=== PATIENT | female | born 1970 | race Caucasian/White ===

== ENCOUNTER 2016-09-26 17:25 | Emergency (ER) | payer MEDICAID, MEDICARE, OTHER ==
[2016-09-26 19:12] VITALS: BP 123/80
--- NOTE | 2016-09-26 20:21 | RAD ---
HISTORY: Trauma, neck pain COMPARISONS: CT dated January 18, 2014 VIEWS: 1, single lateral projection of the cervical spine FINDINGS: The cervical spine is visualized from the skull base through C7. The C7-T1 alignment is not included within the [id number]. ALIGNMENT: There is straightening of the normal cervical lordosis. VERTEBRAL BODIES: Unremarkable JOINTS: There is no subluxation or dislocation. The facet joints are unremarkable. INTERVERTEBRAL DISCS: The intervertebral disc heights are normal. SOFT TISSUE: The prevertebral soft tissues are normal. OTHER: The skull base is normal. The lung apices are clear. IMPRESSION: LIMITED SINGLE LATERAL PROJECTION OF THE CERVICAL SPINE THROUGH C7. STRAIGHTENING OF THE CERVICAL LORDOSIS. NO ACUTE OSSEOUS INJURY ON THIS LIMITED SINGLE PROJECTION.
--- NOTE | 2016-09-26 20:28 | RAD ---
HISTORY: Trauma, pain, back pain and stiffness COMPARISONS: October 31, 2005 VIEWS: 3, Frontal and lateral views of the thoracic spine. FINDINGS: ALIGNMENT: There is a scoliotic curvature of the spine. This is similar to the previous examination. VERTEBRAL BODIES: There is mild anterolateral marginal osteophyte formation. Vertebral bodies are preserved in height. JOINTS: Unremarkable. INTERVERTEBRAL DISCS: There is diffuse loss of intervertebral disc height. SOFT TISSUE: Unremarkable OTHER: The visualized lungs are clear. IMPRESSION: SCOLIOSIS WITH MILD DEGENERATIVE CHANGES.
--- NOTE | 2016-09-26 20:29 | RAD ---
HISTORY: Trauma, right wrist pain COMPARISONS: None VIEWS: 3, Frontal, lateral, and oblique views of the right wrist FINDINGS: BONE DENSITY: Normal. BONES: There is no displaced fracture. JOINTS: There is no arthropathy. ALIGNMENT: There is no dislocation. SOFT TISSUES: Unremarkable. OTHER FINDINGS: None. IMPRESSION: NO ACUTE OSSEOUS INJURY. IF SYMPTOMS PERSIST, RECOMMEND REPEAT IMAGING.
--- NOTE | 2016-09-26 20:41 | RAD ---
HISTORY: Trauma, neck pain COMPARISONS: CT dated January 18, 2014 VIEWS: 5, Frontal, lateral, open-mouth odontoid, and bilateral oblique views of the cervical spine. FINDINGS: The cervical spine is visualized from the skull base through T1. ALIGNMENT: There is straightening of the normal cervical lordosis. VERTEBRAL BODIES: The odontoid process is intact. The atlantoaxial intervals are symmetric. JOINTS: There is no subluxation or dislocation. The facet joints are unremarkable. There is no osseous neural foraminal narrowing on the oblique views INTERVERTEBRAL DISCS: The intervertebral disc heights are normal. SOFT TISSUE: The prevertebral soft tissues are normal. OTHER: The skull base is normal. The lung apices are clear. IMPRESSION: STRAIGHTENING OF THE CERVICAL LORDOSIS. NO ACUTE OSSEOUS INJURY TO THE CERVICAL SPINE
[2016-09-26] MEDS ORDERED: HYDROcodone/ACETAMIN 5-325 MG* 1 TAB PO ONE (20:53)
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
== END 2016-09-26 21:31 | disposition home or self-care (01) ==
LOC: UCEAST 17:25
DX: Z78.0 Asymptomatic menopausal state (principal); Z91.030 Bee allergy status; J45.909 Unspecified asthma, uncomplicated; S16.1XXA Strain of muscle, fascia and tendon at neck level, initial encounter; S29.012A Strain of muscle and tendon of back wall of thorax, initial encounter; R03.0 Elevated blood-pressure reading, without diagnosis of hypertension; R52 Pain, unspecified; V43.52XA Car driver injured in collision with other type car in traffic accident, initial encounter
CPT/HCPCS: 72020; 72050; 72070; 99213; G0463

== ENCOUNTER 2017-08-25 08:06 | Emergency (ER) | payer MEDICARE, MEDICAID ==
[2017-08-25] MEDS ORDERED: Metoclopramide IV* 5 MG/ML 2 ML VIAL IV SLOW PU ONE (09:32)
[2017-08-25] MEDS ORDERED: Ketorolac INJ* 30 MG/ML 1 ML VIAL IV PUSH ONE (09:32)
[2017-08-25 09:59] LABS: ABS Basophils 0.1 10^3/ul (0-0.2); ABS Eosinophils 0 10^3/ul (0-0.6); ABS Lymphocytes 2.1 10^3/ul (1.0-4.8); ABS Monocytes 0.5 10^3/ul (0-0.8); ABS Neutrophils 7.7 10^3/ul (1.5-7.7); ABS Nucleated RBC 0 10^3/ul; Eosinophil % 0 % (0-6); Hematocrit 33 % (35-47); Hemoglobin 10.7 g/dl (12.0-16.0); Lymphocyte % 20.5 % (25-47); Mean Corpuscular HGB Conc 32 g/dl (31-36); Mean Corpuscular Hemoglobin 25 pg (27-31); Mean Corpuscular Volume 77 fL (80-97); Mean Platelet Volume 7.8 um3 (7.4-10.4); Nucleated Red Blood Cells % 0; Platelet Count 380 10^3/ul (150-450); Red Blood Count 4.35 10^6/ul (4.0-5.4); Red Cell Distribution Width 18 % (10.5-15); White Blood Count 10.4 10^3/ul (3.5-10.8)
[2017-08-25 10:03] LABS: INR 0.94 (0.77-1.02)
[2017-08-25 10:04] LABS: Urine Appearance Clear; Urine Blood 2+ (Negative); Urine Color Straw; Urine Ketones Negative (Negative); Urine Protein Negative (Negative); Urine Specific Gravity 1.003 (1.010-1.030); Urine Urobilinogen Negative (Negative)
[2017-08-25 10:12] LABS: EGFR Non-African American 54.9 (>60)
--- NOTE | 2017-08-25 10:13 | RAD ---
HISTORY: Headache, blurry vision COMPARISONS: None TECHNIQUE: Multiple contiguous axial CT scans were obtained of the head without intravenous contrast. FINDINGS: HEMORRHAGE/INFARCT: There is no hemorrhage or acute infarct. MASSES/SHIFT: There is no mass or shift. EXTRA-AXIAL SPACES: There are no extra-axial fluid collections. SULCI AND VENTRICLES: The sulci and ventricles are normal in size and position for the patient's stated age. CEREBRUM: There are no focal parenchymal abnormalities. BRAINSTEM: There are no focal parenchymal abnormalities. CEREBELLUM: There are no focal parenchymal abnormalities. VESSELS: The vessels are grossly normal. PARANASAL SINUSES: The paranasal sinuses are clear. ORBITS: The orbits are unremarkable. BONES AND SOFT TISSUE: No bone or soft tissue abnormalities are noted. OTHER: None IMPRESSION: NO ACUTE INTRACRANIAL PATHOLOGY.
--- NOTE | 2017-08-25 10:15 | RAD ---
HISTORY: Atraumatic pain, Manuela Danlos syndrome COMPARISONS: June 12, 2014 VIEWS: 4, Frontal view of the pelvis with frontal and frog-leg views of the right hip FINDINGS: BONE DENSITY: Normal. BONES: There is no displaced fracture. JOINTS: There is no arthropathy. ALIGNMENT: There is no dislocation. SOFT TISSUES: Unremarkable. OTHER FINDINGS: None. IMPRESSION: NO ACUTE OSSEOUS INJURY. IF SYMPTOMS PERSIST, RECOMMEND REPEAT IMAGING.
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
[2017-08-25 12:11] VITALS: BP 102/60
== END 2017-08-25 12:10 | disposition home or self-care (01) ==
LOC: ED 08:06
DX: R51 Headache (principal); H53.8 Other visual disturbances; Z88.8 Allergy status to other drugs, medicaments and biological substances; J45.909 Unspecified asthma, uncomplicated; F43.20 Adjustment disorder, unspecified; M79.7 Fibromyalgia; G89.29 Other chronic pain; Q79.6 Ehlers-Danlos syndromes; Z79.899 Other long term (current) drug therapy; R07.9 Chest pain, unspecified; R06.02 Shortness of breath
CPT/HCPCS: 36415; 70450; 80053; 81003; 81015; 83605; 84484; 85025; 85610; 85730; 87086; 93005; 96374; 96375; 99283; J1885; J2765

== ENCOUNTER 2018-05-01 17:31 | Emergency (ER) | payer MEDICARE, MEDICAID ==
--- OUTSIDE RECORDS SUMMARY | 2018-05-01 17:47 | XMS REPORT | Continuity of Care Document ---
:1970 External Reference #:[id number] Author Name Wm Delaney MD Address [address] [place] [address] Care Team Providers Name Role Phone Danny Powers MD Care Team Information Newscast Director Unavailable Danny Powers MD Primary Care Physician Unavailable Payers Type Date Identification Numbers Payment Provider Subscriber Policy Number: [id number] Medicare [place] Sammie Vega PayID: [id number] [address] [place] [address] Policy Number: [id number] Medicaid [place] Sammie Vega PayID: [id number] [address] [place] [address] Expires: 2017 Policy Number: [id number] Medicaid [place] Sammie Vega PayID: [id number] [address] [place] [address] Expires: 2017 Policy Number: [id number] [place] Sammie Vega PayID: [id number] [address] [place] [id number] Advance Directives Description No Information Available Problems Date Description Provider Status Onset: 05/12/2017 Allergic rhinitis Wm Delaney MD Active Onset: 05/12/2017 Allergic rhinitis due to pollen Wm Delaney MD Active Onset: 05/12/2017 Uncomplicated severe persistent Wm Delaney MD Active asthma Onset: 06/15/2016 Moderate persistent asthma Wm Delaney MD Active Onset: 06/10/2016 Anaphylaxis Wm Delaney MD Active Family History Description No Information Available Social History Type Date Description Comments Sex Unknown Pets None Tobacco Use Start: Unknown Patient has never smoked Tobacco Use Start: Unknown No Second Hand Smoke Exposure Smoking Status Reviewed: 12/29/17 No Second Hand Smoke Exposure Allergies, Adverse Reactions, Alerts Date Description Reaction Status Severity Comments 01/16/2015 Benadryl Active 01/16/2015 Amitriptyline Active 01/16/2015 Cortisone Active 05/12/2017 Omalizumab Active Medications Medication Date Status Form Strength Qnty SIG Indications Ordering Provider Midodrine HCL 12/29 Active Tablets 2.5mg po Gabriele Delaney MD Fasenra 06/02 Active Soln 30mg/ml Prefill Gabriele Delaney MD Syringe Prednisone 05/12 Active Tablets 5mg 60tab 6 tablets J45.50 s (30 mg) Gabriele Delaney MD by mouth twice a day x 5 days Combivent 06/29 Active Aerosol 20-100mcg 1unit 1 puff 6 Respimat /2016 /Act s times a Gabriele Delaney MD day as needed Montelukast 04/14 Active Tablets 10mg 30tab Take One [place], Sodium s Tablet By HANNAH Olivares Mouth Once Daily In The Evening Symbicort 08/13 Active Aerosol 160-4.5mc 10.20 inhale g/Act 0gm two puffs Gabriele Delaney MD by mouth twice daily Levocetirizine 06/29 Active Tablets 5mg 30tab Take One [facility] Dihydrochloride s Tablet By Gabriele Delaney MD Mouth Once Daily AT Bedtime Epipen 2-Pool 01/16 Active Solution 0.3mg/0.3 2unit as Auto-Injec ML s directed Gabriele Delaney MD t Levalbuterol HCL Active Nebulizer 1.25mg/3M 72ml use in L nebulizer Gabriele Dealney MD as directed every 6 hours as needed Duloxetine HCL Active Caps DR 60mg take 2 Unknown Part capsules (120 mg) by oral route once daily Omeprazole Active Capsules 20mg take [address] capsule by oral route 2 times a day for 10 days Bupropion HCL ER Active Tablets ER 150mg take 1 Unknown (SR) 12HR tablet (150 mg) by oral route once daily Triamterene/Hydr Active Capsules 37.5-25mg take 1 Unknown ochlorothiazide /0000 capsule by oral route daily as needed Belsomra Active Tablets 20mg Unknown /0000 Duloxetine HCL Active Caps DR 30mg take 1 Unknown /0000 Part tab by mouth every daily Dicyclomine HCL Active Capsules 10mg Unknown / Alprazolam Active Tablets 1mg Unknown / Gabapentin Active Capsules 300mg 1 by Unknown / mouth three times a day Vitamin D3 High Active Capsules 1000Unit Unknown Potency /0000 Zinc Active Unknown / Nadolol Active Tablets 20mg 10 mg Unknown tab PO daily Dulera 08/02 Hx Aerosol 200-5mcg/ 8.800 inhale 2 Act gm puffs by Gabriele Delaney MD - inhalatio 08/13 n route times per day in the morning and evening for 99 days Prednisone 07/03 Hx Tablets 5mg 100ta Follow bs taper as Gabriele Delaney MD - directed 06/15 Prednisone 06/29 Hx Tablets 10mg 30tab Take 3 s tablets Gabriele Delaney MD - by mouth 07/03 twice day for 5 days. Take with food. Xopenex HFA 01/16 Hx Aerosol 45mcg/Act 2 puffs q 4 prn - 05/12 Ventolin HFA Hx Aerosol 108(90Bas inhale 2 Unknown / e) puffs - mcg/Act (180 mcg) 06/29 inhalatio n route every 4 hours as needed Eszopiclone Hx Tablets 3mg take 1 Unknown tablet (3 - mg) by 05/12 oral route once daily at bedtime Trazodone HCL Hx Tablets 50mg take 1 Unknown /0000 tablet by - oral 06/29 route times a day as needed Clonazepam Hx Tablets 1mg take 2 Unknown /0000 tablets - by oral 05/12 route times a day as needed Singulair Hx Tablets 10mg 30tab take 1 s tablet Gabriele Delaney MD - (10 mg) 05/12 by oral route once daily in the evening Medications Administered in Office Medication Date Status Form Strength Qnty SIG Indications Ordering Provider Unclassified 02/23/ Administered Injection [facility] 2017 Gabriele Delaney MD Therapeutic, 02/23/ Administered Injection [facility] Prophylactic 2017 Gabriele Delaney MD Or Diagnostic Injection Subq/Im Unclassified 10/20/ Administered Injection [facility] 2017 Gabriele Delaney MD Chemotherpy 10/20/ Administered Injection [facility] 2017 Gabriele Delaney MD Subcutaneous/I m Non-Hormonal Anti-Neoplasti c Fasenra 30 MG 09/22/ Administered Injection Injection 1 Single Dose 2017 Unclassified 09/22/ Administered Injection [facility] 2017 Gabriele Delaney MD Chemotherpy 09/22/ Administered Injection [facility] 2017 Gabriele Delaney MD Subcutaneous/I m Non-Hormonal Anti-Neoplasti c Chemotherpy 09/22/ Administered Injection Injection 1 Admin 2017 Subcutaneous/I m Non-Hormonal Anti-Neoplasti c Fasenra 30 MG 08/11/ Administered Injection Injection 1 Single Dose 2017 Unclassified 08/11/ Administered Injection [facility] 2017 Gabriele Delaney MD Chemotherpy 08/11/ Administered Injection [facility] 2017 Gabriele Delaney MD Subcutaneous/I m Non-Hormonal Anti-Neoplasti c Chemotherpy 08/11/ Administered Injection Injection 1 Admin 2017 Subcutaneous/I m Non-Hormonal Anti-Neoplasti c Injection 06/10/ Administered Injection [facility] Omalizumab 5 2016 Gabriele Delaney MD MG Injection, 06/10/ Administered Injection [facility] Adrenalin, 2016 Gabriele Delaney MD Epinephrine, 0.1 MG Chemotherpy 06/10/ Administered Injection [facility] 2016 Gabriele Delaney MD Subcutaneous/I m Non-Hormonal Anti-Neoplasti c Chemotherpy 06/10/ Administered Injection [facility] 2016 Gabriele Delaney MD Subcutaneous/I m Non-Hormonal Anti-Neoplasti c Therapeutic, 06/10/ Administered Injection [facility] Prophylactic 2016 Gabriele Delaney MD Or Diagnostic Injection Subq/Im Injection 05/13/ Administered Injection [facility] Omalizumab 5 2015 Gabriele Delaney MD MG Chemotherpy 05/13/ Administered Injection [facility] 2015 Gabriele Delaney MD Subcutaneous/I m Non-Hormonal Anti-Neoplasti c Chemotherpy 05/13/ Administered Injection [facility] 2015 Gabriele Delaney MD Subcutaneous/I m Non-Hormonal Anti-Neoplasti c Injection 04/15/ Administered Injection [facility] Omalizumab 2015 Gabriele Delaney MD MG Chemotherpy 04/15/ Administered Injection [facility] 2015 Gabriele Delaney MD Subcutaneous/I m Non-Hormonal Anti-Neoplasti c Chemotherpy 04/15/ Administered Injection [facility] 2015 Gabriele Delaney MD Subcutaneous/I m Non-Hormonal Anti-Neoplasti c Injection 03/18/ Administered Injection [facility] Omalizumab 2015 Gabriele Delaney MD MG Chemotherpy 03/18/ Administered Injection [facility] 2015 Gabriele Delaney MD Subcutaneous/I m Non-Hormonal Anti-Neoplasti c Chemotherpy 03/18/ Administered Injection [facility] 2015 Gabriele Delaney MD Subcutaneous/I m Non-Hormonal Anti-Neoplasti c Injection 02/09/ Administered Injection [facility] Omalizumab 2015 Gabriele Delaney MD MG Chemotherpy 02/09/ Administered Injection [facility] 2015 Gabriele Delaney MD Subcutaneous/I m Non-Hormonal Anti-Neoplasti c Chemotherpy 02/09/ Administered Injection [facility] 2015 Gabriele Delaney MD Subcutaneous/I m Non-Hormonal Anti-Neoplasti c Injection 01/12/ Administered Injection [facility] Omalizumab 2015 Gabriele Delaney MD MG Chemotherpy 01/12/ Administered Injection [facility] 2015 Gabrieel Delaney MD Subcutaneous/I m Non-Hormonal Anti-Neoplasti c Chemotherpy 01/12/ Administered Injection [facility] 2015 Gabriele Delaney MD Subcutaneous/I m Non-Hormonal Anti-Neoplasti c Injection 12/15/ Administered Injection [facility] Omalizumab 2015 Gabriele Delaney MD MG Chemotherpy 12/15/ Administered Injection [facility] 2015 Gabriele Delaney MD Subcutaneous/I m Non-Hormonal Anti-Neoplasti c Chemotherpy 12/15/ Administered Injection [facility] 2015 Gabriele Delaney MD Subcutaneous/I m Non-Hormonal Anti-Neoplasti c Injection 11/17/ Administered Injection [facility] Omalizumab 2015 Gabriele Delaney MD MG Chemotherpy 11/17/ Administered Injection [facility] 2015 Gabriele Delaney MD Subcutaneous/I m Non-Hormonal Anti-Neoplasti c Chemotherpy 11/17/ Administered Injection [facility] 2015 Gabriele Delaney MD Subcutaneous/I m Non-Hormonal Anti-Neoplasti c Injection 10/13/ Administered Injection [facility] Omalizumab 2015 Gabriele Delaney MD MG Chemotherpy 10/13/ Administered Injection [facility] 2015 Gabriele Delaney MD Subcutaneous/I m Non-Hormonal Anti-Neoplasti c Chemotherpy 10/13/ Administered Injection [facility] 2015 Gabriele Delaney MD Subcutaneous/I m Non-Hormonal Anti-Neoplasti c Injection 09/01/ Administered Injection [facility] Omalizumab 2015 Gabriele Delaney MD MG Chemotherpy 09/01/ Administered Injection [facility] 2015 Gabriele Delaney MD Subcutaneous/I m Non-Hormonal Anti-Neoplasti c Chemotherpy 09/01/ Administered Injection [facility] 2015 Gabriele Delaney MD Subcutaneous/I m Non-Hormonal Anti-Neoplasti c Injection 07/30/ Administered Injection [facility] Omalizumab 2015 Gabriele Delaney MD MG Chemotherpy 07/30/ Administered Injection [facility] 2015 Gabriele Delaney MD Subcutaneous/I m Non-Hormonal Anti-Neoplasti c Chemotherpy 07/30/ Administered Injection [facility] 2015 Gabriele Delaney MD Subcutaneous/I m Non-Hormonal Anti-Neoplasti c Injection 07/03/ Administered Injection [facility] Omalizumab 2015 Gabriele Delaney MD MG Chemotherpy 07/03/ Administered Injection [facility] 2015 Gabriele Delaney MD Subcutaneous/I m Non-Hormonal Anti-Neoplasti c Chemotherpy 07/03/ Administered Injection [facility] 2015 Gabriele Delaney MD Subcutaneous/I m Non-Hormonal Anti-Neoplasti c Immunizations Description No Information Available Vital Signs Date Vital Result Comment 12/29/2017 1:17pm BP Systolic 112 mmHg BP Diastolic 71 mmHg Height 68 inches 5'8" Weight 255.00 lb BMI (Body Mass Index) 38.8 kg/m2 Heart Rate 74 /min Body Temperature 97.4 F O2 % BldC Oximetry 96 % 05/12/2017 8:55am BP Systolic 120 mmHg BP Diastolic 78 mmHg Height 68 inches 5'8" Weight 255.00 lb BMI (Body Mass Index) 38.8 kg/m2 Heart Rate 97 /min Body Temperature 97.5 F O2 % BldC Oximetry 97 % 06/29/2016 2:38pm BP Systolic 108 mmHg BP Diastolic 72 mmHg Height 68 inches 5'8" Weight 239.00 lb BMI (Body Mass Index) 36.3 kg/m2 Heart Rate 85 /min Respiratory Rate 14 /min Body Temperature 97.5 F O2 % BldC Oximetry 97 % 06/15/2016 11:15am BP Systolic 110 mmHg BP Diastolic 76 mmHg Height 67.25 inches 5'7.25" Weight 239.00 lb BMI (Body Mass Index) 37.2 kg/m2 Heart Rate 91 /min Respiratory Rate 14 /min coughing O2 % BldC Oximetry 98 % 06/10/2016 5:37pm BP Systolic 120 mmHg BP Diastolic 80 mmHg Heart Rate 101 /min Body Temperature 97.3 F O2 % BldC Oximetry 97 % 01/30/2015 4:51pm BP Systolic 122 mmHg BP Diastolic 78 mmHg Height 68 inches Weight 238.00 lb Heart Rate 78 /min 01/16/2015 11:59am BP Systolic 121 mmHg BP Diastolic 80 mmHg Height 68 inches Weight 238.00 lb Heart Rate 96 /min Results Test Date Facility Test Result H/L Range Note Order 12/29/2017 [facility] Nitric Oxide <pending> PFT Supplies <pending> PFT With Bronchodilator <pending> Order 06/10/2016 [facility] Nebulizer Treatment < pending> Procedures Date Code Description Status 02/23/2018 93107 Therapeutic, Prophylactic Or Diagnostic Injection Subq/Im Completed 12/29/2017 95979 Nitric Oxide Gas Determination Completed 12/29/2017 36345 Nitric Oxide Gas Determination Completed 12/29/2017 51522 Bronchodilation Responsiveness Spirometry Pre/Post Completed Bronchodil Adm 12/29/2017 61832 Bronchodilation Responsiveness Spirometry Pre/Post Completed Bronchodil Adm 10/20/2017 77892 Chemotherpy Admin Subcutaneous/Im Non-Hormonal Completed Anti-Neoplastic 09/22/2017 21257 Chemotherpy Admin Subcutaneous/Im Non-Hormonal Completed Anti-Neoplastic 09/22/2017 19796 Chemotherpy Admin Subcutaneous/Im Non-Hormonal Completed Anti-Neoplastic 08/11/2017 32423 Chemotherpy Admin Subcutaneous/Im Non-Hormonal Completed Anti-Neoplastic 08/11/2017 43476 Chemotherpy Admin Subcutaneous/Im Non-Hormonal Completed Anti-Neoplastic 05/12/2017 98674 Nitric Oxide Gas Determination Completed 05/12/2017 98817 Bronchodilation Responsiveness Spirometry Pre/Post Completed Bronchodil Adm 06/29/2016 95585 Nitric Oxide Gas Determination Completed 06/15/2016 35816 Nitric Oxide Gas Determination Completed 06/15/2016 50976 Bronchodilation Responsiveness Spirometry Pre/Post Completed Bronchodil Adm 06/10/2016 35200 Spirometry Completed 06/10/2016 53353 Pressurized/Non-Pressurized Inhalation Treatment,Acute Completed Obstructio 06/10/2016 37330 Therapeutic, Prophylactic Or Diagnostic Injection Subq/Im Completed 06/10/2016 94628 Chemotherpy Admin Subcutaneous/Im Non-Hormonal Completed Anti-Neoplastic 06/10/2016 07610 Chemotherpy Admin Subcutaneous/Im Non-Hormonal Completed Anti-Neoplastic 05/13/2016 57403 Chemotherpy Admin Subcutaneous/Im Non-Hormonal Completed Anti-Neoplastic 05/13/2016 41986 Chemotherpy Admin Subcutaneous/Im Non-Hormonal Completed Anti-Neoplastic 04/15/2016 59256 Chemotherpy Admin Subcutaneous/Im Non-Hormonal Completed Anti-Neoplastic 04/15/2016 36097 Chemotherpy Admin Subcutaneous/Im Non-Hormonal Completed Anti-Neoplastic 04/15/2016 64781 Spirometry Completed 03/18/2016 70808 Chemotherpy Admin Subcutaneous/Im Non-Hormonal Completed Anti-Neoplastic 03/18/2016 81940 Chemotherpy Admin Subcutaneous/Im Non-Hormonal Completed Anti-Neoplastic 03/18/2016 60530 Spirometry Completed 02/10/2016 40761 Spirometry Completed 02/10/2016 39163 Spirometry Completed 02/10/2016 61378 Chemotherpy Admin Subcutaneous/Im Non-Hormonal Completed Anti-Neoplastic 02/10/2016 89778 Chemotherpy Admin Subcutaneous/Im Non-Hormonal Completed Anti-Neoplastic 01/13/2016 74738 Chemotherpy Admin Subcutaneous/Im Non-Hormonal Completed Anti-Neoplastic 01/13/2016 67952 Chemotherpy Admin Subcutaneous/Im Non-Hormonal Completed Anti-Neoplastic 01/13/2016 67201 Spirometry Completed 12/16/2015 74105 Chemotherpy Admin Subcutaneous/Im Non-Hormonal Completed Anti-Neoplastic 12/16/2015 05676 Chemotherpy Admin Subcutaneous/Im Non-Hormonal Completed Anti-Neoplastic 12/16/2015 75863 Bronchodilation Responsiveness Spirometry Pre/Post Completed Bronchodil Adm 11/18/2015 07945 Chemotherpy Admin Subcutaneous/Im Non-Hormonal Completed Anti-Neoplastic 11/18/2015 32573 Chemotherpy Admin Subcutaneous/Im Non-Hormonal Completed Anti-Neoplastic 11/18/2015 19128 Bronchodilation Responsiveness Spirometry Pre/Post Completed Bronchodil Adm 10/14/2015 53252 Spirometry Completed 10/14/2015 93572 Spirometry Completed 10/14/2015 38684 Chemotherpy Admin Subcutaneous/Im Non-Hormonal Completed Anti-Neoplastic 10/14/2015 53908 Chemotherpy Admin Subcutaneous/Im Non-Hormonal Completed Anti-Neoplastic 09/02/2015 21573 Chemotherpy Admin Subcutaneous/Im Non-Hormonal Completed Anti-Neoplastic 09/02/2015 66622 Chemotherpy Admin Subcutaneous/Im Non-Hormonal Completed Anti-Neoplastic 09/02/2015 76712 Spirometry Completed 07/31/2015 85280 Chemotherpy Admin Subcutaneous/Im Non-Hormonal Completed Anti-Neoplastic 07/31/2015 78857 Chemotherpy Admin Subcutaneous/Im Non-Hormonal Completed Anti-Neoplastic 07/31/2015 89182 Spirometry Completed 07/31/2015 28697 Spirometry Completed 07/03/2015 71728 Chemotherpy Admin Subcutaneous/Im Non-Hormonal Completed Anti-Neoplastic 07/03/2015 28692 Chemotherpy Admin Subcutaneous/Im Non-Hormonal Completed Anti-Neoplastic 07/03/2015 78175 Spirometry Completed 07/03/2015 08017 Spirometry Completed 06/29/2015 85854 Spirometry Completed Encounters Type Date Location Provider Dx Diagnosis Office Visit 12/29/2017 RENE [facility]ne[facility] J45.50 Severe persistent asthma, 1:00p uncomplicated J30.1 Allergic rhinitis due to pollen J30.89 Other allergic rhinitis Office Visit 05/12/2017 8:30a Damion Winters45.50 Severe persistent MD [facility], uncomplicated J30.1 Allergic rhinitis due to pollen J30.89 Other allergic rhinitis Office Visit 06/29/2016 2:30p Damion Winters45.40 Moderate persistent MD [facility] asthma, uncomplicated Office Visit 06/15/2016 11:00a [place] Wm Suazo J45.40 Moderate persistent MD [facility] asthma, uncomplicated Office Visit 06/10/2016 4:30p [place] Winters45.40 Moderate persistent MD [facility] asthma, uncomplicated T88.6xxA Anaphyl reaction due to advrs eff drug/med prop admin, init Plan of Treatment Future Appointment(s):04/25/2018 3:35 pm - Injection 1 at [id number]/11/2018 1: 30 pm - Angie Grigsby RPA-C at [place]
--- NOTE | 2018-05-01 21:46 | ED ---
Lower Extremity - HPI Summary HPI Summary: Patient complains of sudden onset pain in anterior right thigh 2 weeks. Denies trauma, history of same, history of blood clots. Denies any other pain, symptoms or injury. Patient cannot take NSAIDs, denies relief with Tylenol. Patient states history of needing right knee replacement, but was denied due to being too young. Medical history is fibromyalgia, chronic knee pain, and Manuela -Danlos. - History of Current Complaint Chief Complaint: EDExtremityLower Stated Complaint: RT LEG PAIN Time Seen by Provider: 05/01/18 18:27 Hx Obtained From: Patient Hx Last Menstrual Period: menopausal Mechanism Of Injury: Unknown Onset/Duration: Still Present Severity Initially: Moderate Severity Currently: Moderate Pain Intensity: 6 Pain Scale Used: 0-10 Numeric Timing: Constant Location: Is Discrete @ Character Of Pain: Aching Associated Signs And Symptoms: Positive: Negative Aggravating Factor(s): Ambulation, Movement, Weight Bearing Alleviating Factor(s): Rest Able to Bear Weight: Yes - Allergies/Home Medications Allergies/Adverse Reactions: Allergies Allergy/AdvReac Type Severity Reaction Status Date / Time adhesive Allergy Hives Verified 08/25/17 09:18 amitriptyline Allergy Unknown Verified 08/25/17 09:18 Reaction Details bee venom protein (honey bee) Allergy Anaphylatic Verified 08/25/17 09:18 Shock cortisone Allergy Swelling Verified 08/25/17 09:18 diphenhydramine Allergy Palpitation Verified 08/25/17 09:18 [From Benadryl] s omalizumab [From Xolair] Allergy Anaphylatic Verified 08/25/17 09:18 Shock strawberry Allergy Hives Verified 08/25/17 09:18 PMH/Surg Hx/FS Hx/Imm Hx Endocrine/Hematology History: Denies: Hx Diabetes, Hx Thyroid Disease Cardiovascular History: Denies: Hx Hypertension, Hx Pacemaker/ICD Respiratory History: Reports: Hx Asthma Denies: Hx Chronic Obstructive Pulmonary Disease (COPD), Hx Sleep Apnea - re- evaluation 02/2013 no JOSÉ detected. GI History: Reports: Hx Ulcer History: Denies: Hx Renal Disease Musculoskeletal History: Reports: Other Musculoskeletal History - Manuela-Danlos Syndrome Sensory History: Reports: Hx Contacts or Glasses Denies: Hx Hearing Aid Opthamlomology History: Reports: Hx Contacts or Glasses Psychiatric History: Denies: Hx Panic Disorder - Cancer History Hx Chemotherapy: No Hx Radiation Therapy: No - Surgical History Surgery Procedure, Year, and Place: NERVE REMOVED LEFT FOOT,. UTERINE SURGERY TO REMOVE CYSTS. ENDOMETRIOSIS AND FIBROID TUMORS - Immunization History Date of Tetanus Vaccine: unknown Infectious Disease History: No Infectious Disease History: Denies: Hx Clostridium Difficile, Hx Hepatitis, Hx Human Immunodeficiency Virus (HIV), Hx of Known/Suspected MRSA, Hx Shingles, Hx Tuberculosis, Traveled Outside the [place] in Last 30 Days - Family History Known Family History: Positive: Other - degenerative arthritis - Social History Alcohol Use: Rare Substance Use Type: Reports: None Smoking Status (MU): Never Smoked Tobacco Review of Systems Constitutional: Negative Eyes: Negative ENT: Negative Cardiovascular: Negative Respiratory: Negative Gastrointestinal: Negative Genitourinary: Negative Positive: Myalgia Skin: Negative Neurological: Negative Psychological: Normal All Other Systems Reviewed And Are Negative: Yes Physical Exam - Summary Physical Exam Summary: No erythema, ecchymosis, deformity, swelling, extra warmth noted to right hip, right thigh, right knee, entire right lower extremity. PMS intact distally. Tenderness to palpation of right anterior thigh. Pain with flexion of right hip. Triage Information Reviewed: Yes Vital Signs On Initial Exam: Initial Vitals Temp Pulse Resp BP Pulse Ox 97.9 F 93 18 137/74 98 05/01/18 17:36 05/01/18 17:36 05/01/18 17:36 05/01/18 17:36 05/01/18 17:36 Vital Signs Reviewed: Yes Appearance: Positive: Well-Appearing Skin: Positive: Warm Head/Face: Positive: Normal Head/Face Inspection Eyes: Positive: Normal Neck: Positive: Supple Respiratory/Lung Sounds: Positive: Clear to Auscultation Cardiovascular: Positive: Normal Abdomen Description: Positive: Nontender Musculoskeletal: Positive: Normal Neurological: Positive: Normal Psychiatric: Positive: Normal AVPU Assessment: Alert - [place] Coma Scale Best Eye Response: 4 - Spontaneous Best Motor Response: 6 - Obeys Commands Best Verbal Response: 5 - Oriented Coma Scale Total: 15 Diagnostics - Vital Signs Vital Signs Temp Pulse Resp BP Pulse Ox 05/01/18 17:36 97.9 F 93 18 137/74 98 - Laboratory Lab Statement: Any lab studies that have been ordered have been reviewed, and results considered in the medical decision making process. Lower Extremity Course/Dx - Course Course Of Treatment: Patient complains of sudden onset pain in anterior right thigh 2 weeks. Denies trauma, history of same, history of blood clots. Denies any other pain, symptoms or injury. Patient cannot take NSAIDs, denies relief with Tylenol. Patient states history of needing right knee replacement, but was denied due to being too young. Medical history is fibromyalgia, chronic knee pain, and Manuela-Danlos. Physical exam:No erythema, ecchymosis, deformity , swelling, extra warmth noted to right hip, right thigh, right knee, entire right lower extremity. PMS intact distally. Tenderness to palpation of right anterior thigh. Pain with flexion of right hip. Vital signs within normal limits. Ultrasound negative for DVT. Likely muscle sprain. Rx for Valium. Follow-up with orthopedics if symptoms persist. - Diagnoses Provider Diagnoses: Musculoskeletal pain Discharge - Sign-Out/Discharge Documenting (check all that apply): Patient Departure - Discharge Plan Condition: Stable Disposition: HOME Prescriptions: Diazepam TAB(*) [Valium TAB(*)] 5 mg PO BID 3 Days #6 tab MDD 3 tabs Patient Education Materials: Musculoskeletal Pain (ED) Referrals: Danny Powers MD [Primary Care Provider] - Jorden Wade MD [Medical Doctor] - Additional Instructions: If pain persists follow-up with orthopedics Dr. Wade. Return to the ED for any new or worsening symptoms. - Billing Disposition and Condition Condition: STABLE Disposition: Home
[2018-05-01 22:11] VITALS: BP 128/72
== END 2018-05-01 22:10 | disposition home or self-care (01) ==
LOC: ED 17:31
DX: M79.7 Fibromyalgia (principal); Q79.6 Ehlers-Danlos syndromes; Z91.030 Bee allergy status; Z88.8 Allergy status to other drugs, medicaments and biological substances; Z91.018 Allergy to other foods; Z91.048 Other nonmedicinal substance allergy status
CPT/HCPCS: 99281

== ENCOUNTER 2018-10-02 12:25 | Inpatient (IN) | payer MEDICARE, MEDICAID ==
--- NOTE | 2018-09-21 18:57 | HP ---
HISTORY AND PHYSICAL: DATE OF ADMISSION/SURGERY: 10/02/18 DATE OF OFFICE VISIT: 09/21/18 SURGEON: Alma Byers MD* (dictated by RENE Tovar). PROCEDURE: Right total knee arthroplasty. CHIEF COMPLAINT: Right knee pain. HISTORY OF PRESENT ILLNESS: Ms. Vega is a 47-year-old female with end-stage osteoarthritis of the right knee. She has failed conservative treatment and elected to proceed with a right total knee arthroplasty. PAST MEDICAL HISTORY: Hypertension, GERD, fibromyalgia, Manuela-Danlos syndrome , asthma, and sleep apnea. PAST SURGICAL HISTORY: Neuroma excision, fibroid tumor excision, wisdom teeth extraction. CURRENT MEDICATIONS: 1. EpiPen as needed. 2. Bupropion 150 mg twice a day. 3. Montelukast sodium 10 mg a day. 4. Combivent Respimat inhaler 2 puffs daily. 5. Dicyclomine 10 mg a day. 6. Symbicort inhaler 2 puffs twice a day. 7. Levocetirizine 5 mg daily. 8. Duloxetine 30 mg a day. 9. Zinc 75 mg daily. 10. Slow Release Iron. 11. Pantoprazole 40 mg a day. 12. Midodrine 2.5 mg 3 times a day. 13. Nadolol 10 mg a day. 14. Belsomra. 15. Levalbuterol. 16. Fluticasone. ALLERGIES: To BENADRYL and AMITRIPTYLINE. FAMILY HISTORY: Coronary artery disease, cancer, hypertension, emphysema. SOCIAL HISTORY: She is a 47-year-old female. She lives alone. She does not smoke or use drugs or alcohol. REVIEW OF SYSTEMS: A complete 14-point review of systems was reviewed with the patient. It was positive for GERD and asthma. She denies history of DVT, PE, hepatitis, HIV, or anesthesia problems. PHYSICAL EXAMINATION GENERAL: She is well developed, well nourished, in no acute distress. She is alert and oriented x3, pleasant and appropriate affect. VITAL SIGNS: She stands 5 feet 7 inches tall, weighs 257 pounds. Blood pressure is 132/70, her heart rate is 80. MUSCULOSKELETAL: Right lower extremity: The skin is intact. There are no open wounds or abrasions. There is moderate effusion of the right knee joint and some tenderness along the medial joint line. Range of motion is 10 to 100 degrees of flexion with patellofemoral crepitus. She has 2+ dorsalis pedis pulse. Intact sensation. Her lower extremity muscle group strengths are intact at 5/5. ASSESSMENT AND PLAN: Sammie is a 47-year-old female with end-stage osteoarthritis of the right knee. She has failed conservative treatment and elected to proceed with a right total knee arthroplasty. The surgery is scheduled for 10/02/[address] Byers discussed the risks and benefits of the surgery at today's visit and all of her questions were answered. She will follow up with Dr. Byers 2 weeks after the surgery. RENE TOVAR [id number]/CPS #: [id number] MTDD
[~2018-10-02 12:25] MED LIST: Buffered Lidocaine 1% SYRIN* 1 ML/SYRINGE INTRADERM ONE; Dexamethasone IV* 4 MG/ML 1 ML (4 MG) IV SLOW PU ONE; Dexamethasone IV* 4 MG/ML 1 ML (4 MG) ONE; Famotidine IV* 10 MG/ML 2 ML (20 mg) IV ONE; Famotidine IV* 10 MG/ML 2 ML (20 mg) ONE; Gabapentin CAP(*) 300 MG ONE; Gabapentin CAP(*) 300 MG PO ONE; Lactated Ringers 1000 ML Bag* 1,000 ML IV SCH; Tranexamic Acid 1,000 MG in NS 0.9% 50 ML* (outpatient use) IV SCH; ceFAZolin 2 GM PREMIX in ORs 2 GM/50 ML BAG IVPB ONE; celeCOXIB CAP* 100 MG ONE; celeCOXIB CAP* 200 MG PO ONE
--- OUTSIDE RECORDS SUMMARY | 2018-10-02 12:28 | XMS REPORT | Continuity of Care Document ---
:1970 External Reference #:[id number] Author Name Robsonmare Celia Care Team Providers Name Role Phone Danny Powers MD Primary Care Physician Unavailable Payers Date Identification Numbers Payment Provider Subscriber Policy Number: [id number] Medicare Sammie Vega PayID: [id number] [address] [place] [address] Effective: 2018 Policy Number: [id number] Medicaid Sammie Vega Group Name: 1 1 [address] PayID: [id number] [place] [address] Effective: 2016 Policy Number: [id number] Medicaid Sammie Vega Expires: 2018 Group Name: 1 1 [address] PayID: [id number] [place] [address] Expires: 2017 Policy Number: [id number] Medicaid Sammie Vega PayID: [id number] [address] [place] [address] Policy Number: [id number] No Fault Sammie Vega PayID: [id number] [place] Advance Directives Description No Information Available Problems Active Problems Provider Date Chronic pain syndrome Emilio Coleman M.D. Onset: 07/24/2012 Hypermobility syndrome Emilio Coleman M.D. Onset: 07/24/2012 Cervical spondylosis without myelopathy Emilio Coleman M.D. Onset: 07/24/2012 Localized, primary osteoarthritis Alma Byers M.D. Onset: 03/13/2015 Fibromyalgia Alma Byers M.D. Onset: 03/13/2015 Disorder of lung Aiyana Dickey MD Onset: 10/28/2015 Morbid obesity Aiyana Dickey MD Onset: 10/28/2015 Asthma without status asthmaticus Aiyana Dickey MD Onset: 10/28/2015 Gastroesophageal reflux disease Aiyana Dickey MD Onset: 11/24/2015 Obesity Aiyana Dickey MD Onset: 03/22/2016 Sore throat symptom Aiyana Dickey MD Onset: 09/20/2016 Syncope and collapse Sloane Suarez M.D. Onset: 06/02/2017 FH: Angina in 1st degree female relative <65 Sloane Suarez M.D. Onset: 2017 years Acquired genu valgum Alma Byers M.D. Onset: 02/19/2018 Pain in limb Alma Byers M.D. Onset: 05/09/2018 Autonomic dysreflexia Sloane Suarez M.D. Onset: 07/13/2018 Preoperative cardiovascular examination Sloane Suarez M.D. Onset: 07/13/2018 Family History Date Family Member(s) Observation Comments General Elhes Danlos??? in [facility] Mother with joint "issues" (maternal) [facility], General Heart Disease General Hypertension General Cancer Father Unknown Does not know paternal side Mother Asthma Mother Chronic Obstructive Pulmonary Disease (COPD) Mother Depression Mother Allergies, Seasonal Mother at age 61 from undx: heart condition Siblings 1 Sister, arthritis, cervical? ?ovarian cancer, taken care of , doing well now Social History Type Date Description Comments Sex Unknown Marital Status Single Lives With Alone Occupation Disabled from [employer] Tobacco Use Start: Unknown Never Smoked Cigarettes Smoking Status Reviewed: 09/21/18 Never Smoked Cigarettes ETOH Use Rarely consumes alcohol Tobacco Use Start: Unknown Patient has never smoked Recreational Drug Use Denies Drug Use Exercise Type/Frequency Exercises sporadically Allergies, Adverse Reactions, Alerts Active Allergies Reaction Severity Comments Date Benadryl 07/24/2012 07/24/2012 Amitriptyline 07/24/2012 Cortisone Cortisone Injections 07/24/2012 Bee Sting Anaphylaxis Severe 12/04/2013 Strawberries Urticaria Moderate 12/04/2013 Red Wine 06/02/2017 Adhesives 06/02/2017 Zolair Shots 06/02/2017 Medications Active Medications SIG Qnty Indications Ordering Date Provider Diclofenac Sodium apply 1 gram 100gm M17.11 Jefe Wall, 08/29/2018 1% Gel topically four M.D. times daily to painful joint as needed Slow Release Iron Take one by mouth 30tabs D64.9 Jefe Wall, 07/31/2018 47.5mg every other day M.DBarbie Tablets ER Naltrexone HCL 4.5 mg compounded 15gm Jefe Sanchezr, 07/31/2018 Powder in capsules by M.Dwayne mouth every day Rosey anthony rosey unhardik Byers, 05/11/2018 with a seat dx: Avila m79.651 Rosey front wheeled 1unhardik Byers, 05/09/2018 [facility] [place] Gramajo Midodrine HCL take 1 tab by 90tabs R55 Marley Banuelos, 11/10/2017 2.5mg Tablets mouth 3x daily N.P. Nadolol 1/2 tab by mouth 90tabs Marley Banuelos, 06/27/2017 20mg Tablets every day N.P. Symbicort 2 puff twice a Sloane Suarez, 04/18/2017 80-4.5mcg/Act day M.DBarbie Aerosol Combivent Respimat 1 puffs twice Unknown 10/27/2015 daily 20-100mcg/Act Aerosol Montelukast Sodium 1 by mouth every Unknown 10/27/2015 10mg day Tablets Bupropion HCL ER (SR) 1 by mouth twice Unknown 10/27/2015 150mg a day Tablets ER 12HR Cane disp 1 for M17.11 Jose Chavez, 03/17/2015 [facility] [place] as needed MD Claudine Braun, 20mg Tablets MD Lila Srinivasan once monthly Unknown Fluticasone Propionate 2 puffs each nare Unknown every in the 50mcg/Act Suspension morning Pantoprazole Sodium 1 by mouth twice Unknown 40mg a day Tablets DR Levalbuterol Tartrate Unknown 45mcg/Act Aerosol Seroquel 1 to 2 to 3 tabs Unknown 100mg Tablets at at bedtime depending on sleep per psych Zinc Picolinate 1 cap po daily Unknown 75mg Levocetirizine 1 by mouth every Unknown Dihydrochloride day 5mg Tablets Vitamin D3 Super 1 by mouth every Unknown Strength day 2000Unit Capsules Dicyclomine HCL 1 by mouth every Unknown 10mg day Capsules Epipen 2-Pool sc prn 2units Unknown 0.3mg/0.3ML Device History Medications Diclofenac Sodium 2 pumps twice 100gm M17.11 Jefe Wall, 08/28/2018 - 1% Gel daily as needed M.D. 08/29/2018 for joint pain Pennsaid 2 pumps twice 112gm M17.11 Jefe Wall, 07/31/2018 - 2% Solution daily as needed M.D. 08/28/2018 for right knee pain Celecoxib take one twice a Unknown 03/21/2016 - 100mg Capsules day with food 09/19/2016 Ranitidine HCL 1 by mouth at 30tabs K21.9 Aiyana Dickey, 11/24/2015 - 300mg night MD 09/19/2016 Tablets Lidocaine apply to painful Unknown 10/27/2015 - 5% Ointment areas three times 06/01/2017 a day as needed. Symbicort 2 puff twice a Unknown 10/27/2015 - 160-4.5mcg/Act day 04/19/2017 Aerosol Levalbuterol HCL as needed Unknown 10/27/2015 - 07/12/2018 1.25mg/3ML Nebulizer Auvi-Q inject s/c as Unknown 10/27/2015 - 0.3mg/0.3ML directed 06/01/2017 Solution Auto-Inject Eszopiclone 1 tab by mouth at Unknown 10/27/2015 - 3mg Tablets bedtime 06/01/2017 Xyzal 1 by mouth every Unknown 10/27/2015 - 5mg Tablets day 06/01/2017 Duloxetine HCL 1 by mouth daily Unknown 10/27/2015 - 60mg Caps Unknown DR Patricio Inositol 1 tablet po daily Unknown - 650mg Tablets 05/31/2018 Quercetin 2 tablet po at Unknown - bedtime 06/12/2018 Alprazolam 1 tablet po up 4 Unknown - 1mg Tablets times day as Unknown needed Duloxetine HCL 1 by mouth every Unknown - 30mg Caps day Unknown DR Sheng Ledezmamra 1 tablet po Unknown - before bedtime 07/11/2018 Diazepam one by mouth Unknown - 10mg Tablets twice a day 06/01/2017 Albuterol Sulfate 1 vial via Unknown - nebulizer 4 times 06/01/2017 (2.5mg/3ML) 0.083% daily as needed Nebulizer Trintellix once a day Unknown - 10mg Tablets 06/01/2017 Gabapentin 1 cap po tid Unknown - 300mg Capsules Unknown Benzamycin apply twice a day 46.6gm Unknown - 5-3% Gel as needed acne 09/19/2016 Triamterene/Hydrochlor 1 by mouth every 90tabs Unknown - othiazide day prn 06/12/2018 37.5-25mg Tablets Lunesta one tab at 30tabs Unknown - 3mg Tablets bedtime 03/21/2016 Xopenex every 4-6 hrs as 1box Unknown - 0.63mg/3ML needed 10/27/2015 Nebulizer Meloxicam 1 po bid 30tabs Unknown - 15mg Tablets 12/04/2013 Advair Diskus 1 puff po bid 2units Unknown - 10/27/2015 500-50mcg/Dose Aerosol Ventolin HFA 2 puffs po q4hrs 18gm Unknown - 108(90Base) prn 10/27/2015 mcg/ac Aerosol Ergocalciferol 1 cap by mouth 8caps Unknown - 86241Rnbf every week 10/27/2015 Capsules Cymbalta 1 po qd 90caps Unknown - 60mg Caps 10/27/2015 Part Trazodone HCL 1 tablet at 30tabs Unknown - 50mg bedtime as needed 06/01/2017 Tablets Omeprazole 1 po bid 60caps Unknown - 40mg Capsules 07/12/2018 Clonazepam 1/2-1 po bid prn 60tabs Unknown - 1mg Tablets 06/01/2017 Ortho Tri-Cyclen Lo 1 po qd 84tabs Unknown - 06/01/2017 0.18/0.215/0.25 mg-2 Tablets Zyrtec Allergy 1 po qd 30caps Unknown - 10mg 10/27/2015 Capsules Singulair 1 po qd 30tabs Unknown - 10mg Tablets 10/27/2015 Immunizations Description No Information Available Vital Signs Date Vital Result Comment 09/21/2018 2:24pm Height 68 inches 5'8" Weight 257.00 lb Heart Rate 80 /min BP Systolic 132 mmHg BP Diastolic 70 mmHg Body Temperature 97.1 F Pain Level 7 BMI (Body Mass Index) 39.1 kg/m2 08/31/2018 3:11pm Height 68 inches 5'8" Weight 261.00 lb BP Systolic 130 mmHg BP Diastolic 82 mmHg Pain Level 7 BMI (Body Mass Index) 39.7 kg/m2 07/31/2018 3:17pm Height 68 inches 5'8" Weight 264.00 lb Heart Rate 74 /min BP Systolic Sitting 122 mmHg BP Diastolic Sitting 80 mmHg Pain Level 8 O2 % BldC Oximetry 96 % BMI (Body Mass Index) 40.1 kg/m2 07/13/2018 10:40am Height 68 inches 5'8" Weight 263.00 lb Heart Rate 80 /min BP Systolic Sitting 130 mmHg Lue lg cuff BP Diastolic Sitting 88 mmHg Lue lg cuff BP Systolic Standing 126 mmHg BP Diastolic Standing 86 mmHg Respiratory Rate 18 /min BMI (Body Mass Index) 40.0 kg/m2 Ejection Fraction 55-60% as of 06/2017 echo 07/03/2018 3:37pm Height 68 inches 5'8" Weight 265.50 lb Heart Rate 73 /min BP Systolic 124 mmHg BP Diastolic 78 mmHg Pain Level 8 O2 % BldC Oximetry 98 % BMI (Body Mass Index) 40.4 kg/m2 06/06/2018 10:25am Height 68 inches 5'8" Heart Rate 72 /min BP Systolic 122 mmHg BP Diastolic 76 mmHg Body Temperature 97.6 F Pain Level 8 05/09/2018 10:22am Height 68 inches 5'8" Weight 257.00 lb BP Systolic 114 mmHg BP Diastolic 74 mmHg Body Temperature 97.9 F BMI (Body Mass Index) 39.1 kg/m2 02/19/2018 4:00pm Height 68 inches 5'8" Weight 250.00 lb Heart Rate 60 /min BP Systolic 120 mmHg BP Diastolic 90 mmHg Body Temperature 98.1 F Pain Level 8 BMI (Body Mass Index) 38.0 kg/m2 01/02/2018 11:12am Height 68 inches 5'8" Weight 253.00 lb without shoes Heart Rate 72 /min BP Systolic Sitting 98 mmHg Lue lg cuff BP Diastolic Sitting 74 mmHg Lue lg cuff BP Systolic Standing 100 mmHg Lue lg cuff BP Diastolic Standing 70 mmHg Lue lg cuff Respiratory Rate 18 /min BMI (Body Mass Index) 38.5 kg/m2 Ejection Fraction 55-60% date 07/19/17 ECHO 11/10/2017 4:01pm Height 68 inches 5'8" Weight 252.00 lb Heart Rate 62 /min BP Systolic 108 mmHg Sit, HR 67 sitting BP Diastolic 80 mmHg Sit, HR 67 sitting BP Systolic Sitting 132 mmHg lue lg cuff BP Diastolic Sitting 68 mmHg lue lg cuff BP Systolic Standing 100 mmHg Standing, HR 78 Standing BP Diastolic Standing 80 mmHg Standing, HR 78 Standing BP Systolic Recheck 104 mmHg BP Diastolic Recheck 64 mmHg Respiratory Rate 17 /min BMI (Body Mass Index) 38.3 kg/m2 Ejection Fraction 55-60% 07/19/2017 echo 10/10/2017 3:03pm Height 68 inches 5'8" Weight 256.00 lb without shoes Heart Rate 60 /min BP Systolic Sitting 110 mmHg Rue lg cuff BP Diastolic Sitting 82 mmHg Rue lg cuff Respiratory Rate 16 /min BMI (Body Mass Index) 38.9 kg/m2 Ejection Fraction 50-55% date 09/22/2017 2:47pm Height 68 inches 5'8" Weight 251.00 lb w/o shoes Heart Rate 74 /min BP Systolic Sitting 118 mmHg LA lg cuff BP Diastolic Sitting 84 mmHg LA lg cuff BP Systolic Standing 122 mmHg LA lg cuff BP Diastolic Standing 80 mmHg LA lg cuff BMI (Body Mass Index) 38.2 kg/m2 Ejection Fraction 55-60% Echo 07/19/17 06/02/2017 2:53pm Height 68 inches 5'8" Weight 256.00 lb No shoes Heart Rate 92 /min BP Systolic 108 mmHg Rue lrg cuff BP Diastolic 76 mmHg Rue lrg cuff BP Systolic Sitting 112 mmHg Lue lrg cuff BP Diastolic Sitting 78 mmHg Lue lrg cuff BP Systolic Standing 106 mmHg Lue lrg cuff BP Diastolic Standing 70 mmHg Lue lrg cuff Respiratory Rate 17 /min BMI (Body Mass Index) 38.9 kg/m2 09/20/2016 4:02pm Height 68 inches 5'8" Weight 238.00 lb Heart Rate 97 /min BP Systolic Sitting 118 mmHg BP Diastolic Sitting 78 mmHg Respiratory Rate 14 /min Pain Level 8 All over pain O2 % BldC Oximetry 99 % BMI (Body Mass Index) 36.2 kg/m2 03/22/2016 3:58pm Height 68 inches 5'8" Weight 252.00 lb Heart Rate 78 /min BP Systolic 124 mmHg BP Diastolic 62 mmHg Respiratory Rate 14 /min O2 % BldC Oximetry 94 % BMI (Body Mass Index) 38.3 kg/m2 11/24/2015 1:56pm Height 68 inches 5'8" Weight 252.00 lb Heart Rate 88 /min BP Systolic 138 mmHg BP Diastolic 78 mmHg Respiratory Rate 14 /min O2 % BldC Oximetry 98 % BMI (Body Mass Index) 38.3 kg/m2 10/28/2015 10:09am Height 68 inches 5'8" Weight 252.50 lb Heart Rate 85 /min BP Systolic Sitting 132 mmHg BP Diastolic Sitting 78 mmHg Respiratory Rate 16 /min O2 % BldC Oximetry 97 % BMI (Body Mass Index) 38.4 kg/m2 06/24/2015 1:31pm Height 68 inches 5'8" Weight 254.00 lb Pain Level 6 BMI (Body Mass Index) 38.6 kg/m2 03/17/2015 1:27pm Height 68 inches 5'8" Weight 245.00 lb Heart Rate 79 /min BP Systolic Sitting 109 mmHg BP Diastolic Sitting 88 mmHg Respiratory Rate 18 /min Pain Level 6 BMI (Body Mass Index) 37.2 kg/m2 03/13/2015 2:29pm Height 68 inches 5'8" Weight 245.00 lb Pain Level 4 BMI (Body Mass Index) 37.2 kg/m2 12/04/2013 1:02pm Height 68 inches 5'8" Weight 234.00 lb Heart Rate 84 /min BP Systolic Sitting 110 mmHg BP Diastolic Sitting 80 mmHg BMI (Body Mass Index) 35.6 kg/m2 07/24/2012 3:43pm Height 68 inches 5'8" Weight 235.50 lb Heart Rate 88 /min BP Systolic Sitting 126 mmHg BP Diastolic Sitting 68 mmHg BMI (Body Mass Index) 35.8 kg/m2 Results Test Date Facility Test Result H/L Range Note Vitamin B12 And 07/13/2018 [facility] Vitamin B12 421 pg/mL N 180-914 1 Folate Serum [address] [place] [address] [phone] Folic Acid (Folate) 10.21 ng/mL >3.99 2 Iron & Iron Binding 07/13/2018 [facility] Iron 65 g/dL N 50- [address] [place], [place] [id number] [phone] Unsaturated Iron Binding < 454 g/dL Total Iron Binding Capacity 469 g/dL High 250-450 Transferrin 335 mg/dL N 203-362 % Iron Saturation 14 % Low 15-55 Laboratory test 07/13/2018 [facility] Ferritin 7.9 ng/mL Low 11-307 3 finding [address] [place] [address] [phone] Vitamin D Total 25(Oh) 34.9 ng/mL N 20-50 4 Connective Tissue 07/13/2018 [facility] Anti-Nuclear Antibody 0.4 U 5 Panel [address] [place] [address] [phone] Cyclic Citrullinated Peptide <15.6 U 6 Interpretation See Comment 7 Laboratory test 07/13/2018 [facility] Erythrocyte Sed 34 mm/Hr High 0-[address] [place] [address] [phone] C Reactive Protein 6.32 mg/L N <8.01 9 Vitamin B6 07/13/2018 [facility] Pyridoxal 5-Phosphate 6 g/L 5-50 10 [address] [place] [address] [phone] Pyridoxic Acid 5 g/L 3-30 11 Laboratory test 07/13/2018 [facility] Creatine 71 U/L N 10- 223 12 finding 101 [facility] Kinase(CK) [place] [address] [phone] Ssa/SSB Abs Igg 07/13/2018 [facility] SS-A/Ro Antibody <0.2 U 13 [address] [place] [address] [phone] SS-B/La Antibody <0.2 U 14 Laboratory test finding 07/13/2018 [facility] Isa-1 Antibody < 0.2 U 15 [address] [place] [address] [phone] Cortisol 5.38 g/dL 16 Thyroperoxidase AB 0.57 IU/mL N <9 17 Hla B27 08/08/2012 [facility] Hla B27 Negative 18 [address] [place] [address] [phone] Hla B27 Interp See Comment 19 Laboratory test 08/08/2012 [facility] Uric Acid 2.3 mg/dL Low 2.6-7.2 finding [address] [place] [address] [phone] 1 Normal Range 180 to 914 Indeterminate Range 145 to 180 Deficient Range <145 2 Please check labs this week 3 Please check labs this week 4 Please check labs this week 5 REFERENCE VALUE <=1.0 (Negative) 6 REFERENCE VALUE <20.0 (Negative) 7 Tests for antibodies to dsDNA and CARLTON antigens are not performed automatically unless the CHERRY result is > or= 3.0 U. Studies performed at [facility] indicate that positive CHERRY results <3.0 U are rarely accompanied by positive second order tests. Test Performed by: [facility] - [address] [address] 8 Test Performed by: [facility] [address] [place] [id number] Dani Palacios M.D. Director of Laboratory 9 Please check labs this week 10 ADDITIONAL INFORMATION This test was developed and its performance characteristics determined by [facility] in a manner consistent with CLIA requirements. This test has not been cleared or approved by the U.S. Food and Drug Administration. 11 ADDITIONAL INFORMATION This test was developed and its performance characteristics determined by [facility] in a manner consistent with CLIA requirements. This test has not been cleared or approved by the U.S. Food and Drug Administration. Test Performed by: [facility] - [address] [address] 12 Please check labs this week 13 REFERENCE VALUE <1.0 (Negative) 14 REFERENCE VALUE <1.0 (Negative) Test Performed by: [facility] - [address] [address] 15 REFERENCE VALUE <1.0 (Negative) Test Performed by: [facility] - [address] [address] 16 AM 8.7-22.4 PM <10 17 Please check labs this week 18 -- REFERENCE VALUE -- Not Applicable 19 RESULT: HLA-B27 antigen was not detected. Method: Flow Cytometry Test Performed by: [facility] - [address] [address] Director Technical: Percy Hollis III, M.D. Procedures Date Code Description Status 07/13/2018 96338 EKG Tracing & Interpretation Completed 11/10/2017 60827 EKG Tracing & Interpretation Completed 07/21/2017 20362 Stress Test Completed 07/19/2017 41999 ECHO Transthoracic, Real-Time 2D With Doppler And Color Completed Flow 07/19/2017 36109 ECHO Transthoracic, Real-Time 2D With Doppler And Color Completed Flow 06/29/2017 91604 Mobile Cardiovascular Telemetry Over 24 HR Up To 30 Days Completed 06/25/2017 60874 Holter Monitor Review (24 hr)dr review & interp only Completed 06/20/2017 14290 ECG Monitor/Recording W/Visual Superimposition Scanning Completed 06/20/2017 00794 ECG Monitor/Recording W/Visual Superimposition Scanning Completed 06/02/2017 07828 EKG Tracing & Interpretation Completed 11/17/2015 48669 Diffusing Capacity Completed 11/17/2015 93874 Plethysmography Determination Lung Volumes & Per Airway Completed Resist 11/17/2015 78985 Pulmonary Function><Bronchodil Completed 02/25/2013 37070 Polysomnography Sleep Staging 4+ Parameters Completed Encounters Type Date Location Provider Dx Diagnosis Office Visit 08/31/2018 Orthopedic Alma Byers, M25.561 Pain in right 2:45p [facility] MBarbieDBarbie knee M25.461 Effusion, right knee M17.11 Unilateral primary osteoarthritis, right knee Office Visit 07/31/2018 Rheumatology Jefe M17.11 Unilateral primary 2:40p Services Of [facility] Wall M.D. osteoarthritis, right knee D64.9 Anemia, unspecified M79.7 Fibromyalgia R70.0 Elevated erythrocyte sedimentation rate Office Visit 07/13/2018 10:40a [facility] Sloane Suarez, G90.4 Autonomic Of [facility] MEstela dysreflexia Z01.810 Encounter for preprocedural cardiovascular examination R94.31 Abnormal electrocardiogram [ECG] [EKG] M17.11 Unilateral primary osteoarthritis, right knee Office Visit 07/03/2018 Rheumatology Jefe M35.7 Hypermobility 3:00p Services Of [facility] aWll M.D. syndrome M79.7 Fibromyalgia D64.9 Anemia, unspecified R20.8 Other disturbances of skin sensation G57.11 Meralgia paresthetica, right lower limb N18.9 Chronic kidney disease, unspecified E55.9 Vitamin D deficiency, unspecified M35.01 Sicca syndrome with keratoconjunctivitis Office Visit 06/06/2018 9:45a Orthopedic Services Alma Byers M79.651 Pain in right Of [facility] M.D. thigh R60.0 Localized edema M25.561 Pain in right knee M25.461 Effusion, right knee M17.11 Unilateral primary osteoarthritis, right knee M79.7 Fibromyalgia Office Visit 05/09/2018 9:45a Orthopedic Services Alma Byers M79.651 Pain in right Of [facility] M.D. thigh R60.0 Localized edema Office Visit 02/19/2018 3:00p [facility] Alma Byers, M25.561 Pain in right Of [facility] M.D. knee M25.461 Effusion, right knee M17.11 Unilateral primary osteoarthritis, right knee Office Visit 01/02/2018 11:00a [facility] Marley Banuelos, R55 Syncope and Of Mud Mixer N.P. 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 R00.0 Tachycardia , Of Mud Mixer Foster, N.P. 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 collapse Z82.49 Family hx of ischem heart dis and oth dis of the circ sys Office Visit 09/20/2016 Pulmonology And Aiyana J45.909 Unspecified asthma , 3:30p [facility] uncomplicated Mud Mixer G47.33 Obstructive sleep apnea (adult) (pediatric) R07.0 Pain in throat Office Visit 03/22/2016 Pulmonology And Aiyana Winters45.909 Unspecified asthma , 3:30p [facility] uncomplicated Mud Mixer E66.09 Other obesity due to excess calories K21.9 Gastro-esophageal reflux disease without esophagitis Office Visit 11/24/2015 Pulmonology And Aiyana Winters45.909 Unspecified asthma , 1:45p [facility] uncomplicated Mud Mixer J98.4 Other disorders of lung E66.01 Morbid (severe) obesity due to excess calories K21.9 Gastro-esophageal reflux disease without esophagitis Office Visit 10/28/2015 10:15a Pulmonology And Aiyana J98.4 Other disorders [facility] of lung [facility] E66.01 Morbid (severe) obesity due to excess calories J45.909 Unspecified asthma, uncomplicated Office Visit 06/24/2015 1:15p Orthopedic Services Jose Chavez MD M79.7 Fibromyalgia [facility] M17.11 Unilateral primary osteoarthritis, right knee M54.16 Radiculopathy, lumbar region Office Visit 03/17/2015 Orthopedic Jose Chavez M17.11 Unilateral primary 1:00p Services Of osteoarthritis, right [facility] knee M79.7 Fibromyalgia M25.461 Effusion, right knee Office Visit 03/13/2015 Orthopedic Alma M17.11 Unilateral primary 2:00p Services Of Avila Byers osteoarthritis, right [facility] knee M25.561 Pain in right knee M25.461 Effusion, right knee M79.7 Fibromyalgia Office Visit 12/04/2013 1:00p Rheumatology Keven Vidales, 729.1 Myalgia & Services Of [facility] Avila Myositis Unspec 728.5 Hypermobility Syndrome Office Visit 07/24/2012 3:00p Rheumatology Emilio Coleman, 338.4 Chronic Pain Services Of [facility] Avila Syndrome 728.5 Hypermobility Syndrome 721.0 Spondylosis Cervical W/O Myelopathy Office Visit 07/04/2006 Neurosurgery Ollie Lao 722.0 Intervertebral Disc 4:30p Services Of [facility] Avila Elena Displacement Cervical W/O Myelopathy Plan of Treatment Future Appointment(s):10/02/2018 4:00 pm - Umair Varela PA-C at [facility]10/02/2018 4:00 pm - RENE Fraser at [facility]11/14/2018 1:20 pm - Jefe Wall M.D. at [facility]10/02/2018 4:00 pm - Alma Byers M.D. at [facility]10/17/2018 11:30 am - Alma Byers M.D. at [facility]09/21/2018 - Alma Byers M.D.M25.561 Pain in right kneeFollow up:Follow up: 2 weeks after dmkwcpfB72.461 Effusion, right kneeM17.11 Unilateral primary osteoarthritis, right knee
--- OUTSIDE RECORDS SUMMARY | 2018-10-02 12:29 | XMS REPORT | Continuity of Care Document ---
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 Temperature 97.4 F Height 67.5 inches 5'7.50" Weight 242.00 lb BMI (Body Mass Index) 37.3 kg/m2 03/12/2012 4:04pm BP Systolic 120 mmHg BP Diastolic 80 mmHg Heart Rate 68 /min Body Temperature 98.3 F Height 67.5 inches 5'7.50" Weight 238.00 lb BMI (Body Mass Index) 36.7 kg/m2 12/19/2011 1:34pm BP Systolic 124 mmHg BP Diastolic 70 mmHg Heart Rate 72 /min Body Temperature 97.9 F Height 67.5 inches 5'7.50" Weight 237.00 lb BMI (Body Mass Index) 36.6 kg/m2 04/12/2011 6:14pm BP Systolic 130 mmHg BP Diastolic 90 mmHg Heart Rate 84 /min Body Temperature 97.7 F Respiratory Rate 20 /min O2 % BldC Oximetry 98 % Height 67.5 inches 5'7.50" Weight 229.00 lb BMI (Body Mass Index) 35.3 kg/m2 07/26/2010 5:24pm BP Systolic 118 mmHg BP Diastolic 72 mmHg Heart Rate 60 /min Body Temperature 99.3 F Height 67.5 inches 5'7.50" Weight 229.00 lb BMI (Body Mass Index) 35.3 kg/m2 05/31/2010 2:15pm BP Systolic 124 mmHg BP Diastolic 60 mmHg Heart Rate 72 /min Body Temperature 97.0 F Height 67.5 inches 5'7.50" Weight 226.00 lb BMI (Body Mass Index) 34.9 kg/m2 04/28/2010 10:52am BP Systolic 114 mmHg BP Diastolic 80 mmHg Heart Rate 74 /min Height 67.5 inches 5'7.50" Weight 221.00 lb BMI (Body Mass Index) 34.1 kg/m2 02/15/2010 12:55pm BP Systolic 116 mmHg BP Diastolic 80 mmHg Heart Rate 60 /min Body Temperature 98.2 F Height 67.5 inches 5'7.50" Weight 233.00 lb BMI (Body Mass Index) 36.0 kg/m2 12/28/2009 1:53pm BP Systolic 110 mmHg BP Diastolic 80 mmHg Heart Rate 72 /min Body Temperature 98.5 F Height 67.5 inches 5'7.50" Weight 225.00 lb BMI (Body Mass Index) 34.7 kg/m2 11/09/2009 12:43pm BP Systolic 114 mmHg BP Diastolic 60 mmHg Heart Rate 72 /min Body Temperature 98.5 F Height 67.5 inches 5'7.50" Weight 226.00 lb BMI (Body Mass Index) 34.9 kg/m2 09/28/2009 1:25pm BP Systolic 120 mmHg BP Diastolic 80 mmHg Heart Rate 78 /min Body Temperature 97.8 F Height 67.5 inches 5'7.50" Weight 236.00 lb BMI (Body Mass Index) 36.4 kg/m2 08/19/2009 1:44pm BP Systolic 110 mmHg BP Diastolic 76 mmHg Heart Rate 90 /min Body Temperature 97.5 F Weight 238.00 lb 08/10/2009 6:50pm BP Systolic 110 mmHg BP Diastolic 70 mmHg Heart Rate 80 /min Body Temperature 99.0 F Weight 238.00 lb 07/06/2009 1:28pm BP Systolic 112 mmHg BP Diastolic 72 mmHg Heart Rate 68 /min Weight 244.00 lb 05/27/2009 6:12pm BP Systolic 118 mmHg BP Diastolic 80 mmHg Heart Rate 88 /min Body Temperature 97.2 F 05/18/2009 1:52pm BP Systolic 126 mmHg BP Diastolic 66 mmHg Heart Rate 78 /min Body Temperature 97.9 F Weight 244.00 lb 03/23/2009 1:45pm BP Systolic 120 mmHg BP Diastolic 64 mmHg Heart Rate 66 /min Body Temperature 98.4 F Weight 247.00 lb 01/28/2009 1:48pm BP Systolic 118 mmHg BP Diastolic 70 mmHg Heart Rate 76 /min Body Temperature 98.9 F Weight 244.00 lb 12/15/2008 5:52pm BP Systolic 124 mmHg BP Diastolic 66 mmHg Heart Rate 72 /min Body Temperature 98.5 F Weight 245.00 lb 10/27/2008 12:40pm BP Systolic 114 mmHg BP Diastolic 70 mmHg Heart Rate 84 /min Body Temperature 97.7 F Weight 240.00 lb 09/10/2008 2:43pm BP Systolic 88 mmHg BP Diastolic 42 mmHg Heart Rate 88 /min Weight 238.00 lb 08/04/2008 12:49pm BP Systolic 118 mmHg BP Diastolic 68 mmHg Heart Rate 66 /min Body Temperature 97.5 F Weight 236.00 lb 06/23/2008 12:11pm BP Systolic 120 mmHg BP Diastolic 80 mmHg Heart Rate 78 /min Body Temperature 97.9 F Weight 242.00 lb 05/12/2008 8:48pm BP Systolic 110 mmHg BP Diastolic 64 mmHg Heart Rate 78 /min Height 67.5 inches 5'7.50" Weight 238.00 lb BMI (Body Mass Index) 36.7 kg/m2 03/13/2008 5:15pm BP Systolic 112 mmHg BP Diastolic 62 mmHg Heart Rate 76 /min Respiratory Rate 13 /min Height 67.5 inches 5'7.50" 02/14/2008 4:43pm BP Systolic 118 mmHg BP Diastolic 80 mmHg Heart Rate 74 /min Height 67.5 inches 5'7.50" Weight 238.00 lb BMI (Body Mass Index) 36.7 kg/m2 12/25/2007 5:17pm BP Systolic 108 mmHg BP Diastolic 70 mmHg Heart Rate 80 /min Body Temperature 98.8 F Height 67.5 inches 5'7.50" Weight 240.00 lb BMI (Body Mass Index) 37.0 kg/m2 10/29/2007 2:57pm BP Systolic 116 mmHg BP Diastolic 68 mmHg Heart Rate 74 /min Height 67.5 inches 5'7.50" Weight 244.00 lb BMI (Body Mass Index) 37.6 kg/m2 09/13/2007 12:02pm BP Systolic 114 mmHg BP Diastolic 70 mmHg Heart Rate 76 /min Height 67.5 inches 5'7.50" Weight 242.00 lb BMI (Body Mass Index) 37.3 kg/m2 08/27/2007 8:28pm BP Systolic 120 mmHg BP Diastolic 80 mmHg Heart Rate 90 /min Height 67.5 inches 5'7.50" Weight 242.00 lb BMI (Body Mass Index) 37.3 kg/m2 08/08/2007 2:57pm BP Systolic 130 mmHg BP Diastolic 80 mmHg Body Temperature 98.4 F Height 67.5 inches 5'7.50" Weight 242.00 lb BMI (Body Mass Index) 37.3 kg/m2 07/18/2007 1:07pm BP Systolic 114 mmHg BP Diastolic 62 mmHg Body Temperature 99.2 F Height 67.5 inches 5'7.50" Weight 239.00 lb BMI (Body Mass Index) 36.9 kg/m2 07/10/2007 1:57pm BP Systolic 110 mmHg BP Diastolic 74 mmHg Heart Rate 92 /min Height 67.5 inches 5'7.50" Weight 239.00 lb BMI (Body Mass Index) 36.9 kg/m2 05/28/2007 3:59pm BP Systolic 104 mmHg BP Diastolic 60 mmHg Heart Rate 76 /min Body Temperature 97.7 F Height 67.5 inches 5'7.50" Weight 239.00 lb BMI (Body Mass Index) 36.9 kg/m2 04/04/2007 4:15pm BP Systolic 116 mmHg BP Diastolic 60 mmHg Heart Rate 100 /min Body Temperature 99.1 F Height 67.5 inches 5'7.50" Weight 234.00 lb BMI (Body Mass Index) 36.1 kg/m2 03/30/2007 1:15pm BP Systolic 118 mmHg BP Diastolic 68 mmHg Heart Rate 76 /min Body Temperature 98.2 F Height 67.5 inches 5'7.50" 02/15/2007 4:15pm BP Systolic 122 mmHg BP Diastolic 70 mmHg Heart Rate 78 /min Body Temperature 99.2 F Height 67.5 inches 5'7.50" Weight 224.00 lb BMI (Body Mass Index) 34.6 kg/m2 12/14/2006 1:19pm BP Systolic 134 mmHg BP Diastolic 86 mmHg Heart Rate 84 /min Body Temperature 98.3 F Height 67.5 inches 5'7.50" Weight 223.00 lb BMI (Body Mass Index) 34.4 kg/m2 10/26/2006 4:44pm BP Systolic 118 mmHg BP Diastolic 78 mmHg Heart Rate 78 /min Respiratory Rate 15 /min Height 67.5 inches 5'7.50" 08/23/2006 4:56pm BP Systolic 110 mmHg BP Diastolic 72 mmHg Heart Rate 88 /min Height 67.5 inches 5'7.50" Weight 230.00 lb BMI (Body Mass Index) 35.5 kg/m2 06/12/2006 4:05pm BP Systolic 152 mmHg BP Diastolic 76 mmHg Heart Rate 68 /min Height 67.5 inches 5'7.50" Weight 222.00 lb BMI (Body Mass Index) 34.3 kg/m2 04/10/2006 4:02pm BP Systolic 130 mmHg BP Diastolic 70 mmHg Heart Rate 72 /min Height 67.5 inches 5'7.50" Weight 222.00 lb BMI (Body Mass Index) 34.3 kg/m2 02/20/2006 3:25pm BP Systolic 122 mmHg BP Diastolic 68 mmHg Heart Rate 76 /min Height 67.5 inches 5'7.50" Weight 223.00 lb BMI (Body Mass Index) 34.4 kg/m2 01/18/2006 2:05pm BP Systolic 124 mmHg BP Diastolic 76 mmHg Heart Rate 60 /min Height 67.5 inches 5'7.50" Weight 208.00 lb BMI (Body Mass Index) 32.1 kg/m2 11/14/2005 12:13pm BP Systolic 126 mmHg BP Diastolic 70 mmHg Heart Rate 78 /min Height 67.5 inches 5'7.50" Weight 208.00 lb BMI (Body Mass Index) 32.1 kg/m2 05/25/2004 12:14pm BP Systolic 130 mmHg BP Diastolic 70 mmHg Heart Rate 88 /min Body Temperature 97.5 F Respiratory Rate 20 /min Height 67.5 inches 5'7.50" Weight 216.00 lb BMI (Body Mass Index) 33.3 kg/m2 Right Visual Acuity Distance 96-99 Results Test Date Facility Test Result H/L Range Note CBC Auto Diff 03/14/2018 [facility] White Blood Count 9.9 10^3/uL N 3.5-10.8 Red Blood Count 4.46 10^6/uL N 4.00-5.40 Hemoglobin 11.8 g/dL Low 12.0-16.0 Hematocrit 36 % N 35-47 Mean Corpuscular Volume 81 fL N 80-97 Mean Corpuscular Hemoglobin 26 pg Low 27-31 Mean Corpuscular HGB Conc 33 g/dL N 31-36 Red Cell Distribution Width 17 % High 10.5-15 Platelet Count 274 10^3/uL N 150-450 Mean Platelet Volume 9.1 um3 N 7.4-10.4 Abs Neutrophils 6.1 10^3/uL N 1.5-7.7 Abs Lymphocytes 3.2 10^3/uL N 1.0-4.8 Abs Monocytes 0.7 10^3/uL N 0-0.8 Abs Eosinophils 0 10^3/uL N 0-0.6 Abs Basophils 0 10^3/uL N 0-0.2 Abs Nucleated RBC 0 10^3/uL Granulocyte % 61.1 % N 38-83 Lymphocyte % 32.1 % N 25-47 Monocyte % 6.7 % N 0-7 Eosinophil % 0 % N 0-6 Basophil % 0.1 % N 0-2 Nucleated Red Blood Cells % 0.1 Laboratory test finding 03/14/2018 [facility] Ferritin 6.7 ng/mL Low 11-307 Vitamin D Total 25(Oh) 33.5 ng/mL N 20-50 Ceruloplasmin 34.0 mg/dL 1 Copper 1.50 g/mL Abnormal 0.75-1.45 2 Zinc Level 1.09 g/mL 0.66-1.10 3 Histamine, Whole Blood 122 nmol/L Abnormal 180-1800 4 Laboratory test finding 08/25/2017 [facility] Inr/Protime 0.94 N 0.77-1.02 Partial Thrombo Time PTT 25.6 seconds Low 26.0-36.3 Lactic Acid 1.5 mmol/L N 0.5-2.0 5 Comp Metabolic Panel 08/25/2017 [facility] Sodium 138 mmol/L Low 139-145 Potassium 4.2 mmol/L N 3.5-5.0 Chloride 106 mmol/L N 101-111 Co2 Carbon Dioxide 23 mmol/L N 22-32 Anion Gap 9 mmol/L N 2-11 Glucose 112 mg/dL High 70-100 Blood Urea Nitrogen 21 mg/dL N 6-24 Creatinine 1.08 mg/dL High 0.51-0.95 BUN/Creatinine Ratio 19.4 N 8-20 Calcium 9.4 mg/dL N 8.6-10.3 Total Protein 7.1 g/dL N 6.4-8.9 Albumin 3.9 g/dL N 3.2-5.2 Globulin 3.2 g/dL N 2-4 Albumin/Globulin Ratio 1.2 N 1-3 Total Bilirubin 0.50 mg/dL N 0.2-1.0 Alkaline Phosphatase 66 U/L N 34-104 Alt 16 U/L N 7-52 Ast 21 U/L N 13-39 Egfr Non- 54.9 >60 Egfr 70.6 >60 6 Laboratory test finding 08/25/2017 [facility] Troponin I 0.00 ng/mL <0.04 CBC Auto Diff 08/25/2017 [facility] White Blood Count 10.4 10^3/uL N 3.5-10.8 Red Blood Count 4.35 10^6/uL N 4.0-5.4 Hemoglobin 10.7 g/dL Low 12.0-16.0 Hematocrit 33 % Low 35-47 Mean Corpuscular Volume 77 fL Low 80-97 Mean Corpuscular Hemoglobin 25 pg Low 27-31 Mean Corpuscular HGB Conc 32 g/dL N 31-36 Red Cell Distribution Width 18 % High 10.5-15 Platelet Count 380 10^3/uL N 150-450 Mean Platelet Volume 7.8 um3 N 7.4-10.4 Abs Neutrophils 7.7 10^3/uL N 1.5-7.7 Abs Lymphocytes 2.1 10^3/uL N 1.0-4.8 Abs Monocytes 0.5 10^3/uL N 0-0.8 Abs Eosinophils 0 10^3/uL N 0-0.6 Abs Basophils 0.1 10^3/uL N 0-0.2 Abs Nucleated RBC 0 10^3/uL Granulocyte % 74.2 % N 38-83 Lymphocyte % 20.5 % Low 25-47 Monocyte % 4.4 % N 0-7 Eosinophil % 0 % N 0-6 Basophil % 0.9 % N 0-2 Nucleated Red Blood Cells % 0 Urinalysis Profile 08/25/2017 [facility] Urine Color Straw Urine Appearance Clear Urine Specific Harrison 1.003 Low 1.010-1.030 Urine pH 8.0 N 5-9 Urine Urobilinogen Negative Negative Urine Ketones Negative Negative Urine Protein Negative Negative Urine Leukocytes Trace Abnormal Negative Urine Blood 2+ Abnormal Negative Urine Nitrite Negative Negative Urine Bilirubin Negative Negative Urine Glucose Negative Negative Urine White Blood Cell Trace(0-5/hpf) Absent Urine Red Blood Cell Trace(0-2/hpf) Absent Urine Bacteria Absent Absent Urine Squamous Epithelial Cell Present Abnormal Absent Laboratory test 08/25/2017 [facility] Urine Culture And SEE RESULT BELOW 7 finding Sensitivities Laboratory test 09/09/2016 [facility] Clotest SEE RESULT BELOW 8, 9 finding Surgical Interface Order SEE RESULT BELOW 10 Laboratory test 08/22/2016 [facility] Quickstrep neg Negative finding (607)- - Throat-Beta Strept 09/05/2014 [facility] Throat Beta Strep (SEE NOTE) 11 Culture CBC Electronic-ALL 04/01/2014 [facility] White Blood Count 9.0 N 4.8-10.8 Lab Compani 10^3/uL Red Blood Count 4.16 10^6/uL N 4.0-5.4 Hemoglobin 12.4 g/dL N 12.0-16.0 Hematocrit 38 % N 35-47 Mean Corpuscular Volume 91 fL N 80-97 Mean Corpuscular Hemoglobin 30 pg N 27-31 Mean Corpuscular HGB Conc 33 g/dL N 31-36 Red Cell Distribution Width 15 % N 10.5-15 Platelet Count 296 10^3/uL N 150-450 Mean Platelet Volume 8 um3 N 7.4-10.4 Abs Neutrophils 5.9 10^3/uL N 1.5-7.7 Abs Lymphocytes 2.3 10^3/uL N 1.0-4.8 Abs Monocytes 0.4 10^3/uL N 0-0.8 Abs Eosinophils 0.4 10^3/uL N 0-0.6 Abs Basophils 0.1 10^3/uL N 0-0.2 Abs Nucleated RBC 0.01 10^3/uL N Granulocyte % 65.5 % N 38-83 Lymphocyte % 25.2 % N 25-47 Monocyte % 4.4 % N 1-9 Eosinophil % 4.3 % N 0-6 Basophil % 0.6 % N 0-2 Nucleated Red Blood Cells % 0.1 N Comp Metabolic-ALL Lab Compani 04/01/2014 [facility] Sodium 135 mmol/L N 133- 145 Potassium 4.2 mmol/L N 3.5-5.0 12 Chloride 103 mmol/L N 101-111 Co2 Carbon Dioxide 28 mmol/L N 22-32 Anion Gap 4 mmol/L N 2-11 Glucose 105 mg/dL High 70-100 Blood Urea Nitrogen 16 mg/dL N 6-24 Creatinine 1.04 mg/dL High 0.51-0.95 BUN/Creatinine Ratio 15.4 N 8-20 Calcium 9.0 mg/dL N 8.6-10.3 Total Protein 6.6 g/dL N 6.4-8.9 Albumin 3.7 g/dL N 3.2-5.2 Globulin 2.9 g/dL N 2-4 Albumin/Globulin Ratio 1.3 N 1-3 Total Bilirubin 0.40 mg/dL N 0.2-1.0 Alkaline Phosphatase 47 U/L N 34-104 Alt 10 U/L N 7-52 Ast 12 U/L Low 13-39 Egfr Non- 58.1 N >60 Egfr 74.7 N >60 13 Laboratory test 04/01/2014 [facility] TSH (Thyroid 1.92 IU/mL N 0.34-5.60 finding Stimulating Horm) Lipid Profile 04/01/2014 [facility] Triglycerides 125 mg/dL N 14 (Trig/Chol/HDL) Cholesterol 165 mg/dL N 15 HDL Cholesterol 45.7 mg/dL N 16 LDL Cholesterol 94 mg/dL N 17 Laboratory test finding 04/01/2014 [facility] T4 8.35 g/dL N 6.09-12.23 Laboratory test finding 04/01/2014 [facility] Dalhart 0.27 mmol/L Low 0.6-1.2 Urinalysis Profile 01/18/2014 [facility] Urine Color Straw Urine Appearance Clear Urine Specific Harrison 1.004 Low 1.010-1.030 Urine pH 9.0 5-9 Urine Urobilinogen Negative Negative Urine Ketones Negative Negative Urine Protein Negative Negative Urine Leukocytes Negative Negative Urine Blood Negative Negative Urine Nitrite Negative Negative Urine Bilirubin Negative Negative Urine Glucose Negative Negative Comp Metabolic-ALL Lab Compani 11/28/2012 [facility] Sodium 139 mmol/L 133-145 Potassium 4.2 mmol/L 3.5-5.0 Chloride 105 mmol/L 101-111 Co2 Carbon Dioxide 26.0 mmol/L 22-32 Anion Gap 8.0 mmol/L 2-11 Glucose 90 mg/dL 70-100 Blood Urea Nitrogen 25 mg/dL High 6-24 Creatinine 1.20 mg/dL 0.50-1.40 BUN/Creatinine Ratio 20.8 High 8-20 Calcium 9.4 mg/dL 8.1-9.9 Total Protein 6.4 g/dL 6.2-8.1 Albumin 3.7 g/dL 3.6-5.4 Globulin 2.7 g/dL 2-4 Albumin/Globulin Ratio 1.4 1-3 Total Bilirubin 0.5 mg/dL 0.4-1.5 Alkaline Phosphatase 57 U/L 30-110 Alt 37 U/L 14-54 Ast 31 U/L 12-42 Egfr Non- 49.5 >60 Egfr 63.7 >60 18 Laboratory test finding 11/28/2012 [facility] Free T4 0.81 ng/mL 0.61-1.24 TSH (Thyroid Stimulating Horm) 5.73 miu/mL High 0.34-5.60 B Type Natriuretic Peptide 13.0 pg/mL 0-100 CBC No Diff 11/28/2012 [facility] White Blood Count 12.4 10^3/uL High 4.8-10.8 Red Blood Count 4.45 10^6/uL 4.0-5.4 Hemoglobin 12.6 g/dL 12.0-16.0 Hematocrit 40 % 35-47 Mean Corpuscular Volume 90 fL 80-97 Mean Corpuscular Hemoglobin 28 pg 27-31 Mean Corpuscular HGB Conc 31 g/dL 31-36 Red Cell Distribution Width 14 % 10.5-15 Platelet Count 335 10^3/uL 150-450 Mean Platelet Volume 9 um3 7.4-10.4 Laboratory test finding 08/08/2012 [facility] Uric Acid 2.3 mg/dL Low 2.6-7.2 Hla B27 08/08/2012 [facility] Hla B27 Negative 19 Hla B27 Interp See Comment 20 Wound Culture 07/20/2012 [facility] Wound Culture Mixed skin ml 21 28 [facility] <SEE NOTE> [place] [address] [phone] .Gram Stain Additional NO WBC, NO ORGAN <SEE NOTE> 22 Laboratory test 07/20/2012 [facility] Viral Cult. Negative for 23 finding 28 [facility] General Prema <SEE NOTE> [place] [address] [phone] Laboratory test 07/05/2012 [facility] Medicine Sed Rate 13mm finding (607)- - (Fma/CMC/[facility]) CBC Electronic 07/05/2012 [facility] WBC 6.9 3.6-9. (Fma) (607)- - 6 RBC 4.45 3.90-5.70 Hemoglobin (Fma/CMC/CTX) 12.8 g/dL 12.1 - 17.2 Hematocrit (Fma/CMC/CTX) 40.2 % 36.1 - 50.3 Platelets 297 10^3/ul 150-400 Lymph% 34.0 20.5-51.1 Mixed% 4.7 Neutrophils % 61.3 Mean Corpuscular Vol 90 82.2-97.4 Mean Corpuscular Hemoglobin 28.8 27.6-33.3 Mean Corpuscular Hemo Concen 31.9 Low 32.0-36.0 RDW 12.5 11.6-13.7 Mean Platelet Volume 7.8 6.5-11.0 Ua - Micro (Fma) 07/05/2012 [facility] Appearance CLEAR (607)- - Color YELLOW Glucose NEG Bilirubin NEG Ketones NEG SP Grav 1.020 Blood NEG PH 5.5 Protein NEG Urobil 0.2 Nitrite NEG Leukocytes (Fma/[facility]) SMALL # Hyaline - /Lpf Granular - /Lpf WBC ([facility]) 8-10 # RBC - Mucus - /Lpf Epith MANY /Lpf # Bacteria 1-2+ /Hpf # Amorphous SLIGHT /Lpf # Crystals, Fluid (Fma/CMC/CTX) - Z#Comments - Comprehensive Metabolic Prof 07/05/2012 [facility] Albumin 4.1 g/dL 3.8-5.5 Alk. Phos. 51 U/L 30-110 Alt (SGPT) 29 U/L 7-35 Ast (Sgot) 22 U/L 5-34 BUN 25 mg/dL 6-26 Calcium 9.4 mg/dL 8.6-10.2 Chloride 99 mEq/L 94-112 Creatinine 1.0 mg/dL 0.6-1.4 Carbon Dioxide 27 mEq/L 21-32 Glucose 96 mg/dL 70-105 Sodium 138 mEq/L 134-149 Total Bilirubin 0.3 mg/dL 0.2-1.3 Total Protein 6.7 g/dL 6.3-8.1 Potassium 4.5 mEq/L 3.6-5.5 Globulin 2.6 g/dL 2.0-4.8 A/G Ratio 1.6 Calc 0.6-2.3 BUN/Creat Ratio 24.7 Calc 8.0-36.0 Lipid Profile 07/05/2012 [facility] Cholesterol 214 mg/dL High 120- 200 HDL 58 mg/dL 30-85 Triglycerides 108 mg/dL 30-200 HDL Risk Factor 3.7 CALC 0.0-4.4 LDL (Calculated) 134 CALC High 0-129 VLDL (Calculated) 22 mg/dL 0-50 Laboratory test 07/05/2012 [facility] TSH 1.85 mIU/L 0.50-6.00 finding Lyme Igg/M W/RFX 07/05/2012 [facility] Lyme <0.91 index 0.00-0.90 24, 25 West [address] IgG/[place] [address] [phone] Lyme Disease Ab, Quant, IgM <0.91 index 0.00-0.90 26 Laboratory test 07/05/2012 [facility] C-Reactive 4.3 mg/L 0.0-5.0 finding 28 [facility] [place] [address] [phone] Protein Elect 07/05/2012 [facility] Protein Elect SEE BELOW Serum 28 [facility] [place] [address] [phone] Graph Report TO FOLLOW Albumin 3.5 g/dL 3.2-5.6 Alpha 1 Globulin, Serum 0.3 g/dL 0.1-0.4 Alpha 2 Globulin, Serum 0.9 g/dL 0.4-1.2 Beta Globulin, Serum 1.1 g/dL 0.6-1.3 Gamma Globulin 0.9 g/dL 0.5-1.6 M-Kulwant Gamma NOT OBSERVED g/dL Not Observed M-Kulwant Beta NOT OBSERVED g/dL Not Observed Globulin,Total 3.2 g/dL 2.0-4.5 A/G Ratio 1.1 0.7-2.0 Protein, Total 6.7 g/dL 6.4-8.3 Interpretation, Serum SEE COMMENT 27 Laboratory test 07/05/2012 [facility] Rheumatoid Arth 13.3 IU/mL 0.0-13.9 finding 28 [facility] [place] [address] [phone] Vitamin D, 25 Oh 27.1 ng/mL Low 30.0-100.0 28 Anti Dsdna Antibodies 3 IU/mL 0-9 29 HSV Igm I/II 04/27/2012 [facility] HSV, IgM I/II 0.95 High 0.00-0.90 30 Combination 28 [facility] [place] [place] [address] [phone] HSV 1 And 2 04/27/2012 [facility] HSV 1 IgG, Type <0.91 0.00-0.90 31 Specific AB Igg 28 [facility] [place] [address] [phone] HSV 2 IgG, Type Spec <0.91 index 0.00-0.90 32 Laboratory test 10/19/2010 [facility] Rheumatoid Arth 7.0 IU/mL 0.0-13.[address] [place] [address] [phone] Lyme Igg/M 10/19/2010 [facility] Lyme IgG/IgM Ab <0.91 0.00-0.90 33 W/RFX West [address] [place] [address] [phone] Lyme Disease Ab, Quant, IgM <0.91 index 0.00-0.90 34 Thyroglobulin 10/19/2010 [facility] Thyroglobulin, 19.3 0.5-55.0 35 Quant [address] [facility] [address] Qn. ng/[place] [address] [phone] Antithyroglobulin Ab <20 IU/mL 0-40 36 CBC Electronic (a) 10/19/2010 [facility] WBC 11.0 High 3.6-9.6 (607)- - RBC 4.37 3.90-5.70 Hemoglobin (a/CMC/CTX) 13.2 g/dL 12.1 - 17.2 Hematocrit (a/CMC/CTX) 39.1 % 36.1 - 50.3 Platelets 302 10^3/ul 150-400 Lymph% 38.4 20.5-51.1 Mixed% 4.6 Neutrophils % 57.0 Mean Corpuscular Vol 89 82.2-97.4 Mean Corpuscular Hemoglobin 30.2 27.6-33.3 Mean Corpuscular Hemo Concen 33.8 32.0-36.0 RDW 12.4 11.6-13.7 Mean Platelet Volume 8.6 6.5-11.0 Laboratory test 10/19/2010 [facility] Glucose Random 94 60-105 finding (607)- - Whole Blood Laboratory test 10/19/2010 [facility] TSH 4.19 mIU/L 0.50-6.00 37 finding Laboratory test 02/05/2010 [facility] Glucose 85 mg/dL 70-100 38 finding Testosterone Total 13.9 ng/dL 10-75 Progesterone 0.5 NG/ML 39 Progesterone,17 Hydroxy 40 ng/dL () 40 Dhea Sulfate 23.4 g/dL Abnormal 31-228 41 Insulin 8.2 uU/mL 2.6-25 42 Laboratory test finding 08/31/2009 [facility] TSH 0.95 MIU/ML 0.34-5.60 FSH 6.45 MIU/ML 43 Prolactin 11.52 NG/ML 1.0-25.0 Laboratory test 09/10/2008 [facility] Antinuclear AB NEGATIVE Negative 44 finding 28 [facility] (Bruna) [place] [address] [phone] Rheumatoid Factor (RF) SEE BELOW 45 C-Reactive Protein 0.3 mg/dL 0.0-0.5 Comprehensive Metabolic 06/30/2008 [facility] Glucose 86 mg/dL 70-100 28 [place] [address] [phone] BUN 16 mg/dL 4-18 Creatinine, Serum 1.1 mg/dL 0.5-1.2 Sodium 139 mmol/L 136-146 Potassium 4.7 mmol/L 3.5-5.3 Chloride 103 mmol/L 98-110 Carbon Dioxide 27 mmol/L 20-32 Albumin 4.3 g/dL 3.5-4.7 Protein, Total 6.7 g/dL 6.4-8.3 Calcium 9.6 mg/dL 8.4-10.4 Alkaline Phosphatase 62 U/L 10-118 Sgot (Ast) 25 U/L 3-40 SGPT (Alt) 24 U/L 7-50 Bilirubin, Total 0.40 mg/dL 0.30-1.20 CBC 06/30/2008 [facility] WBC 9.5 x103 4.3-10.[address] [place] [phone] RBC 4.52 x106 3.80-5.30 Hemoglobin 13.2 g/dL 11.8-15.8 Hematocrit 41.3 % 35.0-47.0 MCV 91.4 fl 82.0-98.0 MCH 29.2 pg 27.5-33.5 MCHC 32.0 g/dL 32.0-36.0 RDW 14.0 % 11.5-14.5 Platelet Count 307 x103 130-400 MPV 10.8 fl High 6.5-10.5 Segmented Neutrophils 54.9 % 44.0-74.0 Lymphocytes 32.0 % 15.0-45.0 Monocytes 6.3 % 2.0-13.0 Eosinophils 6.2 % High 0.0-6.0 Basophils 0.6 % 0.0-2.0 Neutrophil Absolute 5.2 x103 1.4-7.0 Lymphocytes Absolute 3.0 x103 1.0-3.4 Monocyte Absolute 0.6 x103 0.2-1.0 Eosinophil Absolute 0.6 x103 High 0.0-0.5 Basophil Absolute 0.1 x103 0.0-0.2 Laboratory test 06/30/2008 [facility] Sedimentation Rate 11 MM/HR 0-20 finding 28 [place] [address] [phone] TSH (Thyrotropin) 2.500 uIU/ml 0.350-5.500 GFR, Calculated 06/30/2008 [facility] GFR (Calculated) 60 46 28 [place] [address] [phone] Laboratory test 11/16/2007 [facility] TSH 3.22 0.34-5 finding MIU/ML .60 Prolactin 6.46 NG/ML 1.0-25.0 CBC With Manual Diff Stat 07/25/2007 [facility] RBC Morphology NORMAL White Blood Count 13.3 CUMM High 4.8-10.8 Absolute Neutrophil Count 9.0 Atypical Lymph 1 % 0-6 Band Neutrophil 2 % 0-8 Basophil 1 % 0-2 Hematocrit 38 % 35-47 Hemoglobin 12.9 g/dL 12.0-16.0 Eosenophil 15 % High 0-6 Lymphocyte 12 % 5-47 Mean Corpuscular HGB Cone 34 g/dL 32-36 Mean Corpuscular Hemoglob 31 pg 27-31 Mean Corpuscular Volume 90 um3 79-97 Monocyte 3 % 0-13 Mean Platelet Volume 7.4 um3 7.4-10.4 Platelet Count 312 CUMM 150-450 Polysegmented Neutrophil 66 % 38-83 Red Cell Count 4.22 CUMM 4.2-5.4 Redcell Distribution WDTH 14 % 10.5-15 Comp Stat 07/25/2007 [facility] One Over Creatinine 1.11 Anion Gap 6.0 mmol/L 2-11 47 Albumin/Globulin Ratio 1.1 1-3 Albumin 3.3 GM/DL Low 3.6-5.4 Alkaline Phosphatase 46 U/L 30-110 Alt (SGPT) 18 U/L 14-54 Ast (Sgot) 21 U/L 12-42 BUN 9 mg/dL 6-24 Calcium 9.0 mg/dL 8.7-10.2 Chloride 101 mmol/L 101-111 Co2 (Carbon Dioxide) 30.0 mmol/L 22-32 Globulin 3.1 GM/DL 2-4 Glucose 113 mg/dL High 70-105 Potassium 4.0 mmol/L 3.5-5.0 Sodium 137 mmol/L 135-145 Bilirubin Total 0.6 mg/dL 0.4-1.5 Total Protein 6.4 GM/DL 6.2-8.1 BUN/Creatinine Ratio 10.0 8-20 Creatinine 0.9 mg/dL 0.5-1.4 HCG Qualitative Stat 07/25/2007 [facility] Serum Qual HCG NEGATIVE Negative 48 Arterial Blood Gas 07/25/2007 [facility] Base Excess 0.3 -2.0-2.0 49 Device ROOM AIR Bicarbonate 27.3 mmol/L 19-31 O2 Saturation 99.5 % High 95-98 Pco2 53 mmHg High 35-45 PH 7.32 Low 7.35-7.45 Po2 197 mmHg High 80-100 Tco2 28.9 mEq/L Laboratory test 07/25/2007 [facility] BNP Evaluatr < 5.0 pg/mL Low 7.5-100 finding Laboratory test 07/23/2007 [facility] Labs CMP;CBC See Image Report finding Laboratory test 07/23/2007 [facility] Blood Culture NG4 50 finding CBC With Manual Diff 07/23/2007 [facility] RBC Morphology NORMAL Stat White Blood Count 15.7 CUMM High 4.8-10.8 Absolute Neutrophil Count 9.5 Hematocrit 40 % 35-47 Hemoglobin 13.4 g/dL 12.0-16.0 Eosenophil 14 % High 0-6 Lymphocyte 22 % 5-47 Mean Corpuscular HGB Cone 34 g/dL 32-36 Mean Corpuscular Hemoglob 31 pg 27-31 Mean Corpuscular Volume 91 um3 79-97 Monocyte 3 % 0-13 Mean Platelet Volume 7.5 um3 7.4-10.4 Platelet Count 313 CUMM 150-450 Polysegmented Neutrophil 61 % 38-83 Red Cell Count 4.37 CUMM 4.2-5.4 Redcell Distribution WDTH 14 % 10.5-15 Comp Metabolic Panel 07/23/2007 [facility] One Over Creatinine 1.11 Anion Gap 5.0 mmol/L 2-11 51 Albumin/Globulin Ratio 1.0 1-3 Albumin 3.7 GM/DL 3.6-5.4 Alkaline Phosphatase 51 U/L 30-110 Alt (SGPT) 21 U/L 14-54 Ast (Sgot) 23 U/L 12-42 BUN 9 mg/dL 6-24 Calcium 9.0 mg/dL 8.7-10.2 Chloride 101 mmol/L 101-111 Co2 (Carbon Dioxide) 30.0 mmol/L 22-32 Globulin 3.6 GM/DL 2-4 Glucose 114 mg/dL High 70-105 Potassium 3.8 mmol/L 3.5-5.0 Sodium 136 mmol/L 135-145 Bilirubin Total 0.6 mg/dL 0.4-1.5 Total Protein 7.3 GM/DL 6.2-8.1 BUN/Creatinine Ratio 10.0 8-20 Creatinine 0.9 mg/dL 0.5-1.4 Laboratory test 07/18/2007 [facility] Sedimentation Rate 16 MM/HR 0-20 52 finding 28 [place] [address] [phone] Brain Joellen. Peptide(BNP) 3.2 pg/mL 0.0-100.0 53 TSH (Thyrotropin) 1.810 uIU/ml 0.350-5.500 T-4 Free 1.0 ng/dL 0.8-1.8 CBC 07/18/2007 [facility] WBC 16.6 x103 High 4.3-10.[address] [place] [phone] RBC 4.71 x106 3.80-5.30 Hemoglobin 14.4 g/dL 11.8-15.8 Hematocrit 44.1 % 35.0-47.0 MCV 93.6 fl 82.0-98.0 MCH 30.6 pg 27.5-33.5 MCHC 32.7 g/dL 32.0-36.0 RDW 14.2 % 11.5-14.5 Platelet Count 301 x103 130-400 MPV 10.4 fl 6.5-10.5 Segmented Neutrophils 81.6 % High 44.0-74.0 Lymphocytes 7.9 % Low 15.0-45.0 Monocytes 3.1 % 2.0-13.0 Eosinophils 7.0 % High 0.0-6.0 Basophils 0.4 % 0.0-2.0 Neutrophil Absolute 13.5 x103 High 1.4-7.0 Lymphocytes Absolute 1.3 x103 1.0-3.4 Monocyte Absolute 0.5 x103 0.2-1.0 Eosinophil Absolute 1.2 x103 High 0.0-0.5 Basophil Absolute 0.1 x103 0.0-0.2 Laboratory test finding 07/02/2007 [facility] Throat-Beta Strep Culture NGNBS 54 Basic Metabolic Panel Stat 07/02/2007 [facility] One Over Creatinine 1.11 Anion Gap 8.0 mmol/L 2-11 55 BUN 11 mg/dL 6-24 Calcium 9.5 mg/dL 8.7-10.2 Chloride 104 mmol/L 101-111 Co2 (Carbon Dioxide) 26.0 mmol/L 22-32 Glucose 111 mg/dL High 70-105 Potassium 3.3 mmol/L Low 3.5-5.0 Sodium 138 mmol/L 135-145 BUN/Creatinine Ratio 12.2 8-20 Creatinine 0.9 mg/dL 0.5-1.4 CBC With Electronic Diff 07/02/2007 [facility] White Blood Count 13.7 CUMM High 4.8-10.8 Stat Abs Basophils 0.1 0-0.2 Abs Eosinophils 1.0 High 0-0.6 Absolute Neutrophil Count 8.4 High 1.5-7.7 Abs Lymphs 3.6 1.0-4.8 Abs Mononuclear 0.6 0-0.8 Basophil % 0.7 % 0-2 Hematocrit 41 % 35-47 Hemoglobin 14.1 g/dL 12.0-16.0 Eosinophil % 7.1 % High 0-6 Gran % 62.0 % 38-83 Lymph % 25.9 % 20-45 Mean Corpuscular HGB Cone 34 g/dL 32-36 Mean Corpuscular Hemoglob 31 pg 27-31 Mean Corpuscular Volume 89 um3 79-97 Mean Platelet Volume 7.6 um3 7.4-10.4 Mononuclear % 4.3 % 1-9 Platelet Count 357 CUMM 150-450 Red Cell Count 4.60 CUMM 4.2-5.4 Redcell Distribution WDTH 13 % 10.5-15 Rapid Strep A 07/02/2007 [facility] Rapid Strep The health and physical education teacher 56 A <SEE NOTE> Complete Blood 12/14/2006 [facility] WBC 11.2 x10\\S\\3/uL High 3.6-9. Count 6 Gran# 8.4 x10\\S\\3/uL High 1.5-7.2 Gran% 75.2 % 42.2-75.2 HCT 43 % 36-50 HGB 14.8 g/dL 12.1-17.2 Lymph# 2.6 x10\\S\\3/uL 0.7-4.9 Lymph% 23.2 % 20.5-51.1 MCH 31.8 pg 27.6-33.3 MCV 92.4 fL 82.2-97.4 MCHC 34.4 g/dL 33.0-35.5 Mo# 0.2 x10\\S\\3/uL 0.1-0.9 Mo% 1.6 % Low 1.7-9.3 MPV 8.1 fL 7.4-10.4 PLT 384 x10\\S\\3/uL 150-400 RBC 4.66 x10\\S\\6/uL 3.90-5.70 RDW 13.0 % 11.6-13.7 Laboratory test finding 12/14/2006 [facility] TSH 3.94 mIU/L 0.50- 6.00 Comprehensive Metabolic 12/14/2006 [facility] Albumin 4.0 g/dL 3.8- 5.5 Prof Alk. Phos. 55 U/L 30-110 Alt (SGPT) 23 U/L 7-35 Ast (Sgot) 19 U/L 5-34 BUN 19 mg/dL 6-26 Calcium 9.7 mg/dL 8.6-10.2 Chloride 97 mEq/L 94-112 Creatinine 0.9 mg/dL 0.6-1.4 Carbon Dioxide 27 mEq/L 21-32 Glucose 115 mg/dL High 70-105 Sodium 138 mEq/L 134-149 Total Bilirubin 0.2 mg/dL 0.2-1.3 Total Protein 7.3 g/dL 6.3-8.1 Potassium 4.5 mEq/L 3.6-5.5 Globulin 3.3 g/dL 2.0-4.8 A/G Ratio 1.2 Calc 0.6-2.2 BUN/Creat Ratio 21.5 Calc 8.0-36.0 1 REFERENCE VALUE 20.0 - 51.0 Test Performed by: [facility] - [address] [address] 2 ADDITIONAL INFORMATION This test was developed and its performance characteristics determined by [facility] in a manner consistent with CLIA requirements. This test has not been cleared or approved by the U.S. Food and Drug Administration. Test Performed by: [facility] - [address] [address] 3 ADDITIONAL INFORMATION This test was developed and its performance characteristics determined by [facility] in a manner consistent with CLIA requirements. This test has not been cleared or approved by the U.S. Food and Drug Administration. Test Performed by: [facility] - [address] [address] 4 INTERPRETIVE INFORMATION: Histamine, Whole Blood Test developed and characteristics determined by [facility]. See Compliance Statement D: [facility] Performed by [facility], [address] [place] [id number] [email or web address], Chris Baker MD - Lab. Director Test Performed by: [facility] [address] [place] [phone] [facility] Severe Sepsis and Septic Shock Management Bundle Measure requires all lactic acids initially measuring >2.0 mmol/L be repeated. 6 Because ethnic data is not always readily available, this report includes an eGFR for both -Americans and non- Americans. The National Kidney Disease Education Program (NKDEP) does not endorse the use of the MDRD equation for patients that are not between the ages of 18 and 70, are , have extremes of body size, muscle mass, or nutritional status, or are non- or non-. According to the National Kidney Foundation, irrespective of diagnosis, the stage of the disease is based on the level of kidney function: Stage Description GFR(mL/min/1.73 m(2)) 1 Kidney damage with normal or decreased GFR 90 2 Kidney damage with mild decrease in GFR 60-89 3 Moderate decrease in GFR 30-59 4 Severe decrease in GFR 15-29 5 Kidney failure <15 (or dialysis) 7 SEE RESULT BELOW Name: ROMASAMMIE : [address]: Miles Mays MD Acct: [id number] Unit: [id number] AGE: 46 Location: ED Re08/25/17 SEX: F Status: DEP ER SPEC: [id number] FERNANDA: 08/25/[address] [facility] [address]: Miles Mays MD REQ: [id number] RECD: 08/25/17 STATUS: JOSTIN CROOK DR: Danny Powers MD _ SOURCE: URINE SPDESC: ORDERED: Urine Culture Procedure Result Reported Site Urine Culture Final 08/26/17- 1128 ML No Growth (<1,000 CFU/mL) * ML - Main Lab . END OF REPORT DEPARTMENT OF PATHOLOGY, [address] [place] [address] Dani Palacios M.D. Director [facility] # [id number] SEE RESULT BELOW Name: SAMMIE BRANDNO : [address]: Jian Fuentes MD Acct: [id number] Unit: [id number] AGE: 45 Location: ENDOCEC Re09/09/16 SEX: F Status: DEP REF SPEC: [id number] FERNANDA: 09/09/16-[address] [facility] [address]: Jian Fuentes MD REQ: [id number] RECD: 09/09/162678 STATUS: JOSTIN CROOK DR: Danny Powers MD _ SOURCE: GAS ANTRUM SPDESC: ORDERED: Clotest COMMENTS: [id number] Procedure Result Reported Site Clotest Final 09/10/16- 746 ML Clotest Negative * ML - MAIN LAB (PSC1) . END OF REPORT * ML=Testing performed at Main Lab DEPARTMENT OF PATHOLOGY, [address] [place] [address] Dani Palacios M.D. Director [facility] # [id number] 10 SEE RESULT BELOW Name: SAMMIE BRANDON : [address]: Jian Fuentes MD Acct: [id number] Unit: [id number] AGE: 45 Location: ENDOCEC Re09/09/16 SEX: F Status: DEP REF SPEC: [id number] FERNANDA: 09/09/16-[address] [facility] [address]: Jian Fuentes MD REQ: [id number] RECD: 09/09/161543 STATUS: KIMBER CROOK DR: Danny Powers MD _ ORDERED: LEVEL IV COMMENTS: [id number] FINAL DIAGNOSIS Small bowel, duodenum, biopsy: -- Small bowel mucosa with normal villous architecture and no significant pathologic abnormality. CLINICAL HISTORY Gastroesophageal reflux disease POST-OPERATIVE DIAGNOSIS Esophagus, stomach, duodenum - all normal GROSS DESCRIPTION The specimen is received in formalin labeled, Duodenal Biopsy, and consists of a 0.6 x 0.2 x 0.2 cm granados-brown irregular to polypoid soft tissue fragment, which is entirely submitted in one cassette. Signed (signature on file) Dani Palacios MD 1328 END OF REPORT * ML=Testing performed at Main Lab DEPARTMENT OF PATHOLOGY, [facility] [employer] [place], [place] [address] Dani Palacios M.D. Director [facility] # [id number] 11 RUN DATE: 09/08/14 [facility] LAB LIVE PAGE 1 RUN TIME: [address] [facility] [employer] [place], [place] [address] Specimen Inquiry Name: SAMMIE BRANDON : [address]: Marshall Redmond MD Acct: [id number] Unit: [id number] AGE: 43 Location: [facility] Re09/05/14 SEX: F Status: DEP ER SPEC: [id number] FERNANDA: 09/05/[address] [facility] [address]: Marshall Redmond MD REQ: [id number] RECD: 09/06/146902 STATUS: JOSTIN CROOK DR: Zarina Powers MD _ SOURCE: THROAT SPDESC: ORDERED: Throat Beta Str Procedure Result Verified Site Throat Beta Strep Culture Final 09/08/14- 821 ML Organism 1 Negative Group A Strep * ML - MAIN LAB (PSC1) . END OF REPORT * ML=Testing performed at Main Lab DEPARTMENT OF PATHOLOGY, [address] [place] [address] Dani Palacios M.D. Director [facility] # [id number] 12 Potassium reference range changed effective 03/30/14 13 Because ethnic data is not always readily available, this report includes an eGFR for both -Americans and non- Americans. The National Kidney Disease Education Program (NKDEP) does not endorse the use of the MDRD equation for patients that are not between the ages of 18 and 70, are , have extremes of body size, muscle mass, or nutritional status, or are non- or non-. According to the National Kidney Foundation, irrespective of diagnosis, the stage of the disease is based on the level of kidney function: Stage Description GFR(mL/min/1.73 m(2)) 1 Kidney damage with normal or decreased GFR 90 2 Kidney damage with mild decrease in GFR 60-89 3 Moderate decrease in GFR 30-59 4 Severe decrease in GFR 15-29 5 Kidney failure <15 (or dialysis) 14 Desirable <150 Borderline high 150-199 High 200-499 Very High >500 15 Desirable <200 Borderline high 200-239 High >239 16 Low <40 Desirable: 40-60 High: >60 17 Desirable <100 Near Optimal 100-129 Borderline high 130-159 High 160-189 Very High >189 18 Because ethnic data is not always readily available, this report includes an eGFR for both -Americans and non- Americans. The National Kidney Disease Education Program (NKDEP) does not endorse the use of the MDRD equation for patients that are not between the ages of 18 and 70, are , have extremes of body size, muscle mass, or nutritional status, or are non- or non-. According to the National Kidney Foundation, irrespective of diagnosis, the stage of the disease is based on the level of kidney function: Stage Description GFR(mL/min/1.73 m(2)) 1 Kidney damage with normal or decreased GFR 90 2 Kidney damage with mild decrease in GFR 60-89 3 Moderate decrease in GFR 30-59 4 Severe decrease in GFR 15-29 5 Kidney failure <15 (or dialysis) 19 -- REFERENCE VALUE -- Not Applicable 20 RESULT: HLA-B27 antigen was not detected. Method: Flow Cytometry Test Performed by: [place] [address] Assistant Foreman: Percy Hollis III, M.D. 21 Mixed skin ml. 22 NO WBC, NO ORGANISMS SEEN 23 Negative for Varicella zoster and Herpes simplex viruses. 24 FASTING; 3 SSTS 25 Negative <0.91 Equivocal 0.91 - 1.09 Positive >1.09 Note: The CDC currently advises that Western blot testing be performed following all equivocal or positive EIA results. Final diagnosis should include appropriate clinical findings and a positive EIA which is also positive by Western blot. 26 Negative <0.91 Equivocal 0.91 - 1.09 Positive >1.09 . Note: IgM levels may peak at 3-6 weeks post infection, then gradually decline. FDA currently advises that Western Blot testing be performed following all equivocal or positive EIA results. Final diagnosis should include appropriate clinical findings and a positive EIA which is also positive by Western Blot. 27 Normal serum protein electrophoresis. 28 Vitamin D deficiency has been defined by the [place] of Medicine and an Endocrine Society practice guideline as a level of serum 25-OH vitamin D less than 20 ng/mL (1,2). The Endocrine Society went on to further define vitamin D insufficiency as a level between 21 and 29 ng/mL (2). 1. IOM ([place] of Medicine). 2010. Dietary reference intakes for calcium and D. [place]: The National AcademDeviceFidelity Press. 2. Ayan MF, Viridiana DOUGHERTY, Boby BULL, et al. Evaluation, treatment, and prevention of vitamin D deficiency: an Endocrine Society clinical practice guideline. JCEM. 2010; 96(7):1911-30. 29 Negative <5 Equivocal 5 - 9 Positive >9 30 Negative <0.91 Equivocal 0.91 - 1.09 Positive >1.09 31 Negative <0.91 Equivocal 0.91 - 1.09 Positive >1.09 . Note: Negative indicates no antibodies detected to HSV-1. Equivocal may suggest early infection. If clinically appropriate, retest at later date. Positive indicates antibodies detected to HSV-1; coinfection with HSV-2 cannot be excluded without type specific testing. 32 Negative <0.91 Equivocal 0.91 - 1.09 Positive >1.09 . Note: Negative indicates no antibodies detected to HSV-2. Equivocal may suggest early infection. If clinically appropriate, retest at later date. Positive indicates antibodies detected to HSV-2; coinfection with HSV-1 cannot be excluded without type specific testing. 33 Negative <0.91 Equivocal 0.91 - 1.09 Positive >1.09 Note: The CDC currently advises that Western blot testing be performed following all equivocal or positive EIA results. Final diagnosis should include appropriate clinical findings and a positive EIA which is also positive by Western blot. 34 Negative <0.91 Equivocal 0.91 - 1.09 Positive >1.09 . Note: IgM levels may peak at 3-6 weeks post infection, then gradually decline. FDA currently advises that Western Blot testing be performed following all equivocal or positive EIA results. Final diagnosis should include appropriate clinical findings and a positive EIA which is also positive by Western Blot. 35 Premature Infants (27-31 wks gest): 1 day old: 107.0 - 395.0 3 day old: 49.0 - 163.0 30 day old: 17.0 - 63.0 Premature Infants (31-34 wks gest): 1 day old: 147.0 - 277.0 10 day old: 32.0 - 112.0 Term Infants: 1 day old: 6.0 - 93.0 10 day old: 9.0 - 148.0 30 day old: 19.0 - 51.0 7-12 years: 20.0 - 50.0 13-18 years: 9.0 - 27.0 Adult: 0.5 - 55.0 . Reference interval does not apply following thyroidectomy when levels should be <0.5 ng/mL or repeatedly low. The presence of antithyroid antibodies may cause decreased levels of measurable thyroglobulin due to competitive inhibition in this immunometric assay. . Siemens (Iotelligent) ICMA Methodology 36 Siemens (Iotelligent) ICMA Methodology 37 FASTING 38 Note change in reference range as of 01/17/08. The change was based on recommendations from the [place] [employer]. 39 FEMALE REFERENCE RANGES FOR Progesterone: Follicular phase.......0.3 - 1.5 ng/ml Mid-luteal phase.......5.2 - 18.5 ng/ml Postmenopausal.........< 0.8 ng/ml 1st trimester.........4.7 - 50.0 ng/ml 2nd trimester.........19.4 - 45.3 ng/ml . 40 -- REFERENCE VALUE -- < 80 (Follicular) <285 (Luteal) Test Performed by: [facility] Dpt of Lab Med and Pathology [address] [place] [address] Assistant Foreman: Percy Hollis III, M.D. 41 Test Performed by: [facility] D[facility] of Lab Med and Pathology [address] [place] [address] Assistant Foreman: Percy Hollis III, M.D. 42 Test Performed by: [facility] Dpt of Lab Med and Pathology [address] [place] [address] Assistant Foreman: Percy Hollis III, M.D. 43 NORMAL RANGE MALES 1 - 20 NORMALLY MENSTRUATING FEMALES - Follicular Phase 3 - 9 - Mid-Cycle Peak 4 - 23 - Luteal Phase 1 - 6 POSTMENOPAUSAL FEMALES 16 - 114 . 44 (Performed by Enzyme Immunoassay, EIA) 45 RA Latex Turbid. 27.9 H IU/mL 0.0-13.9 RN RN-[facility] [phone] 46 mL/min/1.73m2 . Normal Function or Mild Renal Disease, if clinically at risk: >or=60 Moderately decreased: 30 - 59 Severely decreased: 15 - 29 Renal Failure: <15 . Please note that the MDRD equation requires an additional adjustment for -Americans (multiply the GFR result by 1.210). . Glomerular Filtration Rate (GFR) is estimated based on the MDRD equation, which assumes a steady state for creatinine (Ana Int Med 139/2 137-149, 2003), as recommended by the National Kidney Disease Education Program in conjunction with the National Institutes of Health and the National Kidney Foundation. . Clinical conditions in which it may be necessary to measure GFR by using clearance methods include extremes of age and body size, severe malnutrition or obesity, diseases of skeletal muscle, paraplegia or quadriplegia, vegetarian diet, rapidly changing kidney function, and calculation of the dose of potentially toxic drugs that are excreted by the kidneys. 47 Anion gap measurement may be of limited value in the presence of any alkalosis, especially in a combined acid base disorder. . 48 If is still suspected, please repeat test after 48 to 72 hours. . 49 REFERENCE RANGES BASED ON ROOM AIR 50 PRELIMINARY: NO GROWTH DAY 4 51 Anion gap measurement may be of limited value in the presence of any alkalosis, especially in a combined acid base disorder. . 52 1 LAV TOP TUBES, 1 SST, 1 EDTA PLASMA POUR OFFFROZEN 53 . Abnormal BNP values are associated with increased mortality and are independent of age, Troponin-I and the presence or absence of heart failure, renal insufficiency and ST segment deviation. The adjusted odds ratios for at 10 months at a median of 40 hours after the onset of ischemic symptoms are: Quartile Plasma BNP (pg/ml) Odds ratio Q-1 5.0 to 43.6 Reference group Q-2 43.7 to 81.2 3.8 (95% C.I., 1.1 to 3.0) Q-3 81.3 to 137.8 4.0 (95% C.I., 1.2 to 13.7) Q-4 137.9 to 1456.6 8.8 (95% C.I., 1.7 to 19.7) BNP is also associated with the risk of recurrent or new myocardial infarction, and/or new or worsening congestive heart failure. N. Engl. J. Med., 2001; 345:1014-21 54 NEGATIVE FOR GROUP A STREP 55 Anion gap measurement may be of limited value in the presence of any alkalosis, especially in a combined acid base disorder. . 56 The health and physical education teacher and regulatory agencies both recommend that a throat culture for beta strep be performed if a Rapid Group A Strep assay yields a negative result. Therefore a culture will be automatically performed on all negative samples. N^NEGATIVE FOR GROUP A STREP BY ENZYME IMMUNOASSAY^STREPA Procedures Date Code Description Status 03/27/2017 09440 Electrocardiogram Complete Completed 11/02/2016 [id number] Mammogram Completed 10/02/2015 [id number] Mammogram Completed 12/25/2014 58245 Nebulizer Treatment Completed 11/11/2014 49893 Pulse Oximetry Completed 07/15/2014 [id number] Mammogram Completed 10/18/2012 76020 Remove Skin Tags Up To 15 Completed 07/05/2012 95830 Electrocardiogram Complete Completed 12/20/2011 [id number] Mammogram Completed 04/12/2011 81940 Pulse Oximetry Completed 07/18/2007 34515 Electrocardiogram Complete Completed 07/10/2007 02396 Nebulizer Treatment Completed Encounters Type Date Location Provider Dx Diagnosis Office Visit 05/08/2018 [facility] Office [place] M79.604 Pain in right leg 3:45p Afnp-C Office Visit 01/05/2018 Main Office ELAINA Fernández M25.561 Pain in right 3:45p knee 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 collapse F32.89 Other specified depressive episodes Z23 Encounter for immunization Office Visit 08/22/2016 1:20p Main Office Jefe Lao J06.9 Acute upper [place], Avila respiratory infection, unspecified Office Visit 03/14/2016 4:20p Main Office Jv Valdez, S50.312A Abrasion of left M.D. elbow, initial encounter S80.812A Abrasion, left lower leg, initial encounter S90.112A Contusion of left great toe w/o damage to nail, init encntr S91.112A Laceration w/o fb of left great toe w/o damage to nail, init Z23 Encounter for immunization Office Visit 09/29/2015 1:20p Main Office Danny Powers, J45.998 Other asthma M.D. M25.561 Pain in right knee F32.8 Other depressive episodes M79.7 Fibromyalgia Office Visit 08/18/2015 1:00p Main Office Danny Powers, F32.8 Other depressive M.D. episodes J45.998 Other asthma M25.561 Pain in right knee M79.7 Fibromyalgia Office Visit 06/18/2015 3:00p Main Office Danny Powers M.D. M79.7 Fibromyalgia M25.561 Pain in right knee J45.998 Other asthma F32.8 Other depressive episodes E66.8 Other obesity Office Visit 04/07/2015 10:20a Main Office Danny Powers J45.998 Other asthma M.D. 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 Status Asthmaticus Office Visit 12/02/2014 2:30p Main Office Danny Powers, 311 Depressive M.D. Disorder Not Elsewhere Spec 493.90 Asthma Unspec W/O Status Asthmaticus 780.79 Malaise And Fatigue Other Office Visit 11/11/2014 2:40p Main Office Danny Powers, 493.90 Asthma Unspec W/O M.D. Status Asthmaticus 311 Depressive Disorder Not Elsewhere Spec 729.1 Myalgia & Myositis Unspec Office Visit 10/28/2014 3:30p Main Office Danny Powers, 729.1 Myalgia & M.D. Myositis Unspec 311 Depressive Disorder Not Elsewhere Spec Office Visit 10/14/2014 2:40p Main Office Danny Powers, 311 Depressive Disorder M.D. Not Elsewhere Spec 729.1 Myalgia & Myositis Unspec Office Visit 09/23/2014 2:00p Main Office Danny Powers, 311 Depressive Disorder M.D. Not Elsewhere Spec 729.1 Myalgia & Myositis Unspec Office Visit 06/26/2014 10:40a Main Office Danny Powers, 311 Depressive Disorder M.D. Not Elsewhere Spec 493.90 Asthma Unspec W/O Status Asthmaticus 564.1 Irritable Bowel Syndrome 729.1 Myalgia & Myositis Unspec Office Visit 03/27/2014 Main Office Danny Hilton v04.81 Need For Prophylactic 9:20a Avila Powers Vaccination & Inoculation/Influenza 729.1 Myalgia & Myositis Unspec Office Visit 01/28/2014 9:00a Main Office Danny Powers, 729.1 Myalgia & M.D. Myositis Unspec Office Visit 2013 9:00a Main Office Danny Powers, 729.1 Myalgia & M.D. Myositis Unspec 311 Depressive Disorder Not Elsewhere Spec 493.90 Asthma Unspec W/O Status Asthmaticus 706.1 Acne Other 564.1 Irritable Bowel Syndrome 626.2 Menstruation Excessive Or Frequent Office Visit 05/14/2013 10:00a Main Office Danny Hilton 782.9 Skin & Integumentary Avila Powers Tissue Other Symptoms 729.1 Myalgia & Myositis Unspec 311 Depressive Disorder Not Elsewhere Spec 493.90 Asthma Unspec W/O Status Asthmaticus 626.2 Menstruation Excessive Or Frequent V04.81 Need For Prophylactic Vaccination & Inoculation/Influenza Office Visit 02/05/2013 8:00a Main Office Danny Powers, 327.23 Obstructive Sleep M.D. Apnea Adult Pediatric 278.00 Obesity Unspec 729.1 Myalgia & Myositis Unspec Office Visit 10/18/2012 8:40a Main Office Danny Powers M.D. 782.3 Edema 782.9 Skin & Integumentary Tissue Other Symptoms 327.23 Obstructive Sleep Apnea Adult Pediatric 493.90 Asthma Unspec W/O Status Asthmaticus 311 Depressive Disorder Not Elsewhere Spec 729.1 Myalgia & Myositis Unspec 701.9 Hypertrophic & Atrophic Conditions Of Skin Unspec Office Visit 07/20/2012 1:00p Main Office ELAINA Fernández 68Kaylan Impetigo 684 Impetigo Office Visit 07/05/2012 9:00a Main Office Danny Powers, 493.90 Asthma Unspec W/O M.D. Status Asthmaticus 311 Depressive Disorder Not Elsewhere Spec 729.1 Myalgia & Myositis Unspec 278.00 Obesity Unspec 327.23 Obstructive Sleep Apnea Adult Pediatric 724.5 Backache Unspec V70.0 Examination General Medical Routine AT Health Care Facility 791.7 Cells & Casts In Urine Other Office Visit 04/27/2012 1:00p Main Office ELAINA Fernández 782.1 Rash & Other Nonspec Skin Eruption Office Visit 03/14/2012 10:15a Main Office ELAINA Fernández 68Kaylan Impetigo Office Visit 03/12/2012 4:00p Main Office ELAINA Fernández 719.46 Pain Joint Lower Leg v04.81 Need For Prophylactic Vaccination & Inoculation/Influenza Office Visit 12/19/2011 1:20p Main Office Elif Rice 493.90 Asthma Unspec W/O Avila Johnson Status Asthmaticus 300.00 Anxiety State Unspec 311 Depressive Disorder Not Elsewhere Spec 729.1 Myalgia & Myositis Unspec 327.21 Primary Central Sleep Apnea v06.5 Tetanus Diphtheria (DT) Office Visit 04/12/2011 5:40p Main Office Danny Hilton 466.0 Bronchitis Hang Powers M.D. Office Visit 04/28/2010 11:10a Main Office Jenna wilhelm V04.81 Need For Avila Naranjo Prophylactic Vaccination & Inoculation/Influen za v04.81 Need For Prophylactic Vaccination & Inoculation/Influenza 723.1 Cervicalgia Office Visit 08/19/2009 1:30p Main Office Leatha Grove, 465.9 URI Upper Afnp-C Respiratory Infections Acute Unspec Sites 466.0 Bronchitis Acute 493.90 Asthma Unspec W/O Status Asthmaticus Office Visit 05/27/2009 6:15p Main Office Leatha Grove, 465.9 URI Upper Afnp-C Respiratory Infections Acute Unspec Sites 466.0 Bronchitis Acute 493.90 Asthma Unspec W/O Status Asthmaticus Office Visit 05/18/2009 Main Office Jenna wilhelm V04.81 Need For Prophylactic 2:20p Avila Naranjo Vaccination & Inoculation/Influenza 723.1 Cervicalgia V04.81 Need For Prophylactic Vaccination & Inoculation/Influenza 729.2 Neuralgia Neuritis & Radiculitis Unspec Office Visit 09/10/2008 2:40p Main Office Jenna Lewis, 723.1 Cervicalgia M.DBarbie 729.2 Neuralgia Neuritis & Radiculitis Unspec 724.2 Lumbago 724.3 Sciatica Office Visit 09/13/2007 12:00p Main Office Jenna wilhelm 493.00 Asthma Extrinsic Avila Naranjo Unspecified Office Visit 08/08/2007 2:50p Northeast Office Jenna wilhelm 493.00 Asthma Extrinsic Avila Naranjo Unspecified Office Visit 07/18/2007 1:00p Main Office Alia Cordon 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 at Main [facility]8809/13/2018 - Danny Powers M.D.M25.561 Pain in right kneeComments:I feel she is medically clear for the planned right knee [id number] Other specified depressive episodesComments:continue present xehdkisxsaR04.998 Other asthmaComments:continue care with Dr Ruiz79.7 FibromyalgiaNew Labs:Urinalysis W/RFL To Micro, Ordered: 09/13/18Urine Culture (Fma/CMC), Ordered: AllComments:Medication Management Patient Understands medications she's taking ? Yes No Are there Barriers to Adherence? Yes No Has the patient been asked about herbal supplements and therapies, and OTC meds? Yes No
[2018-10-02] MEDS ORDERED: fentaNYL* 50 MCG/ML 2 ML VIAL (100 MCG VIAL) ONE ×2 (13:12→17:38)
[2018-10-02] MEDS ORDERED: Midazolam* 1 MG/ML 2 ML VIAL (2 MG) ONE ×4 (13:12→18:17)
[2018-10-02] MEDS ORDERED: ROPIVACAINE 5 MG/ML 30 ML BTL (0.5%) ONE (14:04)
[2018-10-02] MEDS ORDERED: KETAMINE HCL* 50 MG/ML 10 ML VIAL ONE (14:35)
[2018-10-02] MEDS ORDERED: Rocuronium* 10 MG/ML VIAL ONE (14:46)
[2018-10-02] MEDS ORDERED: Lidocaine 2% PF * 5 ML VIAL ONE (14:47)
[2018-10-02] MEDS ORDERED: Propofol* 10 MG/ML 20 ML BTL ONE (14:47)
[2018-10-02] MEDS ORDERED: Ondansetron INJ* 2 MG/ML VIAL ONE (16:13)
[2018-10-02] MEDS ORDERED: Ketorolac INJ* 30 MG/ML 1 ML VIAL ONE (16:13)
[2018-10-02] MEDS ORDERED: HYDROmorphone INJ1* 1 MG/ML SYRINGE ONE ×5 (16:33→18:15)
[2018-10-02] MEDS ORDERED: Sugammadex * 200 MG/2 ML VIAL IV PUSH ONE (16:48)
[2018-10-02] MEDS ORDERED: Naloxone* 0.4 MG/ML 1 ML VIAL IV PRN (16:53)
[2018-10-02] MEDS ORDERED: Acetaminophen IV 1GM/100ML * 10 MG/ML VIAL IVPB ONE (16:53)
[2018-10-02] MEDS ORDERED: Bisacodyl SUPP* 10 MG SUPP PR PRN (17:14)
[2018-10-02] MEDS ORDERED: Cyclobenzaprine TAB* 10 MG PO PRN (17:14)
[2018-10-02] MEDS ORDERED: Magnesium Hydroxide LIQ* 30 ML UDC PO PRN (17:14)
[2018-10-02] MEDS ORDERED: Ondansetron INJ* 2 MG/ML VIAL IV PRN (17:14)
[2018-10-02] MEDS ORDERED: Polyethylene Glycol 3350* 17 GM PACKET PO PRN (17:14)
[2018-10-02] MEDS ORDERED: diPHENhydraMINE IV* 50 MG/ML 1 ml VIAL (BENADRYL) IV PRN (17:14)
[2018-10-02] MEDS ORDERED: oxyCODONE/Acetamin 5/325 MG* TAB PO PRN (17:14)
[2018-10-02] MEDS ORDERED: Ondansetron TAB* 4 MG PO PRN (17:14)
[2018-10-02] MEDS ORDERED: traMADol TAB* 50 MG PO PRN (17:14)
[2018-10-02] MEDS ORDERED: Acetaminophen IV 1GM/100ML * 100 ML ONE (17:20)
[2018-10-02] MEDS: HYDROmorphone INJ1* 1 MG/ML SYRINGE IV PRN ×2 (17:27→17:37)
[2018-10-02] MEDS: fentaNYL* 50 MCG/ML 2 ML VIAL (100 MCG VIAL) IV PRN ×2 (17:46→17:54)
--- NOTE | 2018-10-02 17:55 | OP ---
Operative Report - Blank - Operative Report Date of Operation: 10/02/18 Note: JOSEPHINE BRANDON 1970 Date of Surgery: 10/02/18 Alma Byers MD Automotive Lube Technician: Preeti LÓPEZ did help throughout the procedure with preparation of the knee, wound retraction, manipulation of the knee, and wound closure. Anesthesiologist: Finesse PARKER Anesthesia Type: General Preoperative Diagnosis: Right severe degenerative osteoarthritis of the knee Postoperative Diagnosis: As above Procedure Performed: Right Total Knee Arthroplasty Tourniquet time: 44 minutes Complications: None Specimen: Bone and cartilage from the right knee joint sent to pathology. Hardware Used: Cemented Delaney and Nephew total knee hardware was used - For the femur a size 5 right narrow oxinium legion posterior stabilized femoral component, for the tibia a size 3 aleksandr II tibial baseplate, for the insert a size 11mm 3-4 posterior stabilized articular polyethylene insert, and for the patella a size 29 3-peg all poly patella. Brief History/Indication: JOSEPHINE BRANDON was known in clinic and had a history of severe right knee pain and swelling. She failed conservative treatment with anti-inflammatories, pain pills, intra-articular injections and physical therapy. She elected to undergo right total knee arthroplasty due to continued pain and decreased quality of life. Radiographs showed severe end stage osteoarthritis of the knee with bone on bone contact. Informed consent was obtained from the patient. She understood the risks of surgery included but were not limited to: bleeding, infection, damage to nearby structures, intraoperative fracture, nerve palsy, failure of the hardware, early loosening, knee stiffness or loss of motion, anesthesia complications, stroke, heart attack , blood clot and . She also understood the increased risk of early loosening and need for revision surgery due to her obesity and young age. Due to severe pain and decreased funtion/quality of life, she wished to proceed. Intra-Operative Findings: Intraoperatively the patient was noted to have severe loss of cartilage in all 3 compartments of the knee. Description of the Procedure: JOSEPHINE BRANDON was identified in the preanesthesia unit. Her right knee was marked as the correct operative side. Informed consent was signed and placed in the chart. The patient was taken to the operating room and placed under anesthesia without complication. A cruz catheter was placed. A tourniquet was placed on the right thigh. The right lower extremity was prepped and draped in the usual sterile fashion. Preoperative time-out was made to correctly identify the patient, side and site. Appropriate intraoperative antibiotics were given within one hour of incision. Tourniquet was inflated. A midline incision was made and carried sharply down to the extensor mechanism. A new 10 blade was used to make a standard medial parapatellar arthrotomy. The patella was subluxed laterally. Electrocautery was used to dissect soft tissue off the superomedial tibia to the midsagittal plane. The knee was flexed up. The anterior horn of the lateral meniscus and the ACL were sharply incised. A drill was used to enter the distal femur. The intramedullary distal femoral cutting guide was pinned on the distal femur. The oscillating saw was used to make the distal femoral cut. The external rotation guide was pinned on the distal femur and the distal femur was sized to a size 5. The size 5 multi-cutting jig was pinned on the distal femur. The oscillating saw was used to make the appropriate 4 chamfer cuts. Next the PCL was completely released. The extramedullary tibial cutting guide was pinned on the proximal tibia and the oscillating saw was used to make the proximal tibial cut perpendicular to the mechanical axis of the tibia. The bone was carefully removed. The knee was brought out into full extension. The spacer block was placed and had excellent fit with the knee in full extension. The medial and lateral ligaments were well balanced. The flexion and extension gaps were well balanced. The knee was flexed up. Lamina burglar alarm installer was placed both medially and laterally. Any remaining meniscus was removed with electrocautery. Curved osteotome was used to remove any posterior osteophytes. The tibial tray and drop caio were placed and confirmed a satisfactory tibial cut. The size 5 right narrow femoral trial was impacted onto the distal femur. This trial had excellent fit and stability. The box for the posterior stabilized implant was prepared using a box cut osteotome and a reamer. Next a tibial tray trial and 9 mm insert trial was placed. The knee was taken through a range of motion and had full extension to 130 degrees of flexion. Patellofemoral tracking was satisfactory. The patella was inverted and sized to a size 29. Three peg holes were drilled through the size 29 drill guide. The trial patella was placed and the knee was taken through a range of motion. There was satisfactory patellofemoral tracking. All trials were removed. The tibia was subluxed anteriorly and sized to a size 3. The proximal tibial was prepared with a size 3 keel punch. All bony cut surfaces were irrigated with sterile saline and dried. Final implants were cemented into place starting with the tibia, followed by the femur, and last the patella. A 9 mm insert trial was placed and the knee was brought into full extension. Tourniquet was turned down and the knee was copiously irrigated with sterile saline. Electrocautery was used to obtain meticulous hemostasis. Once the cement had fully cured, the insert trial was removed. Any excess cement was removed from around the hardware and capsule. Final insert chosen was a 11 mm posterior stabilized Aleksandr II articular insert size 3-4. Stability of the insert was checked and noted to be stable. The extensor mechanism was closed using number 1 vicryls. The rest of the incision was closed in a layered fashion using 0 and 2-0 vicryls. The skin was closed using 3-0 nylon suture. Sterile xeroform, 4x4s and webril were used to cover the incision. Allan wrap and cold pack were used to cover the dressings. The patients anesthesia was reversed without difficulty. She was taken to the PACU in stable condition. Intended weight-bearing will be as tolerated.
[2018-10-02] MEDS ORDERED: Lactated Ringers 1000 ML Bag* 1,000 ML IV SCH (18:00)
[2018-10-02] MEDS ORDERED: oxyCODONE TAB* 5 MG TAB ONE (18:09)
[2018-10-02] MEDS: oxyCODONE TAB* 5 MG TAB PO PRN ×2 (18:11→22:58)
[2018-10-02] MEDS: oxyCODONE/Acetamin 5/325 MG* TAB PO PRN (20:19)
--- NOTE | 2018-10-02 20:47 | CONS ---
[facility] MEDICINE CONSULTATION REPORT: DATE OF CONSULT: 10/02/18 PROVIDER: Yanni Anderson NP ATTENDING PHYSICIAN: Dr. Byers CONSULTING PHYSICIAN: Dr. Nikki Dalton (dictated by Yanni Anderson NP) REASON FOR CONSULT: Co-management of chronic medical conditions. HISTORY OF PRESENT ILLNESS: Ms. Vega is a 47-year-old female with the past medical history significant for hypertension, sleep apnea, POT syndrome, fibromyalgia, anxiety, asthma, depression, GERD, IBS, obesity, Manuela-Danlos syndromes, chronic neck and back pain, who presented to [facility] for an elective right total knee arthroplasty with Dr. Byers. Please see dictated H and P from RENE Hinojosa, for complete details. In brief, the patient had ongoing pain and failed conservative measures; therefore, opted for a right total knee arthroplasty. In the immediate postoperative period, the patient does complain of pain to her right knee. She denies any recent illnesses. Due to her chronic medical conditions, we were asked to help comanage her care during her hospitalization. PAST MEDICAL HISTORY: 1. Hypertension. 2. Sleep apnea. Does not wear CPAP. 3. POT syndrome. 4. Fibromyalgia. 5. Anxiety. 6. Asthma. 7. Depression. 8. GERD. 9. IBS. 10. Obesity. 11. Manuela-Danlos syndrome. 12. Chronic neck and back pain. PAST SURGICAL HISTORY: 1. [place] teeth. 2. Fibroid tumor removed. 3. Nerve removed from her left foot. MEDICATIONS: 1. BuSpar 15 mg p.o. b.i.d. 2. Pantoprazole 40 mg p.o. q.a.m. 3. Nadolol 10 mg p.o. q.a.m. 4. Singulair 10 mg p.o. q.a.m. 5. Midodrine 2.5 mg p.o. t.i.d. 6. Xyzal 5 mg p.o. q.a.m. 7. Levalbuterol 1 inhaled 3 times a day p.r.n. 8. Iron 47 mg p.o. every other day. 9. Fluticasone nasal spray 2 sprays both nares b.i.d. 10. Fesenra 1 injection Q 8 weeks. 11. EpiPen as needed. 12. Bentyl 10 mg p.o. b.i.d. 13. Vitamin B12 1000 mcg p.o. q.a.m. 14. CBD oil 1 drop p.o. daily. 15. Wellbutrin 150 mg p.o. q.a.m. 16. Symbicort 2 puffs b.i.d. 17. Belsomra 1 tab at bedtime. 18. Albuterol/ipratropium 1 puff 4 times a day. ALLERGIES: 1. ADHESIVE. 2. AMITRIPTYLINE. 3. BEE VENOM. 4. CORTISONE. 5. BENADRYL. 6. XOLAIR. 7. STRAWBERRY. FAMILY HISTORY: Mother with sudden at age 61, autopsy with cardiac disease; diabetes. Grandmother with history of colon cancer. SOCIAL HISTORY: The patient denies any tobacco, alcohol, or illicit drug use. She is able to live alone. Surrogate decision maker in the event she is unable to make her own decisions is her step-mom, Sharon. She is a full code. REVIEW OF SYSTEMS: She denies any fever, chills, unintended weight loss. She denies any chest pain, edema, cough, hemoptysis, or shortness of breath. She denies any nausea, vomiting, diarrhea, abdominal pain, hematuria, dysuria, focal weakness or sensory loss. Denies any visual complaints, dysphagia, arthralgias, myalgias, rashes, lesions, open sores, psychosis or anxiety. PHYSICAL EXAM: General: Ms. Vega is a 47-year-old female. She is drowsy, resting on the stretcher in PACU. She is complaining of pain to her left knee. She does not appear to be in any acute distress. Vital Signs: Blood pressure 141/58, heart rate is 50, respirations are 22, O2 saturation 100%, temperature was 96.8. HEENT: Head is atraumatic, normocephalic. Eyes: EOMs are intact. Sclerae anicteric and not pale. Oral mucosa appeared to be moist. Neck is supple. Lungs are clear to auscultation bilaterally. No wheezes, rales, or rhonchi. Cardiac: S1, S2. She is bradycardiac on the monitor. No murmurs, rubs, or gallops. Abdomen is obese, soft and nontender. Bowel sounds are present x4. Extremities: Pedal pulses are +2 bilaterally. She is able to move all 4 extremities. There is no clubbing or cyanosis. Sensation is intact. She has a dressing intact to her right knee. Skin: Dressing is dry and intact to the right knee. Neurologic: She is awake, alert, and oriented x3. Speech is clear. Thought process is intact. There are no gross focal deficits. Psych : The patient is calm and cooperative. DIAGNOSTIC STUDIES/LAB DATA: Labs from 09/24/18: CBC: WBCs were 9.4, RBCs 4.48, hemoglobin 12.2, hematocrit was 37, platelet count 307. INR was 1.0. Sodium 134, potassium 4.7, chloride 104, carbon dioxide was 25, anion gap was 5 , BUN was 25, creatinine 1.02, glucose was 103. Calcium 9.1, ASTs were 16, ALTs were 17, alkaline phosphatase is 58. IMPRESSION AND PLAN: Ms. Vega is a 47-year-old female with a past medical history significant for hypertension, sleep apnea, postural orthostatic tachycardia syndrome, fibromyalgia, anxiety, asthma, depression, gastroesophageal reflux disease, obesity, Manuela Danlos syndrome, chronic neck and back pain, who presented to [facility] for an elective right total knee arthroplasty with Dr. Byers. Due to her chronic medical conditions, we were asked to consult and comanage her care during her hospitalization. Our recommendations are as follows: 1. Status post right total knee arthroplasty. Management per Orthopedics. PT/ OT per Orthopedics. Bowel regimen per Orthopedics. Pain medications per Orthopedics. 2. Anxiety. The patient should continue on BuSpar 15 mg p.o. b.i.d. 3. Asthma. Continue on Symbicort as previously prescribed. Combivent Respimat 1 puff 4 times a day. 4. Postural orthostatic tachycardia syndrome. Continue on nadolol as previously prescribed and midodrine 2.5 mg t.i.d. 5. Gastroesophageal reflux disease. Continue on Protonix 40 mg p.o. daily. 6. Hypertension. The patient is not currently taking any hypertensive medications. We will continue to monitor. 7. DVT prophylaxis: Per Orthopedics. 8. Diet: The patient can have regular diet. 9. Code status: She is a full code. TIME SPENT: Time spent on this consultation was 45 minutes; greater than half that time was spent at the bedside reviewing events leading thus far to her hospitalization, performing my physical exam, and reviewing my plan of care. I have discussed with my attending, Dr. Nikki Dalton; she is in agreement with my plan. YANNI ANDERSON, TIMOTHY [id number]/CPS #: [id number] AMINAH
[2018-10-02] MEDS ORDERED: Mometasone/Formoter 200/5 MDI INH SCH (21:00)
[2018-10-02] MEDS ORDERED: NFT: Albuterol/Ipratropium RESP(NF) MDI (Combivent Respimat) INH SCH (21:00)
[2018-10-02] MEDS: busPIRone TAB* 15 MG PO SCH (21:23)
[2018-10-02] MEDS: Dicyclomine CAP* 10 MG PO SCH (21:23)
[2018-10-02] MEDS: CMCS: Midodrine (NF) 5 MG TAB PO SCH (21:24)
[2018-10-02] MEDS: ceFAZolin 1 GM ADVAN(*) 1 GM in NS 0.9% 50 ML* 50 ML IVPB SCH (23:01)
[2018-10-02] MEDS: Morphine INJ* 2 MG/ML 1 ML SYRINGE (TWO MG - NEW SYRINGE VERSION) IV PRN (23:14)
[2018-10-02] MEDS: Magnesium Hydroxide LIQ* 30 ML UDC PO SCH (23:58)
[2018-10-02] MEDS: Docusate CAP* 100 MG PO SCH (23:58)
[2018-10-02] MEDS: Fluticasone NASAL SPRAY 50MCG* 16 gm SPRAY BTL BOTH NARES SCH (23:58)
[2018-10-03] MEDS: oxyCODONE/Acetamin 5/325 MG* TAB PO PRN ×4 (01:15→20:27)
[2018-10-03] MEDS: Morphine INJ* 2 MG/ML 1 ML SYRINGE (TWO MG - NEW SYRINGE VERSION) IV PRN ×2 (01:21→04:07)
[2018-10-03] MEDS: Acetaminophen TAB* 325 MG PO SCH ×3 (01:25→17:20)
[2018-10-03] MEDS: oxyCODONE TAB* 5 MG TAB PO PRN ×3 (03:18→15:55)
[2018-10-03 07:24] LABS: Hematocrit 33 % (35-47); Hemoglobin 10.7 g/dL (12.0-16.0); Mean Platelet Volume 8.7 fL (7.4-10.4); Platelet Count 255 10^3/uL (150-450)
[2018-10-03 07:41] LABS: BUN/Creatinine Ratio 13.7 (8-20); Calcium 8.8 mg/dL (8.6-10.3); EGFR African American 60.3 (>60); EGFR Non-African American 49.8 (>60); Potassium 4.4 mmol/L (3.5-5.0)
[2018-10-03] MEDS: Magnesium Hydroxide LIQ* 30 ML UDC PO SCH ×2 (08:45→20:27)
[2018-10-03] MEDS: Docusate CAP* 100 MG PO SCH ×2 (08:45→20:27)
[2018-10-03] MEDS: Apixaban* 2.5 MG TAB PO SCH ×2 (08:45→20:26)
[2018-10-03] MEDS: Pantoprazole TAB * 40 MG TAB PO SCH (08:45)
[2018-10-03] MEDS: Montelukast Sodium TAB* 5 MG PO SCH (08:46)
[2018-10-03] MEDS: CMCS: Midodrine (NF) 5 MG TAB PO SCH ×3 (08:46→20:27)
[2018-10-03] MEDS: busPIRone TAB* 15 MG PO SCH ×2 (08:48→20:27)
[2018-10-03] MEDS: PTO: LevoCETirizine TAB (NF) 5 MG TAB PO SCH (08:48)
[2018-10-03] MEDS: BuPROPion XL* 150 MG TAB.XL PO SCH (08:48)
[2018-10-03] MEDS: Dicyclomine CAP* 10 MG PO SCH ×2 (08:50→20:26)
[2018-10-03] MEDS: PTO: Budesonide/Formote 160/4.5(NF) MDI INH SCH ×3 (08:50→22:23)
[2018-10-03] MEDS: Levalbuterol 1.25MG/0.5ML NEB INH SCH ×2 (08:51→09:17)
[2018-10-03] MEDS: Fluticasone NASAL SPRAY 50MCG* 16 gm SPRAY BTL BOTH NARES SCH ×2 (08:51→22:24)
[2018-10-03] MEDS: PTO: Albuterol/Ipratropium RESP(NF) MDI (Combivent Respimat) INH SCH ×5 (08:51→22:25)
[2018-10-03] MEDS: ceFAZolin 1 GM ADVAN(*) 1 GM in NS 0.9% 50 ML* 50 ML IVPB SCH ×2 (08:53→15:50)
[2018-10-03] MEDS: Nadolol TAB* 40 MG PO SCH (08:53)
--- NOTE | 2018-10-03 10:27 | PN ---
Progress Note - Progress Note Date of Service: 10/03/18 SOAP: Subjective: []Pt seen at bedside. She feels well, better than she expected. Denies CP, SOB, dizziness, nausea. Objective: []General: Appears well, NAD RLE: Right knee dressing CDI, thigh soft, DF/PF intact, DP2+, sensation intact to light touch distally Calves supple and nontender without erythema, edema or palpable cords Assessment: []POD 1 SP RTK Plan: []WBAT PT/OT eliquis 2.5 mg po BID Desires rehab as she has no help at home, CM aware Vital Signs Temp 97.7 F 10/03/18 03:26 Pulse 58 10/03/18 09:20 Resp 16 10/03/18 09:20 BP 119/58 10/03/18 03:26 Pulse Ox 97 10/03/18 09:20 Intake & Output 10/02/18 10/03/18 10/03/18 18:59 06:59 18:59 Intake Total 1550 2121 Output Total 1750 Balance 1550 371 Weight 258 lb Intake: IV Fluids 1550 881 ABX - CEFAZOLIN 55 LR 1450 826 NS 50ML, Cefazolin 2G 50 TRANEXAMIC ACID 1GM 50ML 50 Oral 1240 Output: Ward 1750 Other: # Bowel Movements 0 Laboratory Last Values Hgb 10.7 g/dL (12.0-16.0) L 10/03/18 06:45 Hct 33 % (35-47) L 10/03/18 06:45 Plt Count 255 10^3/uL (150-450) 10/03/18 06:45 MPV 8.7 fL (7.4-10.4) 10/03/18 06:45 Sodium 137 mmol/L (135-145) 10/03/18 06:45 Potassium 4.4 mmol/L (3.5-5.0) 10/03/18 06:45 Chloride 107 mmol/L (101-111) 10/03/18 06:45 Carbon Dioxide 23 mmol/L (22-32) 10/03/18 06:45 Anion Gap 7 mmol/L (2-11) 10/03/18 06:45 BUN 16 mg/dL (6-24) 10/03/18 06:45 Creatinine 1.17 mg/dL (0.51-0.95) H 10/03/18 06:45 Est GFR ( Amer) 60.3 (>60) 10/03/18 06:45 Est GFR (Non-Af Amer) 49.8 (>60) 10/03/18 06:45 BUN/Creatinine Ratio 13.7 (8-20) 10/03/18 06:45 Glucose 135 mg/dL (70-100) H 10/03/18 06:45 Calcium 8.8 mg/dL (8.6-10.3) 10/03/18 06:45
[2018-10-03] MEDS ORDERED: Levalbuterol 1.25MG/0.5ML NEB INH PRN (10:43)
[2018-10-04] MEDS: oxyCODONE TAB* 5 MG TAB PO PRN ×4 (00:53→16:56)
[2018-10-04] MEDS: Acetaminophen TAB* 325 MG PO SCH ×3 (02:34→17:21)
[2018-10-04] MEDS: Morphine INJ* 2 MG/ML 1 ML SYRINGE (TWO MG - NEW SYRINGE VERSION) IV PRN ×4 (02:56→23:38)
[2018-10-04] MEDS: oxyCODONE/Acetamin 5/325 MG* TAB PO PRN ×4 (03:02→21:32)
[2018-10-04] MEDS ORDERED: LORazepam TAB(*) 0.5 MG PO ONE (03:39)
[2018-10-04 07:34] LABS: Hematocrit 30 % (35-47); Hemoglobin 9.4 g/dL (12.0-16.0); Mean Platelet Volume 8.7 fL (7.4-10.4); Platelet Count 223 10^3/uL (150-450)
[2018-10-04] MEDS: Docusate CAP* 100 MG PO SCH ×2 (08:56→21:24)
[2018-10-04] MEDS: Pantoprazole TAB * 40 MG TAB PO SCH (08:56)
[2018-10-04] MEDS: Apixaban* 2.5 MG TAB PO SCH ×2 (08:56→21:22)
[2018-10-04] MEDS: BuPROPion XL* 150 MG TAB.XL PO SCH (08:56)
[2018-10-04] MEDS: Dicyclomine CAP* 10 MG PO SCH ×2 (08:57→21:21)
[2018-10-04] MEDS: busPIRone TAB* 15 MG PO SCH ×2 (08:57→21:24)
[2018-10-04] MEDS: Nadolol TAB* 40 MG PO SCH (08:58)
[2018-10-04] MEDS: Montelukast Sodium TAB* 5 MG PO SCH (08:58)
[2018-10-04] MEDS: Magnesium Hydroxide LIQ* 30 ML UDC PO SCH ×3 (08:58→21:25)
[2018-10-04] MEDS: Fluticasone NASAL SPRAY 50MCG* 16 gm SPRAY BTL BOTH NARES SCH ×2 (09:00→21:21)
[2018-10-04] MEDS: PTO: LevoCETirizine TAB (NF) 5 MG TAB PO SCH (09:00)
[2018-10-04] MEDS: PTO: Albuterol/Ipratropium RESP(NF) MDI (Combivent Respimat) INH SCH ×4 (09:01→21:31)
[2018-10-04] MEDS: PTO: Budesonide/Formote 160/4.5(NF) MDI INH SCH ×2 (09:01→21:23)
[2018-10-04] MEDS: CMCS: Midodrine (NF) 5 MG TAB PO SCH ×3 (09:03→21:22)
--- NOTE | 2018-10-04 15:30 | PN ---
Progress Note - Progress Note Date of Service: 10/04/18 SOAP: Subjective: []Pt seen at bedside. She feels well without CP, SOB, dizziness, nausea. Knee pain is well controlled. Objective: []General: Appears well, NAD RLE: Right knee dressing changed, incision CDI, thigh soft, DF/PF intact, DP2+ , sensation intact to light touch distally Calves supple and nontender without erythema, edema or palpable cords Assessment: []POD 2 SP RTK Plan: []WBAT PT/OT eliquis 2.5 mg po BID Desires rehab as she has no help at home, DC to [facility] tomorrow Vital Signs Temp 98.0 F 10/04/18 12:17 Pulse 64 10/04/18 12:17 Resp 20 10/04/18 14:20 BP 124/70 10/04/18 12:17 Pulse Ox 100 10/04/18 12:17 Intake & Output 10/03/18 10/04/18 10/04/18 18:59 06:59 18:59 Intake Total 650 500 240 Output Total 600 0 Balance 650 -100 240 Intake: Oral 650 500 240 Output: Urine 600 0 Other: Estimated Void Medium Medium Medium # Voids 3 2 1 Laboratory Last Values Hgb 9.4 g/dL (12.0-16.0) L 10/04/18 07:17 Hct 30 % (35-47) L 10/04/18 07:17 Plt Count 223 10^3/uL (150-450) 10/04/18 07:17 MPV 8.7 fL (7.4-10.4) 10/04/18 07:17 Sodium 137 mmol/L (135-145) 10/03/18 06:45 Potassium 4.4 mmol/L (3.5-5.0) 10/03/18 06:45 Chloride 107 mmol/L (101-111) 10/03/18 06:45 Carbon Dioxide 23 mmol/L (22-32) 10/03/18 06:45 Anion Gap 7 mmol/L (2-11) 10/03/18 06:45 BUN 16 mg/dL (6-24) 10/03/18 06:45 Creatinine 1.17 mg/dL (0.51-0.95) H 10/03/18 06:45 Est GFR ( Amer) 60.3 (>60) 10/03/18 06:45 Est GFR (Non-Af Amer) 49.8 (>60) 10/03/18 06:45 BUN/Creatinine Ratio 13.7 (8-20) 10/03/18 06:45 Glucose 135 mg/dL (70-100) H 10/03/18 06:45 Calcium 8.8 mg/dL (8.6-10.3) 10/03/18 06:45
[2018-10-04] MEDS: LORazepam TAB(*) 0.5 MG PO PRN (17:50)
[2018-10-05] MEDS: Acetaminophen TAB* 325 MG PO SCH ×2 (01:55→09:44)
[2018-10-05 05:24] LABS: Hematocrit 30 % (35-47); Hemoglobin 9.8 g/dL (12.0-16.0); Mean Platelet Volume 8.6 fL (7.4-10.4); Platelet Count 231 10^3/uL (150-450)
[2018-10-05 07:50] VITALS: BP 115/60
--- NOTE | 2018-10-05 07:54 | DS ---
Orthopedic Discharge Summary - Discharge Summary Date of Admission:10/02/18 Date of Discharge: 10/02/18 Date of Surgery: 10/02/18 Attending Orthopedic Provider: Alma Byers MD Pre-operative Diagnosis: Right knee osteoarthritis Operative Procedure: Right total knee arthroplasty Condition of Patient: Stable History: JOSEPHINE BRANDON is a 47 year old F with years of increasingly severe right knee pain. Patient has failed conservative management and has elected to undergo a right total knee replacement Hospital Course: JOSEPHINE was admitted to [facility] on 10/02/18. Patient underwent a right total knee arthroplasty without complication followed by a brief recovery in PACU and transfer to the Short Stay Surgical Unit in stable condition. Our hospitalist service, physical therapy and occupational therapy also participated in this patients care. Post-op day 1: patient was alert and in no acute distress. Dressing was clean, dry and intact. Operative extremity dorsiflexion and plantarflexion intact, sensation intact to light touch distally, DP2+. Post-op day 2: dressing was changed, incision was clean, dry and intact. Post op day 3: Patient was deemed to be medically and orthopedically stable for discharge to subacute rehab for further physical therapy. Home Medications Medication Instructions Recorded Confirmed Type EPINEPHrine PEN ADULT(NF) [Epipen 0.3 mg INJ ONCE PRN 06/17/12 10/02/18 History ADULT(NF)] Montelukast Sodium TAB* [Singulair 10 mg PO QAM 06/17/12 10/02/18 History 5 mg TAB*] Albuterol/Ipratropium RESP(NF) 1 puff INH QID 09/07/16 10/02/18 History [Combivent Respimat (NF)] LevoCETirizine TAB (NF) [Xyzal TAB 5 mg PO QAM 09/07/16 10/02/18 History (NF)] Budesonide/Formote 160/4.5(NF) 2 puff INH BID 08/25/17 10/02/18 History [Symbicort 160/4.5 (NF)] Bupropion XL* [Wellbutrin XL *] 150 mg PO QAM 08/25/17 10/02/18 History Dicyclomine CAP* [Bentyl CAP*] 10 mg PO BID 08/25/17 10/02/18 History Levalbuterol 1.25 mg/3 mL (NF) 1 choco INH TID PRN 08/25/17 10/02/18 History [Levalbuterol HCl] Belsomra 1 tab PO BEDTIME 09/24/18 10/02/18 History Cbd Oil 1 drop PO DAILY 09/24/18 10/02/18 History Cyanocobalamin TAB* [Vitamin B12 1,000 mcg PO QAM 09/24/18 10/02/18 History TAB*] Fesenra 1 dose INJ SEE INSTRUCTIONS 09/24/18 10/02/18 History Fluticasone NASAL SPRAY 50MCG* 2 spray BOTH NARES BID 09/24/18 10/02/18 History [Flonase NASAL SPRAY 50MCG*] Iron 47 mg PO EVERY OTHER DAY 09/24/18 10/02/18 History Midodrine HCl 2.5 mg PO TID 09/24/18 10/02/18 History Nadolol [Corgard] 10 mg PO QAM 09/24/18 10/02/18 History Pantoprazole TAB * [Protonix TAB*] 40 mg PO QAM 09/24/18 10/02/18 History busPIRone TAB* [Buspar TAB *] 15 mg PO BID 10/01/18 10/02/18 History Apixaban* [Eliquis*] 2.5 mg PO BID tab 10/05/18 Rx Docusate CAP* [Colace Cap*] 100 mg PO BID cap 10/05/18 Rx oxyCODONE/Acetamin 5/325 MG* 1 tab PO Q4H PRN tab 10/05/18 Rx [Percocet 5/325 TAB*] oxyCODONE/Acetamin 5/325 MG* 2 tab PO Q4H PRN tab 10/05/18 Rx [Percocet 5/325 TAB*] DISCHARGE INSTRUCTIONS: Weight Bearing as tolerated with a walker Wound Care: OK to shower on post-op day 3, no bathing/ swimming/ submerging wound. Use gentle soap, pat dry. Cover with gauze, IZA wrap or tape. Patint will call our office for increased drainage, redness, increased pain, or fever. Go to ER with shortness of breath or chest pain. Diet: Regular diet, increase fluids and fiber to prevent constipation. Continue to use stool softeners, call office if no bowel motion within 48 hours. FOLLOW UP: Follow up with Dr. Byers Within 10-14 days, call for appointment Patient will call our office with any questions or concerns ([phone])
[2018-10-05] MEDS: Docusate CAP* 100 MG PO SCH (08:09)
[2018-10-05] MEDS: Magnesium Hydroxide LIQ* 30 ML UDC PO SCH (08:10)
[2018-10-05] MEDS: Dicyclomine CAP* 10 MG PO SCH (08:20)
[2018-10-05] MEDS: Pantoprazole TAB * 40 MG TAB PO SCH (08:20)
[2018-10-05] MEDS: Nadolol TAB* 40 MG PO SCH (08:20)
[2018-10-05] MEDS: Apixaban* 2.5 MG TAB PO SCH (08:20)
[2018-10-05] MEDS: Montelukast Sodium TAB* 5 MG PO SCH (08:23)
[2018-10-05] MEDS: BuPROPion XL* 150 MG TAB.XL PO SCH (08:23)
[2018-10-05] MEDS: PTO: Budesonide/Formote 160/4.5(NF) MDI INH SCH (08:24)
[2018-10-05] MEDS: LORazepam TAB(*) 0.5 MG PO PRN (08:24)
[2018-10-05] MEDS: busPIRone TAB* 15 MG PO SCH (08:24)
[2018-10-05] MEDS: CMCS: Midodrine (NF) 5 MG TAB PO SCH (08:24)
[2018-10-05] MEDS: PTO: LevoCETirizine TAB (NF) 5 MG TAB PO SCH (08:25)
[2018-10-05] MEDS: Fluticasone NASAL SPRAY 50MCG* 16 gm SPRAY BTL BOTH NARES SCH (08:25)
== END 2018-10-05 11:00 | DRG 470 ==
LOC: AA 12:25 → SSU 19:52
PROVIDERS: ADMIT Orthopaedic Surgery Adult Reconstructive Orthopaedic Surgery; ATTEND Orthopaedic Surgery Adult Reconstructive Orthopaedic Surgery
PROC: 0SRC069 Replacement of Right Knee Joint with Oxidized Zirconium on Polyethylene Synthetic Substitute, Cemented, Open Approach (ICD-10-PCS; principal; 2018-10-02 15:45)
DX: M17.11 Unilateral primary osteoarthritis, right knee (principal); I10 Essential (primary) hypertension; K21.9 Gastro-esophageal reflux disease without esophagitis; M79.7 Fibromyalgia; J45.909 Unspecified asthma, uncomplicated; M25.461 Effusion, right knee; F41.9 Anxiety disorder, unspecified; F32.9 Major depressive disorder, single episode, unspecified; K58.9 Irritable bowel syndrome, unspecified; G47.33 Obstructive sleep apnea (adult) (pediatric); E66.9 Obesity, unspecified; M50.20 Other cervical disc displacement, unspecified cervical region; I49.8 Other specified cardiac arrhythmias; M25.761 Osteophyte, right knee; M41.9 Scoliosis, unspecified; G89.29 Other chronic pain; M51.26 Other intervertebral disc displacement, lumbar region; Z88.8 Allergy status to other drugs, medicaments and biological substances; Z82.49 Family history of ischemic heart disease and other diseases of the circulatory system; Q79.6 Ehlers-Danlos syndromes; Z68.41 Body mass index [BMI] 40.0-44.9, adult; Z83.6 Family history of other diseases of the respiratory system; Z91.018 Allergy to other foods; Z79.01 Long term (current) use of anticoagulants; Z83.3 Family history of diabetes mellitus; Z80.0 Family history of malignant neoplasm of digestive organs; Z83.49 Family history of other endocrine, nutritional and metabolic diseases; Z81.8 Family history of other mental and behavioral disorders
CPT/HCPCS: 36415; 80048; 85014; 85018; 85049; 88305; 88311; 94640; A9270-GY; C1776; G8978-GP-CK; G8979-GP-CI; G8987-GO-CK; G8988-GO-CI; J0690; J1100; J1170; J1885; J2250; J2270; J2405; J2704; J2795; J3010

== ENCOUNTER 2018-10-06 11:24 | Emergency (ER) | payer MEDICARE, MEDICAID ==
[2018-10-06] MEDS ORDERED: LORazepam TAB(*) 1 MG PO ONE (11:48)
--- NOTE | 2018-10-06 11:56 | ED ---
Complex/Multi-Sys Presentation - HPI Summary HPI Summary: Patient is a 47 year old F brought in by EMS from [facility] accompanied by her mother, c/o having panic attacks since earlier today, . Symptoms aggravated by smells at [facility]. Symptoms alleviated by nothing. Patient reports nausea. Patient has had panic attacks before but notes that today's panic attack is accompanied by nausea, which is new. Patient had R knee replaced on 10/02/18 at [facility]. Mother reports that patient was experiencing similar episodes of anxiety after surgery, which were treated with Ativan with relief. Patient was d/c after surgery, has been living at [facility] since. Patient's mother claims that the smells at [place] triggered her panic attacks today. - History Of Current Complaint Chief Complaint: EDPsychosocial Time Seen by Provider: 10/06/18 11:42 Hx Obtained From: Patient, Family/Plating Operator - Mother Onset/Duration: Lasting Hours, Still Present Timing: Constant, Hours Severity Currently: None Aggravating Factor(s): Bad odor from [facility] center Alleviating Factor(s): Ativan Associated Signs And Symptoms: Positive: Nausea - Allergies/Home Medications Allergies/Adverse Reactions: Allergies Allergy/AdvReac Type Severity Reaction Status Date / Time adhesive Allergy Hives Verified 10/06/18 11:48 amitriptyline Allergy Unknown Verified 10/06/18 11:48 Reaction Details bee venom protein (honey bee) Allergy Anaphylatic Verified 10/06/18 11:48 Shock cortisone Allergy Swelling Verified 10/06/18 11:48 diphenhydramine Allergy Palpitation Verified 10/06/18 11:48 [From Benadryl] s omalizumab [From Xolair] Allergy Anaphylatic Verified 10/06/18 11:48 Shock strawberry Allergy Hives Verified 10/06/18 11:48 PMH/Surg Hx/FS Hx/Imm Hx Previously Healthy: No Endocrine/Hematology History: Reports: Hx Anemia Denies: Hx Diabetes, Hx Thyroid Disease Cardiovascular History: Reports: Hx Hypertension Denies: Hx Pacemaker/ICD Respiratory History: Reports: Hx Asthma, Hx Sleep Apnea - no machine Denies: Hx Chronic Obstructive Pulmonary Disease (COPD), Other Respiratory Problems/Disorders GI History: Reports: Hx Gastroesophageal Reflux Disease, Hx Irritable Bowel, Hx Ulcer Denies: Other GI Disorders History: Denies: Hx Renal Disease Musculoskeletal History: 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 UTERINE SURGERY TO REMOVE CYSTS. ENDOMETRIOSIS AND FIBROID TUMORS. WISDOM TEETH. R KNEE REPLACEMENT, 10/02/18 Hx Anesthesia Reactions: No - Immunization History Date of Tetanus Vaccine: unknown Infectious Disease History: No Infectious Disease History: Denies: Hx Clostridium Difficile, Hx Hepatitis, Hx Human Immunodeficiency Virus (HIV), Hx of Known/Suspected MRSA, Hx Shingles, Hx Tuberculosis, Traveled Outside the [place] in Last 30 Days - Family History Known Family History: Positive: Other - degenerative arthritis, mother has hx of cervical cancer - Social History Alcohol Use: Rare Alcohol Amount: very rare Hx Substance Use: No Substance Use Type: Reports: None Hx Tobacco Use: No Smoking Status (MU): Never Smoked Tobacco Review of Systems Positive: Nausea Positive: Anxious All Other Systems Reviewed And Are Negative: Yes Physical Exam - Summary Physical Exam Summary: Appearance: The patient is morbidly obese but does not have a toxic appearance. Her bandage is clean and not taken down on her R knee. Skin: The skin is warm and dry and skin color reflects adequate perfusion. HEENT: The head is normocephalic and atraumatic. The pupils are equal and reactive. The conjunctivae are clear and without drainage. Nares are patent and without drainage. Mouth reveals moist mucous membranes and the throat is without erythema and exudate. The external ears are intact. The ear canals are patent and without drainage. The tympanic membranes are intact. Neck: The neck is supple with full range of motion and non-tender. There are no carotid bruits. There is no neck vein distension. Respiratory: Chest is non-tender. Lungs are clear to auscultation and breath sounds are symmetrical and equal. Cardiovascular: Heart is regular rate and rhythm. There is no murmur or rub auscultated. There is no peripheral edema and pulses are symmetrical and equal. Abdomen: The abdomen is soft and non-tender. There are normal bowel sounds heard in all four quadrants and there is no organomegaly palpated. Musculoskeletal: There is no back tenderness noted. Extremities are non-tender with full range of motion. There is good capillary refill. There is no peripheral edema or calf tenderness elicited. Neurological: Patient is alert and oriented to person, place and time. The patient has symmetrical motor strength in all four extremities. Cranial nerves are grossly intact. Deep tendon reflexes are symmetrical and equal in all four extremities. Psychiatric: The patient is hyperventilating. Triage Information Reviewed: Yes Vital Signs On Initial Exam: Initial Vitals Temp Pulse Resp BP Pulse Ox 97.4 F 81 22 124/59 100 10/06/18 11:32 10/06/18 11:32 10/06/18 11:32 10/06/18 11:32 10/06/18 11:32 Vital Signs Reviewed: Yes Diagnostics - Vital Signs Vital Signs Temp Pulse Resp BP Pulse Ox 10/06/18 11:32 97.4 F 81 22 124/59 100 - Laboratory Lab Statement: Any lab studies that have been ordered have been reviewed, and results considered in the medical decision making process. Re-Evaluation - Re-Evaluation First Eval Re-Evaluation Time: 13:55 Change: Improved Comment: Discussed discharge plan with patient and mother. They are agreeable. Complex Multi-Symp Course/Dx Course Of Treatment: Ms. Vega was treated symptomatically here with Zofran and Ativan by mouth. She did get some improvement here but continued to be complaining of nausea secondary to unusual smells. I reviewed the possibility of these smells being related to seizure or migraine with Dr. Collazo who felt that they had lasted too long. I recommended discharge back to long term with symptomatic treatment and discussed the case with her surgeon Dr. Byers. - Diagnoses Provider Diagnoses: Panic attack - Physician Notifications Discussed Care Of Patient With: Clint Collazo Time Discussed With Above Provider: 13:50 Instructed by Provider To: Other - Dr. Collazo, neurology, said that it's not a seizure or migraine prodrome. Discharge - Sign-Out/Discharge Documenting (check all that apply): Patient Departure - Discharge Patient Received Moderate/Deep Sedation with Procedure: No - Discharge Plan Condition: Stable Disposition: HOME Prescriptions: LORazepam TAB(*) [Ativan TAB(*)] 1 mg PO Q6H PRN #20 tab MDD 4 PRN Reason: Pain Ondansetron ODT TAB* [Zofran Odt TAB*] 4 mg PO Q6H PRN #20 tab.odt PRN Reason: Nausea/Vomiting Patient Education Materials: Panic Attack (ED) Referrals: Danny Powers MD [Primary Care Provider] - 3 Days Additional Instructions: Follow-up with primary care provider in 2-3 days. Return to the Emergency Department for any new or worsening symptoms - Billing Disposition and Condition Condition: STABLE Disposition: Home - Attestation Statements Document Initiated by Jodiibe: Yes Documenting Scribe: Idalia Washington Provider For Whom Veronica is Documenting (Include Credential): Mg Wang MD Scribe Attestation: Pee Patel Tiffany Liu, scribed for Mg Wang MD on 10/06/18 at 1756. Scribe Documentation Reviewed: Yes Provider Attestation: The documentation as recorded by the Pee johnson Tiffany Liu accurately reflects the service I personally performed and the decisions made by Mg naidu MD Status of Scribe Document: Viewed
[2018-10-06] MEDS ORDERED: Ondansetron ODT TAB* 4 MG PO ONE (12:09)
[2018-10-06 14:53] VITALS: BP 130/68
== END 2018-10-06 14:48 | disposition home or self-care (01) ==
LOC: ED 11:24
DX: F41.0 Panic disorder [episodic paroxysmal anxiety] (principal); D64.9 Anemia, unspecified; I10 Essential (primary) hypertension; K21.9 Gastro-esophageal reflux disease without esophagitis; Q79.6 Ehlers-Danlos syndromes; Z88.8 Allergy status to other drugs, medicaments and biological substances
CPT/HCPCS: 99282; A9270-GY

== ENCOUNTER 2018-10-11 10:35 | Inpatient (IN) | payer MEDICARE, MEDICAID ==
--- NOTE | 2018-10-11 10:57 | ED ---
Psychiatric Complaint - HPI Summary HPI Summary: Patient is a 47-year-old male who presents to emergency department for worsening anxiety, depression and paranoia. Patient states she is currently at [facility] in rehabilitation after a recent right knee replacement. Patient states she has a history of anxiety and is on a few medications that she cannot recall the name of. Patient states since being in at [place] her medications have been changed and she has been feeling poorly. Patient was seen in the ER 10/06 for anxiety and MHE, she was ultimately dc. Pt. states she is feeling very paranoid because a staff member told her they were going to burry her so deep in the ground that no one would be able to find her. Pt. notes intermittent thoughts of harming self but denies plan. Sxs are moderate in severity. No current modifying factors. - History Of Current Complaint Chief Complaint: EDMentalHealth Time Seen by Provider: 10/11/18 10:47 Hx Obtained From: Patient Hx Last Menstrual Period: menopausal - Allergies/Home Medications Allergies/Adverse Reactions: Allergies Allergy/AdvReac Type Severity Reaction Status Date / Time adhesive Allergy Hives Verified 10/06/18 11:48 amitriptyline Allergy Unknown Verified 10/06/18 11:48 Reaction Details bee venom protein (honey bee) Allergy Anaphylatic Verified 10/06/18 11:48 Shock cortisone Allergy Swelling Verified 10/06/18 11:48 diphenhydramine Allergy Palpitation Verified 10/06/18 11:48 [From Benadryl] s omalizumab [From Xolair] Allergy Anaphylatic Verified 10/06/18 11:48 Shock strawberry Allergy Hives Verified 10/06/18 11:48 PMH/Surg Hx/FS Hx/Imm Hx Previously Healthy: Yes Endocrine/Hematology History: Reports: Hx Anemia Denies: Hx Diabetes, Hx Thyroid Disease Cardiovascular History: Reports: Hx Hypertension Denies: Hx Pacemaker/ICD Respiratory History: Reports: Hx Asthma, Hx Sleep Apnea - no machine Denies: Hx Chronic Obstructive Pulmonary Disease (COPD), Other Respiratory Problems/Disorders GI History: Reports: Hx Gastroesophageal Reflux Disease, Hx Irritable Bowel, Hx Ulcer Denies: Other GI Disorders History: Denies: Hx Renal Disease Musculoskeletal History: 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 UTERINE SURGERY TO REMOVE CYSTS. ENDOMETRIOSIS AND FIBROID TUMORS. WISDOM TEETH. R KNEE REPLACEMENT, 10/02/18 Hx Anesthesia Reactions: No - Immunization History Date of Tetanus Vaccine: unknown Infectious Disease History: No Infectious Disease History: Denies: Hx Clostridium Difficile, Hx Hepatitis, Hx Human Immunodeficiency Virus (HIV), Hx of Known/Suspected MRSA, Hx Shingles, Hx Tuberculosis, Traveled Outside the [place] in Last 30 Days - Family History Known Family History: Positive: Other - degenerative arthritis, mother has hx of cervical cancer, Non-Contributory - Social History Occupation: Disabled Lives: At [facility] [employer] Alcohol Use: Rare Alcohol Amount: very rare Hx Substance Use: No Substance Use Type: Reports: None Hx Tobacco Use: No Smoking Status (MU): Never Smoked Tobacco Type: Cigarettes Have You Smoked in the Last Year: No Review of Systems Constitutional: Negative Cardiovascular: Negative Respiratory: Negative Gastrointestinal: Negative Positive: Anxious All Other Systems Reviewed And Are Negative: Yes Physical Exam Triage Information Reviewed: Yes Vital Signs On Initial Exam: Initial Vitals Temp Pulse Resp BP Pulse Ox 98.3 F 81 17 130/77 98 10/11/18 10:52 10/11/18 10:52 10/11/18 10:52 10/11/18 10:52 10/11/18 10:52 Vital Signs Reviewed: Yes Appearance: Positive: Well-Appearing - Pt. sitting on bed in NAD. Poor eye contact. Skin: Positive: Warm, Dry Head/Face: Positive: Normal Head/Face Inspection Eyes: Positive: Normal, EOMI Neck: Positive: Supple Musculoskeletal: Positive: Other - zhang wrap on right knee. Neurological: Positive: Normal, CN Intact II-III Psychiatric: Positive: Anxious, Depressed Diagnostics - Vital Signs Vital Signs Temp Pulse Resp BP Pulse Ox 10/11/18 10:52 98.3 F 81 17 130/77 98 - Laboratory Result Diagrams: 10/11/18 11:54 10/11/18 11:54 Lab Statement: Any lab studies that have been ordered have been reviewed, and results considered in the medical decision making process. Course/Dx - Course Course Of Treatment: Pt. presenting with paranoia and delusions. Afebrile with stable VS. Medically cleared for MHE. Labs are unremarkale other than minimally elevated WBC and CRP. Pt. evaluated by therapist and psychiatrist was consulted. They are concerned that pt. has not had a BM in roughly 10 days. Pt. is currently taking narcotics given recent knee replacement. Abd. xray was ordered and shows increased stool without signs of obstruction. Pending u/a. Pt. signed out to Lorie Huizar PA-C for disposition. - Differential Dx/Clinical Impression Differential Diagnosis/HQI/PQRI: Positive: Acute Psychosis, Anxiety, Depression , Schizophrenia Provider Diagnosis: Paranoia, Delusion, Hallucination, Psychosis, UTI (urinary tract infection) Discharge - Sign-Out/Discharge Documenting (check all that apply): Sign-Out Patient Signing out patient TO: Jenna Huizar Patient Received Moderate/Deep Sedation with Procedure: No - Discharge Plan Condition: Stable Disposition: ADMITTED TO [facility] - Billing Disposition and Condition Condition: STABLE Disposition: Admitted to [facility]
[2018-10-11 12:17] LABS: ABS Lymphocytes 1.8 10^3/ul (1.0-4.8); ABS Monocytes 0.9 10^3/ul (0-0.8); ABS Neutrophils 8.6 10^3/ul (1.5-7.7); Hematocrit 32 % (35-47); Hemoglobin 10.1 g/dL (12.0-16.0); Lymphocyte % 16.3 %; Mean Corpuscular HGB Conc 32 g/dL (31-36); Mean Corpuscular Hemoglobin 26 pg (27-31); Mean Corpuscular Volume 83 fL (80-97); Mean Platelet Volume 7.8 fL (7.4-10.4); Nucleated Red Blood Cells % 0.1; Platelet Count 421 10^3/uL (150-450); Red Blood Count 3.85 10^6 /uL (3.70-4.87); Red Cell Distribution Width 21 % (10.5-15); White Blood Count 11.4 10^3/uL (3.5-10.8)
[2018-10-11 12:37] LABS: ALT 12 U/L (7-52); AST 16 U/L (13-39); Albumin 3.8 g/dL (3.2-5.2); Albumin/Globulin Ratio 1.3 (1-3); Alkaline Phosphatase 53 U/L (34-104); Anion Gap 8 mmol/L (2-11); Blood Urea Nitrogen 18 mg/dL (6-24); CO2 Carbon Dioxide 24 mmol/L (22-32); Chloride 104 mmol/L (101-111); EGFR African American 81.6 (>60); EGFR Non-African American 67.4 (>60); Globulin 2.9 g/dL (2-4); Glucose 112 mg/dL (70-100); Potassium 3.8 mmol/L (3.5-5.0); Sodium 136 mmol/L (135-145); Total Protein 6.7 g/dL (6.4-8.9)
[2018-10-11 12:48] LABS: Acetaminophen < 15 mcg/mL; Alcohol < 10 mg/dL (<10); Salicylate < 2.50 mg/dL (<30)
[2018-10-11 13:03] LABS: TSH (Thyroid Stimulating Horm) 1.27 mcIU/mL (0.34-5.60)
[2018-10-11] MEDS ORDERED: Haloperidol TAB* 5 MG PO ONE (17:41)
[2018-10-11] MEDS ORDERED: LORazepam TAB(*) 1 MG PO ONE (17:41)
[2018-10-11 17:52] LABS: Urine Appearance Cloudy; Urine Bacteria Absent (Absent); Urine Bilirubin Negative (Negative); Urine Blood Negative (Negative); Urine Color Yellow; Urine Glucose Negative (Negative); Urine Ketones Trace (Negative); Urine Nitrite Negative (Negative); Urine Protein Negative (Negative); Urine Red Blood Cell Trace(0-2/hpf) (Absent); Urine Specific Gravity 1.011 (1.010-1.030); Urine Squamous Epithelial Cell Present (Absent); Urine Urobilinogen Negative (Negative); Urine White Blood Cell 3+(>20/hpf) (Absent)
--- NOTE | 2018-10-11 17:55 | ED ---
Progress - Progress Note Progress Note: The patient reported to the nurse that she felt there was a procedure being done to her bottom and instruments stuck to her backside. An external exam was done of her back, buttocks, and anus and there were no abnormal findings. Sign out for further care of this patient to RENE Sherman. - Consult/PCP Time Called: 13:23 Course/Dx - Course Course Of Treatment: Pt. presenting with paranoia. Medically cleared for MHE. The patient reported to the nurse that she felt there was a procedure being done to her bottom and instruments stuck to her backside. An external exam was done of her back, buttocks, and anus and there were no abnormal findings. Sign out for further care of this patient to RENE Sherman. The patient seems floridly psychotic with paranoid delusions and hallucinations. She is intermittently crying as well. Her differential includes opiate-induced mood disorder, postsurgical delirium, perhaps primary psychiatric event. She cannot safely be discharged. Her urine is dirty, we will begin empiric treatment with antibiotics. Given her age, I do not suspect UTI delirium in the absence of pyelonephritis. There is no bowel obstruction, constipation as expected from opiates. No evidence of urinary retention. Discussed the patient with Dr. Kerline Farmer M.D. who accepts the patient for admission to medicine. Medicine admission is supported by Dr. Mayito Alcala of the psychiatry service. - Diagnoses Provider Diagnoses: Paranoia, Delusion, Hallucination, Psychosis, UTI (urinary tract infection) Discharge - Sign-Out/Discharge Documenting (check all that apply): Sign-Out Patient - RENE Sherman will take over care of the patient Signing out patient TO: Jenna Huizar Patient Received Moderate/Deep Sedation with Procedure: No - Discharge Plan Condition: Stable Disposition: ADMITTED TO [facility] - Billing Disposition and Condition Condition: STABLE Disposition: Admitted to [facility] - Attestation Statements Document Initiated by Scribe: Yes Documenting Scribe: Julian Cruz Provider For Whom Scribe is Documenting (Include Credential): Miles Mays MD Scribe Attestation: Julian Patel, scribed for Miles Mays MD on 10/12/18 at 0811. Scribe Documentation Reviewed: Yes Provider Attestation: The documentation as recorded by the scribe, Julian Cruz accurately reflects the service I personally performed and the decisions made by me, Miles Mays MD Status of Scribe Document: Viewed
[2018-10-11 17:59] LABS: Urine Benzodiazepine Screen None Detected (None Detect); Urine Opiates Screen None Detected (None Detect)
--- NOTE | 2018-10-11 18:38 | ED ---
Progress - Progress Note Progress Note: patient signed out by gerald pending MH - Consult/PCP Time Called: 13:23 Course/Dx - Course Course Of Treatment: Pt. presenting with paranoia. Medically cleared for MHE. patient had BM and urinated in ED. urine shows uti. dr cohen spoke with dr echeverria who decided that patient should be admitted medically. dr garcia agrees to admission after discussing with dr cohen. - Diagnoses Provider Diagnoses: Paranoia, Delusion, Hallucination, Psychosis, UTI (urinary tract infection) Discharge - Sign-Out/Discharge Documenting (check all that apply): Patient Departure, Receiving Sign-Out Receiving patient FROM: Gerald Griffiths - Discharge Plan Condition: Stable Disposition: ADMITTED TO [facility] Referrals: Danny Powers MD [Primary Care Provider] - - Billing Disposition and Condition Condition: STABLE Disposition: Admitted to [facility]
[2018-10-11] MEDS ORDERED: cefTRIAXone(*) 1 GM in NS 0.9% 50 ML* 50 ML IVPB ONE (19:19)
[2018-10-11] MEDS ORDERED: oxyCODONE/Acetamin 5/325 MG* TAB PO PRN (22:26)
[2018-10-11] MEDS ORDERED: Levalbuterol HFA INHALER* 1 PUFF MDI INH PRN (22:26)
[2018-10-11] MEDS ORDERED: Dicyclomine CAP* 10 MG PO PRN (22:26)
[2018-10-11] MEDS ORDERED: Senna TAB PO PRN (22:37)
[2018-10-11] MEDS ORDERED: Magnesium Hydroxide LIQ* 30 ML UDC PO PRN (22:37)
[2018-10-11] MEDS ORDERED: Polyethylene Glycol 3350* 17 GM PACKET PO PRN (22:37)
[2018-10-12] MEDS ORDERED: Acetaminophen TAB* 325 MG PO PRN ×2 (00:59→22:30)
--- NOTE | 2018-10-12 02:36 | HP ---
CC: Dr. Powers * HISTORY AND PHYSICAL: DATE OF ADMISSION: 10/11/18 PROVIDER: Yanni Anderson NP PRIMARY CARE PROVIDER: Dr. Powers ATTENDING PHYSICIAN WHILE IN THE HOSPITAL: Dr. Kerline Farmer * (dictated by Yanni Anderson NP) CHIEF COMPLAINT: Hallucinations. HISTORY OF PRESENT ILLNESS: Ms. Vega is a 47-year-old female with a past medical history significant for recent right total knee arthroplasty on 10/04/18 , hypertension, sleep apnea, POT syndrome, fibromyalgia, anxiety, asthma, depression, GERD, IBS, obesity, Ehler-Danlos syndrome, chronic neck and back pain, who presented to the emergency room with hallucinations. The patient is currently residing at [facility] status post right total knee arthroplasty. When she started developing hallucinations, she called her stepmother approximately x15 last night and was saying bizarre comments and things that did not make sense. The patient was paranoid saying that there were spies at the place and that the building was going to blow up. The patient reports that she feels confused and scared and is not sure if the things she is saying are true and what is true and what is false. Due to her hallucinations, we were asked to see and evaluate her for admission. While in the emergency room, she had routine lab work drawn. She has a white count 11.4 and CRP of 15.9, otherwise lab work was at baseline. Due to these hallucinations, we were asked to see and evaluate her for admission. PAST MEDICAL HISTORY: 1. Hypertension. 2. Sleep apnea. 3. POT syndrome. 4. Fibromyalgia. 5. Anxiety. 6. Asthma. 7. Depression. 8. GERD. 9. IBS. 10. Obesity. 11. Manuela-Danlos syndrome. 12. Chronic back and neck pain. 13. Status post right total knee arthroplasty on 10/04/18. PAST SURGICAL HISTORY: 1. [place] teeth. 2. Fibroid tumor removed. 3. Nerve removed from her left foot. 4. Right total knee arthroplasty on 10/04/18. MEDICATIONS: Home medications include: 1. Combivent Respimat 1 puff 4 times a day. 2. Eliquis 2.5 mg p.o. b.i.d. 3. Wellbutrin 150 mg p.o. q.a.m. 4. Vitamin B12 1000 mcg p.o. daily. 5. Bentyl 10 mg p.o. b.i.d. p.r.n. 6. Colace 100 mg p.o. b.i.d.. 7. Levalbuterol inhaled t.i.d. p.r.n. shortness of breath. 8. Ativan 1 mg p.o. q.6 hours as needed for anxiety. 9. Oxycodone 5/325 one to two tablets every 4 hours as needed for pain. 10. Pantoprazole 40 mg p.o. q.a.m. 11. Nadolol 10 mg p.o. q.a.m. 12. Singulair 10 mg p.o. q.a.m. 13. Fasenra 1 dose every 8 weeks. 14. EpiPen as needed. 15. CBD oil 1 drop p.o. daily. 16. Belsomra 1 tab at bedtime. ALLERGIES: Allergies to ADHESIVE, AMITRIPTYLINE, BEE VENOM, CORTISONE, BENADRYL , XOLAIR, and STRAWBERRIES. FAMILY HISTORY: Mother with sudden at age 61, autopsy withh cardiac disease and diabetes. Grandmother with history of colon cancer. SOCIAL HISTORY: The patient denies any tobacco, alcohol, or illicit drug use. She is currently residing at [facility] for rehab. Surrogate decision maker in the event she is unable to make her own decisions is her step-mom, Sharon. She is a full code. REVIEW OF SYSTEMS: The patient denies any fever, chills, unintended weight loss , chest pain, edema, cough, hemoptysis, or shortness of breath. Denies any nausea, vomiting, diarrhea, or abdominal pain, hematuria, dysuria. Denies any focal weakness or sensory loss. Denies any visual complaints, dysphagia, arthralgias, myalgias, rashes, lesions, or open sores. She does report hallucinations and increased anxiety. PHYSICAL EXAMINATION GENERAL: At this time, Ms. Vega is a 47-year-old female. She is alert and oriented, resting in the stretcher in the emergency room. She does not appear to be in any acute distress. VITAL SIGNS: Blood pressure 128/82, temp is 99.4, pulse is 88, respirations are 20, O2 saturation 98%. HEENT: Head is atraumatic, normocephalic. Eyes: EOMS are intact. Sclerae are anicteric and not pale. Oral mucosa appeared to be moist. NECK: Supple. LUNGS: Clear to auscultation bilaterally. No wheezes, rales, or rhonchi. CARDIAC: S1, S2. Regular rate and rhythm. No murmurs, rubs, or gallops. ABDOMEN: Soft and nontender. Bowel sounds are present x4. EXTREMITIES: She is able to move all 4 extremities. She does have limited range of motion to her right knee due to recent surgery. Right knee incision is dry and intact. There is no drainage, it is well approximated without redness. There is mild ecchymosis at the base of the incision. Pedal pulses are +2 bilaterally. There is no clubbing or cyanosis. NEUROLOGIC: She is awake, alert, and oriented x3. Speech is clear. Cranial nerves II through XII are grossly intact. SKIN: She does have a healing surgical incision to the right knee. There is no erythema. There is mild ecchymosis noted at the base of the incision. PSYCH: The patient is alert and oriented. Thought process appears to be intact at the time of evaluation. LABORATORY DATA AND DIAGNOSTIC STUDIES: WBCs are 11.4, RBCs 3.85, hemoglobin 10.1, hematocrit is 32, platelet count 421. Sodium 136, potassium 3.8, chloride 104, carbon dioxide 24, anion gap was 8, BUN was 18, creatinine 0.90. ASTs were 16, ALTs were 12, alkaline phosphatase was 53, C-reactive protein was 15.9. TSH was 1.27. Urine is cloudy, pH is 6.0, specific gravity 1.011. The urine protein was negative; ketones were trace; blood, nitrites, bilirubin, urobilinogen were all negative. Leukocyte esterase of 2+, wbc's of 2+, rbc's were trace, squamous epithelial cells were present, bacteria was absent, glucose was negative, salicylates were less than 2.50. Urine tox screen was within normal limits. Alcohol was less than 10. She had an abdominal x-ray, which showed nonobstructive bowel gas pattern, large amount of stools throughout the colon. ASSESSMENT AND PLAN: Ms. Vega is a 47-year-old female with a past medical history significant for hypertension, sleep apnea, postural orthostatic tachycardia syndrome, fibromyalgia, anxiety, asthma, depression, gastroesophageal reflux disease, irritable bowel syndrome, obesity, Ehler- Danlos syndrome, and chronic back and neck pain, status post right total knee arthroplasty on 10/04/18, who presented to the emergency room with complaints of hallucinations that started yesterday. She will be admitted under observation for: 1. Hallucinations. It is unclear the cause of her hallucinations, could be related to her recent hospitalization and currently being in rehab or recent medications changes. I will have the psychiatrist see and evaluate the patient. Consult has been placed. I will continue her on her current home medications and offer supportive care. 2. Hypertension. The patient is not currently on any antihypertensive medications. We will continue to monitor. 3. Asthma. She will continue her home inhalers as previously prescribed. 4. Gastroesophageal reflux disease. She will continue on pantoprazole as previously prescribed. 5. Anxiety. She can have lorazepam as needed for anxiety. We will continue her Wellbutrin as previously prescribed. 6. Status post right total knee arthroplasty. She will continue on Eliquis and she can have Tylenol as needed for pain. 7. The patient does have leukocyte esterase and wbc's in her urine and squamous epithelial cells present with a trace of blood. She does report urgency with urination. She had received ceftriaxone 1 g in the emergency room. I will continue ceftriaxone 1 g until culture comes back as the patient does have a recent total knee arthroplasty and has some symptoms with urinary urgency. 8. FEN: She can have regular diet. 9. Code status: She is a full code. 10. DVT prophylaxis: We will continue Eliquis. TIME SPENT: Time spent on this patient was approximately 60 minutes, greater than half that time was spent at the bedside reviewing events leading thus far to her hospitalization, performing my physical exam, and reviewing my plan of care. I have discussed this with my attending Dr. Kerline Farmer, she is in agreement with my plan. YANNI PORFIRIO, EMERGENCY ROOM NURSE [id number]/[facility] #: [id number] [facility]
--- NOTE | 2018-10-12 08:34 | PN ---
Subjective Date of Service: 10/12/18 Interval History: Admitted last night. On exam, pt reporting AH/VH since admission but not currently. States they are "apparitions" and she thinks they are reality. Only other symptoms are mild R knee pain and constipation. Denies urinary frequency, dysuria, or lower abdominal pain. Objective Active Medications: Apixaban (Eliquis*) 2.5 mg PO BID [facility] Last Admin: 10/12/18 21:59 Dose: 2.5 mg Ascorbic Acid (Vitamin C Tab*) 500 mg PO DAILY [facility] Last Admin: 10/12/18 16:27 Dose: 500 mg Bupropion HCl ([facility] Xl *) [facility] Admin: 10/12/18 09:32 Dose: 150 mg Cyanocobalamin (Vitamin B12 Tab*) 1,000 [facility]cg [facility] Last Admin: 10/12/18 09:31 Dose: 1,000 mcg Dicyclomine HCl (Bentyl Cap*) 10 mg PO BID PRN PRN Reason: LOOSE STOOLS Ferrous Sulfate (Ferrous Sulfate Tab*) 325 mg PO DAILY [facility] Last Admin: 10/12/18 16:27 Dose: 325 mg Levalbuterol HCl (Xopenex Hfa Inhaler*) 2 puff INH TID PRN PRN Reason: SHORTNESS OF BREATH Lorazepam (Ativan Tab(*)) 1 mg PO Q6H PRN PRN Reason: PAIN Last Admin: 10/12/18 22:01 Dose: 1 mg Magnesium Hydroxide (Milk Of Magnesia Liq*) 30 ml PO BID PRN PRN Reason: CONSTIPATION Montelukast Sodium (Singulair Tab*) [facility] Last Admin: 10/12/18 09:31 Dose: 10 mg Nadolol (Corgard Tab*) [facility] Last Admin: 10/12/18 09:31 Dose: 10 mg Oxycodone/Acetaminophen (Percocet 5/325 Tab*) 1 tab PO Q4H PRN PRN Reason: PAIN Pantoprazole Sodium (Protonix Tab*) [facility] Last Admin: 10/12/18 09:31 Dose: 40 mg Polyethylene Glycol/Electrolytes (Miralax*) 17 gm PO DAILY PRN PRN Reason: CONSTIPATION Suvorexant (Belsomra (Nf)) 20 mg PO BEDTIME [facility] Last Admin: 10/12/18 22:00 Dose: 20 mg Vital Signs - 8 hr 10/12/18 03:51 Temperature 97.6 F Pulse Rate 72 Respiratory 20 Rate Blood Pressure 148/78 (mmHg) O2 Sat by Pulse 95 Oximetry Oxygen Devices in Use Now: None Appearance: tired appearing woman in NAD; pleasant Eyes: No Scleral Icterus Ears/Nose/Mouth/Throat: Clear Oropharnyx, Mucous Membranes Moist Neck: NL Appearance and Movements; NL JVP Respiratory: Clear to Auscultation Cardiovascular: RRR Abdominal: NL Sounds; No Tenderness; No Distention, No Hepatosplenomegaly Lymphatic: No Cervical Adenopathy Extremities: - - 1+ edema distal to surgical site; R knee with bandage c/d/i Skin: No Rash or Ulcers Neurological: Alert and Oriented x 3, NL Sensation, NL Muscle Strength and Tone Result Diagrams: 10/11/18 11:54 10/11/18 11:54 Microbiology and Other Data: Microbiology 10/12/18 00:00 Nasal Screen MRSA (PCR) - Final Nasal Mrsa Not Detected Assess/Plan/Problems-Billing Assessment: 47W with obesity, R knee TKA 10/04, HTN, sleep apnea, postural orthostatic tachycardia, fibromyalgia, anxiety, depression, asthma, IBS, Ehler-Danlos, presents from rehab with hallucinations. - Patient Problems (1) Hallucination Comment: pending psych eval; currently without evidence for underlying medical or substance etiology; doesn't fit picture of post-op delirium (2) Constipation Comment: bowel reg (3) Status post total right knee replacement Comment: cont PT, pain management, apixaban (4) Asthma Comment: albuterol prn; montelukast (5) Anemia Comment: cont iron and B12 (6) Anxiety and depression Comment: cont bupropion and home benzo (7) DVT prophylaxis Comment: on apixapan s/p knee surgery
[2018-10-12] MEDS ORDERED: Albuterol HFA INHALER* 8 gm MDI INH PRN (08:35)
[2018-10-12] MEDS ORDERED: Albuterol/Ipratropium RESP(NF) MDI (Combivent Respimat) INH SCH (09:00)
[2018-10-12] MEDS ORDERED: Docusate CAP* 100 MG PO SCH (09:00)
[2018-10-12 09:02] LABS: % Iron Saturation 15 % (15-55); Iron 55 ug/dL (50-212); Total Iron Binding Capacity 360 mcg/dL (250-450); Transferrin 257 mg/dL (203-362)
[2018-10-12 09:21] LABS: Ferritin 26.6 ng/mL (11-307)
[2018-10-12] MEDS: Apixaban* 2.5 MG TAB PO SCH ×2 (09:31→21:59)
[2018-10-12] MEDS: LORazepam TAB(*) 1 MG PO PRN ×2 (09:31→22:01)
[2018-10-12] MEDS: Montelukast Sodium TAB* 10 MG PO SCH (09:31)
[2018-10-12] MEDS: Pantoprazole TAB * 40 MG TAB PO SCH (09:31)
[2018-10-12] MEDS: Nadolol TAB* 40 MG PO SCH (09:31)
[2018-10-12] MEDS: Cyanocobalamin TAB* 500 MCG PO SCH (09:31)
[2018-10-12] MEDS: BuPROPion XL* 150 MG TAB.XL PO SCH (09:32)
[2018-10-12] MEDS: Ferrous Sulfate TAB* 325 MG PO SCH (16:27)
[2018-10-12] MEDS: Ascorbic Acid TAB* 500 MG PO SCH (16:27)
[2018-10-12] MEDS ORDERED: cefTRIAXone(*) 1 GM in NS 0.9% 50 ML* 50 ML IVPB SCH (18:00)
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
--- NOTE | 2018-10-12 21:48 | EEG ---
ELECTROENCEPHALOGRAPHY: DATE OF STUDY: 10/12/18 - ROOM #407 DATE READ: 10/12/18 ORDERED BY: Dr. Mayito Alcala. CLINICAL PROBLEM: Ms. Vega is a 47-year-old left-handed female, who was admitted to [address] [place] [address] for an abnormal urinalysis prior to [facility] admit for hallucinations. The patient has history of posttraumatic stress disorder. Hallucinations began 1 week ago. This EEG was obtained to evaluate for epileptiform abnormalities or electrographic seizures. MEDICATIONS: 1. Lorazepam 1 mg, was given at 9:31. 2. Rocephin. 3. Apixaban. 4. Seroquel. 5. Wellbutrin. 6. Suvorexant. 7. Vitamin B12. 8. Montelukast. 9. Corgard. 10. Protonix. 11. Acetaminophen. 12. Ventolin. 13. Dicyclomine. 14. Percocet. CLINICAL STATE: Waking and drowsy. REPORT: The waking background showed appropriate organization with a discernible anterior-posterior voltage and frequency gradients. There was a well-defined posterior dominant rhythm of 9 Hz, which was symmetrical and showed normal reactivity. Anteriorly, there was an expected pattern of lower voltage, irregular, mixed faster frequency. Throughout the recording there were low-voltage beta frequencies throughout the EEG. There was attenuation of the occipital rhythm accompanied drowsiness. There are multiple episodes noted by the technologist as well as seen on video with head jerk, right-sided jerk, and 1 episode of generalized myoclonus seen at 15:58:15. There were no EEG correlate or EEG changes. There were muscle artifact seen throughout the recording as well as the EKG strip. Photic stimulation and hyperventilation were not performed. EKG showed a normal sinus rhythm with a rate of 70 beats per minute. CLINICAL IMPRESSION: This an essentially normal waking and drowsy EEG with excessive, diffuse, low voltage beta frequency. Beta frequency can be seen in the setting of benzodiazepine use. There were few episodes limb jerking and one episode of generalized myoclonus. Other than muscle artifact, there were no EEG changes or epileptogenic correlate. [id number]/[facility] #: [id number] [facility]
[2018-10-12] MEDS: QUEtiapine TAB* 100 MG PO SCH (22:00)
[2018-10-12] MEDS: SUVOREXANT 20 MG PO SCH (22:00)
[2018-10-12] MEDS ORDERED: Senna TAB PO PRN (22:32)
[2018-10-13 07:03] LABS: ABS Basophils 0.1 10^3/ul (0-0.2); ABS Monocytes 0.8 10^3/ul (0-0.8); ABS Neutrophils 6.2 10^3/ul (1.5-7.7); Hematocrit 32 % (35-47); Hemoglobin 10.2 g/dL (12.0-16.0); Lymphocyte % 29.8 %; Mean Corpuscular HGB Conc 32 g/dL (31-36); Mean Corpuscular Hemoglobin 27 pg (27-31); Mean Corpuscular Volume 85 fL (80-97); Mean Platelet Volume 8.1 fL (7.4-10.4); Nucleated Red Blood Cells % 0.1; Platelet Count 367 10^3/uL (150-450); Red Blood Count 3.82 10^6 /uL (3.70-4.87); Red Cell Distribution Width 20 % (10.5-15); White Blood Count 10.1 10^3/uL (3.5-10.8)
[2018-10-13 07:18] LABS: BUN/Creatinine Ratio 18.9 (8-20); Calcium 8.8 mg/dL (8.6-10.3); EGFR African American 76.6 (>60); EGFR Non-African American 63.3 (>60); Magnesium 2.3 mg/dL (1.9-2.7); Potassium 4.1 mmol/L (3.5-5.0)
--- NOTE | 2018-10-13 07:41 | PN ---
Progress Note - Progress Note Date of Service: 10/13/18 SOAP: Subjective: Pt. is sleepy, appears confused and does not know where she is this AM. Objective: Vital Signs: Temp Pulse Resp BP Pulse Ox 97.0 F 63 20 129/75 99 10/13/18 03:31 10/13/18 03:31 10/13/18 03:31 10/13/18 03:31 10/13/18 03:31 Laboratory Results - last 24 hr 10/11/18 10/13/18 10/13/18 11:54 06:24 06:24 WBC 10.1 RBC 3.82 Hgb 10.2 L Hct 32 L MCV 85 MCH 27 MCHC 32 RDW 20 H Plt Count 367 MPV 8.1 Neut % (Auto) 61.6 Lymph % (Auto) 29.8 [place] % (Auto) 8.0 Eos % (Auto) 0.0 Baso % (Auto) 0.6 Absolute Neuts (auto) 6.2 Absolute Lymphs (auto) 3.0 Absolute Monos (auto) 0.8 Absolute Eos (auto) 0.0 Absolute Basos (auto) 0.1 Absolute Nucleated RBC 0.0 Nucleated RBC % 0.1 Sodium 136 136 Potassium 3.8 4.1 Chloride 104 105 Carbon Dioxide 24 25 Anion Gap 8 6 BUN 18 18 Creatinine 0.90 0.95 Est GFR ( Amer) 81.6 76.6 Est GFR (Non-Af Amer) 67.4 63.3 BUN/Creatinine Ratio 20.0 18.9 Glucose 112 H 95 Calcium 9.0 8.8 Magnesium 2.0 2.3 Iron 55 TIBC 360 % Saturation 15 Unsat Iron Binding < 345 Transferrin 257 Ferritin 26.6 Total Bilirubin 0.60 AST 16 ALT 12 Alkaline Phosphatase 53 C-Reactive Protein 15.90 H Total Protein 6.7 Albumin 3.8 Globulin 2.9 Albumin/Globulin Ratio 1.3 TSH 1.27 Salicylates < 2.50 Acetaminophen < 15 Serum Alcohol < 10 RLE - inc c/d/i, min swelling, 0-90 degrees, distally nvi. Assessment: 47 yo F pod 10 s/p RTKA Plan: readmission for postop confusion/mental changes - mri brain and eeg negative needs PT/OT while here, focus on R knee ROM R knee without abnormality f/u in clinic with Dr. brennan in 3-5 days, call [phone] for appointment please call with any questions
[2018-10-13] MEDS: Apixaban* 2.5 MG TAB PO SCH ×2 (09:59→21:06)
[2018-10-13] MEDS: BuPROPion XL* 150 MG TAB.XL PO SCH (09:59)
[2018-10-13] MEDS: Ascorbic Acid TAB* 500 MG PO SCH (09:59)
[2018-10-13] MEDS: Montelukast Sodium TAB* 10 MG PO SCH (09:59)
[2018-10-13] MEDS: Ferrous Sulfate TAB* 325 MG PO SCH (09:59)
[2018-10-13] MEDS: Pantoprazole TAB * 40 MG TAB PO SCH (10:00)
[2018-10-13] MEDS: Cyanocobalamin TAB* 500 MCG PO SCH (10:00)
[2018-10-13] MEDS: Nadolol TAB* 40 MG PO SCH (10:00)
[2018-10-13] MEDS ORDERED: Docusate CAP* 100 MG PO PRN (12:21)
--- NOTE | 2018-10-13 16:43 | PN ---
Subjective Date of Service: 10/13/18 Interval History: Pt feels MUCH better this AM after getting about 8 hours of sleep last night with one brief awakening to urinate. She had only gotten about 5 hours of sleep broken up in 20-30minute naps in the preceeding 9-10 days since surgery. It is not unusual for her to go 3 days without sleeping and she has had numerous medication changes in recent months(prescription hx and per pharmacy report): Cymbalta initially 60mg BID (filled 08/20) but then weaned down to 30mg daily and to off ~09/27. Xanax 1mg QID prn (usually 2-3mg at night to help sleep and prn for anxiety attacks; had been taking for several months; prior to that had been on clonopin for several years). She found this medication becoming ineffective so, with advice from her Psychiatrist Dr. Zarina Braun had decided to wean off in the course of the two weeks prior to ~09/27(week before her surgery). Buspar 15mg BID, started 09/25 (after surgical H&P). Got in hospital but not in discharge paperwork so unclear if getting at [facility]. Seroquel 150mg qhs (Rx 08/05) was initially effective and she trialed for about 14 weeks total but then ineffective and she switched back to Belsomra She is often very depressed and lonely since the passing of her Mother and Grandomother within one week of each other 4 years ago. Jerking motions in random body parts for ~7 months. Sometimes repeats to the point of being painful. Sometimes with blurry vision. In general constipated after surgery but relatively large BM two days ago which provided some relief. Alternates constipated and diarrhea at baseline. On Bentyl. Got 1mg Ativan in ED and twice yesterday HD#2 that made her feel much better in re anxiety. Intolerant of CPAP/Bipap. Frequent black outs reported to Dr. Suarez. On nadolol and midodrine for suspected POTS. Dr. Wall trial of low dose naltrexone on 08/10/18 for fibromylagia/chronic pain syndrome/Manuela Danhos UCx with mixed morphotypes, possible contamination. Objective Active Medications: Acetaminophen (Tylenol Tab*) 975 mg PO Q8H PRN PRN Reason: FEVER/PAIN Apixaban (Eliquis*) 2.5 mg PO BID [facility] Last Admin: 10/13/18 09:59 Dose: 2.5 mg Ascorbic Acid (Vitamin C Tab*) 500 mg PO DAILY [facility] Last Admin: 10/13/18 09:59 Dose: 500 mg Bupropion HCl (Wellbutrin Xl *) [facility] Last Admin: 10/13/18 09:59 Dose: 150 mg Cyanocobalamin (Vitamin B12 Tab*) 1,000 mcg [facility] Last Admin: 10/13/18 10:00 Dose: 1,000 mcg Dicyclomine HCl (Bentyl Cap*) 10 mg PO BID PRN PRN Reason: LOOSE STOOLS Docusate Sodium (Colace Cap*) 100 mg PO BID PRN PRN Reason: CONSTIPATION Last Admin: 10/13/18 14:28 Dose: 100 mg Ferrous Sulfate (Ferrous Sulfate Tab*) 325 mg PO DAILY [facility] Last Admin: 10/13/18 09:59 Dose: 325 mg Levalbuterol HCl (Xopenex Hfa Inhaler*) 2 puff INH TID PRN PRN Reason: SHORTNESS OF BREATH Lorazepam (Ativan Tab(*)) 1 mg PO Q6H PRN PRN Reason: PAIN Last Admin: 10/12/18 22:01 Dose: 1 mg Magnesium Hydroxide (Milk Of Magndiane Liq*) 30 ml PO BID PRN PRN Reason: CONSTIPATION Montelukast Sodium (Singulair Tab*) 10 mg PO [facility] Last Admin: 10/13/18 09:59 Dose: 10 mg Nadolol (Corgard Tab*) 10 mg PO [facility] Last Admin: 10/13/18 10:00 Dose: 10 mg Oxycodone/Acetaminophen (Percocet 5/325 Tab*) 1 tab PO Q4H PRN PRN Reason: PAIN Pantoprazole Sodium (Protonix Tab*) 40 mg PO [facility] Last Admin: 10/13/18 10:00 Dose: 40 mg Polyethylene Glycol/Electrolytes (Miralax*) 17 gm PO DAILY PRN PRN Reason: CONSTIPATION Quetiapine Fumarate (Seroquel Tab*) 100 mg PO BEDTIME [facility] Last Admin: 10/12/18 22:00 Dose: 100 mg Senna (Senokot Tab*) 2 tab PO BEDTIME PRN PRN Reason: CONSTIPATION Suvorexant (Belsomra (Nf)) 20 mg PO BEDTIME [facility] Last Admin: 10/12/18 22:00 Dose: 20 mg Oxygen Devices in Use Now: None Appearance: NAD, sitting in chair. Tearful once talking about her mother/ grandmother's deaths. Eyes: No Scleral Icterus, PERRLA Ears/Nose/Mouth/Throat: NL Teeth, Lips, Gums, Clear Oropharnyx, Mucous Membranes Moist Neck: NL Appearance and Movements; NL JVP Respiratory: Symmetrical Chest Expansion and Respiratory Effort, Clear to Auscultation Cardiovascular: NL Sounds; No Murmurs; No JVD, RRR Abdominal: NL Sounds; No Tenderness; No Distention, No Hepatosplenomegaly Extremities: No Edema, - - right knee with well approximated sutures, no erythema or drainage. Skin: No Rash or Ulcers Neurological: Alert and Oriented x 3, NL Sensation Nutrition: Taking PO's Result Diagrams: 10/13/18 06:24 10/13/18 06:24 Additional Lab and Data: Laboratory Results - last 24 hr 10/13/18 10/13/18 06:24 06:24 WBC 10.1 RBC 3.82 Hgb 10.2 L Hct 32 L MCV 85 MCH 27 MCHC 32 RDW 20 H Plt Count 367 MPV 8.1 Neut % (Auto) 61.6 Lymph % (Auto) 29.8 Winston % (Auto) 8.0 Eos % (Auto) 0.0 Baso % (Auto) 0.6 Absolute Neuts (auto) 6.2 Absolute Lymphs (auto) 3.0 Absolute Monos (auto) 0.8 Absolute Eos (auto) 0.0 Absolute Basos (auto) 0.1 Absolute Nucleated RBC 0.0 Nucleated RBC % 0.1 Sodium 136 Potassium 4.1 Chloride 105 Carbon Dioxide 25 Anion Gap 6 BUN 18 Creatinine 0.95 Est GFR ( Amer) 76.6 Est GFR (Non-Af Amer) 63.3 BUN/Creatinine Ratio 18.9 Glucose 95 Calcium 8.8 Magnesium 2.3 Microbiology and Other Data: Microbiology 10/11/18 17:30 Urine Urine Culture - Final 10/12/18 00:00 Nasal Nasal Screen MRSA (PCR) - Final Mrsa Not Detected Assess/Plan/Problems-Billing Assessment: 47 yo female PMH with obesity, RTK arthroplasty 10/04, HTN, sleep apnea, postural orthostatic tachycardia, fibromyalgia, anxiety, depression, asthma, IBS, Ehler- Danlos, presents from rehab with hallucinations in the setting of acute on chronic insomnia and multiple medication changes (including recent wean of multiyear dosing of benzodiazapine over the course of two weeks( - Patient Problems (1) Hallucination Current Visit: Yes Status: Acute Code(s): R44.3 - HALLUCINATIONS, UNSPECIFIED SNOMED Code(s): 6342204 Comment: Suspected in setting of acute on chronic insomnia (~5 hours of sleep total in the 8 days preceding last night when she got solid 8 hours (with help of addition seroquel 100mg) and is feeling much better. Also suspect component of benzo withdrawal after was on klonopin and then xanax for years and weaned over the course of 2 weeks (end date ~09/27, week prior to surgery). Appreciate Psych recs. (2) Insomnia Current Visit: Yes Status: Acute Code(s): G47.00 - INSOMNIA, UNSPECIFIED SNOMED Code(s): 732893642 Comment: Continue Seroquel 100mg qhs with uptitration if needed. (3) Myoclonus Current Visit: Yes Status: Acute Code(s): G25.3 - MYOCLONUS SNOMED Code(s) : 59713580 Comment: Suspect there may be a component of mild serotonin syndrome in setting of her antidepressant changes. Had been on SNRI Cymbalta + DNRI Buproprion then Cymbalta stopped and direct serotonin agonist Buspar replaced. Likely sometimes masked by her until recent chronic benzo use. She attests to blurry vision on occasion which may have been ocular clonus. Appreciate Neurology consultation and will f/u recs. (4) Anemia Current Visit: Yes Status: Acute Code(s): D64.9 - ANEMIA, UNSPECIFIED SNOMED Code(s): 347960354 Comment: cont iron and B12 though on recent testing not deficient normocytic. (5) Anxiety and depression Current Visit: Yes Status: Acute Code(s): F41.9 - ANXIETY DISORDER, UNSPECIFIED; F32.9 - MAJOR DEPRESSIVE DISORDER, SINGLE EPISODE, UNSPECIFIED SNOMED Code(s): 389604390 Comment: continue bupropion continue ativan prn vs initiate longer activing valium given suspected component of benzo withdrawal appreciate Psych recs. (6) Asthma Current Visit: Yes Status: Acute Code(s): J45.909 - UNSPECIFIED ASTHMA, UNCOMPLICATED SNOMED Code(s): 003905941 Comment: albuterol prn; montelukast (7) Constipation Current Visit: Yes Status: Acute Code(s): K59.00 - CONSTIPATION, UNSPECIFIED SNOMED Code(s): 00694725 Comment: bowel reg (8) DVT prophylaxis Current Visit: Yes Status: Acute Code(s): Z29.9 - ENCOUNTER FOR PROPHYLACTIC MEASURES, UNSPECIFIED SNOMED Code(s): 084508832 Comment: on apixapan s/p knee surgery (9) Status post total right knee replacement Current Visit: Yes Status: Acute Code(s): Z96.651 - PRESENCE OF RIGHT ARTIFICIAL KNEE JOINT SNOMED Code(s): 6586526968079 Comment: cont PT, pain management, apixaban (10) Sleep apnea Current Visit: No Status: Active Code(s): G47.30 - SLEEP APNEA, UNSPECIFIED SNOMED Code(s): 39308812 Comment: not able to tolerate CPAP/Bipap per patient report. Status and Disposition: medicine inpatient. If stable overnight possible d/c as soon as [facility] would be able to accept her back. Continue PT as likely closer to be able to go home as well though would need to tolerate 5 stairs without hand rail (instead wall hugging)
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
[2018-10-13] MEDS: SUVOREXANT 20 MG PO SCH (21:07)
[2018-10-13] MEDS: QUEtiapine TAB* 100 MG PO SCH (21:08)
[2018-10-14] MEDS: BuPROPion XL* 150 MG TAB.XL PO SCH (09:22)
[2018-10-14] MEDS: Apixaban* 2.5 MG TAB PO SCH (09:22)
[2018-10-14] MEDS: Montelukast Sodium TAB* 10 MG PO SCH (09:23)
[2018-10-14] MEDS: Ferrous Sulfate TAB* 325 MG PO SCH (09:23)
[2018-10-14] MEDS: Ascorbic Acid TAB* 500 MG PO SCH (09:23)
[2018-10-14] MEDS: Nadolol TAB* 40 MG PO SCH (09:23)
[2018-10-14] MEDS: Cyanocobalamin TAB* 500 MCG PO SCH (09:23)
[2018-10-14] MEDS: Pantoprazole TAB * 40 MG TAB PO SCH (09:23)
--- NOTE | 2018-10-14 14:09 | PN ---
Progress Note - Progress Note Date of Service: 10/14/18 Note: Psychiatric consultation follow up. Nursing staff reports Ms Vega has had multiple bowel movements in resolution of prolonged constipation post-operatively, also that she has slept well with the Seroquel and has had near full resolution of psychotic symptoms. Ms Vega reports hallucinations and other psychotic symptoms have resolved with return of Seroquel. She reports that Seroquel was one of the medications she had been taking before stopping several psychiatric medications, which she reports she understands might be responsible in their discontinuation for the myoclonic jerks she has been having for the past 6 months or so. MSE: Found sitting in chair, speaking on phone about getting groceries. Cooperative and well-engaged in our meeting. Attire, hygiene and grooming all appropriate to this hospital setting. NOrmal speech pattern. No myoclonic jerks observed during out 15 minute meeting. Gait not seen, as she remained in her chair throughout our interview. Mood "good" in anticipation of going home soon. Affect congruent to mood. Denies AH/VH/PI/SI/HI. Insight/judgment good. Intact impulse control. Diagnoses: Post-surgical delirium largely resolved at this point. Depression and anxiety disorders by history. Impression: Ms Vega's psychotic symptoms appear to have been due to delirium resolved with sleep and return of normal GI function as well as any direct effect of Seroquel. She reports feeling safe, stable and ready for discharge home. Follow up with her psychiatrist Dr Braun of [facility] will require transportation assistance. She should discuss with Dr Braun whether and when to taper off Seroquel again, if that is what she wants to do. Ms Vega would like to continue Seroquel for now. From a psychiatric perspective, there are no safety concerns or other psychiatric issues preventing discharge to home at this time.
[2018-10-14 15:51] VITALS: BP 135/67
--- NOTE | 2018-10-14 17:15 | PN ---
Progress Note - Progress Note Date of Service: 10/14/18 Note: HPI: No further hallucinations. Feeling much better. Still difficulty with sleep. Still intermittent myoclonic jerks at the frequency of last 6-8 months. Medications: Acetaminophen (Tylenol Tab*) 975 mg PO Q8H PRN PRN Reason: FEVER/PAIN Apixaban (Eliquis*) 2.5 mg PO BID [facility] Last Admin: 10/14/18 09:22 Dose: 2.5 mg Ascorbic Acid (Vitamin C Tab*) 500 mg PO DAILY [facility] Last Admin: 10/14/18 09:23 Dose: 500 mg Bupropion HCl ([facility]rin Xl *) [facility] Last Admin: 10/14/18 09:22 Dose: 150 mg Cyanocobalamin (Vitamin B12 Tab*) 1,000 mcg [facility] Last Admin: 10/14/18 09:23 Dose: 1,000 mcg Dicyclomine HCl (Bentyl Cap*) 10 mg PO BID PRN PRN Reason: LOOSE STOOLS Docusate Sodium (Colace Cap*) 100 mg PO BID PRN PRN Reason: CONSTIPATION Last Admin: 10/13/18 14:28 Dose: 100 mg Ferrous Sulfate (Ferrous Sulfate Tab*) 325 mg PO DAILY [facility] Last Admin: 10/14/18 09:23 Dose: 325 mg Levalbuterol HCl (Xopenex Hfa Inhaler*) 2 puff INH TID PRN PRN Reason: SHORTNESS OF BREATH Lorazepam (Ativan Tab(*)) 1 mg PO Q6H PRN PRN Reason: PAIN Last Admin: 10/12/18 22:01 Dose: 1 mg Magnesium Hydroxide (Milk Of Magnesia Liq*) 30 ml PO BID PRN PRN Reason: CONSTIPATION Montelukast Sodium (Singulair Tab*) [facility] Last Admin: 10/14/18 09:23 Dose: 10 mg Nadolol (Corgard Tab*) 10 mg PO [facility] Last Admin: 10/14/18 09:23 Dose: 10 mg Oxycodone/Acetaminophen (Percocet 5/325 Tab*) 1 tab PO Q4H PRN PRN Reason: PAIN Pantoprazole Sodium (Protonix Tab*) 40 mg PO [facility] Last Admin: 10/14/18 09:23 Dose: 40 mg Polyethylene Glycol/Electrolytes (Miralax*) 17 gm PO DAILY PRN PRN Reason: CONSTIPATION Quetiapine Fumarate (Seroquel Tab*) 100 mg PO BEDTIME [facility] Last Admin: 10/13/18 21:08 Dose: 100 mg Senna (Senokot Tab*) 2 tab PO BEDTIME PRN PRN Reason: CONSTIPATION Last Admin: 10/13/18 21:07 Dose: 2 tab Suvorexant (Belsomra (Nf)) 20 mg PO BEDTIME [facility] Last Admin: 10/13/18 21:07 Dose: 20 mg Examination: Temp Pulse Resp BP Pulse Ox 98.5 F 73 20 135/67 100 10/14/18 15:43 10/14/18 15:43 10/14/18 15:43 10/14/18 15:43 10/14/18 15:43 Awake, alert, articulate, equal facial expression, no dysarthria, no myoclonic jerks Impression: 47-year-old woman with history of complex course after right knee surgery with hallucinations, paranoia. Now improved after hospitalization and starting seroquel. (Myoclonic?) jerks are chronic. Often not seen by others. No findings on EEG or MRI. At this point would focus on knee rehab and treatment of mental health. Would benefit from better sleep and treatment of sleep apnea. In future, re- consultation with sleep clinic may be helpful. Please call if further neurologic input is needed. 20 minute spent in direct patient care, >50% was spend in education regarding diagnosis, differential diagnosis, evaluation and treatment.
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
== END 2018-10-14 18:45 | disposition home health service (06) | DRG 885 ==
LOC: ED 10:35 → MED 22:01 → OBSVTOIN 10-12 16:00
PROVIDERS: ADMIT Internal Medicine; ATTEND Internal Medicine
DX: F23 Brief psychotic disorder (principal); G92 Toxic encephalopathy; F33.9 Major depressive disorder, recurrent, unspecified; Q79.6 Ehlers-Danlos syndromes; G25.3 Myoclonus; I49.8 Other specified cardiac arrhythmias; T42.4X5A Adverse effect of benzodiazepines, initial encounter; F51.04 Psychophysiologic insomnia; I10 Essential (primary) hypertension; G47.30 Sleep apnea, unspecified; M79.7 Fibromyalgia; F41.9 Anxiety disorder, unspecified; J45.909 Unspecified asthma, uncomplicated; K21.9 Gastro-esophageal reflux disease without esophagitis; K58.9 Irritable bowel syndrome, unspecified; E66.9 Obesity, unspecified; M54.9 Dorsalgia, unspecified; K59.00 Constipation, unspecified; M54.2 Cervicalgia; Z96.651 Presence of right artificial knee joint; D64.9 Anemia, unspecified; Y92.129 Unspecified place in nursing home as the place of occurrence of the external cause; Z68.38 Body mass index [BMI] 38.0-38.9, adult; Z79.01 Long term (current) use of anticoagulants; Z79.891 Long term (current) use of opiate analgesic; Z79.899 Other long term (current) drug therapy; Z91.030 Bee allergy status; Z88.8 Allergy status to other drugs, medicaments and biological substances; Z91.018 Allergy to other foods; Z83.3 Family history of diabetes mellitus; Z82.49 Family history of ischemic heart disease and other diseases of the circulatory system; Z80.0 Family history of malignant neoplasm of digestive organs; Z81.8 Family history of other mental and behavioral disorders; Z81.1 Family history of alcohol abuse and dependence
CPT/HCPCS: 36415; 70551; 74018; 80048; 80053; 80307; 80320; 80329; 81003; 81015; 82728; 83540; 83550; 83735; 84443; 85025; 86140; 87086; 87641; 95816; 99284; A9270-GY; G0480; J0696

== ENCOUNTER 2018-11-02 16:39 | Emergency (ER) | payer MEDICARE, MEDICAID ==
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
--- OUTSIDE RECORDS SUMMARY | 2018-11-02 17:10 | XMS REPORT | Continuity of Care Document ---
:1970 External Reference #:[id number] Author Name Danny Powers M.D. 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 Danny Powers MD Primary Care Physician Unavailable Payers Date Identification Numbers Payment Provider Subscriber Effective: 2009 Policy Number: [id number] [place] PayID: [id number] [address] [place] [address] Effective: 2009 Policy Number: [id number] [place] Expires: 2018 PayID: [id number] [address] [place] [address] Effective: 2009 Policy Number: [id number] Medicaid [place] PayID: [id number] [address] [facility] [place] [address] Advance Directives Description No Information Available Problems [...] Medications SIG Qnty Indications Ordering Date Provider Quetiapine Fumarate 1 po qhs Danny F. 10/16/2018 Avila Powers 100mg Tablets Symbicort inhale two puffs by 10.2units Danny F. 03/14/2016 mouth twice a day Avila Powers 80-4.5mcg/Act as needed Aerosol Levalbuterol HCL Use One In 72units Danny F. 10/31/2015 Nebulizer Three Avila Powers 1.25mg/3ML Times Daily as Nebulizer Needed For Bronchospasm Combivent Respimat Inhale One puff By 4units Leah Henriquez 06/18/2015 Mouth 4 Times Daily TIMOTHY Hager 20-100mcg/Act Aerosol Epipen 2-Pool use a directed 2units Danny F. 09/23/2011 Avila Powers 0.3mg/0.3ML Solution Auto-Inject Fesenra q 8 weeks Danny F. Avila Powers Nadolol 10MG 1 tab qd Danny F. [...] day Avila Powers 150mg Tablets ER 24HR Xyzal Danny F. 5mg Tablets Avila Powers History Medications Nadolol 1 by mouth every 30tabs Danny Hilton 10/29/2017 - 20mg Tablets day Avila Powers 09/13/2018 Zithromax Z-Pool as directed Obey Lao 08/22/2016 - 250mg Avila Ugarte 03/27/2017 Tablets Gabapentin take 1-2 caps at 60caps [facility] 03/14/2016 - 300mg bedtime for pain [facility] 09/13/2018 Capsules Sandy Ranitidine HCL take one tablet by 60tabs [facility] 03/14/2016 - 150mg mouth in evening [facility] 03/27/2017 Tablets as needed for acid Sandy reflux Lidocaine apply topically to 35.44units Danny FBarbie 09/29/2015 - 5% Ointment the right thigh Avila Powers 05/08/2018 three times a day as needed Physical Therapy treatment and Danny Hilton 06/18/2015 - evaluation low Avila Powers 09/29/2015 back pain with radiation to right thigh Physical Therapy treatment and Danny FBarbie 04/07/2015 - evaluation right Avila Powers 06/18/2015 shoulder pain Ventolin HFA inhale two puffs 2inhalers Danny Hilton 01/04/2015 - every 4 hours Avila Powers 08/18/2015 108(90Base) mcg/Act Aerosol Albuterol Sulfate use one vial via 1box Danny Hilton 01/04/2015 - nebulizer four Avila Powers 09/13/2018 (2.5mg/3ML) 0.083% times a day as Nebulizer needed Xopenex use one vial via 72ml Danny Hilton 12/25/2014 - 1.25mg/3ML nebulizer three Avila Powers 01/04/2015 Nebulizer times a day as needed for bronchospasm Xopenex HFA take 2 puff every 15gm 493.90 Danny FBarbie 12/25/2014 - 45mcg/Act 4-6 hours as Avila Powers 01/04/2015 Aerosol needed Prednisone 2 po qd for 3 30tabs Danny Hilton 12/25/2014 - 20mg days, then Avila Powers 02/03/2015 Tablets decrease by 1/2 pill/day every 3 days Nebulizer Set Up And dx asthma 1unhardik Hilton 11/11/2014 - Tubing Avila Powers 10/16/2018 Medrol (Pool) as directed 1tabs Danny Hilton 11/11/2014 - 4mg Avila Powers 12/02/2014 Tablets Auvi-Q as directed 2unhardik Hilton 10/14/2014 - 0.3mg/0.3ML Avila Powers 04/07/2015 Solution Auto-Inject Diazepam /2-1 by mouth 10ta Danny Hilton 03/27/2014 - 10mg Tablets four times a day Avila Powers 01/05/2018 as needed Ketorolac take one tablet by 20tabs Danny Hilton 01/28/2014 - Tromethamine mouth twice a day Avila Powers 06/26/2014 10mg as needed Tablets Albuterol Sulfate use one vial via 1box Danny Hilton 2013 - nebulizer four Avila Powers 12/25/2014 (2.5mg/3ML) 0.083% times a day as Nebulizer needed Benzamycin Apply 1 46.600gm Danny Hilton 2013 - 5-3% Gel application Avila Powers 06/26/2014 topically to affected area 2 times per day for acne Triamterene/Hydrochl Take One Capsule 90caps Danny Hilton 05/18/2013 - orothiazide By Mouth Once Avila Powers 09/13/2018 37.5-25mg Daily as Needed Capsules Ambien 1 po qhs prn sleep 30tabs [facility] 05/14/2013 - 5mg Tablets [facility] 2013 [place] Clotrimazole apply bid-tid prn 15gm Danny Hilton 05/14/2013 - 1% Cream Avila Powers 2013 Phendimetrazine Danny Hilton 02/05/2013 - Tartrate ER Avila Powers 02/05/2013 105mg Caps ER 24HR Nystatin use as directed 15gm Danny Hilton 10/18/2012 - bid prn Shallish, M.D. 2013 [id number]/GM Cream Dyazide 1 po qd prn 30caps Danny Hilton 10/18/2012 - 37.5-25mg Avila Powers 05/18/2013 Capsules Ventolin HFA inhale two puffs 2inhalers Danny Hilton 08/21/2012 - every 4 hours Avila Powers 12/25/2014 108(90Base) mcg/Act Aerosol Augmentin 1 bid with food x 20tabs 684 Alia Cordon, 07/20/2012 - 500-125mg 10d [employer] 10/18/2012 Tablets Ergocalciferol 1 capsule po 15caps Danny Hilton 07/15/2012 - every week for 4 Avila Powers 2013 [id number] Capsules weeks, ,then 1 po qmonth Proair HFA inhale 2 puffs by 1unhardik Hilton 06/12/2012 - mouth every 4 Avila Powers 10/18/2012 108(90Base) mcg/ac hours Aerosol Dicloxacillin Sodium 1 po tid x 10d 30caps 782.1 Alia Cordon, 04/27/2012 - [employer] 02/05/2013 500mg Capsules Diflucan 1 po 1tabs 782.1 Danny Hilton 04/27/2012 - 150mg Avila Powers 05/14/2013 Tablets Combivent 2 Puffs qid 1unhardik Hilton 04/23/2012 - Avila Powers 2013 18-103mcg/Act Aerosol Bactroban apply to affected 30gm Alia Cordon, 03/14/2012 - 2% Ointment area tid for 3-5 [employer] 07/05/2012 days Birthcontrol Pill as directed [facility] 12/19/2011 - [facility] 09/29/2015 Sandy Lyrica 1 po tid 90caps Danny Hilton 09/23/2011 - 100mg Capsules Avila Powers 07/05/2012 Sodium Chloride To be used with 100units Danny Hilton 07/20/2011 - Inhalation Solution nebulizer prn Avila Powers 2013 .9% 3ML Vials Diflucan 1 tab po x 1, 2tacharity Rice 05/13/2011 - 150mg repeat in 3 days Avila Johnson 12/19/2011 Tablets if still symptomatic Prednisone 3 po qd x3 days 20tacharity Hilton 04/12/2011 - 20mg then 2 po qd x 3 Avila Powers 12/19/2011 Tablets days then 1 po qd x 3 days then 1/2 qd x 4 Azithromycin take 2 tablets by 6tacharity Hilton 04/12/2011 - 250mg mouth on day 1 Avila Powers 04/20/2011 Tablets then 1 tablet on days 2 through 5 Meloxicam take one tablet by 60tacharity Hilton 07/09/2010 - 15mg mouth twice daily Avila Powers 02/05/2013 Tablets ..replaces celebrex... Cymbalta 1 By Mouth Twice A 30caps Danny Hilton 05/31/2010 - 60mg Caps DR Paz Powers M.D. 08/15/2016 Part Savella 1 po bid 60tabs Jenna wilhelm 11/09/2009 - 50mg Tablets Avila Naranjo 05/31/2010 Abilify Increase as [facility] 09/28/2009 - 2mg Tablets Directed [facility] 05/31/2010 Sandy Doxycycline Hyclate 1 po bid 20caps Leatha 08/19/2009 - Perfecto, 08/29/2009 100mg Capsules [facility]np-C Diflucan 1 po x1 1tabs Leatha 08/19/2009 - [facility] Tablets Afnp-C Mirtazapine take one tablet by 30tacharity [facility] 08/10/2009 - 15mg mouth daily at [facility] 09/28/2009 Tablets Dispers bedtime Sandy Omeprazole Take One Capsule 60caps Alia Cordon, 08/10/2009 - 20mg By Mouth Twice [employer] 05/08/[address] Daily Multivitamins 1qd - take one 30tabs Jenna wilhelm 06/17/2009 - Tabs tablet by mouth Avila Naranjo 12/19/2011 every day Zithromax 2 po qd today , 6Tabs Leatha 05/27/2009 - 250mg then 1 po qd times Giancarloorf, 06/01/2009 Tablets 4 Afnp-C Wellbutrin XL 1 po qd [facility] 03/23/2009 - 300mg [facility] 12/28/2009 Tablets ER 24HR Damion Omeprazole 1 po qd 30caps Jenna wilhelm 03/13/2009 - 40mg Avila Naranjo 08/10/[address] Mathewbutrin XL 1 po bid [facility] 12/15/2008 - 150mg [facility] 03/23/2009 Tablets ER 24HR Damion Klonopin 1 po Up To qid prn [facility] 12/15/2008 - 1mg Tablets [facility] 03/27/2017 Damion Omeprazole 1 po bid [facility] 12/03/2008 - 20mg [facility] 03/13/2009 [...] Tablets Astelin 2 sprays tid prn [facility] 08/04/2008 - 137mcg/Bergoo runny nose [facility] 09/10/2008 Solution Damion Robaxin 1 po qhs 30tabs Jenna wilhelm 06/23/2008 - 500mg Tablets Avila Naranjo 09/10/2008 Prednisone Tapering Dose [facility] 05/12/2008 - 20mg [facility] 06/23/2008 Tablets Damion Multi-Vitamin/Minera 1 po qd 30tabs Jenna wilhelm 05/12/2008 - ls Avila Naranjo 06/17/2009 Tablets Diflucan 1 po qd x 3 days 3tabs Jenna wilhelm 03/13/2008 - 150mg Avila Naranjo 04/28/2008 Tablets Out Of Work until 03/28/08 due Jenna wilhelm 02/14/2008 - to neck pain Avila Naranjo 04/28/2008 Lyrica 2 po with sherie Rice 11/02/2007 - 50mg Capsules breakfast, 2 po Avila Johnson 09/23/2011 with dinner, 2 po at hs [...] Albuterol 2 Puffs q4hrs prn 1Mdi Danny Hilton 08/08/2007 - 90mcg/Act Avila Powers 04/12/2011 Aerosol Klonopin 1-2 po bid 20tabs Jenna wilhelm 07/20/2007 - 0.5mg Avila Naranjo 08/08/2007 Tablets 5 day supply Zyrtec 1qd - take one 30tabs Danny Hilton 07/10/2007 - 10mg Tabs tablet by mouth Avila Powers 02/03/2015 every day Avelox 1 PO qd X 4D 4tabs 466.0 Alia Neris, 07/10/2007 - 400mg Tablets [employer] 07/19/2007 Xopenex Concentrate use in nebulizer 1Box 466.0 Danny Hilton 07/10/2007 - qd-qid prn Avila Powers 2013 1.25mg/0.5ML cough,wheeze Nebulizer Nebulizer Set Up And use as directed 1Set 466.0 Leatha 07/10/2007 - Tubing [place], 08/08/2007 Afnp-C Nebulizer use as directed 1units 466.0 Leatha 07/10/2007 - [place], 08/08/2007 dx: asthma Afnp-C Medrol Dosepak as Directed 1tabs [facility] 07/10/2007 - 4mg [facility] 07/19/2007 Tablets Sandy Lyrica [facility] 05/28/2007 - [facility] 11/02/2007 Sandy Out Of Work out of work until Jenna wilhelm 04/04/2007 - 07/28/07 for severe Avila Naranjo 08/08/2007 neck pain Cymbalta 1qd - take one 30units [facility] 04/04/2007 - 60mg Cpep capsule by mouth Avila Naranjo 11/09/2009 every day Guiafenesin 1-2 bid prn 30units 786.2 Alia Cordon, 03/30/2007 - 600mg Cough/Congestion [employer] 08/08/2007 Proventil HFA 2 Puffs Q 3-4H prn 1units 786.2 Alia Cordon, 03/30/2007 - Inhaler Wheeze/Cough [employer] 08/08/2007 Mdi Anna 1 po qd 30caps 708.0 Jenna [facility] 03/30/2007 - 180mg Avila Naranjo 07/10/2007 Capsules auth #[id number] Out Of Work out of work until Jenna wihlelm 03/07/2007 - 04/12/07 due to Avila Naranjo 07/25/2007 medical condition Soma 1 po qid prn 120tabs [facility] 12/14/2006 - 350mg Tablets muscle spasm [facility] 01/04/2007 Sandy Out Of Work out of work Until Jenna [facility] 12/14/2006 - 02/26/07 For Avila Naranjo 07/25/2007 Cervicalalgia And Shoulder Pain Rozerem 1 po qhs Samples Jenna wilhelm 12/14/2006 - 8mg Avila Naranjo 02/15/2007 Epipen 2-Pool Use A Directed 2units Jenna wilhelm 12/14/2006 - 0.3mg Avila Naranjo 09/23/2011 Injection Out Of Work out of work until Jenna [facility] 10/26/2006 - 12/27/06 for medical Avila Naranjo 07/25/2007 condition Cymbalta 2 po qd [facility] 10/04/2006 - 60mg [facility] 04/04/2007 Capsules Sandy Celebrex 1qd - take one 30caps Jenna wilhelm 08/23/2006 - 200mg Caps capsule by mouth Avila Naranjo 07/09/2010 every day Methadone 1/2 po 2-3 x per [facility] 08/23/2006 - 5mg Tablets day [facility] 10/26/2006 Sandy Skelaxin 1/2 pill po tid Samples [facility] 08/23/2006 - 800mg [facility] 01/04/2007 Tablets Sandy Out Of Work out of work Until Jenna wilhelm 06/12/2006 - 10/27/06 Avila Naranjo 07/25/2007 Cymbalta 1 PO qd [facility]enna [facility] 04/11/2006 - 30mg Avila Naranjo 08/23/2006 Capsules Out Of Work PT should be Jenna melonie 04/10/2006 - excused from work Avila Naranjo 08/11/2006 through 05/29/06 for neck pain Lyrica 1 tab po bid 60caps Jenna wilhelm 01/18/2006 - 75mg Capsules Avila Naranjo 04/10/2006 Out Of Work will be out of [facility]enna [facility] 11/23/2005 - work for neck Avila Naranjo 08/11/2006 injury until 02/26/06 Ibuprofen 1 po tid with 90tabs Jenna [facility] 11/14/2005 - 600mg food for pain Avila Naranjo 08/23/2006 Tablets Flexeril 1 po tid prn 30tabs Jenna wilhelm 11/14/2005 - 10mg Tablets muscle spasm Avila Naranjo 01/18/2006 Valium 1 po bid prn neck 60tabs Jenna wilhelm 11/14/2005 - 5mg Tablets spasm Avila Naranjo 01/18/2006 Vicodin 5/500 1 po q 4 hours 60units Jenna wilhelm 11/14/2005 - Avila Naranjo 01/18/2006 Out Of Work Until out of work until Jenna iwlhelm 11/14/2005 - november 30 for Avila Naranjo 08/11/2006 severe neck injury Out Of Work will be out of Jenna wilhelm 11/07/2005 - work until 11/12/05 Avila Naranjo 01/18/2006 for medical reasons Zyrtec 1 po qd 14SMPLS 708.0 Jenna [facility] 05/25/2004 - 10mg Tabs Avila Naranjo 05/28/2007 Fluticasone 2 sprays per Danny FBarbie - Propionate Nasal nostril bid Avila Powers 10/16/2018 Bergoo 50mcg/Act Suspension Diclofenac Sodium apply 2 gm to Danny F. - 1% affected joint Avila Powers 10/16/2018 Gel four times a day Belsomra 1 po q hs Danny F. - 20mg Tablets Avila Powers 10/16/2018 Cymbalta 1 by mouth every Unknown - 30mg Caps DR mullen 09/13/2018 Part Cymbalta 1 by mouth every Danny F. - 60mg Caps DR paz Powers M.D. 10/16/2018 Part Xanax Unknown - 0.5mg Tablets 09/13/2018 [...] - 3mg Tablets night as needed 01/06/2018 [place] Carbonate take two capsules Unknown - by [...] CPT Code Status Date Vaccine Lot # [id number] Given 03/12/2018 Influenza Vac, Quadriv[place] [address] Given 03/27/2017 Influenza Vac, Quadrivalent, Slit Virus, Im [id number] 80099 Given 03/14/2016 Influenza Vac, Quadrivalent, Slit Virus, Im [id number] 19681 Given 04/07/2015 Influenza Vac, Quadrivalent, Slit Virus, Im [id number] Q2038 Given 03/27/2014 Split Influenza Medicare: Fluzone [id number] 41053 Given 05/14/2013 Preservative free flu 3 yrs+ and older [id number] Q2038 Given 03/12/2012 Split Influenza Medicare: Fluzone [id number] 56840 Given 12/19/2011 Tdap Tetanus, W Pertussis [id number] Q2038 Given 05/17/2011 Split Influenza Medicare: Fluzone [id number] 98941 Given 04/28/2010 DO Not Use Split Influenza Virus Vaccine 15952 Given 04/28/2010 DO Not Use Split Influenza Virus Vaccine [id number] 28343 Given 05/18/2009 H1N1 Virus Vaccine [id number] 01582 Given 05/18/2009 H1N1 Immunization Intramuscular/Intranasal W Counseling Vital Signs Date Vital Result Comment 10/16/2018 4:56pm BP Systolic 140 mmHg BP Diastolic 70 mmHg Heart Rate 92 /min Body Temperature 97.2 F Respiratory Rate 20 /min Weight 248.00 lb 09/13/2018 4:00pm BP Systolic 120 mmHg BP [...] Date Facility Test Result H/L Range Note Urine Culture And 10/11/2018 [facility] [place]rine Culture SEE RESULT 1 Sensitivities BELOW Laboratory test 10/11/2018 [facility] Ferritin 26.6 ng/mL N 11-307 finding Magnesium 2.0 mg/dL N 1.9-2.7 Iron & Iron Binding Capacity 10/11/2018 [facility] Iron 55 g/dL N 50-212 Unsaturated Iron Binding < 345 g/dL Total Iron Binding Capacity 360 g/dL N 250-450 Transferrin 257 mg/dL N 203-362 % Iron Saturation 15 % N 15-55 Laboratory test 10/11/2018 [facility] C Reactive Protein 15.90 mg/L High <8.01 finding CBC Auto Diff 10/11/2018 [facility] White Blood Count 11.4 10^3/uL High 3.5- 10.8 Red Blood Count 3.85 10^6/uL N 3.70-4.87 Hemoglobin 10.1 g/dL Low 12.0-16.0 Hematocrit 32 % Low 35-47 Mean Corpuscular Volume 83 fL N 80-97 Mean Corpuscular Hemoglobin 26 pg Low 27-31 Mean Corpuscular HGB Conc 32 g/dL N 31-36 Red Cell Distribution Width 21 % High 10.5-15 Platelet Count 421 10^3/uL N 150-450 Mean Platelet Volume 7.8 fL N 7.4-10.4 Abs Neutrophils 8.6 10^3/uL High 1.5-7.7 Abs Lymphocytes 1.8 10^3/uL N 1.0-4.8 Abs Monocytes 0.9 10^3/uL High 0-0.8 Abs Eosinophils 0.0 10^3/uL N 0-0.6 Abs Basophils 0.0 10^3/uL N 0-0.2 Abs Nucleated RBC 0.0 10^3/uL Granulocyte % 75.6 % Lymphocyte % 16.3 % Monocyte % 8.0 % Eosinophil % 0.0 % Basophil % 0.1 % Nucleated Red Blood Cells % 0.1 Comp Metabolic Panel 10/11/2018 [facility] Sodium 136 mmol/L N 135-145 Potassium 3.8 mmol/L N 3.5-5.0 Chloride 104 mmol/L N 101-111 Co2 Carbon Dioxide 24 mmol/L N 22-32 Anion Gap 8 mmol/L N 2-11 Glucose 112 mg/dL High 70-100 Blood Urea Nitrogen 18 mg/dL N 6-24 Creatinine 0.90 mg/dL N 0.51-0.95 BUN/Creatinine Ratio 20.0 N 8-20 Calcium 9.0 mg/dL N 8.6-10.3 Total Protein 6.7 g/dL N 6.4-8.9 Albumin 3.8 g/dL N 3.2-5.2 Globulin 2.9 g/dL N 2-4 Albumin/Globulin Ratio 1.3 N 1-3 Total Bilirubin 0.60 mg/dL N 0.2-1.0 Alkaline Phosphatase 53 U/L N 34-104 Alt 12 U/L N 7-52 Ast 16 U/L N 13-39 Egfr Non- 67.4 >60 Egfr 81.6 >60 2 Urine Drug SCR ED 10/11/2018 [facility] Urine Amphetamine None Detected None Detect & Pain Clinic Screen Urine Barbiturates Screen None Detected None Detect Urine Benzodiazepine Screen None Detected None Detect Urine Cannabinoids Screen None Detected None Detect Urine Cocaine Screen None Detected None Detect Urine Opiates Screen None Detected None Detect Urine Phencyclidine Screen None Detected None Detect 3 Laboratory test finding 10/11/2018 [facility] Acetaminophen < 15 g/mL 4 Alcohol < 10 mg/dL N <10 Salicylate < 2.50 mg/dL <30 TSH (Thyroid Stim Horm) 1.27 mcIU/mL N 0.34-5.60 Urinalysis Profile 10/11/2018 [facility] Urine Color Yellow Urine Appearance Cloudy Urine Specific [place] 1.011 N 1.010-1.030 Urine pH 6.0 N 5-9 Urine Urobilinogen Negative Negative Urine Ketones Trace Abnormal Negative Urine Protein Negative Negative Urine Leukocytes 3+ Abnormal Negative Urine Blood Negative Negative Urine Nitrite Negative Negative Urine Bilirubin Negative Negative Urine Glucose Negative Negative Urine White Blood Cell 3+(>20/hpf) Abnormal Absent Urine Red Blood Cell Trace(0-2/hpf) Absent Urine Bacteria Absent Absent Urine Squamous Epithelial Cell Present Abnormal Absent Type & Screen 09/24/2018 [facility] Patient Blood Type A Positive Antibody Screen NEGATIVE Laboratory test 09/24/2018 [facility] Partial Thrombo 20.2 seconds Low 26.0- 36.3 finding Time PTT CBC Auto Diff 09/24/2018 [facility] White Blood Count 9.4 10^3/uL N 3.5-10.8 Red Blood Count 4.48 10^6/uL N 3.70-4.87 [...] % Nucleated Red Blood Cells % 0.1 Inr/Protime 09/24/2018 [facility] Inr 0.99 N 0.82-1.09 5 Comp Metabolic Panel 09/24/2018 [facility] Sodium 134 mmol/L Low 135-145 Potassium 4.7 mmol/L N 3.5-5.0 Chloride 104 [...] Egfr Non- 58.3 >60 Egfr 70.6 >60 6 Ua - Micro (Fma) 09/20/2018 [facility] Appearance turbid (607)- - Color [place] Glucose, Urine (Fma/CMC/CTX) negative Bilirubin neg ICTO Ketones 15mg/dl # SP Grav >=1.030 # Blood negative PH 5.5 Protein 100mg/dl High Ssa 2+ Urobil 1.0 Nitrite negative Leukocytes (Fma/CMC/[facility]) trace # Hyaline - /Lpf Granular - /Lpf WBC (Fma,[facility]) 3-5 RBC 1-2 Mucus (Fma/CBC/[facility]) - /Lpf Epith occ /Lpf Bacteria 2+ /Hpf Amorphous (Fma/CMC/[facility]) - /Lpf Crystals, Fluid (Fma/CMC/CTX) - Z#Comments - Urine Culture And 09/20/2018 [facility] Urine Culture SEE RESULT BELOW 7 Sensitivities CBC Auto Diff 03/14/2018 [facility] White Blood Count 9.9 10^3/uL N 3.5-10.8 [...] Cells % 0.1 Laboratory test finding 03/14/2018 [facility] Ferritin 6.7 ng/mL Low 11-307 Vitamin D Total 25(Oh) 33.5 ng/mL N 20-50 Ceruloplasmin 34.0 mg/dL 8 Copper 1.50 g/mL Abnormal 0.75-1.45 9 Zinc Level 1.09 g/mL 0.66-1.10 10 Histamine, Whole Blood 122 nmol/L Abnormal 180-1800 11 Laboratory test 08/25/2017 [facility] Urine Culture And SEE RESULT BELOW 12 finding Sensitivities Urinalysis Profile 08/25/2017 [facility] Urine Color Straw Urine Appearance Clear Urine Specific [place] 1.003 Low 1.010-1.030 Urine pH 8.0 N [...] Urine Squamous Epithelial Cell Present Abnormal Absent Comp Metabolic Panel 08/25/2017 [facility] Sodium 138 mmol/L Low 139-145 Potassium 4.2 [...] Egfr Non- 54.9 >60 Egfr 70.6 >60 13 CBC Auto Diff 08/25/2017 [facility] White Blood Count 10.4 10^3/uL N 3.5-10.8 [...] 0-2 Nucleated Red Blood Cells % 0 Laboratory test finding 08/25/2017 [facility] Inr/Protime 0.94 N 0.77-1.02 Partial Thrombo Time PTT 25.6 seconds Low 26.0-36.3 Lactic Acid 1.5 mmol/L N 0.5-2.0 14 Laboratory test finding 08/25/2017 [facility] Troponin I 0.00 ng/mL <0.04 Laboratory test finding 09/09/2016 [facility] Clotest SEE RESULT BELOW 15, 16 Surgical Interface Order SEE RESULT BELOW 17 Laboratory test 08/22/2016 [facility] Quickstrep neg Negative finding (607)- - Throat-Beta Strept 09/05/2014 [facility] Throat Beta Strep (SEE NOTE) 18 Culture Comp Metabolic-ALL 04/01/2014 [facility] Sodium 135 mmol/L N 133-145 Lab [facility] Potassium 4.2 mmol/L N 3.5-5.0 19 Chloride 103 mmol/L N 101-111 Co2 Carbon [...] 58.1 N >60 Egfr 74.7 N >60 20 Laboratory test 04/01/2014 [facility] TSH (Thyroid 1.92 IU/mL N 0.34-5.60 finding Stimulating Horm) Lipid Profile 04/01/2014 [facility] Triglycerides 125 mg/dL N 21 (Trig/Chol/HDL) Cholesterol 165 mg/dL N 22 HDL Cholesterol 45.7 mg/dL N 23 LDL Cholesterol 94 mg/dL N 24 Laboratory test finding 04/01/2014 [facility] T4 8.35 g/dL N 6.09-12.23 CBC Electronic-ALL Lab 04/01/2014 [facility] White Blood Count 9.0 10^3/uL N 4.8 -10.8 [facility] Red Blood Count 4.16 10^6/uL N 4.0-5.4 [...] Nucleated Red Blood Cells % 0.1 N Laboratory test finding 04/01/2014 [facility] [place] 0.27 mmol/L Low 0.6-1.2 Urinalysis Profile 01/18/2014 [facility] Urine Color Straw Urine Appearance Clear Urine Specific [place] 1.004 Low 1.010-1.030 Urine pH 9.0 5-9 Urine Urobilinogen Negative Negative Urine Ketones Negative Negative Urine Protein Negative Negative Urine Leukocytes Negative Negative Urine Blood Negative Negative Urine Nitrite Negative Negative Urine Bilirubin Negative Negative Urine Glucose Negative Negative Comp Metabolic-ALL Lab [facility] 11/28/2012 [facility] Sodium 139 mmol/L 133-145 Potassium 4.2 mmol/L [...] Egfr Non- 49.5 >60 Egfr 63.7 >60 25 Laboratory test finding 11/28/2012 [facility] Free T4 0.81 ng/mL 0.61-1.24 TSH (Thyroid Stimulating Horm) 5.73 miu/mL High 0.34-5.60 B Type Natriuretic Peptide 13.0 pg/mL 0-100 CBC No Diff 11/28/2012 [facility] White Blood Count 12.4 10^3/uL High 4.8-10.8 Red Blood Count 4.45 10^6/uL 4.0-5.4 Hemoglobin 12.6 g/dL 12.0-16.0 Hematocrit 40 % 35-47 Mean Corpuscular Volume 90 fL 80-97 Mean Corpuscular Hemoglobin 28 pg 27-31 Mean Corpuscular HGB Conc 31 g/dL 31-36 Red Cell Distribution Width 14 % 10.5-15 Platelet Count 335 10^3/uL 150-450 Mean Platelet Volume 9 um3 7.4-10.4 Laboratory test finding 08/08/2012 [facility] Uric Acid 2.3 mg/dL Low 2.6-7.2 Hla B27 08/08/2012 [facility] Hla B27 Negative 26 Hla B27 Interp See Comment 27 Wound Culture 07/20/2012 [facility] Wound Culture Mixed skin ml 28 28 [facility] <SEE NOTE> [place] [address] [phone] .Gram Stain Additional NO WBC, NO ORGAN <SEE NOTE> 29 Laboratory test 07/20/2012 [facility] Viral Cult. Negative for 30 finding 28 [facility] General Prema <[place] [address] NOTE> [phone] Laboratory test 07/05/2012 [facility] Rheumatoid Arth 13.3 IU/mL 0.0-1 31 finding [address] Factor 3.9 [place] [address] [phone] Vitamin D, 25 Oh 27.1 ng/mL Low 30.0-100.0 32 Anti Dsdna Antibodies 3 IU/mL 0-9 33 Laboratory test 07/05/2012 [facility] Sed Rate 13mm finding (607)- - (Fma/[facility]) CBC Electronic 07/05/2012 [facility] WBC 6.9 3.6-9.6 (a) (607)- - RBC 4.45 3.90-5.70 Hemoglobin (Fma/CMC/CTX) 12.8 g/dL 12.1 - 17.2 Hematocrit (Fma/CMC/CTX) 40.2 % 36.1 - 50.3 Platelets 297 10^3/ul 150-400 Lymph% 34.0 20.5-51.1 Mixed% 4.7 Neutrophils % 61.3 Mean Corpuscular Vol 90 82.2-97.4 Mean Corpuscular Hemoglobin 28.8 27.6-33.3 Mean Corpuscular Hemo Concen 31.9 Low 32.0-36.0 RDW 12.5 11.6-13.7 Mean Platelet Volume 7.8 6.5-11.0 Ua - Micro (Fma) 07/05/2012 [facility] Appearance CLEAR (607)- - Color YELLOW Glucose [...] Fluid (Fma/CMC/CTX) - Z#Comments - Comprehensive Metabolic 07/05/2012 Junito Bull([facility]) Albumin 4.1 g/dL 3.8-5.5 Prof Alk. Phos. 51 U/L 30-110 Alt (SGPT) [...] 24.7 Calc 8.0-36.0 Lipid Profile 07/05/2012 Junito Bull([facility]) Cholesterol 214 mg/dL High 120-200 HDL 58 mg/dL 30-85 Triglycerides 108 mg/dL 30-200 HDL Risk Factor 3.7 CALC 0.0-4.4 LDL (Calculated) 134 CALC High 0-129 VLDL (Calculated) 22 mg/dL 0-50 Laboratory test 07/05/2012 Junito Bull([facility]) TSH 1.85 mIU/L 0.50-6.00 finding Lyme Igg/M W/RFX 07/05/2012 [facility] Lyme <0.91 index 0.00-0.90 34 [place] 28 [facility] IgG/[place] [address] [phone] Lyme Disease Ab, Quant, IgM <0.91 index 0.00-0.90 35 Laboratory test 07/05/2012 [facility] C-Reactive 4.3 mg/L 0.0-5.0 finding 28 [facility] [place] [address] [phone] Protein Elect 07/05/2012 [facility] Protein Elect SEE BELOW Serum 28 [facility] [place] [address] [phone] Graph Report TO FOLLOW Albumin 3.5 g/dL [...] 6.7 g/dL 6.4-8.3 Interpretation, Serum SEE COMMENT 36 HSV Igm I/II 04/27/2012 [facility] HSV, IgM I/II 0.95 High 0.00-0.90 [address] [place] [address] [phone] HSV 1 And 2 04/27/2012 [facility] HSV 1 IgG, Type <0.91 0.00-0.90 38 Specific AB Igg [address] [place] [address] [phone] HSV 2 IgG, Type Spec <0.91 index 0.00-0.90 39 Laboratory test 10/19/2010 [facility] Rheumatoid Arth 7.0 IU/mL 0.0-13.[address] [place] [address] [phone] Lyme Igg/M 10/19/2010 [facility] Lyme IgG/IgM Ab <0.91 0.00-0.90 40 W/RFX [place] [address] [place] [address] [phone] Lyme Disease Ab, Quant, IgM <0.91 index 0.00-0.90 41 Thyroglobulin 10/19/2010 [facility] Thyroglobulin, 19.3 0.5-55.0 [address] Qn. ng/[place] [address] [phone] Antithyroglobulin Ab <20 IU/mL 0-40 43 CBC Electronic (Fma) 10/19/2010 [facility] WBC 11.0 High 3.6-9.6 (607)- - RBC 4.37 3.90-5.70 Hemoglobin (Fma/CMC/CTX) 13.2 g/dL 12.1 - 17.2 Hematocrit (Fma/CMC/CTX) 39.1 % 36.1 - 50.3 Platelets 302 10^3/ul 150-400 Lymph% 38.4 20.5-51.1 Mixed% 4.6 Neutrophils % 57.0 Mean Corpuscular Vol 89 82.2-97.4 Mean Corpuscular Hemoglobin 30.2 27.6-33.3 Mean Corpuscular Hemo Concen 33.8 32.0-36.0 RDW 12.4 11.6-13.7 Mean Platelet Volume 8.6 6.5-11.0 Laboratory test 10/19/2010 [facility] Glucose Random 94 60-105 finding (607)- - Whole Blood Laboratory test 10/19/2010 [facility](fma) TSH 4.19 mIU/L 0.50-6.00 44 finding Laboratory test 02/05/2010 [facility] Glucose 85 mg/dL 70-100 45 finding Testosterone Total 13.9 ng/dL 10-75 Progesterone 0.5 NG/ML 46 Progesterone,17 Hydroxy 40 ng/dL () 47 Dhea Sulfate 23.4 g/dL Abnormal 31-228 48 Insulin 8.2 uU/mL 2.6-25 49 Laboratory test finding 08/31/2009 [facility] TSH 0.95 MIU/ML 0.34-5.60 FSH 6.45 MIU/ML 50 Prolactin 11.52 NG/ML 1.0-25.0 Laboratory test 09/10/2008 [facility] Antinuclear AB NEGATIVE Negative 51 finding 28 [facility] (Bruna) [place] [address] [phone] Rheumatoid Factor (RF) SEE BELOW 52 C-Reactive Protein 0.3 mg/dL 0.0-0.5 Comprehensive Metabolic 06/30/2008 [facility] Glucose 86 mg/dL 70-100 28 [place] [address] [phone] BUN 16 mg/dL 4-18 Creatinine, Serum 1.1 [...] CBC 06/30/2008 [facility] WBC 9.5 x103 4.3-10.9 28 [place] [address] [phone] RBC 4.52 x106 3.80-5.30 Hemoglobin 13.2 g/dL [...] Sedimentation Rate 11 MM/HR 0-20 finding 28 [place] [address] [phone] TSH (Thyrotropin) 2.500 uIU/ml 0.350-5.500 GFR, Calculated 06/30/2008 [facility] GFR (Calculated) 60 53 28 [place] [address] [phone] Laboratory test 11/16/2007 [facility] TSH 3.22 0.34-5 finding MIU/ML .60 Prolactin 6.46 NG/ML 1.0-25.0 CBC With Manual Diff Stat 07/25/2007 [facility] RBC Morphology NORMAL White Blood Count 13.3 [...] WDTH 14 % 10.5-15 Comp Stat 07/25/2007 [facility] One Over Creatinine 1.11 Anion Gap 6.0 mmol/L 2-11 54 Albumin/Globulin Ratio 1.1 1-3 Albumin 3.3 GM/DL [...] 8-20 Creatinine 0.9 mg/dL 0.5-1.4 Laboratory test finding 07/25/2007 [facility] BNP Evaluatr < 5.0 pg/mL Low 7.5- 100 Arterial Blood Gas 07/25/2007 [facility] Base Excess 0.3 -2.0-2.0 55 Device ROOM AIR Bicarbonate 27.3 mmol/L 19-31 O2 Saturation 99.5 % High 95-98 Pco2 53 mmHg High 35-45 PH 7.32 Low 7.35-7.45 Po2 197 mmHg High 80-100 Tco2 28.9 mEq/L HCG Qualitative Stat 07/25/2007 [facility] Serum Qual HCG NEGATIVE Negative 56 Comp Metabolic Panel 07/23/2007 [facility] One Over Creatinine 1.11 Anion Gap 5.0 mmol/L 2-11 57 Albumin/Globulin Ratio 1.0 1-3 Albumin 3.7 GM/DL [...] Ratio 10.0 8-20 Creatinine 0.9 mg/dL 0.5-1.4 CBC With Manual Diff Stat 07/23/2007 [facility] RBC Morphology NORMAL White Blood Count 15.7 CUMM High 4.8-10.8 [...] 4.2-5.4 Redcell Distribution WDTH 14 % 10.5-15 Laboratory test 07/23/2007 [facility] Blood Culture NG4 58 finding Laboratory test 07/23/2007 [facility] Labs CMP;CBC See Image finding Report CBC 07/18/2007 [facility] WBC 16.6 x103 High 4.3-10.9 59 [address] [place] [address] [phone] RBC 4.71 x106 3.80-5.30 Hemoglobin 14.4 g/dL [...] Basophil Absolute 0.1 x103 0.0-0.2 Laboratory test 07/18/2007 [facility] Sedimentation Rate 16 MM/HR 0-20 finding 28 [place] [address] [phone] Brain Joellen. Peptide(BNP) 3.2 pg/mL 0.0-100.0 60 TSH (Thyrotropin) 1.810 uIU/ml 0.350-5.500 T-4 Free 1.0 ng/dL 0.8-1.8 Rapid Strep A 07/02/2007 [facility] Rapid Strep A The plunger scoop operator <SEE 61 NOTE> CBC With Electronic 07/02/2007 [facility] White Blood 13.7 CUMM High 4.8-10.8 Diff Stat Count Abs Basophils 0.1 0-0.2 Abs Eosinophils 1.0 [...] 4.2-5.4 Redcell Distribution WDTH 13 % 10.5-15 Basic Metabolic Panel Stat 07/02/2007 [facility] One Over Creatinine 1.11 Anion Gap 8.0 mmol/L 2-11 62 BUN 11 mg/dL 6-24 Calcium 9.5 mg/dL 8.7-10.2 Chloride 104 mmol/L 101-111 Co2 (Carbon Dioxide) 26.0 mmol/L 22-32 Glucose 111 mg/dL High 70-105 Potassium 3.3 mmol/L Low 3.5-5.0 Sodium 138 mmol/L 135-145 BUN/Creatinine Ratio 12.2 8-20 Creatinine 0.9 mg/dL 0.5-1.4 Laboratory test 07/02/2007 [facility] Throat-Beta Strep NGNBS 63 finding Culture Comprehensive 12/14/2006 [facility](fma) Albumin 4.0 g/dL 3.8-5.5 Metabolic Prof Alk. Phos. 55 U/L 30-110 Alt [...] Calc 0.6-2.2 BUN/Creat Ratio 21.5 Calc 8.0-36.0 Complete Blood 12/14/2006 [facility]) WBC 11.2 x10\\S\\3/uL High 3.6-9.6 Count Gran# 8.4 x10\\S\\3/uL High 1.5-7.2 Gran% 75.2 [...] % 11.6-13.7 Laboratory test finding 12/14/2006 Junito Bull([facility]) TSH 3.94 mIU/L 0.50-6.00 1 SEE RESULT BELOW Name: SAMMIE BRANDON : [address]: Js Yap MD Acct: [id number] Unit: [id number] AGE: 47 Location: [place] [address]- Re10/11/18 SEX: F Status: ADM Eloy SPEC: [id number] FERNNADA: 10/11/[address]: Gerald LÓPEZ REQ: [id number] RECD: 10/11/18 STATUS: JOSTIN CROOK DR: Miles Powers MD _ SOURCE: URINE SPDESC: ORDERED: Urine Culture Procedure Result Reported Site Urine Culture Final 10/13/18- 0815 ML Mixed ml; possible contamination. Suggest resubmission. * ML - Main Lab . END OF REPORT DEPARTMENT OF PATHOLOGY, [address] [place] [address] Dani Palacios M.D. Director [facility] # [id number] 2 Because ethnic data is not always readily [...] 15-29 5 Kidney failure <15 (or dialysis) 3 The urine specimen was tested at the listed cutoffs: Drug class test level (ng/mL) Amphetamines 500 Barbiturates 200 Benzodiazepine metabolites 200 Cocaine metabolites 150 Cannabinoids 50 Opiates 300 Pcp 25 Specimen was received without chain of custody. Results should be used for medical purposes only. 4 Therapeutic concentration: <50 ug/mL Toxic concentration: >120 ug/mL 5 Standard intensity warfarin therapeutic range: 2.0-3.0 High intensity warfarin therapeutic range: 2.5-3.5 6 Because ethnic data is not always [...] (or dialysis) 7 SEE RESULT BELOW Name: SAMMIE BRANDON : [address]: Danny Powers MD Acct: [id number] Unit: [id number] AGE: 47 Location: [facility] Re09/20/18 SEX: F Status: REG REF SPEC: [id number] FERNANDA: 09/20/18-[address]: Danny Powers MD REQ: [id number] RECD: 09/20/18 STATUS: COMP _ SOURCE: URINE SPDESC: ORDERED: Urine Culture COMMENTS: [id number] Urine Source: Random Procedure Result Reported Site Urine Culture Final 09/21/18- 1612 ML No Growth (<1,000 CFU/mL) * - [facility] . END OF REPORT DEPARTMENT OF PATHOLOGY, [address] [place] [address] Dani Palacios M.D. Director [facility] # [id number] 8 REFERENCE VALUE 20.0 - 51.0 Test Performed by: [facility] - [address] [address] 9 ADDITIONAL INFORMATION This test was developed and its performance characteristics determined by [facility] in a manner consistent with CLIA requirements. This test has not been cleared or approved by the U.S. Food and Drug Administration. Test Performed by: [facility] - [address] [address] 10 ADDITIONAL INFORMATION This test was developed and its performance characteristics determined by [facility] in a manner consistent with CLIA requirements. This test has not been cleared or approved by the U.S. Food and Drug Administration. Test Performed by: [facility] - [address] [address] 11 INTERPRETIVE INFORMATION: Histamine, Whole Blood Test developed and characteristics determined by [facility]. See Compliance Statement D: [employer]/CS Performed by [facility], [address] [place] [id number] [email or web address], Chris Baker MD - Lab. Director Test Performed by: [facility] [address] [place] [address] 12 SEE RESULT BELOW Name: SAMMIE BRANDON Aashish : [address]: Miles Mays MD Acct: [id number] Unit: [id number] AGE: 46 Location: ED Re08/25/17 SEX: F Status: DEP ER SPEC: [id number] FERNANDA: 08/25/[address]: Miles Mays MD REQ: [id number] RECD: 08/25/17 STATUS: JOSTIN CROOK DR: Danny Powers MD _ SOURCE: URINE SPDESC: ORDERED: Urine Culture Procedure Result Reported Site Urine Culture Final 08/26/17- 1128 ML No Growth (<1,000 CFU/mL) * ML - Main Lab . END OF REPORT DEPARTMENT OF PATHOLOGY, [address] [place] [address] Dani Palacios M.D. Director [facility] # [id number] 13 Because ethnic data is not always [...] 5 Kidney failure <15 (or dialysis) 14 [facility] Severe Sepsis and Septic Shock Management Bundle Measure requires all lactic acids initially measuring >2.0 mmol/L be repeated. 15 [id number] 16 SEE RESULT BELOW Name: SAMMIE BRANDON : [address]: Jian Fuentes MD Acct: [id number] Unit: [id number] AGE: 45 Location: [facility] Re09/09/16 SEX: F Status: DEP REF SPEC: [id number] FERNANDA: 09/09/16-[address] [facility] DR: Jian Fuentes MD REQ: [id number] RECD: 09/09/16-5 STATUS: COMP DIGNAHR DR: Danny Powers MD _ SOURCE: GAS ANTRUM SPDESC: ORDERED: Clotest COMMENTS: [id number] Procedure Result Reported Site Clotest Final 09/10/16- 746 ML Clotest Negative * ML - MAIN LAB ([facility]) . END OF REPORT * ML=Testing performed at Main Lab DEPARTMENT OF PATHOLOGY, [address] [place] [address] Dani Palacios M.D. Director [facility] # [id number] 17 SEE RESULT BELOW Name: SAMMIE BRANDON : [address]: Jian Fuentes MD Acct: [id number] Unit: [id number] AGE: 45 Location: [facility] Re09/09/16 SEX: F Status: DEP REF SPEC: [id number] FERNANDA: 09/09/16-[address] [facility] DR: Jian Fuentes MD REQ: [id number] RECD: 09/09/16-1543 STATUS: KIMBER CROOK DR: Danny Powers MD _ ORDERED: LEVEL IV COMMENTS: [id number] FINAL DIAGNOSIS Small bowel, duodenum, biopsy: -- [...] performed at Main Lab DEPARTMENT OF PATHOLOGY, [facility] [employer] [place], [place] [address] Dani Palacios M.D. Director [facility] # [id number] 18 RUN DATE: 09/08/14 [facility] LAB LIVE PAGE 1 RUN TIME: [address] [facility] [employer] [place], [place] [address] Specimen Inquiry Name: SAMMIE BRANDON : [address]: Marshall Redmond MD Acct: [id number] Unit: [id number] AGE: 43 Location: [facility] Re09/05/14 SEX: F Status: DEP ER SPEC: [id number] FERNANDA: 09/05/14-[address] [facility] DR: Marshall Redmond MD REQ: [id number] RECD: 09/06/14 STATUS: JOSTIN CROOK DR: Zarina Powers MD _ SOURCE: THROAT SPDESC: ORDERED: Throat Beta Str Procedure Result Verified Site Throat Beta Strep Culture Final 09/08/14- 821 ML Organism 1 Negative Group A Strep * ML - MAIN LAB ([facility]) . END OF REPORT * ML=Testing performed at Main Lab DEPARTMENT OF PATHOLOGY, [address] [place] [address] Dani Palacios M.D. Director [facility] # [id number] 19 Potassium reference range changed effective 03/30/14 20 Because ethnic data is not always readily [...] 15-29 5 Kidney failure <15 (or dialysis) 21 Desirable <150 Borderline high 150-199 High 200-499 Very High >500 22 Desirable <200 Borderline high 200-239 High >239 23 Low <40 Desirable: 40-60 High: >60 24 Desirable <100 Near Optimal 100-129 Borderline high 130-159 High 160-189 Very High >189 25 Because ethnic data is not always readily [...] 15-29 5 Kidney failure <15 (or dialysis) 26 -- REFERENCE VALUE -- Not Applicable 27 RESULT: HLA-B27 antigen was not detected. Method: Flow Cytometry Test Performed by: [address] [address] [employer]: Percy Hollis III, M.D. 28 Mixed skin ml. 29 NO WBC, NO ORGANISMS SEEN 30 Negative for Varicella zoster and Herpes simplex viruses. 31 FASTING; 3 SSTS 32 Vitamin D deficiency has been defined by the [place] of [employer] and an Endocrine Society practice guideline as a level of serum 25-OH vitamin D less than 20 ng/mL (1,2). The Endocrine Society went on to further define vitamin D insufficiency as a level between 21 and 29 ng/mL (2). 1. IOM ([place] of Medicine). 2010. Dietary reference intakes for calcium and D. [place]: The National [employer]. 2. Ayan MF, Viridiana DOUGHERTY, Boby BULL, et al. Evaluation, treatment, and prevention of vitamin D deficiency: an Endocrine Society clinical practice guideline. JCEM. 2010; 96(7):1911-30. 33 Negative <5 Equivocal 5 - 9 Positive >9 34 Negative <0.91 Equivocal 0.91 - 1.09 Positive >1.09 Note: The CDC currently advises that Western blot testing be performed following all equivocal or positive EIA results. Final diagnosis should include appropriate clinical findings and a positive EIA which is also positive by Western blot. 35 Negative <0.91 Equivocal 0.91 - 1.09 Positive >1.09 . Note: IgM levels may peak at 3-6 weeks post infection, then gradually decline. FDA currently advises that Western Blot testing be performed following all equivocal or positive EIA results. Final diagnosis should include appropriate clinical findings and a positive EIA which is also positive by Western Blot. 36 Normal serum protein electrophoresis. 37 Negative <0.91 Equivocal 0.91 - 1.09 Positive >1.09 38 Negative <0.91 Equivocal 0.91 - 1.09 Positive >1.09 . Note: Negative indicates no antibodies detected to HSV-1. Equivocal may suggest early infection. If clinically appropriate, retest at later date. Positive indicates antibodies detected to HSV-1; coinfection with HSV-2 cannot be excluded without type specific testing. 39 Negative <0.91 Equivocal 0.91 - 1.09 Positive >1.09 . Note: Negative indicates no antibodies detected to HSV-2. Equivocal may suggest early infection. If clinically appropriate, retest at later date. Positive indicates antibodies detected to HSV-2; coinfection with HSV-1 cannot be excluded without type specific testing. 40 Negative <0.91 Equivocal 0.91 - 1.09 Positive >1.09 Note: The CDC currently advises that Western blot testing be performed following all equivocal or positive EIA results. Final diagnosis should include appropriate clinical findings and a positive EIA which is also positive by Western blot. 41 Negative <0.91 Equivocal 0.91 - 1.09 Positive >1.09 . Note: IgM levels may peak at 3-6 weeks post infection, then gradually decline. FDA currently advises that Western Blot testing be performed following all equivocal or positive EIA results. Final diagnosis should include appropriate clinical findings and a positive EIA which is also positive by Western Blot. 42 Premature Infants (27-31 wks gest): 1 day [...] inhibition in this immunometric assay. . Siemens ([employer]) ICMA Methodology 43 Siemens (DPC) ICMA Methodology 44 FASTING 45 Note change in reference range as of 01/17/08. The change was based on recommendations from the [place] [employer]. 46 FEMALE REFERENCE RANGES FOR Progesterone: Follicular phase.......0.3 - 1.5 ng/ml Mid-luteal phase.......5.2 - 18.5 ng/ml Postmenopausal.........< 0.8 ng/ml 1st trimester.........4.7 - 50.0 ng/ml 2nd trimester.........19.4 - 45.3 ng/ml . 47 -- REFERENCE VALUE -- < 80 (Follicular) <285 (Luteal) Test Performed by: [facility] Dpt of Lab Med and Pathology [address] [place] [address] [employer]: Percy Hollis III, M.D. 48 Test Performed by: [facility] Dpt of Lab Med and Pathology [address] [place] [address] Super[employer]: Percy Hollis III, M.D. 49 Test Performed by: [facility] Dpt of Lab Med and Pathology [address] [place] [address] Super[employer]: Percy Hollis III, M.D. 50 NORMAL RANGE MALES 1 - 20 NORMALLY MENSTRUATING FEMALES - Follicular Phase 3 - 9 - Mid-Cycle Peak 4 - 23 - Luteal Phase 1 - 6 POSTMENOPAUSAL FEMALES 16 - 114 . 51 (Performed by Enzyme Immunoassay, EIA) 52 RA Latex Turbid. 27.9 H IU/mL 0.0-13.9 RN RN-[facility] [address] [phone] 53 mL/min/1.73m2 . Normal Function or Mild Renal [...] drugs that are excreted by the kidneys. 54 Anion gap measurement may be of limited value in the presence of any alkalosis, especially in a combined acid base disorder. . 55 REFERENCE RANGES BASED ON ROOM AIR 56 If is still suspected, please repeat test after 48 to 72 hours. . 57 Anion gap measurement may be of limited value in the presence of any alkalosis, especially in a combined acid base disorder. . 58 PRELIMINARY: NO GROWTH DAY 4 59 1 LAV TOP TUBES, 1 SST, 1 EDTA PLASMA POUR OFFFROZEN 60 . Abnormal BNP values are associated with [...] failure. N. Engl. J. Med., 2001; 345:1014-21 61 The plunger scoop operator and regulatory agencies both recommend that a throat culture for beta strep be performed if a Rapid Group A Strep assay yields a negative result. Therefore a culture will be automatically performed on all negative samples. N^NEGATIVE FOR GROUP A STREP BY ENZYME IMMUNOASSAY^STREPA 62 Anion gap measurement may be of limited value in the presence of any alkalosis, especially in a combined acid base disorder. . 63 NEGATIVE FOR GROUP A STREP Procedures Date Code Description Status 03/27/2017 51091 Electrocardiogram Complete Completed 11/02/2016 [id number] Mammogram Completed 10/02/2015 [id number] Mammogram Completed 12/25/2014 66908 Nebulizer Treatment Completed 11/11/2014 64715 Pulse Oximetry Completed 07/15/2014 [id number] Mammogram Completed 10/18/2012 67293 Remove Skin Tags Up To 15 Completed 07/05/2012 20455 Electrocardiogram Complete Completed 12/20/2011 77041210 Mammogram Completed 04/12/2011 10252 Pulse Oximetry Completed 07/18/2007 74248 Electrocardiogram Complete Completed 07/10/2007 21906 Nebulizer Treatment Completed Encounters Type Date Location Provider Dx Diagnosis Office Visit 09/13/2018 Main Office Danny Powers, M25.561 Pain in right knee 3:00p M.D. 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 collapse F32.89 Other specified depressive episodes Z23 Encounter for immunization Office Visit 08/22/2016 1:20p Main Office Jefe Lao J06.9 Acute upper [place] respiratory infection, unspecified Office Visit 03/14/2016 4:20p [...] Office Visit 04/07/2015 10:20a Main Office Danny Powers, J45.998 Other asthma M.D. 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 Status Asthmaticus 311 Depressive Disorder Not Elsewhere [...] Visit 07/20/2012 1:00p Main Office ELAINA Fernández 684 Impetigo 684 Impetigo Office Visit 07/05/2012 9:00a Main Office Danny Powers, 493.90 Asthma Unspec W/O M.D. Status Asthmaticus 311 Depressive Disorder Not Elsewhere Spec 729.1 Myalgia & Myositis Unspec 278.00 Obesity Unspec 327.23 Obstructive Sleep Apnea Adult Pediatric 724.5 Backache Unspec V70.0 Examination General Medical Routine AT Health Care Facility 791.7 Cells & Casts In Urine Other Office Visit 04/27/2012 1:00p Main Office Alia Cordon, TECHNICAL SALES ENGINEER 782.1 Rash & Other Nonspec Skin Eruption Office Visit 03/14/2012 10:15a Main Office Alia Cordon, TECHNICAL SALES ENGINEER 684 Impetigo Office Visit 03/12/2012 4:00p Main Office Alia Cordon, TECHNICAL SALES ENGINEER 719.46 Pain Joint Lower Leg v04.81 Need [...] Office Visit 09/10/2008 2:40p Main Office Jenna Lewis 723.1 Brice Gramajo 729.2 Neuralgia Neuritis & Radiculitis Unspec 724.2 Lumbago 724.3 Sciatica Office Visit 09/13/2007 12:00p Main Office Jenna wilhelm 493.00 Asthma Extrinsic [place] Unspecified Office Visit 08/08/2007 2:50p [facility] Jenna wilhelm 493.00 Asthma Extrinsic [place] Unspecified Office Visit 07/18/2007 1:00p Main Office Alia Cordon 786.2 Cough TECHNICAL SALES ENGINEER 311 Depressive Disorder Not Elsewhere Spec Office Visit 03/30/2007 1:00p Main Office ELAINA Fernández 786.2 Cough 708.0 Urticaria Allergic Office Visit 11/14/2005 12:00p Main Office Jenna wilhelm 847.0 Sprains & Strains [place] Neck 300.00 Anxiety State Unspec Office Visit 05/25/2004 12:00p Main Office Jenna wilhelm 490 Bronchitis Acute Or [place] Chronic Not Spec 473.9 Sinusitis Chronic Unspec Plan of Treatment Future Appointment(s):02/19/2019 3:00 pm - Danny Powers M.D. at Main Uadacu4801/03/2019 3:40 pm - Danny Powers M.D. at Main Lxkqbz5510/16/2018 - Danny Powers M.D.M25.561 Pain in right kneeF32.89 Other specified depressive episodesAllNew Medication:Quetiapine Fumarate 100 mg - 1 po qhsComments:Medication Management Patient Understands medications she's taking? Yes No Are there Barriers to Adherence? Yes No Has the patient been asked about herbal supplements and therapies, and OTC meds? Yes No doing very well after right knee replacement , she was tapered off her psych medication , see discharge summary ,and now is doing well on present medication of seroquel, bupropion and will continue care with Dr Braun, mammogram ordered return to office 4 months
--- NOTE | 2018-11-02 18:20 | ED ---
Lower Extremity - HPI Summary HPI Summary: 47-year-old female presents with right knee pain with past couple days. She had a knee replacement about a month ago. She denies any fevers or chills. She admits to increased swelling for 2 days. She states she is able to flex the knee but has difficulty extending it. States she has more pain when placing weight on the area. She states she noticed a rash around the wound. She states she's been doing PT but now is unable to do so due to pain. She states her taking the tramadol without relief. She is using a walker to get around. - History of Current Complaint Chief Complaint: EDExtremityLower Stated Complaint: DR SENT FOR KNEE SWELLING AND PAIN PER PT Time Seen by Provider: 11/02/18 18:09 Hx Last Menstrual Period: menopausal Pain Intensity: 7 - Allergies/Home Medications Allergies/Adverse Reactions: Allergies Allergy/AdvReac Type Severity Reaction Status Date / Time adhesive Allergy Hives Verified 11/02/18 16:56 amitriptyline Allergy Unknown Verified 11/02/18 16:56 Reaction Details bee venom protein (honey bee) Allergy Anaphylatic Verified 11/02/18 16:56 Shock cortisone Allergy Swelling Verified 11/02/18 16:56 diphenhydramine Allergy Palpitation Verified 11/02/18 16:56 [From Benadryl] s omalizumab [From Xolair] Allergy Anaphylatic Verified 11/02/18 16:56 Shock strawberry Allergy Hives Verified 11/02/18 16:56 PMH/Surg Hx/FS Hx/Imm Hx Endocrine/Hematology History: Reports: Hx Anemia Denies: Hx Diabetes, Hx Thyroid Disease Cardiovascular History: Reports: Hx Hypertension Denies: Hx Pacemaker/ICD Respiratory History: Reports: Hx Asthma, Hx Sleep Apnea - no machine Denies: Hx Chronic Obstructive Pulmonary Disease (COPD), Other Respiratory Problems/Disorders GI History: Reports: Hx Gastroesophageal Reflux Disease, Hx Irritable Bowel, Hx Ulcer Denies: Other GI Disorders History: Denies: Hx Renal Disease Musculoskeletal History: 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 UTERINE SURGERY TO REMOVE CYSTS, ENDOMETRIOSIS AND FIBROID TUMORS;. WISDOM TEETH;. R KNEE REPLACEMENT 10/02/18 Hx Anesthesia Reactions: No - Immunization History Date of Tetanus Vaccine: unknown Infectious Disease History: No Infectious Disease History: Denies: Hx Clostridium Difficile, Hx Hepatitis, Hx Human Immunodeficiency Virus (HIV), Hx of Known/Suspected MRSA, Hx Shingles, Hx Tuberculosis, Traveled Outside the [place] in Last 30 Days - Family History Known Family History: Positive: Other - degenerative arthritis, mother has hx of cervical cancer, Non-Contributory - Social History Alcohol Use: Rare Alcohol Amount: very rare Hx Substance Use: No Substance Use Type: Reports: None Hx Tobacco Use: No Smoking Status (MU): Never Smoked Tobacco Type: Cigarettes Have You Smoked in the Last Year: No Review of Systems Negative: Fever Negative: Chest Pain Negative: Shortness Of Breath Positive: Myalgia - right knee pain All Other Systems Reviewed And Are Negative: Yes Physical Exam Triage Information Reviewed: Yes Vital Signs On Initial Exam: Initial Vitals Temp Pulse Resp BP Pulse Ox 97.4 F 74 19 151/83 96 11/02/18 16:52 11/02/18 16:52 11/02/18 16:52 11/02/18 16:52 11/02/18 16:52 Vital Signs Reviewed: Yes Appearance: Positive: Well-Appearing Skin: Positive: Warm, Dry, Other - surgical scar on right knee with minimial erythema around scar with no warmth but no evidence of cellulitis Head/Face: Positive: Normal Head/Face Inspection Eyes: Positive: Normal, Conjunctiva Clear ENT: Positive: Pharynx normal Respiratory/Lung Sounds: Positive: Clear to Auscultation, Breath Sounds Present Cardiovascular: Positive: Normal, RRR Musculoskeletal: Positive: Strength/ROM Intact - passive ROM intact, Edema Right , Other - good pulses, Neurological: Positive: Normal Psychiatric: Positive: Normal Diagnostics - Vital Signs Vital Signs Temp Pulse Resp BP Pulse Ox 11/02/18 16:52 97.4 F 74 19 151/83 96 - Laboratory Result Diagrams: 11/02/18 18:47 11/02/18 18:47 Lab Statement: Any lab studies that have been ordered have been reviewed, and results considered in the medical decision making process. - Radiology knee Radiology Interpretation Completed By: ED Physician Summary of Radiographic Findings: no fracture - Ultrasound No standard instances Ultrasound Interpretation Completed By: Radiologist Summary of Ultrasound Findings: IMPRESSION: No acute findings. No evidence of deep vein thrombosis. Lower Extremity Course/Dx - Course Course Of Treatment: 47-year-old female presents with right knee pain with past couple days. She had a knee replacement about a month ago. She denies any fevers or chills. She admits to increased swelling for 2 days. She states she is able to flex the knee but has difficulty extending it. States she has more pain when placing weight on the area. She states she noticed a rash around the wound. She states she's been doing PT but now is unable to do so due to pain. She states her taking the tramadol without relief. She is using a walker to get around. on exam surgical site clean dry and intact. Does have minimal erythema on it but does not appear cellulitis. Has full range of motion with passive motion. Able to fully flex knee but has some difficulty and pain with extension. Dr. Byers quickly saw patient and does not believe a is septic joint. wbc normal and crp normal. no acute changes on xray. ultrasound shows no acute findings. discussed should ice and elevated. told to move the area as tolerated. warned to return if develop fever or worsening redness to the area. told follow up with ortho. patient understand and agrees with plan. - Diagnoses Differential Diagnosis/HQI/PQRI: Positive: Infection, Septic Arthritis, Sprain, Strain Provider Diagnoses: Right knee pain Discharge - Sign-Out/Discharge Documenting (check all that apply): Patient Departure Patient Received Moderate/Deep Sedation with Procedure: No - Discharge Plan Condition: Good Disposition: HOME Patient Education Materials: Knee Pain (ED) Referrals: Danny Powers MD [Primary Care Provider] - Amla Byers MD [Medical Doctor] - Additional Instructions: Take Tylenol or ibuprofen every 6 hours as needed for pain Apply ice, rest, elevate Follow up with ortho Return to ED if develop any new or worsening symptoms - Billing Disposition and Condition Condition: GOOD Disposition: Home
[2018-11-02] MEDS ORDERED: oxyCODONE/Acetamin 5/325 MG* TAB PO ONE (18:29)
[2018-11-02 19:01] LABS: ABS Monocytes 0.7 10^3/ul (0-0.8); ABS Neutrophils 6.9 10^3/ul (1.5-7.7); Hematocrit 39 % (35-47); Hemoglobin 12.6 g/dL (12.0-16.0); Lymphocyte % 28.1 %; Mean Corpuscular HGB Conc 32 g/dL (31-36); Mean Corpuscular Hemoglobin 27 pg (27-31); Mean Corpuscular Volume 84 fL (80-97); Mean Platelet Volume 8.6 fL (7.4-10.4); Platelet Count 301 10^3/uL (150-450); Red Blood Count 4.64 10^6 /uL (3.70-4.87); Red Cell Distribution Width 18 % (10-15); White Blood Count 10.6 10^3/uL (3.5-10.8)
[2018-11-02 19:17] LABS: Albumin 4.3 g/dL (3.2-5.2); Albumin/Globulin Ratio 1.3 (1-3); BUN/Creatinine Ratio 23.2 (8-20); C Reactive Protein 3.25 mg/L (<8.01); Calcium 9.8 mg/dL (8.6-10.3); EGFR African American 73.1 (>60); EGFR Non-African American 60.4 (>60); Globulin 3.2 g/dL (2-4); Potassium 4.2 mmol/L (3.5-5.0); Total Bilirubin 0.4 mg/dL (0.2-1.0); Total Protein 7.5 g/dL (6.4-8.9)
[2018-11-02 20:11] LABS: Erythrocyte Sed Rate 14 mm/Hr (0-19)
[2018-11-02 21:57] VITALS: BP 115/66
--- NOTE | 2018-11-02 23:14 | CONS ---
EMERGENCY ROOM CONSULTATION: DATE OF CONSULT: CHIEF COMPLAINT: Right knee pain. HISTORY OF PRESENT ILLNESS: Ms. Vega is a 47-year-old female, who had right total knee arthroplasty approximately 1 month ago. Over the last 2 days, she developed 8/10 pain and difficulty walking on the right knee. She has increased swelling and reports she has difficulty extending the knee. She h ad no trauma. She was doing well with physical therapy, but reports over the last 48 hours, she has been using the walker and has to use tramadol at an increased rate. She denies fevers or chills. Sh heron denies a fall. PAST MEDICAL HISTORY: Anemia, hypertension, morbid obesity, asthma, sleep apnea, GERD, irritable bow el disease, history of an ulcer, Manuela-Danlos syndrome, anxiety, depression, and panic disorder. PAST SURGICAL HISTORY: Left foot surgery, cyst removal from fiber tumors, endometriosis surgery, wis dom tooth extraction, and right total knee arthroplasty, 10/02/18. MEDICATIONS: Home medications: 1. Combivent 1 puff 4 times a day. 2. Wellbutrin 150 mg p.o. q.a.m. 3. Vitamin B12 1000 mcg p.o. daily. 4. Bentyl 10 mg p.o. b.i.d. 5. Colace 100 mg p.o. b.i.d. 6. Levalbuterol t.i.d. p.r.n. shortness of breath. 7. Ativan 1 mg q.6 hours p.r.n. 8. Tramadol 50 mg p.o. q.6 hours p.r.n. 9. Pantoprazole 40 mg p.o. q.a.m. 10. Nadolol 10 mg p.o. q.a.m. 11. Singulair 10 mg p.o. q.a.m. 12. Fasenra 1 dose every 8 weeks. 13. EpiPen as needed. 14. CBD oil 1 drop p.o. daily. 15. Belsomra 1 tab at bedtime. ALLERGIES: ADHESIVE TAPE, AMITRIPTYLINE, BEE VENOM, CORTISONE, BENADRYL, XOLAIR, and STRAWBERRIES. FAMILY HISTORY: Arthritis, maternal cancer. SOCIAL HISTORY: The patient lives alone, rare alcohol use. No tobacco or recreational drugs. Sophie de santiago ambulates independently. REVIEW OF SYSTEMS: Fourteen systems reviewed with the patient today, positive for the right knee al n, weakness, pain, swelling. Negative for fevers, chills, chest pain, shortness of breath. Otherwis e, the patient reports review of systems is negative or not relevant. PHYSICAL EXAM: General: The patient is a morbidly obese female, in no apparent distress. Alert and oriented x3. Pleasant mood, appropriate affect. Gait is not assessed. Vitals: Temperature 97.4, pulse 65, blood pressure 114/54. Right lower extremity: The patient's skin is intact. Her incision is healing well. There is a mild effusion at the knee joint. No palpable defects around the knee o r extensor mechanism. I can passively extend her to 0 degrees. She reports she cannot actively exte nd. She can flex to 100 degrees. Distally, She has 5/5 ankle dorsiflexion, plantar flexion strength . Full sensation to light touch in all nerve distributions and 2+ palpable DP pulse. DIAGNOSTIC STUDIES/LAB DATA: Laboratory values obtained today show normal white blood cells 10.6, ES R 14, CRP at 3. All other labs are within normal limits. Hematocrit 39, platelets 301. Studies: Multiple x-rays of the right knee shows cemented total knee arthroplasty in satisfactory po sition with no abnormality. Ultrasound of the right lower extremity shows no obvious DVT. ASSESSMENT AND PLAN: Ms. Vega is a 47-year-old female with 48 hours of increased pain and difficult y extending her right . She is now 1 month after 10/12/18 uncomplicated right total knee arthro plasty. The patient was readmitted to the hospital in the psych unit with hallucinations and complet alvaro worked up for an intracranial abnormality. None was found. She was discharged to home and was d oing well until 48 hours prior. Today, I find nothing wrong with the incision. I have no suspicion of infection at this point and I do not recommend aspiration of the knee. She will follow up with me in clinic on Monday. If she continues to have difficulty extending, we could consider MRI to evalua te her extensor mechanism. Without any trauma, it is highly unlikely she has a rupture of her leonarda ceps tendon. She likely just has some increased swelling and pain. She should continue ambulating w ith a rolling walker and follow up with me in clinic on 11/05/18. [id number]/[facility] #: [id number]
== END 2018-11-02 21:56 | disposition home or self-care (01) ==
LOC: ED 16:39
DX: M25.561 Pain in right knee (principal); M25.461 Effusion, right knee; Z96.651 Presence of right artificial knee joint
CPT/HCPCS: 36415; 80053; 83605; 85025; 85652; 86140; 87040; 99282; A9270-GY

== ENCOUNTER 2019-03-28 18:57 | Emergency (ER) | payer MEDICAID, MEDICARE, OTHER ==
--- OUTSIDE RECORDS SUMMARY | 2019-03-28 19:18 | XMS REPORT | Continuity of Care Document ---
:1970 External Reference #:[id number] Author Name Wm Delaney MD Address [address] [place] [address] Care Team Providers Name Role Phone Danny Powers MD - Family Care Team Information Exhibit Technician [phone] Medicine Problems Active Problems Provider Date Allergic rhinitis Wm Delaney MD Onset: 05/12/2017 Allergic rhinitis due to pollen Wm Delaney MD Onset: 05/12/2017 Uncomplicated severe persistent asthma Wm Delaney MD Onset: 2016 Moderate persistent asthma Wm Delaney MD Onset: 06/15/2016 Anaphylaxis Wm Delaney MD Onset: 06/10/2016 Social History Type Date Description Comments Sex Unknown Tobacco Use Start: Unknown Patient has never smoked Tobacco Use Start: Unknown No Second Hand Smoke Exposure Smoking Status Reviewed: 07/11/18 No Second Hand Smoke Exposure Allergies, Adverse Reactions, Alerts Active Allergies Reaction Severity Comments Date Benadryl 01/16/2015 Amitriptyline 01/16/2015 Cortisone 01/16/2015 Omalizumab 05/12/2017 Medications Active Medications SIG Qnty Indications Ordering Provider Date Fluticasone Propionate spray 2 sprays 16gm J30.89 Wm Suazo 2018 in each nostril MD Rhett 50mcg/Act Suspension daily Levalbuterol Tartrate inhale 2 puffs 1units J45.50 Wm Suazo 2018 q4 hours as MD Rhett 45mcg/Act Aerosol needed. Midodrine HCL po Wm Suazo 12/29/2017 2.5mg MD Rhett Tablets Fasenra Wm Suazo 06/02/2017 30mg/ml Anton Delaney MD Prefill Syringe Combivent Respimat 1 puff 6 times 12gm Wm Suazo 06/29/2016 a day as needed MD Rhett 20-100mcg/Act Aerosol Montelukast Sodium Take 1 Tablet 30tabs Marshall Richey, 04/14/2016 10mg By Mouth Once RPA-C Tablets Daily In The Evening Symbicort two puffs twice 10.200gm Marshall Richey, 08/14/2015 160-4.5mcg/Act daily RPA-C Aerosol Levocetirizine Take 1 Tablet 30tabs Marshall Richey, 06/29/2015 Dihydrochloride By Mouth Once RPA-C 5mg Daily AT Tablets Bedtime Epipen 2-Pool as directed 2units Wm Suazo 01/16/2015 0.3mg/0.3ML MD Rhett Solution Auto-Inject Seroquel take one tablet Unknown 50mg Tablets by mouth every morning & 1-2 by mouth every evening Pantoprazole Sodium Unknown 20mg Tablets DR Nadolol 10 mg tab PO Unknown 20mg Tablets daily Zinc Unknown Vitamin D3 High Unknown Potency 1000Unit Capsules Gabapentin 1 by mouth Unknown 300mg Capsules three times a day Alprazolam Unknown 1mg Tablets Dicyclomine HCL Unknown 10mg Capsules Duloxetine HCL take 1 tab by Unknown 30mg Caps mouth every DR Part daily Bupropion HCL ER (SR) take 1 tablet Unknown (150 mg) by 150mg Tablets ER 12HR oral route once daily Duloxetine HCL take 2 capsules Unknown 60mg Caps (120 mg) by DR Part oral route once daily Leval[facility]erol HCL [facility] as MD Rhett 1.25mg/3ML Nebulizer directed every 6 hours as needed Medications Administered in Office Medication SIG Qnty Indications Ordering Provider Date Injection, Benralizumab, 1 Wm Delaney MD 08/15/2018 MG Injection Therapeutic, Prophylactic Or Wm Delaney MD 08/15/2018 Diagnostic Injection Subq/Im Injection Injection, Benralizumab, 1 Wm Delaney MD 06/20/2018 MG Injection Therapeutic, Prophylactic Or Wm Delaney MD 06/20/2018 Diagnostic Injection Subq/Im Injection Unclassified Drugs Wm Delaney MD 04/25/2018 Injection Therapeutic, Prophylactic Or Wm Delaney MD 04/25/2018 Diagnostic Injection Subq/Im Injection Unclassified Drugs Wm Delaney MD 02/23/2018 Injection Therapeutic, Prophylactic Or Wm Delaney MD 02/23/2018 Diagnostic Injection Subq/Im Injection Unclassified Drugs Wm Delaney MD 10/20/2017 Injection Chemotherpy Admin Wm Delaney MD 10/20/2017 Subcutaneous/Im Non-Hormonal Anti-Neoplastic Injection Fasenra 30 MG Single Dose Injection 1 09/22/2017 Injection Unclassified Drugs Wm Delaney MD 09/22/2017 Injection Chemotherpy Admin Wm Delaney MD 09/22/2017 Subcutaneous/Im Non-Hormonal Anti-Neoplastic Injection Chemotherpy Admin Injection 1 09/22/2017 Subcutaneous/Im Non-Hormonal Anti-Neoplastic Injection Fasenra 30 MG Single Dose Injection 1 08/11/2017 Injection Chemotherpy Admin Wm Delaney MD 08/11/2017 Subcutaneous/Im Non-Hormonal Anti-Neoplastic Injection Chemotherpy Admin Injection 1 08/11/2017 Subcutaneous/Im Non-Hormonal Anti-Neoplastic Injection Injection Omalizumab 5 MG Wm Delaney MD 06/10/2016 Injection Injection, Adrenalin, Wm Delaney MD 06/10/2016 Epinephrine, 0.1 MG Injection Chemotherpy Admin Wm Delaney MD 06/10/2016 Subcutaneous/Im Non-Hormonal Anti-Neoplastic Injection Chemotherpy Admin Wm Delaney MD 06/10/2016 Subcutaneous/Im Non-Hormonal Anti-Neoplastic Injection Therapeutic, Prophylactic Or Wm Delaney MD 06/10/2016 Diagnostic Injection Subq/Im Injection Injection Omalizumab 5 MG Wm Delaney MD 05/13/2016 Injection Chemotherpy Admin Wm Delaney MD 05/13/2016 Subcutaneous/Im Non-Hormonal Anti-Neoplastic Injection Chemotherpy Admin Wm Delaney MD 05/13/2016 Subcutaneous/Im Non-Hormonal Anti-Neoplastic Injection Injection Omalizumab 5 MG Wm Delaney MD 04/15/2016 Injection Chemotherpy Admin Wm Delaney MD 04/15/2016 Subcutaneous/Im Non-Hormonal Anti-Neoplastic Injection Chemotherpy Admin Wm Delaney MD 04/15/2016 Subcutaneous/Im Non-Hormonal Anti-Neoplastic Injection Injection Omalizumab 5 MG Wm Delaney MD 03/18/2016 Injection Chemotherpy Admin Wm Delaney MD 03/18/2016 Subcutaneous/Im Non-Hormonal Anti-Neoplastic Injection Chemotherpy Admin Wm Delaney MD 03/18/2016 Subcutaneous/Im Non-Hormonal Anti-Neoplastic Injection Injection Omalizumab 5 MG Wm Delaney MD 02/10/2016 Injection Chemotherpy Admin Wm Delaney MD 02/10/2016 Subcutaneous/Im Non-Hormonal Anti-Neoplastic Injection Chemotherpy Admin Wm Delaney MD 02/10/2016 Subcutaneous/Im Non-Hormonal Anti-Neoplastic Injection Injection Omalizumab 5 MG Wm Delaney MD 01/13/2016 Injection Chemotherpy Admin Wm Delaney MD 01/13/2016 Subcutaneous/Im Non-Hormonal Anti-Neoplastic Injection Chemotherpy Admin Wm Delaney MD 01/13/2016 Subcutaneous/Im Non-Hormonal Anti-Neoplastic Injection Injection Omalizumab 5 MG Wm Delaney MD 12/16/2015 Injection Chemotherpy Admin Wm Delaney MD 12/16/2015 Subcutaneous/Im Non-Hormonal Anti-Neoplastic Injection Chemotherpy Admin Wm Delaney MD 12/16/2015 Subcutaneous/Im Non-Hormonal Anti-Neoplastic Injection Injection Omalizumab 5 MG Wm Delaney MD 11/18/2015 Injection Chemotherpy Admin Wm Delaney MD 11/18/2015 Subcutaneous/Im Non-Hormonal Anti-Neoplastic Injection Chemotherpy Admin Wm Delaney MD 11/18/2015 Subcutaneous/Im Non-Hormonal Anti-Neoplastic Injection Injection Omalizumab 5 MG Wm Delaney MD 10/14/2015 Injection Chemotherpy Admin Wm Delaney MD 10/14/2015 Subcutaneous/Im Non-Hormonal Anti-Neoplastic Injection Chemotherpy Admin Wm Delaney MD 10/14/2015 Subcutaneous/Im Non-Hormonal Anti-Neoplastic Injection Injection Omalizumab 5 MG Wm Delaney MD 09/02/2015 Injection Chemotherpy Admin Wm Delaney MD 09/02/2015 Subcutaneous/Im Non-Hormonal Anti-Neoplastic Injection Chemotherpy Admin Wm Delaney MD 09/02/2015 Subcutaneous/Im Non-Hormonal Anti-Neoplastic Injection Injection Omalizumab 5 MG Wm Delaney MD 07/31/2015 Injection Chemotherpy Admin Wm Delaney MD 07/31/2015 Subcutaneous/Im Non-Hormonal Anti-Neoplastic Injection Chemotherpy Admin Wm Delaney MD 07/31/2015 Subcutaneous/Im Non-Hormonal Anti-Neoplastic Injection Injection Omalizumab 5 MG Wm Delaney MD 07/03/2015 Injection Chemotherpy Admin Wm Delaney MD 07/03/2015 Subcutaneous/Im Non-Hormonal Anti-Neoplastic Injection Chemotherpy Admin Wm Delaney MD 07/03/2015 Subcutaneous/Im Non-Hormonal Anti-Neoplastic Injection Immunizations Description No Information Available Vital Signs [...] F O2 % BldC Oximetry 97 % Results Description No Information Available Procedures Description No Information Available Medical Devices Description No Information Available Encounters Description No Information Available Assessments Description No Information Available Plan of Treatment 07/11/2018 - Angie Grigsby, [facility]-CJ45.50 Severe persistent asthma, uncomplicatedNew Medication:Levalbuterol Tartrate 45 mcg/Act - inhale 2 puffs q4 hours as needed.Comments:Asthma well controlled with current treatment plan. Today's PFT shows mild restriction, no obstructive pattern or post bronchodilator reversibility. NIOX is normal at 17ppb. Patient has had a significant decrease in the number of asthma exacerbations since starting Fasenra. I will continue Fasenra Q8 weeks. Patient should also continue Symbicort, Singulair and Combivent as directed.Follow up:6 months - w/PFT and NIOX prior to nzlohB88.89 Other allergic rhinitisNew Medication:Fluticasone Propionate 50 mcg/Act - spray 2 sprays in each nostril dailyComments:Patient with persistent post nasal drainage. I will give Fluticasone nasal spray for daily prophylaxis of the nose. Continue Xyzal and Singulair as prescribed. I have reviewed environmental controls for house dust and dust mite.Follow up:6 months. Functional Status Description No Information Available Mental Status Description No Information Available Referrals Description No Information Available
--- OUTSIDE RECORDS SUMMARY | 2019-03-28 19:18 | XMS REPORT | Continuity of Care Document ---
:1970 External Reference #:[id number] Author Name Danny Powers M.D. Address [address] [place] [address] Care Team Providers Name Role Phone Danny Powers MD - Family Medicine Care Team Information Glass Frame Fitter [phone] Jose Luis Morales - Orthopaedic Surgery Care Team Information Glass Frame Fitter [phone] [facility] - Sleep Disorder Care Team Information Glass Frame Fitter [phone] [facility] - Care Team Information Glass Frame Fitter [phone] [facility] Yanni Pagan - Physical Medicine Care Team Information Glass Frame Fitter & Rehabilitation Problems Active Problems Provider Date Asthma without [...] and collapse Danny Powers M.D. Onset: 03/27/2017 Social History Type Date Description Comments Sex Unknown Tobacco Use Start: Unknown Nonsmoker ETOH Use Rare Tobacco Use Start: Unknown Patient has never smoked Allergies, Adverse Reactions, Alerts Active Allergies Reaction Severity Comments Date Cortisone Moderate Shots 05/25/2004 Benedryl Restlessness, tachycardia Moderate 05/25/2004 Strawberries Hives Severe 08/04/2008 Amitriptyline mental status change 05/14/2013 Xolair 03/27/2017 Medications Active Medications SIG Qnty Indications Ordering Date Provider Quetiapine Fumarate 1 po qhs Danny F. 02/14/2019 Avila Powers 200mg Tablets Mirtazapine take 1 tablet by 30tabs Danny F. 02/14/2019 7.5mg mouth every night Avila Powers Tablets Symbicort inhale two puffs by 10.2units Danny FBarbie 03/14/2016 mouth twice a day Avila Powers 80-4.5mcg/Act as needed Aerosol Levalbuterol HCL Use One In 72units Danny FBarbie 10/31/2015 Nebulizer Three Avila Powers 1.25mg/3ML Times Daily as Nebulizer Needed For Bronchospasm Combivent Respimat Inhale One puff By 4units Leah Henriquez 06/18/2015 Mouth 4 Times Daily TIMOTHY Hager 20-100mcg/Act Aerosol Epipen 2-Pool use a directed 2units Danny F. 09/23/2011 Avila Powers 0.3mg/0.3ML Solution Auto-Inject Nadolol 1/2 tab (10mg) by Unknown 20mg mouth every day Tablets Montelukast Sodium 1 by mouth every Unknown day 10mg Tablets Buspirone HCL 1 by mouth twice Unknown 7.5mg daily Tablets Lorazepam 1 by mouthonce a Unknown 0.5mg day as needed Tablets anxiety Senna S 1-2 by mouth every Unknown 8.6-50mg day as needed Tablets Biotene Dry Mouth 2 sprays to Unknown Moisturizing [place] mouth/throat every hour as needed Solution Midodrine HCL one tab by mouth Unknown 2.5mg three times a day Tablets Nadolol 10MG 1 tab qd Danny F. Avila Powers Dicyclomine HCL bid Danny F. Avila Powers 20mg Tablets Pantoprazole Sodium 2 by mouth bid Danny F. Avila Powers 20mg Tablets DR Chopra 2 puffs every 4 Danny F. Tartrate hour as needed Avila Powers 45mcg/Act wheeze / cough/sob Aerosol Xyzal Danny F. 5mg Tablets Avila Powers History Medications Gyne-Lotrimin 3 as directed 21gm Danny JoseBarbie Powers, 10/17/2018 - 2% Cream M.DBarbie 02/14/2019 Quetiapine Fumarate 1 po qhs Danny JoseBarbie Powers, 10/16/2018 - 100mg M.DBarbie 02/14/2019 Tablets Immunizations CPT Code Status Date Vaccine Lot # [id number] Given 03/12/2018 Influenza Vac, Quadriv[place], [place] [id number] Given 03/27/2017 Influenza Vac, Quadrivalent, Slit Virus, Im [id number] 82065 Given 03/14/2016 Influenza Vac, Quadrivalent, Slit Virus, Im [id number] 95786 Given 04/07/2015 Influenza Vac, Quadrivalent, Slit Virus, Im [id number] Q2038 Given 03/27/2014 Split Influenza Medicare: Fluzone [id number] Given 05/14/2013 Preservative free flu 3 yrs+ and older [id number] Q2038 Given 03/12/2012 Split Influenza Medicare: Fluzone [id number] 94290 Given 12/19/2011 Tdap Tetanus, W Pertussis [id number] Q2038 Given 05/17/2011 Split Influenza Medicare: Fluzone [id number] 22793 Given 04/28/2010 DO Not Use Split Influenza Virus Vaccine 26496 Given 04/28/2010 DO Not Use Split Influenza Virus Vaccine [id number] 14925 Given 05/18/2009 H1N1 Virus Vaccine [id number] 73406 Given 05/18/2009 H1N1 Immunization Intramuscular/Intranasal W Counseling Vital Signs Date Vital Result Comment 02/14/2019 11:31am BP Systolic 108 mmHg BP Diastolic 78 mmHg Heart Rate 74 /min Body Temperature 97.3 F Respiratory Rate 16 /min Height 67.5 inches 5'7.50" Weight 242.00 lb BMI (Body Mass Index) 37.3 kg/m2 10/16/2018 4:56pm BP Systolic 140 mmHg BP Diastolic 70 mmHg Heart Rate 92 /min Body Temperature 97.2 F Respiratory Rate 20 /min Weight 248.00 lb Results Test Date Facility Test Result H/L Range Note CBC Auto Diff 01/04/2019 [facility] White Blood Count 10.9 10^3/uL High 3.5- 10.8 Red Blood Count 4.71 10^6/uL Normal 3.70-4.87 Hemoglobin 12.5 g/dL Normal 12.0-16.0 Hematocrit 39 % Normal 35-47 Mean Corpuscular Volume 83 fL Normal 80-97 Mean Corpuscular Hemoglobin 27 pg Normal 27-31 Mean Corpuscular HGB Conc 32 g/dL Normal 31-36 Red Cell Distribution Width 17 % High 10-15 Platelet Count 339 10^3/uL Normal 150-450 Mean Platelet Volume 8.3 fL Normal 7.4-10.4 Abs Neutrophils 5.9 10^3/uL Normal 1.5-7.7 Abs Lymphocytes 3.8 10^3/uL Normal 1.0-4.8 Abs Monocytes 0.6 10^3/uL Normal 0-0.8 Abs Eosinophils 0.5 10^3/uL Normal 0-0.6 Abs Basophils 0.1 10^3/uL Normal 0-0.2 Abs Nucleated RBC 0.0 10^3/uL Granulocyte % 54.3 % Lymphocyte % 34.8 % Monocyte % 5.6 % Eosinophil % 4.2 % Basophil % 1.1 % Nucleated Red Blood Cells % 0.0 Laboratory test finding 01/04/2019 [facility] Lactic Acid 1.3 mmol/L Normal 0.5- 2.0 1 Comp Metabolic Panel 01/04/2019 [facility] Sodium 138 mmol/L Normal 135-145 Potassium 4.1 mmol/L Normal 3.5-5.0 Chloride 105 mmol/L Normal 101-111 Co2 Carbon Dioxide 29 mmol/L Normal 22-32 Anion Gap 4 mmol/L Normal 2-11 Glucose 95 mg/dL Normal 70-100 Blood Urea Nitrogen 16 mg/dL Normal 6-24 Creatinine 1.00 mg/dL High 0.51-0.95 BUN/Creatinine Ratio 16.0 Normal 8-20 Calcium 8.9 mg/dL Normal 8.6-10.3 Total Protein 6.7 g/dL Normal 6.4-8.9 Albumin 3.8 g/dL Normal 3.2-5.2 Globulin 2.9 g/dL Normal 2-4 Albumin/Globulin Ratio 1.3 Normal 1-3 Total Bilirubin 0.20 mg/dL Normal 0.2-1.0 Alkaline Phosphatase 57 U/L Normal 34-104 Alt 11 U/L Normal 7-52 Ast 12 U/L Low 13-39 Egfr Non- 59.4 >60 Egfr 71.9 >60 2 Laboratory test finding 01/04/2019 [facility] Magnesium 2.2 mg/dL Normal 1.9- 2.7 Creatine Kinase(CK) 36 U/L Normal 10-223 Troponin I 0.00 ng/mL <0.04 3 HCG 0.90 mIU/mL 4 Acetaminophen < 15 g/mL 5 Alcohol < 10 mg/dL Normal <10 Salicylate < 2.50 mg/dL <30 TSH (Thyroid Stim Horm) 4.69 mcIU/mL Normal 0.34-5.60 Urinalysis Profile 01/04/2019 [facility] Urine Color Yellow Urine Appearance Cloudy Urine Specific [place] 1.024 Normal 1.010-1.030 Urine pH 5.0 Normal 5-9 Urine Urobilinogen Negative Negative Urine Ketones Negative Negative Urine Protein Negative Negative Urine Leukocytes Negative Negative Urine Blood Negative Negative Urine Nitrite Negative Negative Urine Bilirubin Negative Negative Urine Glucose Negative Negative Urine Drug SCR ED 01/04/2019 [facility] Urine Amphetamine None Detected None Detect & Pain Clinic Screen Urine Barbiturates Screen None Detected None Detect Urine Benzodiazepine Screen Presumptive Posi <SEE NOTE> Abnormal None Detect 6 Urine Cannabinoids Screen None Detected None Detect Urine Cocaine Screen None Detected None Detect Urine Opiates Screen Presumptive Posi <SEE NOTE> Abnormal None Detect 7 Urine Phencyclidine Screen None Detected None Detect 8 Laboratory test finding 11/02/2018 [facility] Lactic Acid 0.9 mmol/L Normal 0.5- 2.0 9 Comp Metabolic Panel 11/02/2018 [facility] Sodium 135 mmol/L Normal 135-145 Potassium 4.2 mmol/L Normal 3.5-5.0 Chloride 103 mmol/L Normal 101-111 Co2 Carbon Dioxide 25 mmol/L Normal 22-32 Anion Gap 7 mmol/L Normal 2-11 Glucose 95 mg/dL Normal 70-100 Blood Urea Nitrogen 23 mg/dL Normal 6-24 Creatinine 0.99 mg/dL High 0.51-0.95 BUN/Creatinine Ratio 23.2 High 8-20 Calcium 9.8 mg/dL Normal 8.6-10.3 Total Protein 7.5 g/dL Normal 6.4-8.9 Albumin 4.3 g/dL Normal 3.2-5.2 Globulin 3.2 g/dL Normal 2-4 Albumin/Globulin Ratio 1.3 Normal 1-3 Total Bilirubin 0.40 mg/dL Normal 0.2-1.0 Alkaline Phosphatase 71 U/L Normal 34-104 Alt 13 U/L Normal 7-52 Ast 14 U/L Normal 13-39 Egfr Non- 60.4 >60 Egfr 73.1 >60 10 Laboratory test 11/02/2018 [facility] C Reactive Protein 3.25 mg/L Normal <8.01 finding CBC Auto Diff 11/02/2018 [facility] White Blood Count 10.6 10^3/uL Normal 3.5- 10.8 Red Blood Count 4.64 10^6/uL Normal 3.70-4.87 Hemoglobin 12.6 g/dL Normal 12.0-16.0 Hematocrit 39 % Normal 35-47 Mean Corpuscular Volume 84 fL Normal 80-97 Mean Corpuscular Hemoglobin 27 pg Normal 27-31 Mean Corpuscular HGB Conc 32 g/dL Normal 31-36 Red Cell Distribution Width 18 % High 10-15 Platelet Count 301 10^3/uL Normal 150-450 Mean Platelet Volume 8.6 fL Normal 7.4-10.4 Abs Neutrophils 6.9 10^3/uL Normal 1.5-7.7 Abs Lymphocytes 3.0 10^3/uL Normal 1.0-4.8 Abs Monocytes 0.7 10^3/uL Normal 0-0.8 Abs Eosinophils 0.0 10^3/uL Normal 0-0.6 Abs Basophils 0.0 10^3/uL Normal 0-0.2 Abs Nucleated RBC 0.0 10^3/uL Granulocyte % 65.3 % Lymphocyte % 28.1 % Monocyte % 6.2 % Eosinophil % 0.0 % Basophil % 0.4 % Nucleated Red Blood Cells % 0.0 Laboratory test finding 11/02/2018 [facility] Erythrocyte Sed Rate 14 mm/Hr Normal 0-19 Blood Culture SEE RESULT BELOW 11 Urine Culture And 10/11/2018 [facility] Urine Culture SEE RESULT BELOW 12 Sensitivities Laboratory test finding 10/11/2018 [facility] Ferritin 26.6 ng/mL Normal 11-307 Magnesium 2.0 mg/dL Normal 1.9-2.7 Iron & Iron Binding Capacity 10/11/2018 [facility] Iron 55 g/dL Normal 50-212 Unsaturated Iron Binding < 345 g/dL Total Iron Binding Capacity 360 g/dL Normal 250-450 Transferrin 257 mg/dL Normal 203-362 % Iron Saturation 15 % Normal 15-55 Laboratory test 10/11/2018 [facility] C Reactive Protein 15.90 mg/L High <8.01 finding Urine Drug SCR ED 10/11/2018 [facility] Urine Amphetamine None Detected None Detect & Pain Clinic Screen Urine Barbiturates Screen None Detected None Detect Urine Benzodiazepine Screen None Detected None Detect Urine Cannabinoids Screen None Detected None Detect Urine Cocaine Screen None Detected None Detect Urine Opiates Screen None Detected None Detect Urine Phencyclidine Screen None Detected None Detect 13 Urinalysis Profile 10/11/2018 [facility] Urine Color Yellow Urine Appearance Cloudy Urine Specific [place] 1.011 Normal 1.010-1.030 Urine pH 6.0 Normal 5-9 Urine Urobilinogen Negative Negative Urine Ketones Trace Abnormal Negative Urine Protein Negative Negative Urine Leukocytes 3+ Abnormal Negative Urine Blood Negative Negative Urine Nitrite Negative Negative Urine Bilirubin Negative Negative Urine Glucose Negative Negative Urine White Blood Cell 3+(>20/hpf) Abnormal Absent Urine Red Blood Cell Trace(0-2/hpf) Absent Urine Bacteria Absent Absent Urine Squamous Epithelial Cell Present Abnormal Absent Laboratory test finding 10/11/2018 [facility] Acetaminophen < 15 g/mL 14 Alcohol < 10 mg/dL Normal <10 Salicylate < 2.50 mg/dL <30 TSH (Thyroid Stim Horm) 1.27 mcIU/mL Normal 0.34-5.60 Comp Metabolic Panel 10/11/2018 [facility] Sodium 136 mmol/L Normal 135-145 Potassium 3.8 mmol/L Normal 3.5-5.0 Chloride 104 mmol/L Normal 101-111 Co2 Carbon Dioxide 24 mmol/L Normal 22-32 Anion Gap 8 mmol/L Normal 2-11 Glucose 112 mg/dL High 70-100 Blood Urea Nitrogen 18 mg/dL Normal 6-24 Creatinine 0.90 mg/dL Normal 0.51-0.95 BUN/Creatinine Ratio 20.0 Normal 8-20 Calcium 9.0 mg/dL Normal 8.6-10.3 Total Protein 6.7 g/dL Normal 6.4-8.9 Albumin 3.8 g/dL Normal 3.2-5.2 Globulin 2.9 g/dL Normal 2-4 Albumin/Globulin Ratio 1.3 Normal 1-3 Total Bilirubin 0.60 mg/dL Normal 0.2-1.0 Alkaline Phosphatase 53 U/L Normal 34-104 Alt 12 U/L Normal 7-52 Ast 16 U/L Normal 13-39 Egfr Non- 67.4 >60 Egfr 81.6 >60 15 CBC Auto Diff 10/11/2018 [facility] White Blood Count 11.4 10^3/uL High 3.5- 10.8 Red Blood Count 3.85 10^6/uL Normal 3.70-4.87 Hemoglobin 10.1 g/dL Low 12.0-16.0 Hematocrit 32 % Low 35-47 Mean Corpuscular Volume 83 fL Normal 80-97 Mean Corpuscular Hemoglobin 26 pg Low 27-31 Mean Corpuscular HGB Conc 32 g/dL Normal 31-36 Red Cell Distribution Width 21 % High 10.5-15 Platelet Count 421 10^3/uL Normal 150-450 Mean Platelet Volume 7.8 fL Normal 7.4-10.4 Abs Neutrophils 8.6 10^3/uL High 1.5-7.7 Abs Lymphocytes 1.8 10^3/uL Normal 1.0-4.8 Abs Monocytes 0.9 10^3/uL High 0-0.8 Abs Eosinophils 0.0 10^3/uL Normal 0-0.6 Abs Basophils 0.0 10^3/uL Normal 0-0.2 Abs Nucleated RBC 0.0 10^3/uL Granulocyte % 75.6 % Lymphocyte % 16.3 % Monocyte % 8.0 % Eosinophil % 0.0 % Basophil % 0.1 % Nucleated Red Blood Cells % 0.1 CBC Auto Diff 09/24/2018 [facility] White Blood Count 9.4 10^3/uL Normal 3.5- 10.8 Red Blood Count 4.48 10^6/uL Normal 3.70-4.87 Hemoglobin 12.2 g/dL Normal 12.0-16.0 Hematocrit 37 % Normal 33-41 Mean Corpuscular Volume 83 fL Normal 80-97 Mean Corpuscular Hemoglobin 27 pg Normal 27-31 Mean Corpuscular HGB Conc 33 g/dL Normal 31-36 Red Cell Distribution Width 20 % High 10.5-15 Platelet Count 307 10^3/uL Normal 150-450 Mean Platelet Volume 8.2 fL Normal 7.4-10.4 Abs Neutrophils 5.8 10^3/uL Normal 1.5-7.7 Abs Lymphocytes 3.0 10^3/uL Normal 1.0-4.8 Abs Monocytes 0.5 10^3/uL Normal 0-0.8 Abs Eosinophils 0 10^3/uL Normal 0-0.6 Abs Basophils 0 10^3/uL Normal 0-0.2 Abs Nucleated RBC 0 10^3/uL Granulocyte % 62.4 % Lymphocyte % 31.5 % Monocyte % 5.6 % Eosinophil % 0 % Basophil % 0.5 % Nucleated Red Blood Cells % 0.1 Comp Metabolic Panel 09/24/2018 [facility] Sodium 134 mmol/L Low 135-145 Potassium 4.7 mmol/L Normal 3.5-5.0 Chloride 104 mmol/L Normal 101-111 Co2 Carbon Dioxide 25 mmol/L Normal 22-32 Anion Gap 5 mmol/L Normal 2-11 Glucose 103 mg/dL High 70-100 Blood Urea Nitrogen 25 mg/dL High 6-24 Creatinine 1.02 mg/dL High 0.51-0.95 BUN/Creatinine Ratio 24.5 High 8-20 Calcium 9.1 mg/dL Normal 8.6-10.3 Total Protein 6.8 g/dL Normal 6.4-8.9 Albumin 4.1 g/dL Normal 3.2-5.2 Globulin 2.7 g/dL Normal 2-4 Albumin/Globulin Ratio 1.5 Normal 1-3 Total Bilirubin 0.30 mg/dL Normal 0.2-1.0 Alkaline Phosphatase 58 U/L Normal 34-104 Alt 17 U/L Normal 7-52 Ast 16 U/L Normal 13-39 Egfr Non- 58.3 >60 Egfr 70.6 >60 16 Inr/Protime 09/24/2018 [facility] Inr 0.99 Normal 0.82-1.09 17 Laboratory test 09/24/2018 [facility] Partial Thrombo 20.2 seconds Low 26.0- 36.3 finding Time PTT Type & Screen 09/24/2018 [facility] Patient Blood A Positive Type Antibody Screen NEGATIVE Ua - Micro ([facility]ma) 09/20/2018 [facility] Appearance turbid (607)- - Color [place] Glucose, Urine (Fma/CMC/CTX) negative Bilirubin neg ICTO Ketones 15mg/dl SP Grav >=1.030 Blood negative PH 5.5 Protein 100mg/dl High Ssa 2+ Urobil 1.0 Nitrite negative Leukocytes (Fma/CMC/Centrex) trace Hyaline - /Lpf Granular - /Lpf WBC (Fma,Centrex) 3-5 RBC 1-2 Mucus (Fma/CBC/Centrex) - /Lpf Epith occ /Lpf Bacteria 2+ /Hpf Amorphous (Fma/CMC/Centrex) - /Lpf Crystals, Fluid (Fma/CMC/CTX) - Z#Comments - Urine Culture And Sensitivities 09/20/2018 [facility] Urine Culture SEE RESULT BELOW 18 1 [facility] Severe Sepsis and Septic Shock Management Bundle Measure requires all lactic acids initially measuring >2.0 mmol/L be repeated. 2 Because ethnic data is not always [...] 5 Kidney failure <15 (or dialysis) 3 Troponin-I testing on Plasma Separator Tubes (PST) has a known false positive rate of 0.20-0.40%. All positive troponins reflex immediately to secondary confirmatory testing. Using the [employer] DxI 800 Access Immunoassay systems, the 99th percentile upper reference limit was demonstrated to be < 0.03 ng/mL. 4 <5.0 Negative 5.0 - 25.0 Indeterminate (Repeat testing recommended after 72 hours) >25.0 Positive Perimenopausal women can display HCG levels of up to 20 mIU/mL 5 Therapeutic concentration: <50 ug/mL Toxic concentration: >120 ug/mL 6 Presumptive Positive Presumptive positive results are unconfirmed. 7 Presumptive Positive Presumptive positive results are unconfirmed. 8 The urine specimen was tested at the listed cutoffs: Drug class test level (ng/mL) Amphetamines 500 Barbiturates 200 Benzodiazepine metabolites 200 Cocaine metabolites 150 Cannabinoids 50 Opiates 300 Pcp 25 Specimen was received without chain of custody. Results should be used for medical purposes only. 9 [facility] Severe Sepsis and Septic Shock Management Bundle Measure requires all lactic acids initially measuring >2.0 mmol/L be repeated. 10 Because ethnic data is not always readily [...] 15-29 5 Kidney failure <15 (or dialysis) 11 SEE RESULT BELOW Name: ROMAJOSEPHINE Aashish : [address]: Ray Holder MD Acct: [id number] Unit: [id number] AGE: 47 Location: ED Re11/02/18 SEX: F Status: DEP ER SPEC: [id number] FERNANDA: 11/02/[address]: Jenna LÓPEZ REQ: [id number] RECD: 11/02/18 STATUS: COMP AMBREEN DR: Danny Holder MD _ SOURCE: BLOOD,VENO SPDESC: ORDERED: Blood Cult COMMENTS: Blood Culture bottle(s) are underfilled. Testing may be less sensitive due to less than recommended fill level. Verbal to MARK/ED by [id number] at 1900 on 11/02/18. Procedure Result Reported Site Aerobic Culture Bottle Final 11/07/18- 1853 ML No Growth Day 5 Anaerobic Culture Bottle Final 11/07/18- 1851 ML No Growth Day 5 * [facility] - Main Lab . END OF REPORT DEPARTMENT OF PATHOLOGY, [address] [place] [address] Dani Palacios M.D. Director [facility] # [id number] 12 SEE RESULT BELOW Name: JD BRANDONNHUNG Zendejas : [address]: Js Yap MD Acct: [id number] Unit: [id number] AGE: 47 Location: [place] [address]- Re10/11/18 SEX: F Status: ADM Eloy SPEC: [id number] FERNANDA: 10/11/[address]: Gerald LÓPEZ REQ: [id number] RECD: 10/11/18 STATUS: JOSTIN CROOK DR: Miles Powers MD _ SOURCE: URINE SPDESC: ORDERED: Urine Culture Procedure Result Reported Site Urine Culture Final 10/13/18- 0815 ML Mixed tomasa; possible contamination. Suggest resubmission. * [facility] - Main Lab . END OF REPORT DEPARTMENT OF PATHOLOGY, [address] [place] [address] Dani Palacios M.D. Director [facility] # [id number] 13 The urine specimen was tested at the listed cutoffs: Drug class test level (ng/mL) Amphetamines 500 Barbiturates 200 Benzodiazepine metabolites 200 Cocaine metabolites 150 Cannabinoids 50 Opiates 300 Pcp 25 Specimen was received without chain of custody. Results should be used for medical purposes only. 14 Therapeutic concentration: <50 ug/mL Toxic concentration: >120 ug/mL 15 Because ethnic data is not always readily [...] 15-29 5 Kidney failure <15 (or dialysis) 16 Because ethnic data is not always readily [...] 15-29 5 Kidney failure <15 (or dialysis) 17 Standard intensity warfarin therapeutic range: 2.0-3.0 High intensity warfarin therapeutic range: 2.5-3.5 18 SEE RESULT BELOW Name: ROMAJOSEPHINE L : [address]: Danny Powers MD Acct: [id number] Unit: [id number] AGE: 47 Location: [facility] Re09/20/18 SEX: F Status: REG REF SPEC: [id number] FERNANDA: 09/20/18-[address] [facility] [address]: Danny Powers MD REQ: [id number] RECD: 09/20/18 STATUS: COMP _ S[facility] ORDERED: Urine Culture COMMENTS: [id number] Urine Source: Random Procedure Result Reported Site Urine Culture Final 09/21/18- 1612 ML No Growth (<1,000 CFU/mL) * ML - Main Lab . END OF REPORT DEPARTMENT OF PATHOLOGY, [address] [place] [address] Dani Palacios M.D. Director [facility] # [id number] Procedures Date Code Description Status 11/02/2016 [id number] Mammogram Completed 10/02/2015 [id number] Mammogram Completed 07/15/2014 [id number] Mammogram Completed 12/20/2011 [id number] Mammogram Completed Medical Devices Description No Information Available Encounters Type Date Location Provider Dx Diagnosis Office Visit 10/16/2018 Main Office Danny Powers, M25.561 Pain in right knee 5:00p M.D. F32.89 Other specified depressive episodes Office Visit 09/13/2018 3:00p Main Office Danny Powers, M25.561 Pain in right M.D. knee F32.89 Other specified depressive episodes J45.998 Other asthma M79.7 Fibromyalgia Z01.818 Encounter for other preprocedural examination Assessments Date Code Description Provider 02/14/2019 M79.7 Fibromyalgia Danny Powers M.D. 02/14/2019 F32.89 Other specified depressive episodes Danny Powers M.D. 02/14/2019 J45.998 Other asthma Danny Powers M.D. 10/16/2018 M25.561 Pain in right knee Danny Powers M.D. 10/16/2018 F32.89 Other specified depressive episodes Danny Powers M.D. 09/20/2018 M79.7 Fibromyalgia Danny Powers M.D. 09/13/2018 M25.561 Pain in right knee Danny Powers M.D. 09/13/2018 F32.89 Other specified depressive episodes Danny Powers M.D. 09/13/2018 J45.998 Other asthma Danny Powers M.D. 09/13/2018 M79.7 Fibromyalgia Danny Powers M.D. 09/13/2018 Z01.818 Encounter for other preprocedural Danny Powers M.D. examination Plan of Treatment Future Appointment(s):06/27/2019 2:40 pm - Danny Powers M.D. at [facility]/14/2019 - Danny Powers M.D.M79.7 FibromyalgiaNew Labs:CBC Electronic-[facility], Ordered: 02/14/19Comp Metabolic-[facility], Ordered: 02/14/19TSH ([facility]ma/CMC/[facility]), Ordered: 02/14/19CRP, Ordered: Rheumatoid Factor Ser QN, Ordered: 02/14/19Ana Direct, Ordered: 02/14/19Lipid Panel-[facility], Ordered: 02/14/19Protein Electrophoresis Serum, Ordered : 02/14/19Comments:check lab work , refer to Dr Wall for consult on her chronic pain syndrome, await lab work to screen for immune mediated [id number] Other specified depressive episodesComments:continue present medication [facility] Other asthmaComments:continue care with Dr Delaney ,and continue present medicationAllNew Medication:Quetiapine Fumarate 200 mg - 1 po qhsMirtazapine 7.5 mg - take 1 tablet by mouth every nightComments:Medication Management Patient Understands medications she's taking? Yes No Are there Barriers to Adherence? Yes No Has the patient been asked about herbal supplements and therapies, and OTC meds? Yes No schedule mammogramFollow up:3 months Functional Status Description No Information Available Mental Status Description No Information Available Referrals Refer to Reason for Referral Status Appt Date Jefe Wall MD fibromyalgia, joint pain jw Created [address], [place] [address] [phone]
--- OUTSIDE RECORDS SUMMARY | 2019-03-28 19:18 | XMS REPORT | Continuity of Care Document ---
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 Renetta Blandon NP Onset: 03/22/2019 Allergic rhinitis Wm Delaney MD Onset: 05/12/2017 [...] Combivent Respimat 1 puff 6 times 12gm Renetta Blandon NP 06/29/2016 a day as needed 20-100mcg/Act Aerosol Montelukast Sodium take 1 tablet 30tabs Renetta Blandon NP 04/14/2016 10mg by mouth once Tablets daily in the evening Symbicort two puffs twice 10.200gm Renetta Blandon NP 08/14/2015 160-4.5mcg/Act daily Aerosol Levocetirizine Take 1 Tablet 30tabs Marshall [...] once daily Levalbuterol HCL use in 72ml Wm Suazo nebulizer as MD Rhett 1.25mg/3ML Nebulizer directed [...] Available Vital Signs Date Vital Result Comment 03/22/2019 10:35am BP Systolic 128 mmHg BP Diastolic 62 mmHg Height 68 inches 5'8" Weight 253.00 lb BMI (Body Mass Index) 38.5 kg/m2 Heart Rate 69 /min Respiratory Rate 20 /min O2 % BldC Oximetry 98 % 12/29/2017 1:17pm BP Systolic 112 mmHg BP Diastolic 71 mmHg Height 68 inches 5'8" Weight 255.00 lb BMI (Body Mass Index) 38.8 kg/m2 Heart Rate 74 /min Body Temperature 97.4 F O2 % BldC Oximetry 96 % Results Description No Information Available Procedures Date Code Description Status 03/22/2019 95602 Nitric Oxide Gas Determination Completed 03/22/2019 45672 Nitric Oxide Gas Determination Completed 03/22/2019 10119 Bronchodilation Responsiveness Spirometry Pre/Post Completed Bronchodil Adm 03/22/2019 34334 Bronchodilation Responsiveness Spirometry Pre/Post Completed Bronchodil Adm Medical Devices Description No Information Available Encounters Type Date Location Provider Dx Diagnosis Office Visit 03/22/2019 [place] Renetta Blandon NP J45.50 Severe persistent 10:30a asthma, uncomplicated D72.1 Eosinophilia J30.89 Other allergic rhinitis Assessments Date Code Description Provider 03/22/2019 J45.50 Severe persistent asthma, uncomplicated Wm Delaney MD 03/22/2019 J45.50 Severe persistent asthma, uncomplicated Renetta Blandon NP 03/22/2019 D72.1 Eosinophilia Wm Delaney MD 03/22/2019 D72.1 Eosinophilia Renetta Blandon NP 03/22/2019 J30.89 Other allergic rhinitis Wm Delaney MD 03/22/2019 J30.89 Other allergic rhinitis Renetta Blandon NP Plan of Treatment Future Appointment(s):06/21/2019 3:30 pm - Renetta Blandon NP at [id number] 1:05 pm - Injection 1 at [id number]/22/2019 - Renetta Blandon NPJ45.50 Severe persistent asthma, uncomplicatedComments:Patient reports breakthrough asthma symptoms since she had to discontinue Fasenra due to surgery. She has had increased shortness of breath, wheezing and cough. She reports exercise induced and nighttime symptoms and has had to use her rescue inhaler frequently since she had to stop Fasenra. She has completed the surgery and would like to restart Fasenra. PFT today reveal s FEV1 70, FEV1% 108, and [id number] 97% Post test FEV 70, FEV1% 108 and [id number] 109. Upper airway restriction without reversibly. NiOx 21 PPB. Patient will restart Fasenra and follow up in three months. PFT, NiOx and CBC prior to every three month visit.D72.1 HrhlehyqvmcgN80.89 Other allergic rhinitis Functional Status Description No Information Available Mental Status Description No Information Available Referrals Description No Information Available
[2019-03-28 20:03] LABS: ABS Basophils 0.1 10^3/ul (0-0.2); ABS Eosinophils 0.4 10^3/ul (0-0.6); ABS Lymphocytes 2.9 10^3/ul (1.0-4.8); ABS Monocytes 0.4 10^3/ul (0-0.8); ABS Neutrophils 5.2 10^3/ul (1.5-7.7); Eosinophil % 4.5 %; Hematocrit 36 % (35-47); Hemoglobin 11.9 g/dL (12.0-16.0); Lymphocyte % 32.4 %; Mean Corpuscular HGB Conc 33 g/dL (31-36); Mean Corpuscular Hemoglobin 28 pg (27-31); Mean Corpuscular Volume 84 fL (80-97); Mean Platelet Volume 7.7 fL (7.4-10.4); Platelet Count 350 10^3/uL (150-450); Red Blood Count 4.32 10^6 /uL (3.70-4.87); Red Cell Distribution Width 16 % (10-15); White Blood Count 9.1 10^3/uL (3.5-10.8)
[2019-03-28 20:06] LABS: Urine Appearance Cloudy; Urine Bacteria Absent (Absent); Urine Bilirubin Negative (Negative); Urine Blood 1+ (Negative); Urine Color Yellow; Urine Glucose Negative (Negative); Urine Ketones Negative (Negative); Urine Nitrite Negative (Negative); Urine Protein Negative (Negative); Urine Red Blood Cell Trace(0-2/hpf) (Absent); Urine Specific Gravity 1.009 (1.010-1.030); Urine Squamous Epithelial Cell Present (Absent); Urine Urobilinogen Negative (Negative); Urine White Blood Cell Trace(0-5/hpf) (Absent)
[2019-03-28 20:18] LABS: Albumin 3.9 g/dL (3.2-5.2); Albumin/Globulin Ratio 1.4 (1-3); BUN/Creatinine Ratio 18.8 (8-20); Calcium 9.2 mg/dL (8.6-10.3); EGFR African American 75.4 (>60); EGFR Non-African American 62.3 (>60); Globulin 2.8 g/dL (2-4); Potassium 4.8 mmol/L (3.5-5.0); Total Bilirubin 0.2 mg/dL (0.2-1.0); Total Protein 6.7 g/dL (6.4-8.9)
[2019-03-28 20:24] LABS: HCG Pregnancy 1.01 mIU/mL
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
[2019-03-28 21:14] LABS: Hepatitis B Surface Antigen Nonreactive (Nonreactive)
[2019-03-28 21:21] LABS: HIV 4th Generation Nonreactive (Nonreactive)
[2019-03-28 21:30] LABS: Hepatitis C Antibody Negative (Negative)
[2019-03-28] MEDS ORDERED: metroNIDAZOLE TAB* 250 MG PO ONE (21:49)
[2019-03-28] MEDS ORDERED: Azithromycin TAB* 250 MG PO ONE (21:49)
[2019-03-28] MEDS ORDERED: cefTRIAXone VIAL(*) 250 MG VIAL IM ONE (21:49)
[2019-03-28] MEDS ORDERED: Ondansetron ODT TAB* 4 MG PO ONE (21:51)
[2019-03-28] MEDS ORDERED: Sterile Water for Inj* 10 ML ONE (22:27)
[2019-03-28] MEDS ORDERED: Levonorgestrel 1.5 MG TAB PO ONE (22:28)
[2019-03-28] MEDS ORDERED: Tenofovir/Emtricitab 200/300 * TAB PO ONE ×2 (22:28→23:00)
[2019-03-28] MEDS ORDERED: Raltegravir* 400 MG TAB PO ONE ×2 (22:28→23:00)
[2019-03-28 23:36] VITALS: BP 137/76
[2019-03-29 13:33] LABS: Chlamydia trachomatis NAA Negative (Negative); Neisseria gonorrhoeae (GC) NAA Negative (Negative)
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
== END 2019-03-28 23:34 | disposition home or self-care (01) ==
LOC: ED 18:57
DX: T74.21XA Adult sexual abuse, confirmed, initial encounter (principal); Y07.59 Other non-family member, perpetrator of maltreatment and neglect; Y92.9 Unspecified place or not applicable; D64.9 Anemia, unspecified; I10 Essential (primary) hypertension; F41.9 Anxiety disorder, unspecified; F32.9 Major depressive disorder, single episode, unspecified; Z88.8 Allergy status to other drugs, medicaments and biological substances
CPT/HCPCS: 36415; 80053; 81003; 81015; 83605; 84702; 85025; 86803; 87077; 87086; 87186; 87340; 87389; 87491; 87591; 96372; 99284; A9270-GY; J0696

== ENCOUNTER 2019-08-07 13:09 | Observation (INO) | payer MEDICAID, MEDICARE ==
[2019-08-07] MEDS ORDERED: NS 0.9% 1000 ML** 1,000 ML IV ONE (13:15)
[2019-08-07] MEDS ORDERED: Magnesium Sulfate 2 GM IV* 2 GM/50 ML BAG IVPB ONE (13:16)
[2019-08-07] MEDS ORDERED: Albuterol/Ipratropium NEB.SOL* Albuterol 2.5 MG/Ipratropium 0.5 MG 3 ML INH ONE (13:16)
--- NOTE | 2019-08-07 13:39 | ED ---
Respiratory - HPI Summary HPI Summary: 48 year old F presenting to [facility] accompanied by EMS complains of respiratory distress since earlier today 08/07/2019. Patient was at her PCP 's office with asthma complications but went into respiratory distress. She was given 3 albuterol nebs and epinephrine in the office and 1 duoneb and steroids in the ambulance per EMS. Patient denies vomiting and diarrhea. She has PMHx of anxiety and depression, asthma, and pots syndrome. No travel outside of the country recently noted. The patient rates the pain 8/10 in severity. Symptoms aggravated by nothing. Symptoms alleviated by nothing. Medications reviewed. Allergies noted. Home Medications Medication Instructions Recorded Confirmed Type Suvorexant (NF) [Belsomra (NF)] 20 mg PO BEDTIME 01/04/19 03/28/19 History Zinc 25 mg PO DAILY 01/04/19 03/28/19 History Midodrine HCl 2.5 mg PO TID 01/05/19 03/28/19 History Albuterol/Ipratropium RESP(NF) 1 puff INH QID mdi 01/18/19 03/28/19 Rx [Combivent Respimat (NF)] Budesonide/Formote 160/4.5(NF) 2 puff INH BID #1 mdi 01/18/19 03/28/19 Rx [Symbicort 160/4.5 (NF)] LevoCETirizine TAB (NF) [Xyzal TAB 5 mg PO BEDTIME #14 tab 01/18/19 03/28/19 Rx (NF)] Montelukast Sodium TAB* [Singulair 10 mg PO QPM #14 tab 01/18/19 03/28/19 Rx 10 MG TAB*] Nadolol (NF) 10 mg PO DAILY #7 tab 01/18/19 03/28/19 Rx Pantoprazole TAB * [Protonix TAB*] 40 mg PO BID #28 tab 01/18/19 03/28/19 Rx Senna TAB 8.6 mg* [Senokot 8.6 mg 1 tab PO DAILY PRN #14 tab 01/18/19 03/28/19 Rx TAB*] busPIRone TAB* [Buspar TAB *] 7.5 mg PO BID #15 tab 01/18/19 03/28/19 Rx BuPROPion XL* [Bupropion XL*] 300 mg PO QAM 03/28/19 03/28/19 History Levalbuterol HFA INHALER* [Xopenex 2 puff INH Q4H PRN 03/28/19 03/28/19 History Hfa Inhaler*] Ondansetron ODT TAB* [Zofran 4 MG 4 mg PO Q6H PRN #20 tab.odt 03/28/19 Rx Odt TAB*] Raltegravir* [Isentress*] 400 mg PO BID #42 tab 03/28/19 Rx Saliva Substitute (NF) [Biotene 2 spray PO Q1H PRN 03/28/19 03/28/19 History Moisturizing Mouth (NF)] Tenofovir/Emtricitab 200/300 * 1 tab PO DAILY #21 tab 03/28/19 Rx [Truvada 200/300 mg*] Cephalexin CAP* [Keflex CAP*] 500 mg PO BID #20 cap 03/31/19 Rx - History of Current Complaint Chief Complaint: EDAsthma Stated Complaint: ASTHMA PER EMS Time Seen by Provider: 08/07/19 13:15 Hx Obtained From: Patient Onset/Duration: Sudden Onset, Lasting Minutes, Still Present Current Severity: Severe Pain Intensity: 8 Aggravating Factor(s): Nothing Alleviating Factor(s): Nothing - Allergy/Home Medications Allergies/Adverse Reactions: Allergies Allergy/AdvReac Type Severity Reaction Status Date / Time adhesive Allergy Hives Verified 01/05/19 19:55 amitriptyline Allergy Unknown Verified 01/05/19 19:55 Reaction Details bee venom protein (honey bee) Allergy Anaphylatic Verified 01/05/19 19:55 Shock cortisone Allergy Swelling Verified 01/05/19 19:55 diphenhydramine Allergy Palpitation Verified 01/05/19 19:55 [From Benadryl] s omalizumab [From Xolair] Allergy Anaphylatic Verified 01/05/19 19:55 Shock quetiapine [From Seroquel] Allergy Shakes Verified 03/28/19 19:01 strawberry Allergy Hives Verified 01/05/19 19:55 Home Medications: Home Medications Suvorexant (NF) [Belsomra (NF)] 20 mg PO BEDTIME PRN 01/04/19 [History Confirmed 08/07/19] Midodrine HCl 5 mg PO .AM & AFTERNOON 01/05/19 [History Confirmed 08/07/19] LevoCETirizine TAB (NF) [Xyzal TAB (NF)] 5 mg PO BEDTIME #14 tab 01/18/19 [Rx Confirmed 08/07/19] Nadolol (NF) 10 mg PO DAILY #7 tab 01/18/19 [Rx Confirmed 08/07/19] Pantoprazole TAB * [Protonix TAB*] 40 mg PO BID #28 tab 01/18/19 [Rx Confirmed 08/07/19] Levalbuterol HFA INHALER* [Xopenex Hfa Inhaler*] 2 puff INH Q4H PRN 03/28/19 [ History Confirmed 08/07/19] Albuterol/Ipratropium RESP(NF) [Combivent Respimat (NF)] 1 puff INH Q4HR [History Confirmed 08/07/19] Budesonide/Formote 160/4.5(NF) [Symbicort 160/4.5 (NF)] 2 puff INH BID PRN 08/06 [History Confirmed 08/07/19] Diclofenac Sodium [Pennsaid] 2 gm TOPICAL DAILY 08/07/19 [History Confirmed 04/17] Dicyclomine HCl 20 mg PO BID 08/07/19 [History Confirmed 08/07/19] EPINEPHrine [Epipen Jr 2-Pool] 0.15 mg IJ ONCE PRN 08/07/19 [History Confirmed ] Ipratropium 0.5MG/2.5ML NEB* [Atrovent 0.5 MG NEB.MIGUELITO*] 0.5 mg INH .Q4-6H PRN [History Confirmed 08/07/19] Levalbuterol HCl [Xopenex] 1.25 mg INH TID PRN 08/07/19 [History Confirmed 08/06] Midodrine HCl 2.5 mg PO BEDTIME 08/07/19 [History Confirmed 08/07/19] Montelukast Sodium TAB* [Singulair 10 MG TAB*] 10 mg PO DAILY 08/07/19 [History Confirmed 08/07/19] Sennosides/Docusate Sodium [Senna-S Tablet] 1 - 2 each PO DAILY PRN 08/07/19 [ History Confirmed 08/07/19] busPIRone TAB* [Buspar TAB *] 22.5 mg PO BID 08/07/19 [History Confirmed ] PMH/Surg Hx/FS Hx/Imm Hx Endocrine/Hematology History: Reports: Hx Anemia, Other Endocrine/Hematological Disorders - pots syndrome Denies: Hx Diabetes, Hx Thyroid Disease Cardiovascular History: Reports: Hx Hypertension Denies: Hx Pacemaker/ICD Respiratory History: Reports: Hx Asthma, Hx Sleep Apnea - no machine Denies: Hx Chronic Obstructive Pulmonary Disease (COPD), Other Respiratory Problems/Disorders GI History: Reports: Hx Gastroesophageal Reflux Disease, Hx Irritable Bowel, Hx Ulcer Denies: Other GI Disorders History: Denies: Hx Renal Disease Musculoskeletal History: 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 UTERINE SURGERY TO REMOVE CYSTS, ENDOMETRIOSIS AND FIBROID TUMORS;. WISDOM TEETH;. R KNEE REPLACEMENT 10/02/18 Hx Anesthesia Reactions: No - Immunization History Date of Tetanus Vaccine: unknown Infectious Disease History: No Infectious Disease History: Denies: Hx Clostridium Difficile, Hx Hepatitis, Hx Human Immunodeficiency Virus (HIV), Hx of Known/Suspected MRSA, Hx Shingles, Hx Tuberculosis, Traveled Outside the [place] in Last 30 Days - Family History Known Family History: Positive: Other - degenerative arthritis, mother has hx of cervical cancer - Social History Alcohol Use: None Alcohol Amount: very rare Hx Substance Use: No Substance Use Type: Reports: None Hx Tobacco Use: No Smoking Status (MU): Never Smoked Tobacco Type: Cigarettes Have You Smoked in the Last Year: No Review of Systems Respiratory: Other - respiratory distress Negative: Vomiting, Diarrhea All Other Systems Reviewed And Are Negative: Yes Physical Exam - Summary Physical Exam Summary: Constitutional: Well-developed, Well-nourished, Alert. (-) Distressed Skin: Warm, Dry HENT: Normocephalic; Atraumatic Eyes: Conjunctiva normal Neck: Musculoskeletal ROM normal neck. (-) JVD, (-) Stridor, (-) Tracheal deviation Cardio: Rhythm regular, rate normal, Heart sounds normal; Intact distal pulses; Radial pulses are 2+ and symmetric. (-) Murmur Pulmonary/Chest wall: Speaking in two word sentences. Expiratory and inspiratory wheezing. Moderate decreased air entry bilaterally. Abd: Soft, (-) tenderness, (-) Distension, (-) Guarding, (-) Rebound Musculoskeletal: (-) Edema Lymph: (-) Cervical adenopathy Neuro: Alert, Oriented x3 Psych: Mood and affect Normal Triage Information Reviewed: Yes Vital Signs On Initial Exam: Initial Vitals Temp Pulse Resp BP Pulse Ox 97.5 F 66 40 139/93 0 08/07/19 13:13 08/07/19 13:13 08/07/19 13:13 08/07/19 13:13 08/07/19 13:13 Vital Signs Reviewed: Yes Procedures - Sedation Patient Received Moderate/Deep Sedation with Procedure: No Diagnostics - Vital Signs Vital Signs Temp Pulse Resp BP Pulse Ox 08/07/19 13:13 97.5 F 66 40 139/93 0 - Laboratory Result Diagrams: 08/07/19 13:38 08/07/19 13:38 Lab Statement: Any lab studies that have been ordered have been reviewed, and results considered in the medical decision making process. - Radiology CXR Radiology Interpretation Completed By: Radiologist Summary of Radiographic Findings: IMPRESSION: NO ACTIVE CARDIOPULMONARY DISEASE. has reviewed this report. - EKG 1406 Cardiac Rate: NL EKG Rhythm: Sinus Rhythm Summary of EKG Findings: An EKG at 1406 reveals sinus rhythm at a rate of 63 bpm with no STEMI. has reviewed and interpreted this EKG. Re-Evaluation - Re-Evaluation 1430 Re-Evaluation Time: 14:39 Change: Improved Comment: Patient feel smuch better. She is currently on 30 L 50% FIO2. She doesnt want to stay in the hospital but vapotherm needed. 1552 Re-Evaluation Time: 15:52 Comment: Patient was put on room air and will be monitored for 30 minutes to see how she feels. Disposition - Course Course Of Treatment: Patient is here with a severe asthma exacerbation. Upon arrival, patient was in obvious respiratory distress. Patient received steroids , 3 albuterol nebulizer treatments, 1 dose of IM epinephrine, and 1 DuoNeb prior to arrival. Patient was placed on Vapotherm immediately because RT. Patient was given another DuoNeb and a dose of magnesium. Patient's symptoms did improve and she was slowly weaned off Vapotherm. Patient was placed onto room air. Patient was monitored for 30 minutes with recurrence of her symptoms. Even patient's extreme presentation and recurrence of her symptoms, patient was admitted to the hospital - Diagnoses Provider Diagnoses: Asthma exacerbation, Acute respiratory distress - Physician Notifications Discussed Care Of Patient With: Kerline Farmer - admit Time Discussed With Above Provider: 16:43 Instructed by Provider To: Admit As Inpatient - Critical Care Time Critical Care Time: 75-104 min - 120 min Discharge ED - Sign-Out/Discharge Documenting (check all that apply): Patient Departure - admit - Discharge Plan Condition: Stable Disposition: ADMITTED TO [facility] Referrals: Danny Powers MD [Primary Care Provider] - - Billing Disposition and Condition Condition: STABLE Disposition: Admitted to [facility] - Attestation Statements Document Initiated by Scribe: Yes Documenting Scribe: Trevon Murcia Provider For Whom Veronica is Documenting (Include Credential): Dr.Keith Jaya Tolentino MD Scribe Attestation: Trevon Patel scribed for Dr.Keith Jaya Tolentino MD on 08/07/19 at 1815. Scribe Documentation Reviewed: Yes Provider Attestation: The documentation as recorded by the Trevon johnson accurately reflects the service I personally performed and the decisions made by me, Dr.Keith Jaya Tolentino MD Status of Scribheron Document: Viewed
[2019-08-07 13:48] LABS: ABS Basophils 0.2 10^3/ul (0-0.2); ABS Eosinophils 1.1 10^3/ul (0-0.6); ABS Lymphocytes 3.7 10^3/ul (1.0-4.8); ABS Monocytes 0.9 10^3/ul (0-0.8); ABS Neutrophils 8.9 10^3/ul (1.5-7.7); Eosinophil % 7.3 %; Hematocrit 37 % (35-47); Hemoglobin 12.1 g/dL (12.0-16.0); Lymphocyte % 25.1 %; Mean Corpuscular HGB Conc 33 g/dL (31-36); Mean Corpuscular Hemoglobin 28 pg (27-31); Mean Corpuscular Volume 85 fL (80-97); Mean Platelet Volume 8.5 fL (7.4-10.4); Platelet Count 431 10^3/uL (150-450); Red Blood Count 4.35 10^6 /uL (3.70-4.87); Red Cell Distribution Width 17 % (10-15); White Blood Count 14.6 10^3/uL (3.5-10.8)
[2019-08-07 14:20] LABS: Albumin 3.8 g/dL (3.2-5.2); Albumin/Globulin Ratio 1.4 (1-3); BUN/Creatinine Ratio 16.7 (8-20); Calcium 9.2 mg/dL (8.6-10.3); EGFR African American 65.8 (>60); EGFR Non-African American 54.4 (>60); Globulin 2.7 g/dL (2-4); Potassium 4.7 mmol/L (3.5-5.0); Total Bilirubin 0.4 mg/dL (0.2-1.0); Total Protein 6.5 g/dL (6.4-8.9)
--- OUTSIDE RECORDS SUMMARY | 2019-08-07 14:46 | XMS REPORT ---
:1970 Author Organization [facility] Care Team Providers Name Role Phone Unavailable Unavailable Unavailable Problems This patient has no known problems. Allergies, Adverse Reactions, Alerts Allergy Allergy Status Severity Reaction(s) Onset Inactive Treating Comments Name Type Date Date Clinician Unknown None Active Unknown None Unknown No Known Allergies For This Patient Medications Ordered Filled Start Stop Current Ordering Indication Dosage Frequency Signature Comments Components Medication Medication Date Date Medication? Clinician (SIG) Name Name No Known No Known No None None None Medications Medications For This For This Patient Patient Procedures This patient has no known procedures. Results This patient has no known results.
--- OUTSIDE RECORDS SUMMARY | 2019-08-07 14:46 | XMS REPORT | Continuity of Care Document ---
:1970 External Reference #:[id number] Author Name HANNAH Clemente (transmitted by agent of provider Kelly Medina) Address [address] [facility] [address] [place] [address] Care Team Providers Name Role Phone Danny Powers MD - Family Care Team Information [place] [phone] Medicine Problems Active Problems Provider Date Exacerbation of severe persistent HANNAH Clemente Onset: 2019 asthma Disorder characterized by Renetta Blandon NP Onset: 03/22/2019 eosinophilia Allergic rhinitis Wm Delaney MD Onset: 05/12/2017 Allergic rhinitis due to pollen Wm Delaney MD Onset: 05/12/2017 Uncomplicated severe persistent Wm Delaney MD Onset: 05/12/2017 asthma Moderate persistent asthma Wm Delaney MD Onset: 06/15/2016 Anaphylaxis Wm Delaney MD Onset: 06/10/2016 Social History Type Date Description Comments Sex Unknown Tobacco Use Start: Unknown Patient has never smoked Tobacco Use Start: Unknown No Second Hand Smoke Exposure Smoking Status Reviewed: 08/07/19 No Second Hand Smoke Exposure Allergies, Adverse Reactions, Alerts Active Allergies Reaction Severity Comments Date Benadryl 01/16/2015 Amitriptyline 01/16/2015 Cortisone 01/16/2015 Omalizumab 05/12/2017 Medications Active Medications SIG Qnty Indications Ordering Provider Date Pennsaid 2 pumps twice 112units Wm Suazo 06/24/2019 2% Solution daily as needed MD [facility] for finger cyst Xopenex 1 vial every 36ml Renetta Blandon NP 06/21/2019 1.25mg/3ML 4-6hours as Nebulizer needed for shortness of breath Levocetirizine take one tablet 30tabs Renetta Blandon NP 06/21/2019 Dihydrochloride by mouth once 5mg daily as needed Tablets Midodrine HCL po [place] Gab[place]le 12/29/2017 2.5mg MD [facility] Tablets [facility] 06/29/2016 a day as needed MD [facility] 20-100mcg/Act Aerosol Montelukast Sodium take 1 tablet 30tabs Renetta Blandon NP 04/14/2016 10mg by mouth once Tablets daily in the evening Symbicort two puffs twice 10.200gm Renetta Blandon NP 08/14/2015 160-4.5mcg/Act daily Aerosol Epipen 2-Pool as directed [facility] 01/16/2015 0.3mg/0.3ML MD [facility] Solution Auto-Inject Levalbuterol HCL use in 72ml [facility]. nebulizer as MD [facility] 1.25mg/3ML Nebulizer directed every 6 hours as needed Bupropion HCL ER (SR) take 1 tablet Unknown (150 mg) by 150mg Tablets ER 12HR oral route once daily Dicyclomine HCL Unknown 10mg Capsules Nadolol 10 mg tab PO Unknown 20mg Tablets daily Pantoprazole Sodium Unknown 20mg Tablets DR Chow Unknown 5mg Tablets Buspirone HCL Unknown 30mg Tablets History Medications Prednisone take one tablet 10tabs Renetta Blandon NP 06/21/2019 - 20mg Tablets twice daily x 5 06/24/2019 days Medications Administered in Office Medication SIG Qnty [...] Delaney MD 05/13/2016 Injection Chemotherpy Admin Wm Delnaey MD 05/13/2016 Subcutaneous/Im Non-Hormonal Anti-Neoplastic Injection Chemotherpy [...] Anti-Neoplastic Injection Injection Omalizumab 5 MG Wm Dleaney MD 01/13/2016 Injection Chemotherpy Admin Wm Delaney [...] Available Vital Signs Date Vital Result Comment 08/07/2019 11:46am BP Systolic 130 mmHg BP Diastolic 89 mmHg Height 68 inches 5'8" Weight 253.00 lb BMI (Body Mass Index) 38.5 kg/m2 Heart Rate 73 /min Body Temperature 97.1 F O2 % BldC Oximetry 97 % 06/21/2019 4:34pm BP Systolic 120 mmHg BP Diastolic 76 mmHg Height 68 inches 5'8" Weight 253.00 lb BMI (Body Mass Index) 38.5 kg/m2 Heart Rate 87 /min Respiratory Rate 16 /min O2 % BldC Oximetry 98 % Results Test Acquired Date Facility Test Result H/L Range Note Laboratory test 08/07/2019 [facility] <pending> finding [address] [place] [address] [phone] Order 08/07/2019 [facility] Nebulizer <pending> Treatment Procedures Date Code Description Status 08/07/2019 01475 Pressurized/Non-Pressurized Inhalation Treatment,Acute Completed Obstructio 06/21/2019 91194 Nitric Oxide Gas Determination Completed 06/21/2019 67060 Nitric Oxide Gas Determination Completed 06/21/2019 91405 Bronchodilation Responsiveness Spirometry Pre/Post Completed Bronchodil Adm 06/21/2019 92307 Bronchodilation Responsiveness Spirometry Pre/Post Completed Bronchodil Adm 03/22/2019 84266 Nitric Oxide Gas Determination Completed 03/22/2019 13724 Nitric Oxide Gas Determination Completed 03/22/2019 38822 Bronchodilation Responsiveness Spirometry Pre/Post Completed Bronchodil Adm 03/22/2019 15054 Bronchodilation Responsiveness Spirometry Pre/Post Completed Bronchodil Adm Medical Devices Description No Information Available Encounters Type Date Location Provider Dx Diagnosis Office Visit 08/07/2019 Damion Flores J45.51 Severe persistent 11:30a [place], asthma with (acute) RPA-C exacerbation J30.1 Allergic rhinitis due to pollen J30.89 Other allergic rhinitis D72.1 Eosinophilia Office Visit 06/21/2019 3:30p Damion Blandon NP J45.40 Moderate persistent asthma, uncomplicated J30.1 Allergic rhinitis due to pollen D72.1 Eosinophilia Office Visit 03/22/2019 10:30a Damion Blandon NP J45.50 Severe persistent asthma, uncomplicated D72.1 Eosinophilia J30.89 Other allergic rhinitis Assessments Date Code Description Provider 08/07/2019 J45.51 Severe persistent asthma with (acute) Angie S. Fenstermacher, RPA-C exacerbation 08/07/2019 J30.1 Allergic rhinitis due to pollen Angie S. Fenstermacher, RPA -C 08/07/2019 J30.89 Other allergic rhinitis Angie S. Fenstermacher, RPA-C 08/07/2019 D72.1 Eosinophilia Angie S. Fenstermacher, RPA-C 06/21/2019 J45.40 Moderate persistent asthma, Wm Delaney MD uncomplicated 06/21/2019 J45.40 Moderate persistent asthma, Renetta Blandon NP uncomplicated 06/21/2019 J30.1 Allergic rhinitis due to pollen Wm Delaney MD 06/21/2019 J30.1 Allergic rhinitis due to pollen Renetta Blandon NP 06/21/2019 D72.1 Eosinophilia Wm Delaney MD 06/21/2019 D72.1 Eosinophilia Renetta Blandon NP 03/22/2019 J45.50 Severe persistent asthma, Wm Delaney MD uncomplicated 03/22/2019 J45.50 Severe persistent asthma, Renetta Blandon NP uncomplicated 03/22/2019 D72.1 Eosinophilia Wm Delaney MD 03/22/2019 D72.1 Eosinophilia Renetta Blandon NP 03/22/2019 J30.89 Other allergic rhinitis Wm Delaney MD 03/22/2019 J30.89 Other allergic rhinitis Renetta Blandon NP Plan of Treatment Future Appointment(s):12/27/2019 3:30 pm - Renetta Blandon NP at [id number] - Angie Grigsby, [facility]-CJ45.51 Severe persistent asthma with (acute ) exacerbationComments:Patient with severe-persistent asthma that has been exacerbated since May. Symptoms are worsening and patient is no longer responding to Albuterol, Combivent or Prednisone. Patient unable to complete NIOX today due to persistent coughing. Patient is scheduled to start Fasenra injection tomorrow. Ispoke with Dr. Delaney who recommends holding off on Fasenra until patient is feeling better. I will restart high dose inhaled steroids and taper slowly. I will order rapid respiratory panel, which includes testing for underlying bacterial infections such as mycoplasma and chlamydial pneumonia. I will give Ipatroprium/Albuterol to be used via nebulizer Q4 hours. Unable to get chest x-ray results while patient is in the office because Dr. Powers's office was on lunch. I will try again this afternoon.J30.1 Allergic rhinitis due to ftpeiaP34.89 Other allergic [id number] Eosinophilia Functional Status Description No Information Available Mental Status Description No Information Available Referrals Description No Information Available
--- OUTSIDE RECORDS SUMMARY | 2019-08-07 14:46 | XMS REPORT | Continuity of Care Document ---
:1970 External Reference #:[id number] Author Name Beatriz Machado, TIMOTHY Address [address] [place] [address] Care Team Providers Name Role Phone Danny Powers MD - Family Medicine Care Team Information Hand Tube Winder [phone] Jose Luis Morales - Orthopaedic Surgery Care Team Information [facility] - [facility] Care Team Information [facility] - Care Team Information Hand Tube Winder [phone] Gastroenterology Yanni Pagan - Physical Medicine Care Team Information [facility] Rehabilitation Andrews Bains MD - Neurology Care Team Information Hand Tube Winder [phone] Jefe Salazar MD - Ophthalmology Care Team Information Hand Tube Winder Problems Active Problems Provider Date Asthma without [...] and collapse Danny Powers M.D. Onset: 03/27/2017 Pain in right lower limb Danny Powers M.D. Onset: 06/27/2019 Essential tremor Danny Powers M.D. Onset: 06/27/2019 Social History Type Date Description Comments Sex Unknown Tobacco Use Start: Unknown Nonsmoker ETOH Use Rare Tobacco Use Start: Unknown Patient has never smoked Smoking Status Reviewed: 08/06/19 Patient has never smoked Allergies, Adverse Reactions, Alerts Active Allergies Reaction Severity Comments Date Cortisone Moderate Shots 05/25/2004 Benedryl Restlessness, tachycardia Moderate 05/25/2004 Strawberries Hives Severe 08/04/2008 Amitriptyline mental status change 05/14/2013 Xolair 03/27/2017 Medications Active Medications SIG Qnty Indications Ordering Date Provider Ipratropium [place] inhale contents of 62.5units J45.51 Beatriz Ana 2019 one vial every 4-6 TIMOTHY Machado 0.02% Solution hours as needed for wheezing/shortness of breath Symbicort inhale two puffs by 10.2units Danny [...] F. 09/23/2011 Avila Powers 0.3mg/0.3ML Solution Auto-Inject Pennsaid Danny F. 2% Avila Powers Solution Belsomra one by mouth Danny F. 20mg nightly as needed Avila Powers Tablets for insomnia Montelukast Sodium 1 by mouth every Danny F. day Avila Powers 10mg Tablets Buspirone HCL 22.5mg by mouth Danny F. 7.5mg twice daily Shallish, M.D. Tablets Senna S 1-2 by mouth every Danny F. 8.6-50mg day as needed Avila Powers Tablets Midodrine HCL Two tabs by mouth Danny F. 2.5mg in the morning, 2 Avila Powers Tablets tabs in the afternoon, 1 tab at bedtime Nadolol 10MG 1 tab qd Danny F. Avila Powers Dicyclomine HCL bid Danny F. Avila Powers 20mg Tablets Pantoprazole Sodium 2 by mouth bid Danny F. Avila Powers 20mg Tablets DR Levalbuterol 2 puffs every 4 Danny F. Tartrate hour as needed Avila Powers 45mcg/Act wheeze / cough/sob Aerosol Xyzal Danny F. 5mg Tablets Avila Powers History Medications Quetiapine Fumarate 1 po qhs Danny Barbie Powers, 02/14/2019 - M.D. 06/27/2019 200mg Tablets Mirtazapine take 1 tablet by 30tabs Danny Barbie Powers, 02/14/2019 - 7.5mg mouth every M.D. 06/27/2019 Tablets night Immunizations CPT Code Status Date Vaccine Lot # [id number] Given 03/11/2019 Influenza Vac, [place]riv[place], [place] [id number] Given 03/12/2018 Influenza Vac, [place] [address] Given 03/27/2017 Influenza Vac, Quadrivalent, Slit Virus, Im [id number] 56346 Given 03/14/2016 Influenza Vac, Quadrivalent, Slit Virus, Im [id number] 37942 Given 04/07/2015 Influenza Vac, Quadrivalent, Slit Virus, Im [id number] Given 03/27/2014 Split Influenza Medicare: Fluzone [id number] Given 05/14/2013 Preservative free flu 3 yrs+ and older [id number] Q2038 Given 03/12/2012 Split Influenza Medicare: Fluzone [id number] 16819 Given 12/19/2011 Tdap Tetanus, W Pertussis [id number] Q2038 Given 05/17/2011 Split Influenza Medicare: Fluzone [id number] Given 04/28/2010 DO Not Use Split Influenza Virus Vaccine 30950 Given 04/28/2010 DO Not Use Split Influenza Virus Vaccine [id number] 74394 Given 05/18/2009 H1N1 Virus Vaccine [id number] 46368 Given 05/18/2009 H1N1 Immunization Intramuscular/Intranasal W Counseling Vital Signs Date Vital Result Comment 08/06/2019 11:48am BP Systolic 110 mmHg BP Diastolic 68 mmHg Heart Rate 66 /min Body Temperature 97.5 F Respiratory Rate 18 /min O2 % BldC Oximetry 98 % on room air Height 67.5 inches 5'7.50" Weight 261.00 lb BMI (Body Mass Index) 40.3 kg/m2 06/27/2019 3:15pm BP Systolic 108 mmHg BP Diastolic 70 mmHg Heart Rate 64 /min Body Temperature 97.2 F Respiratory Rate 16 /min Height 67.5 inches 5'7.50" Weight 257.00 lb BMI (Body Mass Index) 39.7 kg/m2 Results Test Acquired Date Facility Test Result H/L Range Note Laboratory test 08/06/2019 [facility] Quickstrep Negative Negative finding (607)- - CBC Auto Diff 07/01/2019 [facility] White Blood 14.1 10^3/uL High 3.5-10.8 Count Red Blood Count 4.45 10^6/uL Normal 3.70-4.87 Hemoglobin 12.1 g/dL Normal 12.0-16.0 Hematocrit 38 % Normal 35-47 Mean Corpuscular Volume 85 fL Normal 80-97 Mean Corpuscular Hemoglobin 27 pg Normal 27-31 Mean Corpuscular HGB Conc 32 g/dL Normal 31-36 Red Cell Distribution Width 17 % High 10-15 Platelet Count 351 10^3/uL Normal 150-450 Mean Platelet Volume 8.3 fL Normal 7.4-10.4 Abs Neutrophils 10.3 10^3/uL High 1.5-7.7 Abs Lymphocytes 3.0 10^3/uL Normal 1.0-4.8 Abs Monocytes 0.8 10^3/uL Normal 0-0.8 Abs Eosinophils 0.0 10^3/uL Normal 0-0.6 Abs Basophils 0.0 10^3/uL Normal 0-0.2 Abs Nucleated RBC 0.0 10^3/uL Granulocyte % 73.3 % Lymphocyte % 21.0 % Monocyte % 5.3 % Eosinophil % 0.1 % Basophil % 0.3 % Nucleated Red Blood Cells % 0.0 Comp Metabolic Panel 07/01/2019 [facility] Sodium 138 mmol/L Normal 135-145 Potassium 4.3 mmol/L Normal 3.5-5.0 Chloride 100 mmol/L Low 101-111 Co2 Carbon Dioxide 32 mmol/L Normal 22-32 Anion Gap 6 mmol/L Normal 2-11 Glucose 82 mg/dL Normal 70-100 Blood Urea Nitrogen 25 mg/dL High 6-24 Creatinine 1.05 mg/dL High 0.51-0.95 BUN/Creatinine Ratio 23.8 High 8-20 Calcium 9.3 mg/dL Normal 8.6-10.3 Total Protein 6.6 g/dL Normal 6.4-8.9 Albumin 4.0 g/dL Normal 3.2-5.2 Globulin 2.6 g/dL Normal 2-4 Albumin/Globulin Ratio 1.5 Normal 1-3 Total Bilirubin 0.30 mg/dL Normal 0.2-1.0 Alkaline Phosphatase 66 U/L Normal 34-104 Alt 14 U/L Normal 7-52 Ast 11 U/L Low 13-39 Egfr Non- 56.2 >60 Egfr 68.0 >60 1 Laboratory test finding 07/01/2019 [facility] Iron (Fe) 38 g/dL Low 50-212 TSH (Thyroid Stim Horm) 2.42 mcIU/mL Normal 0.34-5.60 T3 Free 2.80 pg/mL Normal 2.5-3.9 Free T4 (Free Thyroxine) 0.72 ng/dL Normal 0.61-1.12 CBC Auto Diff 04/02/2019 [facility] White Blood Count 11.2 10^3/uL High 3.5- 10.8 Red Blood Count 4.14 10^6/uL Normal 3.70-4.87 Hemoglobin 11.1 g/dL Low 12.0-16.0 Hematocrit 35 % Normal 35-47 Mean Corpuscular Volume 84 fL Normal 80-97 Mean Corpuscular Hemoglobin 27 pg Normal 27-31 Mean Corpuscular HGB Conc 32 g/dL Normal 31-36 Red Cell Distribution Width 16 % High 10-15 Platelet Count 330 10^3/uL Normal 150-450 Mean Platelet Volume 7.9 fL Normal 7.4-10.4 Abs Neutrophils 7.1 10^3/uL Normal 1.5-7.7 Abs Lymphocytes 2.8 10^3/uL Normal 1.0-4.8 Abs Monocytes 0.7 10^3/uL Normal 0-0.8 Abs Eosinophils 0.5 10^3/uL Normal 0-0.6 Abs Basophils 0.1 10^3/uL Normal 0-0.2 Abs Nucleated RBC 0.0 10^3/uL Granulocyte % 63.6 % Lymphocyte % 25.5 % Monocyte % 6.0 % Eosinophil % 4.2 % Basophil % 0.7 % Nucleated Red Blood Cells % 0.0 Comp Metabolic Panel 04/02/2019 [facility] Sodium 134 mmol/L Low 135-145 Potassium 4.4 mmol/L Normal 3.5-5.0 Chloride 101 mmol/L Normal 101-111 Co2 Carbon Dioxide 30 mmol/L Normal 22-32 Anion Gap 3 mmol/L Normal 2-11 Glucose 92 mg/dL Normal 70-100 Blood Urea Nitrogen 17 mg/dL Normal 6-24 Creatinine 1.00 mg/dL High 0.51-0.95 BUN/Creatinine Ratio 17.0 Normal 8-20 Calcium 8.8 mg/dL Normal 8.6-10.3 Total Protein 6.5 g/dL Normal 6.4-8.9 Albumin 3.8 g/dL Normal 3.2-5.2 Globulin 2.7 g/dL Normal 2-4 Albumin/Globulin Ratio 1.4 Normal 1-3 Total Bilirubin 0.30 mg/dL Normal 0.2-1.0 Alkaline Phosphatase 53 U/L Normal 34-104 Alt 28 U/L Normal 7-52 Ast 19 U/L Normal 13-39 Egfr Non- 59.4 >60 Egfr 71.9 >60 2 Lipid Profile (Trig/Chol/HDL) 04/02/2019 [facility] Triglycerides 187 mg/dL 3 Cholesterol 215 mg/dL 4 HDL Cholesterol 42.8 mg/dL 5 LDL Cholesterol 135 mg/dL 6 Laboratory test finding 04/02/2019 [facility] Rheumatoid Factor 11 IU/mL Normal <15 C Reactive Protein 8.27 mg/L High <8.01 TSH (Thyroid Stim Horm) 3.89 mcIU/mL Normal 0.34-5.60 Anti Nuclear Antibody 0.5 U 7 Protein Electrophoresis 04/02/2019 [facility] Total Protein(Pep) 6.8 g/dL 6.3 - 7.9 Albumin 3.2 g/dL Abnormal 3.4-4.7 Alpha-1 Globulin 0.2 g/dL 0.1-0.3 Alpha-2 Globulin 1.2 g/dL Abnormal 0.6-1.0 Beta Globulin 1.1 g/dL 0.7-1.2 Gamma Globulin 1.1 g/dL 0.6-1.6 Albumin/Globulin Ratio 0.89 Impression See Comment 8 Urine Culture And 03/28/2019 [facility] Urine Culture SEE RESULT BELOW 9 Sensitivities GC/Chlamydia Amplified Rna 03/28/2019 [facility] GCCHL Disclaimer (SEE NOTE) 10 Chlamydia trachomatis Mandy Negative Negative Neisseria gonorrhoeae (GC) Mandy Negative Negative Hepatitis C Antibody 03/28/2019 [facility] HCV Index 0.01 s/c Hepatitis C Antibody Negative Negative Laboratory test finding 03/28/2019 [facility] HCG 1.01 mIU/mL 11 Hepatitis B Surface Ag Nonreactive Nonreactive Comp Metabolic Panel 03/28/2019 [facility] Sodium 137 mmol/L Normal 135-145 Potassium 4.8 mmol/L Normal 3.5-5.0 Chloride 103 mmol/L Normal 101-111 Co2 Carbon Dioxide 29 mmol/L Normal 22-32 Anion Gap 5 mmol/L Normal 2-11 Glucose 93 mg/dL Normal 70-100 Blood Urea Nitrogen 18 mg/dL Normal 6-24 Creatinine 0.96 mg/dL High 0.51-0.95 BUN/Creatinine Ratio 18.8 Normal 8-20 Calcium 9.2 mg/dL Normal 8.6-10.3 Total Protein 6.7 g/dL Normal 6.4-8.9 Albumin 3.9 g/dL Normal 3.2-5.2 Globulin 2.8 g/dL Normal 2-4 Albumin/Globulin Ratio 1.4 Normal 1-3 Total Bilirubin 0.20 mg/dL Normal 0.2-1.0 Alkaline Phosphatase 59 U/L Normal 34-104 Alt 22 U/L Normal 7-52 Ast 21 U/L Normal 13-39 Egfr Non- 62.3 >60 Egfr 75.4 >60 12 Laboratory test finding 03/28/2019 [facility] Lactic Acid 1.3 mmol/L Normal 0.5- 2.0 13 Urinalysis Profile 03/28/2019 [facility] Urine Color Yellow Urine Appearance Cloudy Urine Specific [place] 1.009 Low 1.010-1.030 Urine pH 6.0 Normal 5-9 Urine Urobilinogen Negative Negative Urine Ketones Negative Negative Urine Protein Negative Negative Urine Leukocytes Negative Negative Urine Blood 1+ Abnormal Negative Urine Nitrite Negative Negative Urine Bilirubin Negative Negative Urine Glucose Negative Negative Urine White Blood Cell Trace(0-5/hpf) Absent Urine Red Blood Cell Trace(0-2/hpf) Absent Urine Bacteria Absent Absent Urine Squamous Epithelial Cell Present Abnormal Absent CBC Auto Diff 03/28/2019 [facility] White Blood Count 9.1 10^3/uL Normal 3.5- 10.8 Red Blood Count 4.32 10^6/uL Normal 3.70-4.87 Hemoglobin 11.9 g/dL Low 12.0-16.0 Hematocrit 36 % Normal 35-47 Mean Corpuscular Volume 84 fL Normal 80-97 Mean Corpuscular Hemoglobin 28 pg Normal 27-31 Mean Corpuscular HGB Conc 33 g/dL Normal 31-36 Red Cell Distribution Width 16 % High 10-15 Platelet Count 350 10^3/uL Normal 150-450 Mean Platelet Volume 7.7 fL Normal 7.4-10.4 Abs Neutrophils 5.2 10^3/uL Normal 1.5-7.7 Abs Lymphocytes 2.9 10^3/uL Normal 1.0-4.8 Abs Monocytes 0.4 10^3/uL Normal 0-0.8 Abs Eosinophils 0.4 10^3/uL Normal 0-0.6 Abs Basophils 0.1 10^3/uL Normal 0-0.2 Abs Nucleated RBC 0.0 10^3/uL Granulocyte % 57.5 % Lymphocyte % 32.4 % Monocyte % 4.7 % Eosinophil % 4.5 % Basophil % 0.9 % Nucleated Red Blood Cells % 0.0 1 Because ethnic data is not always [...] 5 Kidney failure <15 (or dialysis) 2 Because ethnic data is not always [...] 5 Kidney failure <15 (or dialysis) 3 Desirable: <150 Borderline High: 150-199 High: 200-499 Very High: >500 4 Desirable: <200 Borderline High: 200-239 High: >239 5 Low: <40 Desirable: 40-60 High: >60 6 Desirable: <100 Near Optimal: 100-129 Borderline High: 130-159 High: 160-189 Very High: >189 7 REFERENCE VALUE <=1.0 (Negative) Test Performed by: [place] [address] Cut Out Operator: Casey Waldron M.D. Ph.D.; CLIA# [id number] RESULT: No apparent monoclonal protein on serum electrophoresis. Test Performed by: [place] [address] Cut Out Operator: Casey Waldron M.D. Ph.D.; CLIA# [id number] 9 SEE RESULT BELOW Name: ROMASAMMIE Aashish : [address]: Mg Feng MD Acct: [id number] Unit: [id number] AGE: 48 Location: ED Re03/28/19 SEX: F Status: DEP ER SPEC: [id number] FERNANDA: 03/28/[address]: Jenna LÓPEZ REQ: [id number] RECD: 03/28/19 STATUS: JOSTIN CROOK DR: Danny Feng MD _ SOURCE: URINE SPDESC: ORDERED: Urine Culture Procedure Result Reported Site Urine Culture Final 03/30/19- 928 ML Organism 1 ESCHERICHIA COLI [place] Count >100,000 (Many) CFU/ML 1. ESCHERICHIA COLI M.I.C. RX --------- ------ Ampicillin >=32 R Cefazolin <=4 S Cefepime <=1 S Ceftriaxone <=1 S Ciprofloxacin <=0.25 S Gentamicin <=1 S Levofloxacin <=0.12 S Meropenem <=0.25 S Nitrofurantoin <=16 S Tetracycline <=1 S Pipercillin/Tazobactam <=4 S Trimethoprim/Sulfamethoxazole <=20 S Amoxicillin/Clavulanic Acid 8 S Aztreonam <=1 S Contact the Microbiology Department for any additional antibiotic reporting. * [facility] - Main Lab . END OF REPORT DEPARTMENT OF PATHOLOGY, [address] [place] [address] Dani Palacios M.D. Director [facility] # [id number] 10 As with all diagnostic procedures, the laboratory results obtained should be used in conjunction with other clinical information available to the physician, including confirmation by another method, as applicable. 11 <5.0 Negative 5.0 - 25.0 Indeterminate (Repeat testing recommended after 72 hours) >25.0 Positive Perimenopausal women can display HCG levels of up to 20 mIU/mL 12 Because ethnic data is not always readily [...] 15-29 5 Kidney failure <15 (or dialysis) 13 [facility] Severe Sepsis and Septic Shock Management Bundle Measure requires all lactic acids initially measuring >2.0 mmol/L be repeated. Procedures Date Code Description Status 08/06/2019 86096 Pulse Oximetry Completed 08/06/2019 47114 Nebulizer Treatment Completed 02/27/2019 51201177 Mammogram Completed 11/02/2016 [id number] Mammogram Completed 10/02/2015 [id number] Mammogram Completed 07/15/2014 [id number] Mammogram Completed 12/20/2011 [id number] Mammogram Completed Medical Devices Description No Information Available Encounters Type Date Location Provider Dx Diagnosis Office Visit 06/27/2019 Main Office Danny Powers, F32.89 Other specified 2:40p M.D. depressive episodes J45.998 Other asthma M79.7 Fibromyalgia M79.604 Pain in right leg G25.0 Essential tremor Office Visit 02/14/2019 11:00a Main Office Danny Powers M.D. M79.7 Fibromyalgia F32.89 Other specified depressive episodes J45.998 Other asthma Assessments Date Code Description Provider 08/06/2019 J45.51 Severe persistent asthma with (acute) Beatriz Machado NP exacerbation 08/06/2019 R06.2 Wheezing Beatriz Machado, TIMOTHY 08/06/2019 R05 Cough Beatriz Machado, TIMOTHY 08/06/2019 Z20.818 Contact with and (suspected) exposure to Beatriz Mahcado NP other bacterial communicable diseases 07/14/2019 D72.829 Elevated white blood cell count, Danny Powers M.D. unspecified 06/27/2019 F32.89 Other specified depressive episodes Danny Powers M.D. 06/27/2019 J45.998 Other asthma Danny Powers M.D. 06/27/2019 M79.7 Fibromyalgia Danny Powers M.D. 06/27/2019 M79.604 Pain in right leg Danny Powers M.D. 06/27/2019 G25.0 Essential tremor Danny Powers M.D. 02/14/2019 M79.7 Fibromyalgia Danny Powers M.D. 02/14/2019 F32.89 Other specified depressive episodes Danny Powers M.D. 02/14/2019 J45.998 Other asthma Danny Powers M.D. Plan of Treatment Future Appointment(s):09/24/2019 2:20 pm - Danny Powers M.D. at Main Exgnrg7008/06/2019 - Beatriz Machado, NPJ45.51 Severe persistent asthma with ( acute) exacerbationNew Medication:Ipratropium Imn[place] 0.02 % - inhale contents of one vial every 4-6 hours as needed for wheezing/shortness of breathComments: Referral back to [facility] ED precautions wxxycgzeL89.2 WheezingNew Xrays:Chest 2 Views, Scheduled: 08/06/19Comments: improving with the duoneb - improvement in aeration, no improvement in fine wheeze cough still presentwill send in addition solution for her nebfollow up with [id number] CoughComments:Coughing is rough on your system. Not only do they make you really tired but they dehydrate you really quickly! Supportive care: 1 ) Make sure you are resting. This is the only way the body can take theenergy it needs to heal itself. 2) Fluids, fluids, fluids! - Drink a lot of water or other caffeinefree, clear liquids - Use a humidifier in your room at night - If tolerated, use a saline nasal spray to help clear out your sinuses 3) Cough and blow it out, the more you can get out of your system the better4) Make sure you are washing your hands well so you are not catching additional illness fromthe community. 5) You can take Acetaminophen or Ibuprofen as directed for painZ20.818 Contact with and (suspected) exposure to other bacterial communicable diseasesComments:will test for strep to ensure continued infection not causing the acute exacerbation of the asthma despite symptoms not matching typical strep presentation Strep negative in officeAllComments:Medication Management Patient Understands medications he 's taking? Yes No Are there Barriers to Adherence? Yes No Has the patient been asked about herbal supplements and therapies, andOTC meds? Yes No Care Plan1. Patient has been queried about patient's goals/preferences and functional/ lifestyle goals at relevant visits. If relevant, describe: na2. Treatment goals as explained to the patient: above3. Are there barriers to meeting treatment goals? Yes No If Yes, please describe: comorbid conditions, polypharmacy, disease process, drug-interactions 4. Self-Management goals as described to the patient: Yes NoAs always, we strongly encourage a healthydiet and making physical activity a part of your every day life. If you have questions about how or where to start, please contact the office. Functional Status Description No Information Available Mental Status Description No Information Available Referrals Refer to Reason for Referral Status Appt Date Andrews Bains MD consult and tx-tremor Scheduled 10/22/2019 [address] [place] [address] [place] [address] [phone] Lexi Christina OD consult and tx-blepharospasm Scheduled 07/18/2019 [address] [place] [address] [phone] Jefe Wall MD fibromyalgia, joint pain jw Closed [address], [place] [address] [phone]
--- OUTSIDE RECORDS SUMMARY | 2019-08-07 14:46 | XMS REPORT ---
:1970 Author Organization [facility] Care Team Providers Name Role Phone Unavailable [...]
--- OUTSIDE RECORDS SUMMARY | 2019-08-07 14:46 | XMS REPORT ---
:1970 Author Organization [facility] Care Team Providers Name Role Phone Unavailable [...]
--- OUTSIDE RECORDS SUMMARY | 2019-08-07 14:46 | XMS REPORT ---
:1970 Author Organization [facility] Care Team Providers Name Role Phone Unavailable [...]
--- OUTSIDE RECORDS SUMMARY | 2019-08-07 14:46 | XMS REPORT ---
:1970 Author Organization [facility] Care Team Providers Name Role Phone Unavailable [...]
--- OUTSIDE RECORDS SUMMARY | 2019-08-07 14:46 | XMS REPORT | Continuity of Care Document ---
:1970 External Reference #:[id number] Author Name Marley Banuelos N.P. (transmitted by agent of provider Nancy James) Address [address] [place] [address] Care Team Providers Name Role Phone Danny Powers MD - Family Medicine Care Team Information Correspondence Renew Clerk Problems Active Problems Provider Date Chronic pain [...] cardiovascular examination Sloane Suarez M.D. Onset: 07/13/2018 Arthroplasty of knee Alma Byers M.D. Onset: 11/14/2018 Social History Type Date Description Comments Sex Unknown Tobacco Use Start: Unknown Never Smoked Cigarettes Smoking Status Reviewed: 07/16/19 Never Smoked Cigarettes ETOH Use Rarely consumes [...] Medications SIG Qnty Indications Ordering Date Provider Pennsaid 2 pumps twice 112gm Jefe Wall, 04/17/2019 2% Solution daily as needed M.DBarbie to affected thighs and legs (failed Voltaren) [facility], [facility]2018 with a seat dx: [place]ila m79.651 Walker front wheeled carlo senrique Byers, 05/09/2018 [facility] rosey Gramajo Midodrine HCL take 2 tabs in 150tabs R55 Marley Banuelos, 11/10/2017 2.5mg Tablets the am; 2 midday N.P. and 1 in the evening. Nadolol 1/2 tab by mouth 45tabs Marley Banuelos, 06/27/2017 20mg Tablets every day N.P. Symbicort 2 puff twice a Sloane Suarez, 04/18/2017 80-4.5mcg/Act day M.D. Aerosol Montelukast Sodium 1 by mouth every Unknown 10/27/2015 10mg day Tablets Combivent Respimat 1 puffs twice Unknown 10/27/2015 daily 20-100mcg/Act Aerosol Cane disp 1 for M17.11 Jose Chavez, 03/17/2015 [facility] walking as MD needed Diazepam 5MG/ML 1mL po daily prn Unknown for anxiety Buspirone HCL take one and a Unknown 15mg Tablets half tablet by mouth twice a day Vitamin D3 Ultra 1 by mouth every Unknown Strength day 125mcg (5000 Ut) Capsules [facility] Iron one tab every Unknown 325(65Fe) mg other day Tablets Bupropion Hydrochloride 1 by mouth every Unknown ER (XL) day 300mg Tablets ER 24HR Levalbuterol HCL 1 unit every 6 Unknown 1.25mg/3ML hours as needed Nebulizer Belsomra 1 tab by mouth Nygren, 20mg Tablets at bedtime MD Lila Srinivasan once monthly Unknown Pantoprazole Sodium 1 by mouth twice Unknown 40mg a day Tablets DR Levalbuterol Tartrate inhale 2 puffs q Unknown 4 hours prn 45mcg/Act Aerosol Levocetirizine 1 by mouth every Unknown Dihydrochloride day 5mg Tablets Dicyclomine HCL 1 by mouth every Unknown 20mg day Tablets Epipen 2-Pool sc prn 2units Unknown 0.3mg/0.3ML Device History Medications D3-50 take 1 capsule by 8caps Marley Banuelos, 06/28/2019 - 1.25mg (82342 mouth once daily N.P. 06/27/2019 Ut) Capsules Amoxicillin take 4 pills, 2 g 4caps M25.561 Alma Byers, 04/01/2019 - 500mg 1 hour before M.D. 04/16/2019 Capsules dental or gi procedure Truvada once daily Unknown 03/29/2019 - 200-300mg 06/27/2019 Tablets Immunizations Description No Information Available Vital Signs Date Vital Result Comment 07/16/2019 3:18pm Height 68 inches 5'8" Weight 261.00 lb with shoes BP Systolic Sitting 100 mmHg Rue large cuff BP Diastolic Sitting 80 mmHg Rue large cuff Respiratory Rate 18 /min BMI (Body Mass Index) 39.7 kg/m2 Ejection Fraction 55-60% ECHO 07/19/2017 06/28/2019 2:58pm Height 68 inches 5'8" Weight 258.00 lb no shoes Heart Rate 72 /min BP Systolic Sitting 118 mmHg BP Diastolic Sitting 80 mmHg BP Systolic Standing 118 mmHg BP Diastolic Standing 80 mmHg Respiratory Rate 16 /min BMI (Body Mass Index) 39.2 kg/m2 Results Test Acquired Date Facility Test Result H/L Range Note Order 07/10/2019 [facility] Holter <pending> [address] [place] [address] [phone] HIV-1 Rna QNT 07/01/2019 [facility] HIV-1 Rna Undetected Undetected 1 By PCR Sli [address] (PCR) copies/[place] [address] [phone] Hepatitis C 07/01/2019 [facility] HCV Index 0.01 s/c Antibody [address] [place] [address] [phone] Hepatitis C Antibody Negative Negative Laboratory test 07/01/2019 [facility] Syphillis Igg Negative Negative finding [address] W/[place] [address] [phone] Hepatitis B Surface Ag Nonreactive Nonreactive Laboratory test 07/01/2019 [facility] Ferritin 9.8 ng/mL Low 11-307 finding [address] [place] [address] [phone] Vitamin D Total 25(Oh) 26.6 ng/mL Normal 20-50 2 Ceruloplasmin 28.6 mg/dL 3 Copper, Serum 1.25 g/mL 0.75-1.45 4 Zinc Serum 0.73 g/mL 0.66-1.10 5 HIV 1&2 p24 05/16/2019 [facility] HIV 4th Nonreactive Nonreactive Screen [address] Generation [place], [place] [id number] [phone] Laboratory 05/16/2019 [facility] Syphillis Igg Negative Negative test finding [address]/Reflex RPR [place], [place] [id number] [phone] Hepatitis C 05/16/2019 [facility] HCV Index 0.01 s/c Antibody [address] [place] [address] [phone] Hepatitis C Antibody Negative Negative Laboratory 05/16/2019 [facility] Hepatitis B Nonreactive Nonreactive test finding [address] [place] [address] [phone] 1 Result in log copies/mL is Undetected. ADDITIONAL INFORMATION The quantification range of this assay is 20 to 10,000,000 copies/mL (1.30 log to 7.00 log copies/mL). Testing was performed using the efrem HIV-1 test ([employer] with the efrem DrNaturalHealing0 System. This test has been modified from the telecasting technician's instructions. Its performance characteristics were determined by [facility] in a manner consistent with CLIA requirements. This test has not been cleared or approved by the U.S. Food and Drug Administration. Test Performed by: [facility] [place] [address] Location Analyst: Casey Waldron M.D. Ph.D.; CLIA# [id number] 2 Total 25-Hydroxyvitamin D2 and D3 (25-OH-VitD) <10 ng/mL (severe deficiency) 10-19 ng/mL (mild to moderate deficiency) 20-50 ng/mL (optimum levels) 51-80 ng/mL (increased risk of hypercalciuria) >80 ng/mL (toxicity possible) 3 REFERENCE VALUE 20.0 - 51.0 Test Performed by: [facility] - [address] [address] Location Analyst: Casey Waldron M.D. Ph.D.; CLIA# [id number] 4 ADDITIONAL INFORMATION This test was developed and its performance characteristics determined by [facility] in a manner consistent with CLIA requirements. This test has not been cleared or approved by the U.S. Food and Drug Administration. Test Performed by: [facility] [place] [address] Location Analyst: Casey Waldron M.D. Ph.D.; CLIA# [id number] 5 ADDITIONAL INFORMATION This test was developed and its performance characteristics determined by [facility] in a manner consistent with CLIA requirements. This test has not been cleared or approved by the U.S. Food and Drug Administration. Test Performed by: [facility] [address] [place] [address] Location Analyst: Casey Waldron M.D. Ph.D.; CLIA# [id number] Procedures Date Code Description Status 06/28/2019 79076 EKG Tracing & Interpretation Completed Medical Devices Description No Information Available Encounters Type Date Location Provider Dx Diagnosis Office Visit 06/28/2019 [facility] Marley Banuelos, G90.4 Autonomic 2:30p Of Robert N.PBarbie dysreflexia R94.31 Abnormal electrocardiogram [ECG] [EKG] R00.2 Palpitations Office Visit 04/17/2019 3:00p Rheumatology Jefe Wall, R10.2 [facility] Avila perineal pain R20.8 Other disturbances of skin sensation M79.7 Fibromyalgia M35.7 Hypermobility syndrome Office Visit 04/11/2019 1:40p [facility] Segun Rice Z79.899 Other fci Infectious Avila Jones (current) drug Diseases therapy R11.0 Nausea Office Visit 04/01/2019 1:00p [facility] Alma Byers M25.561 Pain in right at [place]ila knee Z96.651 Presence of right artificial knee joint Assessments Date Code Description Provider 07/16/2019 R00.2 Palpitations Marley Banuelos, N.P. 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 07/16/2019 R94.31 Abnormal electrocardiogram [ECG] [EKG] Marley Banuelos, N.P. 07/10/2019 R00.2 Palpitations Nurse Visit IC 06/28/2019 R00.2 Palpitations Sloane Suarez M.D. 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 06/28/2019 R94.31 Abnormal electrocardiogram [ECG] [EKG] Marley Banuelos N.P. 06/28/2019 R00.2 Palpitations Marley Banuelos N.P. 04/17/2019 R10.2 Pelvic and perineal pain Jefe Wall M.D. 04/17/2019 R20.8 Other disturbances of skin sensation Jefe Wall M.D. 04/17/2019 M79.7 Fibromyalgia Jefe Wall M.D. 04/17/2019 M35.7 Hypermobility syndrome Jefe Wall M.D. 04/11/2019 Z79.899 Other fci (current) drug therapy Segun Jones M.D. 04/11/2019 R11.0 Nausea Segun Jones M.D. 04/01/2019 M25.561 Pain in right knee Alma Byers M.D. 04/01/2019 Z96.651 Presence of right artificial knee joint Alma Byers M.D. Plan of Treatment Future Appointment(s):10/22/2019 2:00 pm - Andrews Bains M.D. at [facility]10/11/2019 3:30 pm - Alma Byers M.D. at [facility] at [id number]/16/2019 - Marley Banuelos, N.P.R00.2 EwsajcbrbldeO22.4 Autonomic dysreflexiaFollow up:[facility] 11/2019Recommendations:Increase midodrine to 2 (2.5mg) in the AM and noon and Take 1 tab at bedtime.R94.31 Abnormal electrocardiogram [ECG] [EKG] Functional Status Description No Information Available Mental Status Description No Information Available Referrals Description No Information Available
--- OUTSIDE RECORDS SUMMARY | 2019-08-07 14:46 | XMS REPORT ---
:1970 Author Organization [facility] Care Team Providers Name Role Phone Unavailable [...]
--- OUTSIDE RECORDS SUMMARY | 2019-08-07 14:46 | XMS REPORT ---
:1970 Author Organization [facility] Care Team Providers Name Role Phone Unavailable [...]
--- OUTSIDE RECORDS SUMMARY | 2019-08-07 14:46 | XMS REPORT | Continuity of Care Document ---
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 Renetta Blandon NP Onset: 03/22/2019 Allergic rhinitis Wm Delaney MD Onset: 05/12/2017 Allergic rhinitis due to pollen Wm Delaney MD Onset: 05/12/2017 Uncomplicated severe persistent asthma Wm Delaney MD Onset: 2016 Moderate persistent asthma Wm Delaney MD Onset: 06/15/2016 Anaphylaxis Wm Dleaney MD Onset: 06/10/2016 Social History Type Date [...] daily as needed Tablets Midodrine HCL po Wm Suazo 12/29/2017 2.5mg MD Rhett Tablets Combivent Respimat 1 puff 6 times 12gm Wm Suazo 06/29/2016 a day as needed MD Rhett 20-100mcg/Act Aerosol Montelukast Sodium take 1 tablet 30tabs Renetta Blandon NP 04/14/2016 10mg by mouth once Tablets daily in the evening Symbicort two puffs twice 10.200gm Renetta Blandon NP 08/14/2015 160-4.5mcg/Act daily Aerosol Epipen 2-Pool as directed 2units [facility] Su[facility] 01/16/2015 0.3mg/0.3ML MD Rhett Solution Auto-Inject Levalbuterol HCL use in 72ml [place] A. nebulizer as MD Rhett 1.25mg/3ML Nebulizer directed [...] Available Vital Signs Date Vital Result Comment 06/21/2019 4:34pm BP Systolic 120 mmHg BP Diastolic 76 mmHg Height 68 inches 5'8" Weight 253.00 lb BMI (Body Mass Index) 38.5 kg/m2 Heart Rate 87 /min Respiratory Rate 16 /min O2 % BldC Oximetry 98 % 03/22/2019 10:35am BP Systolic 128 mmHg BP Diastolic 62 mmHg Height 68 inches 5'8" Weight 253.00 lb BMI (Body Mass Index) 38.5 kg/m2 Heart Rate 69 /min Respiratory Rate 20 /min O2 % BldC Oximetry 98 % Results Description No Information Available Procedures Date Code Description Status 06/21/2019 56052 Nitric Oxide Gas Determination Completed 06/21/2019 62443 Nitric Oxide Gas Determination Completed 06/21/2019 30419 Bronchodilation Responsiveness Spirometry Pre/Post Completed Bronchodil Adm 06/21/2019 90653 Bronchodilation Responsiveness Spirometry Pre/Post Completed Bronchodil Adm 03/22/2019 59322 Nitric Oxide Gas Determination Completed 03/22/2019 51945 Nitric Oxide Gas Determination Completed 03/22/2019 20365 Bronchodilation Responsiveness Spirometry Pre/Post Completed Bronchodil Adm 03/22/2019 89639 Bronchodilation Responsiveness Spirometry Pre/Post Completed Bronchodil Adm Medical Devices Description No Information Available Encounters Type Date Location Provider Dx Diagnosis Office Visit 06/21/2019 Damion Blandon NP J45.40 Moderate persistent 3:30p asthma, uncomplicated J30.1 Allergic rhinitis due to pollen D72.1 Eosinophilia Office Visit 03/22/2019 10:30a [place] Renetta Blnadon NP J45.50 Severe persistent asthma, uncomplicated D72.1 Eosinophilia J30.89 Other allergic rhinitis Assessments Date Code Description Provider 06/21/2019 J45.40 Moderate persistent asthma, uncomplicated Wm Delaney MD 06/21/2019 J45.40 Moderate persistent asthma, uncomplicated Renetta Blandon NP 06/21/2019 J30.1 Allergic rhinitis due to pollen Wm Delaney MD 06/21/2019 J30.1 Allergic rhinitis due to pollen Renetta Blandon NP 06/21/2019 D72.1 Eosinophilia Wm Delaney MD 06/21/2019 D72.1 Eosinophilia Renetta Blandon NP 03/22/2019 J45.50 Severe persistent asthma, uncomplicated Wm Delaney MD 03/22/2019 J45.50 Severe persistent asthma, uncomplicated Renetta Blandon NP 03/22/2019 D72.1 Eosinophilia Wm Delaney MD 03/22/2019 D72.1 Eosinophilia Renetta Blandon NP 03/22/2019 J30.89 Other allergic rhinitis Wm Delaney MD 03/22/2019 J30.89 Other allergic rhinitis Renetta Blandon NP Plan of Treatment Future Appointment(s):08/07/2019 11:30 am - HANNAH Clemente at [facility]/27/2019 3:30 pm - Renetta Blandon NP at [facility]/21/2019 - Renetta Blandon NPJ45.40 Moderate persistent asthma, iqcstopouicwmK91.1 Allergic rhinitis due to devugfG92.1 Eosinophilia Functional Status Description No Information Available Mental Status Description No Information Available Referrals Description No Information Available
--- OUTSIDE RECORDS SUMMARY | 2019-08-07 14:46 | XMS REPORT ---
:1970 Author Organization [facility] Care Team Providers Name Role Phone Unavailable [...]
--- OUTSIDE RECORDS SUMMARY | 2019-08-07 14:46 | XMS REPORT | Continuity of Care Document ---
:1970 External Reference #:[id number] Author Name Lexi Christina O.D. Address [address] [place] [address] Care Team Providers Name Role Phone Danny Powers M.D. - Internal Care Team Information Geriatric Case Manager Medicine Sloane Suarez M.D. - Cardiovascular Care Team Information Geriatric Case Manager Disease Alma Byers M.D. - Adult Care Team Information Geriatric Case Manager [phone] Reconstructive Orthopaedic Surgery Yanni Hurtado M.D. Care Team Information Geriatric Case Manager Unavailable Jefe Wall MD - Rheumatology Care Team Information Geriatric Case Manager [phone] Wm Delaney M.D. - Allergy Care Team Information Geriatric Case Manager & Immunology Jian Fuentes M.D. - Care Team Information Geriatric Case Manager [phone] Gastroenterology Trevon White O.D. - Surgical Instruments Inspector Care Team Information Geriatric Case Manager [phone] Problems Active Problems Provider Date Asthma Onset: Anxiety Onset: Depressive disorder Onset: Fibromyalgia Onset: Sleep apnea Onset: Insomnia Onset: Syncope Onset: Knee pain Onset: Tremor Onset: Manuela-Danlos syndrome Onset: Uterine fibroid polyp Onset: Vitreous degeneration Lexi Christina O.D. Onset: 07/18/2019 Tear film insufficiency Lexi Christina O.D. Onset: 07/18/2019 Blepharospasm Lexi Christina O.D. Onset: 07/18/2019 Social History Type Date Description Comments Sex Unknown ETOH Use Denies alcohol use Tobacco Use Start: Unknown Patient has never smoked Smoking Status Reviewed: 07/18/19 Patient has never smoked Allergies, Adverse Reactions, Alerts Active Allergies Reaction Severity Comments Date Benadryl 07/18/2019 Sulfa 07/18/2019 Amitriptyline 07/18/2019 Medications Active Medications SIG Qnty Indications Ordering Provider Date Soothe XP 1 drop both eyes 45ml H04.123 Lexi Christina, 07/18/2019 Solution every day as O.D. needed Epipen 2-Pool Unknown 0.3mg/0.3ML Solution Auto-Inject Iron Unknown 28mg Tablets Vitamin B12 Unknown 1000mcg Tablets ER Vitamin D 3000 - 3500 Unknown 2000Unit Tablets daily Xopenex HFA Unknown 45mcg/Act Aerosol Buspirone HCL Take 1 & 1 2 Unknown 15mg Tablets (One & One Half) Tablets By Mouth Twice Daily Belsomra Unknown 20mg Tablets Symbicort Inhale 2 Puffs Unknown 160-4.5mcg/Act By Mouth Twice Aerosol Daily Dicyclomine HCL Take 1 Tablet By Unknown 20mg Tablets Mouth Twice Daily Bupropion Hydrochloride Unknown ER (XL) 300mg Tablets ER 24HR Combivent Respimat Inhale 1 puff By Unknown Mouth Six Times 20-100mcg/Act Aerosol Daily as Needed Levocetirizine Take 1 Tablet By Unknown Dihydrochloride Mouth Once Daily 5mg Tablets as Needed Montelukast Sodium Take 1 Tablet By Unknown 10mg Mouth Once Daily Tablets In The Evening Pantoprazole Sodium Jian Fuentes 40mg M.D. Tablets Jefe Jiang MD 2% Solution Nadolol Marley Banuelos NP 20mg Tablets Midodrine HCL Marley aBnuelos NP 2.5mg Tablets Immunizations Description No Information Available Vital Signs Description No Information Available Results Description No Information Available Procedures Description No Information Available Medical Devices Description No Information Available Encounters Description No Information Available Assessments Date Code Description Provider 07/18/2019 G24.5 Blepharospasm Lexi Christina O.D. 07/18/2019 H04.123 Dry eye syndrome of bilateral lacrimal glands Lexi Christina O.D. 07/18/2019 H43.813 Vitreous degeneration, bilateral Lexi Christina O.D. Plan of Treatment 07/18/2019 - Lexi Christina O.D.G24.5 BlepharospasmComments:Smoking can increase the risk of developing or worsening any eye related disease, as well as affect your overall health. If you are a smoker, we strongly recommend that you quit.If you are not a smoker, we strongly recommend that you do not start.Follow up:Referral to Dr. Jeter or Dr. Dawn for blepharospasm eval/txH04.123 Dry eye syndrome of bilateral lacrimal glandsNew Medication: Soothe XP - 1 drop both eyes every day as neededComments:Both of your eyes appear to be dry. Use artificial tears as directed. You can use the tears more often if you are reading a book or are on the computer, as we tend to blink less , making our eyes dry out more.[facility] offers a few items in our optical department to help alleviate dry eye symptoms.H43.813 Vitreous degeneration, bilateralComments:You have Vitreous Floaters. If you have any changed in your floaters or flashing lights, please contact this office. Functional Status Description No Information Available Mental Status Description No Information Available Referrals Description No Information Available
--- OUTSIDE RECORDS SUMMARY | 2019-08-07 14:46 | XMS REPORT ---
:1970 Author Organization [facility] Care Team Providers Name Role Phone Unavailable [...]
--- OUTSIDE RECORDS SUMMARY | 2019-08-07 14:46 | XMS REPORT ---
:1970 Author Organization [facility] Care Team Providers Name Role Phone Unavailable [...]
--- OUTSIDE RECORDS SUMMARY | 2019-08-07 14:46 | XMS REPORT ---
:1970 Author Organization [facility] Care Team Providers Name Role Phone Unavailable [...]
--- OUTSIDE RECORDS SUMMARY | 2019-08-07 14:46 | XMS REPORT ---
:1970 Author Organization [facility] Care Team Providers Name Role Phone Unavailable [...]
--- OUTSIDE RECORDS SUMMARY | 2019-08-07 14:46 | XMS REPORT ---
:1970 Author Organization [facility] Care Team Providers Name Role Phone Unavailable [...]
--- OUTSIDE RECORDS SUMMARY | 2019-08-07 14:46 | XMS REPORT ---
:1970 Author Organization [facility] Care Team Providers Name Role Phone Unavailable [...]
--- OUTSIDE RECORDS SUMMARY | 2019-08-07 14:46 | XMS REPORT ---
:1970 Author Organization [facility] Care Team Providers Name Role Phone Unavailable [...]
--- OUTSIDE RECORDS SUMMARY | 2019-08-07 14:46 | XMS REPORT ---
:1970 Author Organization [facility] Care Team Providers Name Role Phone Unavailable [...]
--- OUTSIDE RECORDS SUMMARY | 2019-08-07 14:46 | XMS REPORT ---
:1970 Author Organization [facility] Care Team Providers Name Role Phone Unavailable [...]
--- OUTSIDE RECORDS SUMMARY | 2019-08-07 14:46 | XMS REPORT ---
:1970 Author Organization [facility] Care Team Providers Name Role Phone Unavailable [...]
--- OUTSIDE RECORDS SUMMARY | 2019-08-07 14:46 | XMS REPORT ---
:1970 Author Organization [facility] Care Team Providers Name Role Phone Unavailable [...]
[2019-08-07] MEDS ORDERED: Budesonide/Formote 160/4.5(NF) MDI INH PRN (18:02)
[2019-08-07] MEDS ORDERED: Levalbuterol 1.25MG/0.5ML NEB INH PRN (18:02)
[2019-08-07 19:12] LABS: Urine Appearance Cloudy; Urine Bilirubin Negative (Negative); Urine Blood Negative (Negative); Urine Color Yellow; Urine Glucose Negative (Negative); Urine Ketones Negative (Negative); Urine Nitrite Negative (Negative); Urine Protein Negative (Negative); Urine Specific Gravity 1.018 (1.010-1.030); Urine Urobilinogen Negative (Negative)
[2019-08-07] MEDS: Dexamethasone TAB* 4 MG PO ONE ×2 (20:23→20:24)
[2019-08-07] MEDS: Dicyclomine CAP* 10 MG PO SCH (20:24)
[2019-08-07] MEDS: Pantoprazole TAB * 40 MG TAB PO SCH (20:24)
[2019-08-07] MEDS: Albuterol/Ipratropium NEB.SOL* Albuterol 2.5 MG/Ipratropium 0.5 MG 3 ML INH SCH ×2 (20:25→23:07)
[2019-08-07] MEDS ORDERED: Cetirizine* 10 MG TAB PO SCH (21:00)
[2019-08-07] MEDS ORDERED: Melatonin 3 MG TAB PO ONE (21:00)
[2019-08-07] MEDS ORDERED: clonazePAM TAB(*) 1 MG PO PRN (21:32)
[2019-08-07] MEDS ORDERED: Suvorexant (NF) 20 MG TAB PO PRN (21:32)
[2019-08-07] MEDS: Mometasone/Formoter 200/5 MDI INH SCH ×2 (21:47→23:10)
[2019-08-07] MEDS: busPIRone TAB* 15 MG PO SCH (21:48)
[2019-08-07] MEDS ORDERED: NFT: Albuterol/Ipratropium RESP(NF) MDI (Combivent Respimat) INH SCH (22:00)
--- NOTE | 2019-08-07 22:31 | HP ---
ADMISSION HISTORY AND PHYSICAL: DATE OF ADMISSION: 08/07/19 PRIMARY CARE PHYSICIAN: Dr. Powers. ADMITTING PHYSICIAN: Dr. Farmer * (being dictated by SHEA GUERRA NP). CHIEF COMPLAINT: Shortness of breath and wheezing. HISTORY OF PRESENT ILLNESS: Ms. Vega is a 48-year-old female with past medical history significant for asthma, anxiety, hypertension, POTS syndrome, sleep apnea, Manuela-Danlos syndrome, fibromyalgia. Today, she had an appointment with her sensor specialist, Dr. Delaney and reports that while in his office, started having a significant asthma exacerbation. It is reported from the ED provider's report that the patient went into respiratory distress. She was given 3 albuterol nebs and epinephrine in the office and 1 DuoNeb and steroids in the ambulance per EMS. The patient states that her asthma has been getting progressively, but slowly worse over the last many months and has been exceptionally worse over the last 2 weeks. States that about 3 weeks ago, she was at the eye doctor where she had dilating eyedrops as well as some sort of dye eyedrop, and about 2 days after that, she got a red erythematous painful rash surrounding her chin and neck, which was there for approximately 2 weeks. She also states that she was around a sick contact with strep throat abut 2 weekends ago and she also states that she did smoke marijuana about 2 weeks ago , which was the first time in a long time. Otherwise, she is not a smoker. States that she was swabbed for a strep throat a couple days ago and that was negative. She cannot think of any triggers for her asthma exacerbation or for why it has been getting worse over the last few months. She currently denies any headache, fevers, chills, chest pain, not feeling short of breath at this time, nausea, vomiting. Denies any known bleeding or clotting disorders. Denies any recent antibiotic use. States that she has chronic postnasal drip, which will make her cough and essentially give her a sore throat, but denies anything unusual. Has had a long-time cough, usually unproductive but sometimes will cough up thick yellow sputum but again states it is typically dry. She denies any new food, has no pets in the home, has not been around any pets, again cannot think of any triggers for this particular exacerbation. States that at times she will have headaches and feel dizzy with excessive coughing. She does have a history of POTS syndrome. While in the emergency department today, she did receive a DuoNeb, 1 L of normal saline, magnesium sulfate 2 g, and at one point, was put on Vapotherm. At one point, she was feeling much better and she was on Vapotherm at 30 L with 50% FiO2. At 1552, she was put on room air and was going to be monitored; however, at some point after that, she started with heavy coughing and wheezing per her report and was feeling as if she was going downhill again. She has since remained on room air. She is maintaining O2 sats 96% to 100% on room air. Does have significant expiratory wheezing throughout bilateral lung jalloh. Hospital Medicine was asked to evaluate this patient for admission. PAST MEDICAL HISTORY: 1. Asthma. 2. Anxiety. 3. Depression. 4. POTS syndrome. 5. Hypertension. 6. Sleep apnea, does not tolerate CPAP machine. 7. GERD. 8. IBS. 9. Manuela-Danlos syndrome. 10. Fibromyalgia. 11. Chronic neck and back pain. PAST SURGICAL HISTORY: 1. Nerve removal from left foot. 2. Surgery in relation to uterine cystic fibroids and endometriosis. 3. [place] teeth extraction. 4. Right total knee replacement. HOME MEDICATIONS: 1. Diclofenac sodium 2 g topical daily. 2. Belsomra 20 mg p.o. bedtime p.r.n. 3. Buspirone 22.5 mg p.o. b.i.d. 4. Senna-S tablet 1 to 2 tab p.o. daily p.r.n. 5. Montelukast sodium 10 mg p.o. daily. 6. Midodrine 2.5 mg p.o. bedtime. 7. Midodrine 5 mg p.o. q.a.m. and afternoon. 8. Nadolol 10 mg p.o. daily. 9. Dicyclomine 20 mg p.o. b.i.d. 10. Pantoprazole 40 mg p.o. b.i.d. 11. Levocetirizine 5 mg p.o. bedtime. 12. Levalbuterol 2 puffs inhaled q.4 hours p.r.n. 13. Epinephrine 0.15 mg injection once p.r.n. 14. Albuterol/ipratropium 1 puff inhaled 6 times daily. 15. Levalbuterol 1.25 mg inhaled t.i.d. p.r.n. 16. Symbicort 160/4.5 two puffs inhaled b.i.d. p.r.n. 17. Atrovent neb 0.5 mg inhaled q.4 to 6 hours p.r.n. The patient believes this is a new prescription and she has not yet picked up. ALLERGIES: 1. ADHESIVE. 2. AMITRIPTYLINE. 3. BEE VENOM. 4. CORTISONE. 5. DIPHENHYDRAMINE. 6. OMALIZUMAB. 7. QUETIAPINE. 8. STRAWBERRIES. 9. DUST. FAMILY HISTORY: Mother with sudden at age 61, was noted to have cardiac disease, Manuela-Danlos syndrome, asthma, COPD, emphysema, was a heavy smoker. Maternal grandmother with colon cancer. SOCIAL HISTORY: The patient states that surrogate decision maker for her would be her stepmother Sharon Bass. Denies any tobacco or smoking history; however, she states that she had significant secondhand smoke exposure throughout her childhood. States very rare alcohol use. Other than the marijuana that she smoked a couple weeks ago, denies any other drug use. States she lives alone. She is disabled. REVIEW OF SYSTEMS: A 12-point review of systems was completed with this patient. Please see HPI for all pertinent positives and negatives. PHYSICAL EXAMINATION CONSTITUTIONAL: The patient is sitting up in bed, in no acute distress. VITAL SIGNS: Last vital signs; temp 97.5, heart rate 65, BP 120/91, respiratory rate 20, O2 sat 96% on room air. HEENT: PERRL. No scleral icterus noted. Mucous membranes moist. Very mild right- sided oropharyngeal erythema. LYMPHATIC: No anterior or posterior cervical lymphadenopathy. RESPIRATORY: Lung sounds exhibit significant expiratory wheeze throughout all lung jalloh. Sounds clear with inspiration. Normal respiratory effort. However, deep breathing elicits strong cough. CARDIOVASCULAR: Heart rate regular. S1, S2 present. No murmurs, rubs or gallops noted. GI: Normoactive bowel sounds throughout. Abdomen: Soft, mild tenderness to left lower quadrant. EXTREMITIES: Trace edema bilateral lower extremities. Pedal pulses 2+ bilaterally. NEURO: Alert and oriented x3. SKIN: Appears dry and intact. DIAGNOSTIC STUDIES/LAB DATA: EKG shows sinus rhythm with a rate of 63 beats per minute. No ST elevations or depressions noted. T wave inversion in V1 and lead III. Chest x-ray, impression states no active cardiopulmonary disease. Lab values: WBC 14.6, RBC 4.35, hemoglobin 12.1, hematocrit 37, MCV 85, MCH 28 , MCHC 33, RDW 17, platelet count 431. Absolute neutrophils 8.9, absolute lymphocytes 3.7, absolute monocytes 0.9, absolute eosinophils 1.1. Sodium 137, potassium 4.6, chloride 106, carbon dioxide 22, anion gap 9, BUN 18, creatinine 1.08, estimated GFR 54.4, BUN/creatinine ratio 16.7, glucose 128, calcium 9.2. Total bilirubin 0.4, AST 14, ALT 11, alk phosphatase 62. Troponin 0.00. BNP 236. Total protein 6.5, albumin 3.8, globulin 2.7. ASSESSMENT AND PLAN: Ms. Vega is a 48-year-old female with past medical history significant for asthma, anxiety, postural orthostatic tachycardia syndrome, hypertension, sleep apnea, gastroesophageal reflux disease, irritable bowel syndrome, Manuela-Danlos syndrome, fibromyalgia. 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 1. Asthma exacerbation. The patient has been experiencing slowly progressive worsening asthma over the last many months with exceptionally worse asthma symptoms over the last couple of weeks. She sees her primary care provider for what sounds like regularly, as well as Dr. Delaney from [facility]. Her medications have recently been changed per her report in relation to her worsening. She cannot pinpoint any specific reason for a trigger for today's exacerbation. She received multiple medications while at the doctor's office as well as en route to the hospital and medications while in the emergency department. She was on Vapotherm at one point. Had planned on going home at one point; however, she then started feeling more shortness of breath and was having wheezing and it was decided that she should be observed overnight. We will continue usual respiratory medications with the exception of Xopenex inhaler and Atrovent nebulizer solution, as she is having other medications added to her regimen. Start DuoNebs. Start dexamethasone 4 mg now and 4 mg p.o. in the morning. RT per protocol. Continue to monitor. 2. Hypertension and postural orthostatic tachycardia syndrome. We will continue her usual medication regimen as to not further disturb her body's reaction to her asthma exacerbation as well as the multiple new medications that she has received today. Continue to monitor. Continue her usual nadolol as well as her usual regimen of midodrine. 3. Sleep apnea and self-reported insomnia. The patient admits that she does not tolerate her CPAP machine. Also states that she often has insomnia and wakes up multiple times in the night on top of having sleep apnea already. States that she does not want to attempt to use the hospital CPAP machine. O2 as needed per protocol. Melatonin 6 mg p.o. once bedtime. Continue to monitor. 4. Anxiety. Continue usual buspirone regimen. 5. Irritable bowel syndrome. Continue usual dicyclomine regimen. 6. FEN. Continue regular diet. No fluids necessary at this time. 7. Code status. Full code. 8. DVT prophylaxis. Encourage ambulation. TIME SPENT: Approximately 70 minutes was spent on this admission with almost half of that being [id number] with the patient for interview, exam, and reviewing plan of care. This case has been reviewed by my attending physician, Dr. Farmer, and she agrees with this plan. SHEA GUERRA NP [id number]/[facility] #: [id number] AMINAH
[2019-08-08] MEDS: Albuterol/Ipratropium NEB.SOL* Albuterol 2.5 MG/Ipratropium 0.5 MG 3 ML INH SCH ×3 (03:39→11:53)
[2019-08-08 06:51] LABS: ABS Lymphocytes 1.4 10^3/ul (1.0-4.8); ABS Monocytes 0.3 10^3/ul (0-0.8); ABS Neutrophils 13.8 10^3/ul (1.5-7.7); Hematocrit 35 % (35-47); Hemoglobin 11.3 g/dL (12.0-16.0); Lymphocyte % 9.1 %; Mean Corpuscular HGB Conc 33 g/dL (31-36); Mean Corpuscular Hemoglobin 28 pg (27-31); Mean Corpuscular Volume 86 fL (80-97); Mean Platelet Volume 8.5 fL (7.4-10.4); Platelet Count 336 10^3/uL (150-450); Red Blood Count 4.01 10^6 /uL (3.70-4.87); Red Cell Distribution Width 18 % (10-15); White Blood Count 15.6 10^3/uL (3.5-10.8)
[2019-08-08] MEDS: Dicyclomine CAP* 10 MG PO SCH (07:57)
[2019-08-08] MEDS: Pantoprazole TAB * 40 MG TAB PO SCH (07:57)
[2019-08-08] MEDS: busPIRone TAB* 15 MG PO SCH (07:58)
[2019-08-08] MEDS: Mometasone/Formoter 200/5 MDI INH SCH (08:04)
[2019-08-08] MEDS ORDERED: Dexamethasone TAB* 4 MG PO SCH (09:00)
[2019-08-08] MEDS ORDERED: Nadolol (NF) 20 MG TAB PO SCH (09:00)
[2019-08-08] MEDS ORDERED: Montelukast Sodium TAB* 10 MG PO SCH (09:00)
[2019-08-08] MEDS ORDERED: Azithromycin TAB* 250 MG PO ONE (10:11)
[2019-08-08 11:27] VITALS: BP 125/61
--- NOTE | 2019-08-08 21:33 | DS ---
CC: Dr. Powers; Dr. Delaney with [facility] * DISCHARGE SUMMARY: DATE OF ADMISSION: 08/07/19 DATE OF DISCHARGE: 08/08/19 ATTENDING PHYSICIAN: Dr. Farmer * (dictated by Shea Guerra NP). PRIMARY CARE PHYSICIAN: Dr. Powers. PRIMARY DIAGNOSIS: Asthma exacerbation SECONDARY DIAGNOSES: 1. Postural orthostatic tachycardia syndrome. 2. Hypertension 3. Anxiety 4. Sleep apnea 5. Irritable bowel syndrome. HISTORY OF PRESENT ILLNESS AND HOSPITAL COURSE: Ms. Vega is a 48-year-old female with past medical history significant for asthma, anxiety, hypertension, POT syndrome, sleep apnea, Manuela-Danlos syndrome, fibromyalgia. It is reported that yesterday on 08/07/19, she had made an appointment with her curriculum development specialist, Dr. Delaney, and while she was at his office, she started to having respiratory distress. She was given medication while at the office. EMS was called and also given some medications en route to the emergency department. While in the emergency department, she received a DuoNeb 1 L of normal saline, magnesium sulfate 2 g and she was also put on Vapotherm. At one point, she was feeling much better while she was on Vapotherm at 30 L with 50% FiO2. It was thought that she may be able to go home after Vapotherm was taken off and she was doing well, however, she started having an increase in cough, shortness of breath, and wheezing and it was decided that she should stay overnight for observation. She did rather well while on the medical unit. She states that the DuoNeb ordered for her seemed to be helping. She states that she will cough and feel as if they are irritating her respiratory tract while she is getting the treatment. She says that this happens with her regular albuterol or levalbuterol nebulizers at home as well, but about half an hour later she does feel an improvement in her breathing. She was also started on dexamethasone received 4 mg p.o. last night, received a dose as well this morning. She will be sent home on a taper. Her lungs are sounding much better today. There is a very mild end expiratory wheeze to her right lower base, however, all other lobes are clear throughout. She does, however, complain of increased cough. She states that it was seeming dry most of the time, however, she believes that now she is starting to cough up some thick mucus, she often swallows this. She believes that she has a temperature that is higher than her baseline, although they have all been within normal limits while in the hospital. She does have an increased WBC today at 15.6, which is up from 14.6 from yesterday. It is reasonable to attribute this jump to the steroids that she was on, however, she is noted to have multiple elevations in WBC since March 2019 ranging from 11.2 to 15.6. She also states that she has been very tired lately and that she has significant post nasal drip, which is not helping her cough. With her symptoms and physical finding in relation to recent asthma exacerbation, it is reasonable to send her on antibiotics. She does complain of some left lower quadrant pain and tenderness with palpation. States this is normal for her, however, it seems a little bit more tender than usual. She did have a soft bowel movement this morning, which is more normal in appearance than what she reported as diarrhea the day before. She states that she has IBS and she is almost always either having diarrhea or constipated. There is no clinical concern for other abnormality at this time. She is also complaining of difficulty starting the urinary stream, although she believes that she is voiding normal amounts of urine. UA was unremarkable. We will obtain a postvoid residual prior to discharge. Otherwise, her vital signs have remained stable and as mentioned her lungs sounds are much improved from yesterday. This case was reviewed with Dr. Farmer and it is deemed that patient is acceptable for discharge today. REVIEW OF SYSTEMS: A 10-point review of systems was completed with this patient today, please see HPI for pertinent positive and negatives. PHYSICAL EXAMINATION: Constitutional: The patient sitting up in bed, appears to be in no acute distress. Last vital signs: Temp 98.2, heart rate 70, respiratory rate 16, O2 sat 99% on room air, BP 127/31. HEENT: No maxillary sinus tenderness or edema. Mucus membranes moist. Lymphatic: No anterior, posterior cervical lymphadenopathy. Cardiovascular: Heart irregular. S1, S2 present. No murmurs or gallops noted. Extremities: No edema. Pedal pulses present 2+ bilaterally. Respiratory: Faint end expiratory wheeze noted to right lower lobe base, otherwise all other lobes clear throughout, normal respiratory effort, deep breathing elicits strong cough. GI: Normoactive bowel sounds throughout. Abdomen tender to left lower quadrant to deep palpation. Musculoskeletal: Range of motion appears to be within normal limits. Skin: Appears dry and intact. Neuro: Alert and oriented x3. DIAGNOSTIC STUDIES/LAB DATA: EKG showed sinus rhythm with a rate of 63 beats per minute. No ST elevations or depressions noted. She does have T wave inversion in leads III, V1. Chest x-ray impression states no active cardiopulmonary disease. Laboratory values, most recent WBC 15.6, RBC 4.01, hemoglobin 11.3, hematocrit 35, RDW 18, platelet count 336, neutrophil 13.8. Sodium 137, potassium 4.1, chloride 106, carbon dioxide 22, anion gap 9 BUN 18, creatinine 1.08, estimated GFR 54.4, BUN creatinine ratio 16.7, glucose 128, calcium 9.2. DISCHARGE PLAN: Continue a healthy diet low in sugars and fat, and limit process foods. No equipment necessary for discharge Continue her usual activity level as tolerated, increasing exercise level with walking as appropriate as long as it does not cause respiratory symptoms. Asthma exacerbation. She will be continued on her usual respiratory medications as well as additional DuoNeb, dexamethasone taper, and azithromycin. She should follow up with her primary care provider as well as Dr. Delaney from [facility] within the next 4 to 7 days. POTS and hypertension. Continue with her usual medication regimen. BP has been stable while in the hospital. Anxiety. Again continue her usual medication. She does not appear to have significant anxiety of concern during the stay. Sleep apnea. She states that she does not tolerate a CPAP that. She states that she also has insomnia. She should follow up with her primary care provider about this and if able try CPAP machine again IBS. Can continue with her usual medication in relation to this diagnosis. It sounds if her bowel movements are improving and this is likely a cause of her reported left lower quadrant pain. I currently have no concern for intestinal infection at this time. She should follow up with her primary care provider about this as well. Dysuria. We are waiting on a postvoid residual measurement prior to discharge. Her UA was unremarkable. She should follow up with her primary care provider if this symptom continues. Return precautions. Call 911 with any unusual shortness of breath symptomatic wheezing or chest pain. Also call for any concerning symptoms that may need immediate attention. All other nonimmediate concerns should be deferred to her PCP. MEDICATIONS AT DISCHARGE: 1. Dexamethasone 1.5 mg p.o. b.i.d. x2 days, 0.5 mg p.o. b.i.d. x1 day, then 0.75 mg p.o. daily x2 days. 2. Azithromycin 250 mg p.o. x4 days. 3. Wellbutrin 300 mg p.o. bedtime. 4. Pennsaid 2 g topically daily. 5. Belsomra 20 mg p.o. bedtime p.r.n. 6. Buspirone 22.5 mg p.o. b.i.d. 7. Senna S tablets 1 to 2 p.o. daily p.r.n. 8. Montelukast sodium 10 mg p.o. daily 9. Midodrine 2.5 mg p.o. bedtime 10. Midodrine 5 mg p.o. q.a.m. and q. afternoon 11. Nadolol 10 mg p.o. daily 12. Dicyclomine 20 mg p.o. b.i.d. 13. Pantoprazole 40 mg p.o. b.i.d. 14. Levocetirizine 5 mg p.o. bedtime 15. levalbuterol 2 puffs inhaled q.4 hours p.r.n. 16. Epinephrine 0.15 mg IM once p.r.n. 17. Combivent 1 puff inhaled q.4 hours 18. Levalbuterol 1.25 mg inhaled t.i.d. p.r.n. 19. Symbicort 160/4.5 two puffs inhaled b.i.d. p.r.n. 20. Ipratropium nebulizer solution 0.5 mg inhaled q.4 to 6 hours p.r.n. CONDITION AT DISCHARGE: Stable DISPOSITION: Home TIME: Approximately 65 minutes was spent on this discharge with about 20 minutes spent [id number] with the patient for interview, exam, and reviewing plan of care and discharge plan. This case has been reviewed by my attending physician Dr. Farmer and she agrees with this plan. SHEARODO GUERRA NP [id number]/[facility] #: [id number] [facility] CENTERGonzalez
== END 2019-08-08 13:00 | disposition home or self-care (01) ==
LOC: ED 13:09 → MED 17:57
PROVIDERS: ADMIT Nurse Practitioner Family; ATTEND Internal Medicine
DX: J45.901 Unspecified asthma with (acute) exacerbation (principal); I49.8 Other specified cardiac arrhythmias; I10 Essential (primary) hypertension; F41.9 Anxiety disorder, unspecified; G47.30 Sleep apnea, unspecified; K58.9 Irritable bowel syndrome, unspecified; R30.0 Dysuria; Q79.60 Ehlers-Danlos syndrome, unspecified; M79.7 Fibromyalgia; K21.9 Gastro-esophageal reflux disease without esophagitis; G47.00 Insomnia, unspecified; Z79.899 Other long term (current) drug therapy; Z88.8 Allergy status to other drugs, medicaments and biological substances; Z79.51 Long term (current) use of inhaled steroids
CPT/HCPCS: 36415; 71045; 80053; 81003; 83880; 84484; 85025; 93005; 94640; 96361; 96365; 99284; A9270-GY; G0378; J3475; J8540

== ENCOUNTER 2022-02-15 06:05 | Inpatient (IN) ==
[~2022-02-15 06:05] MED LIST changes: +Buffered Lidocaine 1% SYRIN 1 ml INTRADERM ONE; -Buffered Lidocaine 1% SYRIN* 1 ML/SYRINGE INTRADERM ONE; -Dexamethasone IV* 4 MG/ML 1 ML (4 MG) IV SLOW PU ONE; -Dexamethasone IV* 4 MG/ML 1 ML (4 MG) ONE; +Famotidine IV 10 MG/ML 2 ml VIAL (20 mg) IV ONE; -Famotidine IV* 10 MG/ML 2 ML (20 mg) IV ONE; -Famotidine IV* 10 MG/ML 2 ML (20 mg) ONE; -Gabapentin CAP(*) 300 MG ONE; -Gabapentin CAP(*) 300 MG PO ONE; +HYDROmorphone 1 MG/1 ML SYRINGE IV PRN; -Lactated Ringers 1000 ML Bag* 1,000 ML IV SCH; +Lactated Ringers 1000 ml BAG 1,000 ML IV SCH; +Naloxone 0.4 mg VIAL 0.4 mg/ml 1 ml VIAL IV PRN; +Scopolamine 1 mg/72hr PATCH TRANSDERM ONE; -Tranexamic Acid 1,000 MG in NS 0.9% 50 ML* (outpatient use) IV SCH; -ceFAZolin 2 GM PREMIX in ORs 2 GM/50 ML BAG IVPB ONE; -celeCOXIB CAP* 100 MG ONE; -celeCOXIB CAP* 200 MG PO ONE
[2022-02-15] MEDS ORDERED: Heparin 5000 UNITS/ML 1 mL VIAL ONE ×2 (06:58→07:33)
[2022-02-15] MEDS ORDERED: Scopolamine 1 mg/72hr PATCH ONE (06:58)
[2022-02-15] MEDS ORDERED: ceFAZolin 2 GM in NS PREMIX 2 GM/100 ML BAG IVPB ONE (06:59)
[2022-02-15] MEDS ORDERED: ceFAZolin 1 GM in Dextrose 1 GM/50 ML BAG ONE (06:59)
[2022-02-15] MEDS ORDERED: Famotidine IV 10 MG/ML 2 ml VIAL (20 mg) ONE (06:59)
[2022-02-15] MEDS ORDERED: Lidocaine 1% w EPI 1:100,000 MDV 20 ML VIAL ONE (07:10)
[2022-02-15] MEDS ORDERED: Methylene Blue 0.5 % 50 MG/10 ML AMP IV ONE (07:10)
[2022-02-15] MEDS ORDERED: Bupivacaine 0.5% SDV PF 30ML VIAL ONE (07:11)
[2022-02-15] MEDS ORDERED: Bupivacaine 0.25% EPI 200,000 30 ML SDV ONE (07:13)
[2022-02-15] MEDS ORDERED: Midazolam 2 mg/2 ml VIAL 1 mg/ml 2 ml VIAL (2 mg) ONE (07:22)
[2022-02-15] MEDS ORDERED: Rocuronium 50 mg VIAL 10 mg/ml 5 ml VIAL (50 mg) ONE ×2 (07:22→09:27)
[2022-02-15] MEDS ORDERED: Lidocaine 2% PF 5 ML VIAL ONE (07:22)
[2022-02-15] MEDS ORDERED: Propofol 10 MG/ML 20 ML BTL ONE (07:22)
[2022-02-15] MEDS ORDERED: fentaNYL 100 mcg/2 ml 50 MCG/ML VIAL ONE (07:22)
[2022-02-15] MEDS ORDERED: HYDROmorphone 0.5 MG/0.5 ML SYRINGE ONE (09:42)
[2022-02-15] MEDS ORDERED: Ondansetron 4 mg VIAL 2 MG/ML 2 ml VIAL ONE (09:43)
[2022-02-15] MEDS ORDERED: Sugammadex 500 MG/5 ML 5 ml VIAL IV PUSH ONE (09:44)
[2022-02-15] MEDS ORDERED: HYDROcodone/ACET. 7.5/325 LIQ 15 ML UDC PO PRN (10:07)
[2022-02-15] MEDS ORDERED: Prochlorperazine 5 mg/ml 2 ml VIAL (10 mg) ONE (10:38)
[2022-02-15] MEDS ORDERED: Naloxone 0.4 mg VIAL 0.4 mg/ml 1 ml VIAL IV PRN (10:44)
[2022-02-15] MEDS ORDERED: HYDROmorphone 1 MG/1 ML SYRINGE IV PRN (10:44)
[2022-02-15] MEDS ORDERED: Metoclopramide 5 MG/ML VIAL (10 mg) IV PRN (10:44)
[2022-02-15] MEDS ORDERED: Prochlorperazine 5 mg/ml 2 ml VIAL (10 mg) IV PRN (10:44)
[2022-02-15] MEDS: Lactated Ringers 1000 ml BAG 1,000 ML IV SCH ×2 (11:23→18:34)
[2022-02-15] MEDS ORDERED: Influenza vaccine *QUAD* *2022-23* 0.5 ML SYRINGE IM ONE (15:00)
[2022-02-15] MEDS: HYDROmorphone 0.5 MG/0.5 ML SYRINGE IV SLOW PU PRN ×2 (16:04→22:13)
[2022-02-15] MEDS: Heparin 5000 UNITS/ML 1 mL VIAL SUBCUT SCH (22:10)
[2022-02-16] MEDS: Heparin 5000 UNITS/ML 1 mL VIAL SUBCUT SCH ×2 (06:17→13:30)
[2022-02-16] MEDS: Lactated Ringers 1000 ml BAG 1,000 ML IV SCH (08:06)
[2022-02-16] MEDS ORDERED: CMCS:Vilazodone 40 mg TAB (NF) PO SCH (09:00)
[2022-02-16] MEDS: CMCS:FLUTICAS/UMECLI/VILANT 200-62.5-25 MDI (NF) INH SCH ×2 (09:11→13:38)
[2022-02-16] MEDS ORDERED: D5W 1/2 NS KCl 20 meq 1000 ml 1,000 ML IV SCH (11:00)
[2022-02-16 16:13] VITALS: BP 156/69
== END 2022-02-16 17:00 | disposition home or self-care (01) | DRG 620 ==
LOC: AA 06:05 → EDSTATUS 09:15 → SSU 10:08
PROVIDERS: ADMIT Surgery; ATTEND Surgery